=== PATIENT | male | born 1955 | race Caucasian/White ===

== ENCOUNTER 2016-08-23 06:23 | Day surgery (SDC) | payer OTHER ==
[~2016-08-23] VITALS: Ht 185.4 cm; Wt 132.0 kg
[~2016-08-23 06:23] MED LIST: ADVAI100I PO; ALBU8I INH; ASPI81 PO; CEPH500C3 PO; CLOP75 PO; LEVEMIR SQ; LISI2.5T3 PO; METO25 PO; NOVOLOGP2 SQ; OMEP20CA5 PO; PYRI200T4 PO; SPIRCAP INH; ZOCO40TA PO
[2016-08-23] MEDS ORDERED: SODIUM CHLOR 0.9% 1000 ML INJ 1,000 ML IV SCH (06:45)
[2016-08-23] MEDS ORDERED: NAPR220T95 PO (07:12)
[2016-08-23] MEDS ORDERED: LISI-515 PO (07:12)
[2016-08-23] MEDS ORDERED: NOVOINJ3 SQ (07:12)
[2016-08-23] MEDS ORDERED: PLAV75TA29 PO (07:12)
[2016-08-23] MEDS ORDERED: HYDR25TA5 PO (07:12)
[2016-08-23] MEDS ORDERED: ADVA250A INH (07:12)
[2016-08-23] MEDS ORDERED: ASPI1TAB69 PO (07:12)
[2016-08-23] MEDS ORDERED: CLOT1CRE8 TOPICAL (07:12)
[2016-08-23] MEDS ORDERED: METO25TA3 PO (07:12)
[2016-08-23] MEDS ORDERED: SIMV40TA PO (07:12)
[2016-08-23 07:13] VITALS: BP 176/85; PULSE 92; RESP 16; TEMP 97.9; O2SAT 100
[2016-08-23] MEDS ORDERED: VENTAER INH (07:13)
[2016-08-23] MEDS ORDERED: SPIRCAP INH (07:13)
[2016-08-23] MEDS ORDERED: INSU1INJ13 SQ (07:13)
[2016-08-23] MEDS ORDERED: ERGO1CAP10 PO (07:13)
[2016-08-23] MEDS ORDERED: MIDAZOLAM HCL 2 MG/2 ML VIAL ONE (08:35)
[2016-08-23] MEDS ORDERED: HEPARIN-NS/PF INJ 500 ML ONE (08:35)
[2016-08-23] MEDS ORDERED: IOHEXOL 350 MG/ML 100 ML BTL (for Cath Lab) OTHER ONE (09:30)
[2016-08-23] MEDS ORDERED: oxyCODONE/ACETAMINOPHEN 5 MG/325 MG TAB PO PRN ×2 (09:45)
[2016-08-23] MEDS ORDERED: ATROPINE SULFATE 1 MG/ML VIAL IV PRN (09:45)
[2016-08-23] MEDS ORDERED: METOCLOPRAMIDE HCL 10 MG/2 ML VIAL IV PRN (09:45)
[2016-08-23] MEDS ORDERED: MISC INFORMATION XX ONE (09:45)
[2016-08-23] MEDS ORDERED: BACITRACIN OINT 0.9 GM PKT TOP ONE (09:45)
[2016-08-23] MEDS ORDERED: LORazepam 2 MG/ML VIAL IV PRN (09:45)
[2016-08-23] MEDS ORDERED: SODIUM CHLOR 0.9% 250 ML INJ 250 ML IV PRN (09:45)
[2016-08-23] MEDS ORDERED: LIDOCAINE HCL 1% 50 ML VIAL INFIL PRN (09:45)
[2016-08-23] MEDS ORDERED: ONDANSETRON HCL 4 MG/2 ML VIAL IV PRN (09:45)
[2016-08-23] MEDS ORDERED: LISINOPRIL 20 MG TAB PO SCH (12:00)
[2016-08-23] MEDS ORDERED: METOPROLOL TARTRATE 25 MG TAB PO SCH (12:00)
[2016-08-23] MEDS ORDERED: PLEASE DISCONTINUE PREVIOUS SUPPLEMENTAL SCALE INSULIN ORDERS XX ONE (15:00)
[2016-08-23] MEDS ORDERED: GLUCAGON 1 MG/ML VIAL OTHER PRN (15:00)
[2016-08-23] MEDS ORDERED: DEXTROSE 50% IN WATER 50 ML VIAL(D50) IV PUSH PRN (15:00)
--- NOTE | 2016-08-23 15:36 | EKG ---
Date Performed: 08/23/2016 Time Performed: 07:10:16 PTAGE: 61 years EKG: Sinus rhythm with 1st degree A-V block LVH with secondary repolarization abnormality Lateral ST-T changes may be due to hypertrophy and/or ischemia When compared to prior tracing patient is back in sinus rhythm. Ab normal ECG PREVIOUS TRACING : 11/20/2015 08.20 DOCTOR: Angela Brown Interpretating Date/Time 08/23/2016 15:36:20
[2016-08-23] MEDS ORDERED: MEDIUM DOSE INSULIN NOVOLIN REGULAR SUPPLEMENTAL SCALE SQ SCH (16:00)
[2016-08-24] MEDS ORDERED: ISOSORBIDE MONONITRATE 30 MG TAB PO SCH (07:00)
--- NOTE | 2016-08-28 17:43 | MA ---
cc: MONROE MCCLENDON DATE: 08/28/2016 PROCEDURE PERFORMED 1. Fluoroscopy with interpretation. 2. Coronary angiography. 3. Coronary bypass graft angiography. METHOD The risks, benefits and alternatives were discussed with the patient. The patient understood and consented to the procedure. The patient was brought to the Cardiac Catheterization Laboratory, placed on the catheterization table. The right groin was prepped and draped in a sterile fashion. The right groin was anesthetized with 2% lidocaine. The right common femoral artery was cannulated. A 5-Cuban, 11-cm sheath was placed without difficulty. CORONARY ANGIOGRAPHY 1. The left main has minor luminal irregularities. 2. The left anterior descending coronary is heavily calcified and occluded in the proximal segment. 3. The left circumflex is occluded in the proximal segment. 4. The right coronary is subtotally occluded in the mid segment. The saphenous vein graft to the diagonal branch appears to be occluded. The saphenous vein graft to the right coronary is patent and has some minor luminal irregularities. The distal posterior descending branch is a smaller caliber size. The saphenous vein graft to the obtuse marginal branch is patent. The obtuse marginal branch is a smaller caliber size. 5. The left internal mammary to the left anterior descending coronary is patent. The distal left anterior descending coronary has moderate to severe small vessel distal disease not amenable to percutaneous intervention given small size. CONCLUSION 1. Severe [place] three-vessel coronary disease. 2. Three of four coronary bypass grafts are patent. PLAN Given the small caliber size vessels and the patency of the grafts, I do not think that there is anything that we can do percutaneously. We will add a long-acting nitrate, this may be an origin to some of his shortness of breath as an anginal equivalent, although non-cardiac causes should be investigated. MD ABNER Ham/CANDIE /2:36 PM /5:22 PM
== END 2016-08-23 16:41 | disposition home or self-care (01) ==
LOC: HDOC 06:23 → HDIC 06:23 → HDOC 14:00 → HDIC 14:44 → HDOC 16:41
PROVIDERS: ATTEND Internal Medicine
DX: I25.10 Atherosclerotic heart disease of native coronary artery without angina pectoris (principal); I10 Essential (primary) hypertension; I73.9 Peripheral vascular disease, unspecified; J44.9 Chronic obstructive pulmonary disease, unspecified; E11.9 Type 2 diabetes mellitus without complications; Z95.1 Presence of aortocoronary bypass graft; Z87.891 Personal history of nicotine dependence
CPT/HCPCS: 82948; 86850; 86900; 86901; 93005; 93454; C1769; C1893; J1644; J2250; J3010; Q9967

== ENCOUNTER 2016-10-25 17:24 | Inpatient (IN) | payer OTHER ==
[~2016-10-25] VITALS: Ht 188 cm; Wt 135.9 kg
[~2016-10-25 17:24] MED LIST changes: +ADVA250A INH; -ADVAI100I PO; -ALBU8I INH; +ASPI1TAB69 PO; -ASPI81 PO; -CEPH500C3 PO; -CLOP75 PO; +CLOT1CRE8 TOPICAL; +ERGO1CAP10 PO; +INSU1INJ13 SQ; -LEVEMIR SQ; +LISI-515 PO; -LISI2.5T3 PO; -METO25 PO; +METO25TA3 PO; +NAPR220T95 PO; +NOVOINJ3 SQ; -NOVOLOGP2 SQ; -OMEP20CA5 PO; +PLAV75TA29 PO; -PYRI200T4 PO; +SIMV40TA PO; +VENTAER INH; -ZOCO40TA PO
[2016-10-25 17:26] VITALS: BP 157/89; PULSE 108; RESP 26; TEMP 97.9; O2SAT 94
[2016-10-25 18:05] VITALS: BP 182/112; O2SAT 94
--- NOTE | 2016-10-25 18:05 | PD ---
HPI Chief Complaint: Chest Pain Time Seen by Provider: 18:05 Travel History International Travel<30 days: No Contact w/Intl Traveler<30days: No Traveled to known affect area: No History of Present Illness HPI 61-year-old male with severe CAD, previous CABG 4, hypertension, diabetes, COPD , followed by Dr. Barton and Dr. Pittman cardiology. Patient states approximately 4 weeks ago he was taken off his hydrochlorothiazide. He has since then he noticed swelling in his lower extremities. Over the last week he has noticed an increase in shortness of breath with activity. Over the last 3 days he has developed this chest pressure. He doesn't call it a pain specifically but a pressure, mostly with activity. Patient states his last stress test was in August. At that time something wasn't right" and was followed by cardiac catheterization which showed 3 out of 4 bypass vessels were patent. There was severe arterial disease identified. Patient denies any recent illnesses, fever, chills. Denies abdominal pain, nausea, vomiting. No other symptoms reported this time. PFSH Past Medical History Hx Anticoagulant Therapy: Yes Arthritis: No Asthma: No Autoimmune Disease: No Blood Disorders: No Anxiety: No Depression: No Heart Rhythm Problems: Yes Cancer: No Cardiovascular Problems: Yes High Cholesterol: Yes Chemotherapy: No Chest Pain: No Congestive Heart Failure: No COPD: Yes Cerebrovascular Accident: No Diabetes: Yes (TYPE II) Patient Takes Glucophage: No Diminished Hearing: No Endocrine: Yes Gastrointestinal Disorders: Yes ("fatty liver") GERD: Yes Glaucoma: No Genitourinary: Yes Headaches: No Hepatitis: No Hiatal Hernia: No Heparin Induced Thrombocytopen: No Hypertension: Yes Immune Disorder: No Implanted Vascular Access Dvce: No Kidney Stones: No Musculoskeletal: Yes Neurologic: No Psychiatric: No Reproductive: No Respiratory: Yes Integumentary: Yes (GENERALIZED SORES FROM SCRATCHING) Migraines: No Myocardial Infarction: No Radiation Therapy: No Renal Failure: No Seizures: No Sickle Cell Disease: No Sleep Apnea: No Thyroid Disease: No Ulcer: No Influenza Vaccination: No PNEUMOCCOCAL Vaccine (Year): 2 Past Surgical History Abdominal Surgery: Yes (CHOLECYSTECTOMY) AICD: No Appendectomy: No Arteriovenous Shunt: No Cardiac Surgery: Yes (QUAD BYPASS 05/2011) Cholecystectomy: Yes Coronary Artery Bypass Graft: Yes (4 YEARS AGO) Ear Surgery: No Endocrine Surgery: No Eye Surgery: No Genitourinary Surgery: No Gynecologic Surgery: No Insulin Pump: No Joint Replacement: No Neurologic Surgery: No Oral Surgery: No Pacemaker: No Thoracic Surgery: Yes (CABG) Other Surgery: Yes Social History Alcohol Use: No Tobacco Use: No Substance Use: No Allergies-Medications (Allergen,Severity, Reaction): Coded Allergies: Penicillin (Verified Allergy, Unknown, pt unknown, 10/25/16) Reported Meds & Prescriptions Reported Meds & Active Scripts Active Reported Ventolin Hfa 18 GM Inh (Albuterol Sulfate) 90 Mcg/Act Aer 2 Puff INH Q4-6H PRN Tresiba Flextouch Pen Inj (Insulin Degludec Inj) 600 unit/3 ML Pen 120 Units SQ Spiriva Handihaler (Tiotropium Inh) 18 Mcg Cap 18 Mcg INH DAILY 1 capsule = 18 mcg Simvastatin 40 Mg Tab 40 Mg PO HS Novolog Flexpen Inj (Insulin Aspart) 300 Unit/3 Ml Pen 30 Units SQ Metoprolol Tartrate 25 Mg Tab 25 Mg PO BID Lisinopril 20 Mg Tab 40 Mg PO DAILY Plavix (Clopidogrel Bisulfate) 75 Mg Tab 75 Mg PO DAILY Aspirin 81 Mg Tabdr 81 Mg PO DAILY Aleve (Naproxen Sodium) 220 Mg Tab 220 Mg PO BID PRN Advair Diskus Inh (Fluticasone-Salmeterol Inh) 250-50 Mcg/Blist Aer 1 Puff INH BID Rinse mouth after use. Review of Systems Except as stated in HPI: all other systems reviewed are Neg Physical Exam Narrative GENERAL: BCL patient, lying in bed in no acute distress SKIN: Warm and dry. Multiple scabbed scalp lesions on the bilateral lower extremities. HEAD: Atraumatic. Normocephalic. EYES: Pupils equal and round. No scleral icterus. No injection or drainage. ENT: No nasal bleeding or discharge. Mucous membranes pink and moist. NECK: Trachea midline. No JVD. CARDIOVASCULAR: Tachycardic rate and rhythm. No murmur appreciated. RESPIRATORY: No accessory muscle use. Diminished due to poor inspiratory effort to auscultation. Breath sounds equal bilaterally. GASTROINTESTINAL: Abdomen soft, non-tender, nondistended. Hepatic and splenic margins not palpable. MUSCULOSKELETAL: No obvious deformities. No clubbing. No cyanosis. 1+ bilateral lower extremity edema NEUROLOGICAL: Awake and alert. No obvious cranial nerve deficits. Motor grossly within normal limits. Normal speech. PSYCHIATRIC: Appropriate mood and affect; insight and judgment normal. Data Data Last Documented VS Vital Signs Date Time Temp Pulse Resp B/P Pulse Ox O2 Delivery O2 Flow Rate FiO2 10/25/16 18:05 182/112 10/25/16 18:05 94 Nasal Cannula 2 10/25/16 17:26 97.9 108 26 Orders Electrocardiogram (10/25/16 ) B-Type Natriuretic Peptide (10/25/16 18:04) Ckmb (Isoenzyme) Profile (10/25/16 18:) Complete Blood Count With Diff (10/25/16 18:) Comprehensive Metabolic Panel (10/25/16 18:04) Magnesium (Mg) (10/25/16 18:) Prothrombin Time / Inr (Pt) (10/25/16 18:) Act Partial Throm Time (Ptt) (10/25/16 18:04) Troponin I (10/25/16 18:04) Chest, Single Ap (10/25/16 18:04) Ecg Monitoring (10/25/16 18:04) Bilateral Bp Monitoring (10/25/16 18:04) Iv Access Insert/Monitor (10/25/16 18:04) Oximetry (10/25/16 18:04) Oxygen Administration (10/25/16 18:04) Sodium Chloride 0.9% Flush (Ns Flush) (10/25/16 18:15) Aspirin Chew (Aspirin Chew) (10/25/16 18:15) CKMB (10/25/16 18:15) CKMB% (10/25/16 18:15) Heparin Infusion GABRIELA.Q1H (10/25/16 19:08) Heparin Inj (Heparin Inj) (10/25/16 19:15) Heparin Inj (Heparin Inj) (10/26/16 01:15) Heparin Inj (Heparin Inj) (10/26/16 01:15) Heparin-D5w Inj (Heparin-D5w Inj) (10/25/16 19:15) Cbc No Diff, Includes Plts (10/28/16 06:00) Act Partial Throm Time (Ptt) (10/26/16 02:08) Occult Blood (Hemoccult) Stool (10/25/16 19:08) Consult Cardiology (10/25/16 ) Nitroglycerin-Dextrose Inj (Nitroglyceri (10/25/16 19:30) Admit Order (Ed Use Only) (10/25/16 19:40) Labs Laboratory Tests Test 10/25/16 18:15 White Blood Count 8.6 TH/MM3 Red Blood Count 5.05 MIL/MM3 Hemoglobin 13.4 GM/DL Hematocrit 41.0 % Mean Corpuscular Volume 81.2 FL Mean Corpuscular Hemoglobin 26.6 PG Mean Corpuscular Hemoglobin 32.8 % Concent Red Cell Distribution Width 16.6 % Platelet Count 170 TH/MM3 Mean Platelet Volume 10.5 FL Neutrophils (%) (Auto) 66.7 % Lymphocytes (%) (Auto) 22.9 % Monocytes (%) (Auto) 7.5 % Eosinophils (%) (Auto) 2.0 % Basophils (%) (Auto) 0.9 % Neutrophils # (Auto) 5.7 TH/MM3 Lymphocytes # (Auto) 2.0 TH/MM3 Monocytes # (Auto) 0.6 TH/MM3 Eosinophils # (Auto) 0.2 TH/MM3 Basophils # (Auto) 0.1 TH/MM3 CBC Comment DIFF FINAL Differential Comment Prothrombin Time 10.7 SEC Prothromb Time International 1.0 RATIO Ratio Activated Partial 28.1 SEC Thromboplast Time Sodium Level 136 MEQ/L Potassium Level 4.4 MEQ/L Chloride Level 100 MEQ/L Carbon Dioxide Level 25.4 MEQ/L Anion Gap 11 MEQ/L Blood Urea Nitrogen 31 MG/DL Creatinine 2.34 MG/DL Estimat Glomerular Filtration 29 ML/MIN Rate Random Glucose 200 MG/DL Calcium Level 8.5 MG/DL Magnesium Level 1.8 MG/DL Total Bilirubin 0.5 MG/DL Aspartate Amino Transf 49 U/L (AST/SGOT) Alanine Aminotransferase 25 U/L (ALT/SGPT) Alkaline Phosphatase 54 U/L Total Creatine Kinase 930 U/L Creatine Kinase MB 13.1 NG/ML Creatine Kinase MB % 1.4 % Troponin I 6.44 NG/ML B-Type Natriuretic Peptide 552 PG/ML Total Protein 6.9 GM/DL Albumin 3.3 GM/DL MDM Medical Decision Making Medical Screen Exam Complete: Yes Emergency Medical Condition: Yes Medical Record Reviewed: Yes Differential Diagnosis ACS versus BNP versus chest wall pain versus pleuritic pain versus pneumonia Narrative Course 61-year-old male presents to emergency department for evaluation of a chest pressure, exacerbated mostly with activity increased shortness of breath, lower extremity swelling. Patient appears overall well without distress. He is not currently having any chest pain. I contacted cardiology, Dr. Blake who is covering for Dr. Pittman, prior to workup being completed to inform him of EKG changes identified as well as the patient is here. At this time he has no further recommendation. CBC is without acute concern. CMP is with elevated creatinine 2.34 with a BUN of 31. GFR is 29. Troponin is 6.44. BNP is 552. My attending physician Dr. Leon has contacted Dr. Blake who is in the emergency department. Please refer to her documentation. [address] Willis. Patient being admitted to [facility]. Physician Communication Physician Communication [id number] 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 I inform him of the new ST depression and increase in elevation in anterior leads when compared to prior, as well as the pt's history and current symptoms. 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 Diagnosis Primary Impression: NSTEMI, initial episode of care Additional Impressions: Chest pressure Shortness of breath Admitting Information Admitting Physician Requests: Admit Condition: Stable CorwinAdrijesús MARSH Oct 25, 2016 18:05
[2016-10-25] MEDS ORDERED: SODIUM CHLORIDE 0.9% FLUSH 5 ML FLUSH IVF PRN (18:15)
[2016-10-25] MEDS ORDERED: ASPIRIN 81 MG CHEW TAB CHEW ONE (18:15)
[2016-10-25 18:23] LABS: AUTOMATED NEUTROPHIL # 5.7 TH/MM3 (1.8-7.7); BASOPHIL # 0.1 TH/MM3 (0-0.2); BASOPHIL % 0.9 % (0.0-2.0); EOSINOPHIL # 0.2 TH/MM3 (0-0.4); HEMO FLAGS DIFF FINAL; LYMPH % 22.9 % (9.0-44.0); MEAN CELL VOLUME 81.2 FL (80.0-100.0); MEAN CORPUSCULAR HEMOGLOBIN 26.6 PG (27.0-34.0); MEAN CORPUSCULAR HGB CONC 32.8 % (32.0-36.0); MONO % 7.5 % (0.0-8.0); NEUT % 66.7 % (16.0-70.0); PLATELET COUNT 170 TH/MM3 (150-450); RED BLOOD COUNT 5.05 MIL/MM3 (4.50-5.90); RED CELL DISTRIBUTION WIDTH 16.6 % (11.6-17.2); WHITE BLOOD COUNT 8.6 TH/MM3 (4.0-11.0)
--- NOTE | 2016-10-25 18:30 | RADRPT ---
EXAM DATE/TIME: 10/25/2016 18:10 [facility] COMPARISON: CHEST SINGLE AP, March 12, 2014, 17:56. INDICATIONS : Shortness of breath. MEDICAL HISTORY : Chronic obstructive pulmonary disease. Diabetes mellitus type II. Hypertension. SURGICAL HISTORY : CABG. ENCOUNTER: Initial ACUITY: 2 days PAIN SCORE: 0/10 LOCATION: chest FINDINGS: A single view of the chest demonstrates the lungs to be symmetrically aerated without evidence of mas s, infiltrate or effusion. The cardiomediastinal contours are unremarkable. Osseous structures are intact. Patient has had previous median sternotomy. CONCLUSION: No acute cardiopulmonary disease demonstrated. Ruben Rivas MD on October 25, 2016 at 18:28 Board Certified Radiologist. This report was verified electronically.
[2016-10-25 18:43] LABS: APTT (PATIENT) 28.1 SEC (24.3-30.1); PROTHROMBIN TIME - PATIENT 10.7 SEC (9.8-11.6)
[2016-10-25 18:56] LABS: ALKALINE PHOSPHATASE 54 U/L (45-117); ALT (GPT) 25 U/L (12-78); ANION GAP 11 MEQ/L (5-15); AST (GOT) 49 U/L (15-37); BICARBONATE 25.4 MEQ/L (21.0-32.0); BLOOD UREA NITROGEN 31 MG/DL (7-18); CHLORIDE 100 MEQ/L (98-107); CREATINE KINASE 930 U/L (39-308); GLOMERULAR FILTRATION RATE 29 ML/MIN (>89); MAGNESIUM 1.8 MG/DL (1.5-2.5); POTASSIUM 4.4 MEQ/L (3.5-5.1); SODIUM (NA) 136 MEQ/L (136-145); TOTAL BILIRUBIN ADULT 0.5 MG/DL (0.2-1.0)
[2016-10-25] MEDS ORDERED: HEPARIN SODIUM - IV 10,000 UNITS/10 ML VIAL IV ONE (19:15)
[2016-10-25 19:16] LABS: CKMB 13.1 NG/ML (0.5-3.6)
[2016-10-25] MEDS: HEPARIN-D5W INJ 250 ML IV SCH (19:22)
--- NOTE | 2016-10-25 19:25 | PD ---
Physical Exam Narrative GENERAL: Well-nourished, well-developed patient. SKIN: Warm and dry. HEAD: Normocephalic and atraumatic. EYES: No injection or drainage. ENT: No nasal drainage noted. NECK: Supple, trachea midline. CARDIOVASCULAR: Regular rate and rhythm RESPIRATORY: Breath sounds equal bilaterally. No accessory muscle use. GASTROINTESTINAL: Abdomen soft, non-tender, nondistended. EXTREMITIES: No edema. BACK: Nontender without obvious deformity. NEUROLOGICAL: Awake and alert. Motor and sensory grossly within normal limits. Normal speech. Data Data Last Documented VS Orders Electrocardiogram (10/25/16 ) B-Type Natriuretic Peptide (10/25/16 18:04) Ckmb (Isoenzyme) Profile (10/25/16 18:) Complete Blood Count With Diff (10/25/16 18:) Comprehensive Metabolic Panel (10/25/16 18:) Magnesium (Mg) (10/25/16 18:04) Prothrombin Time / Inr (Pt) (10/25/16 18:) Act Partial Throm Time (Ptt) (10/25/16 18:) Troponin I (10/25/16 18:) Chest, Single Ap (10/25/16 18:04) Ecg Monitoring (10/25/16 18:) Bilateral Bp Monitoring (10/25/16 18:) Iv Access Insert/Monitor (10/25/16 18:) Oximetry (10/25/16 18:) Oxygen Administration (10/25/16 18:04) Sodium Chloride 0.9% Flush (Ns Flush) (10/25/16 18:15) Aspirin Chew (Aspirin Chew) (10/25/16 18:15) CKMB (10/25/16 18:15) CKMB% (10/25/16 18:15) Heparin Infusion GABRIELA.Q1H (10/25/16 19:08) Heparin Inj (Heparin Inj) (10/25/16 19:15) Heparin Inj (Heparin Inj) (10/26/16 01:15) Heparin Inj (Heparin Inj) (10/26/16 01:15) Heparin-D5w Inj (Heparin-D5w Inj) (10/25/16 19:15) Cbc No Diff, Includes Plts (10/28/16 06:00) Act Partial Throm Time (Ptt) (10/26/16 02:08) Occult Blood (Hemoccult) Stool (10/25/16 19:08) Consult Cardiology (10/25/16 ) Nitroglycerin-Dextrose Inj (Nitroglyceri (10/25/16 19:30) Admit Order (Ed Use Only) (10/25/16 19:40) Labs MDM Supervised Visit with SILVIA: Yes Interpretation(s) CBC & BMP Diagram 10/25/16 18:15 Last 24 hours Impressions Chest X-Ray 10/25/16 1804 Signed Impressions: Service Date/Time: Tuesday, October 25, 2016 18:10 - CONCLUSION: No acute cardiopulmonary disease demonstrated. Ruben Rivas MD EKG is sinus tachycardia at [address] depression V5, 2 and increase in elevation anteriorly when compared to prior Narrative Course I, Dr. leon, have reviewed the advance practice practitioner's documentation and am in agreement, met with the patient face to face, made the diagnosis, and the medical decision making was done by me. *My assessment and Findings: 61-year-old male presents with chest pain. Given EKG I had PA discuss with screen making technician on-call given new ST depression and increase in elevation in anterior leads. When I received critical troponin I discuss this with screen making technician. Patient was updated and he will be started on nitroglycerin and heparin drip and admitted to [facility] for further care. Critical Care Narrative Aggregate critical care time was 35 minutes. Time to perform other separately billable procedures was not included in the critical care time. My time did not include minutes spent treating any other patients simultaneously or on activities that did not directly contribute to the patient's treatment. The services I provided to this patient were to treat and/or prevent clinically significant deterioration that could result in: Cardiogenic shock, hypertensive emergency I provided critical care services requiring my management, as noted below: Chart data review, documentation time, medication orders and management, vital sign assessments/reviewing monitor data, ordering and reviewing lab tests, ordering and interpreting/reviewing x-rays and diagnostic studies, care of the patient and discussion of the patient with the admitting physicians. Physician Communication Physician Communication dr ro was in department as I got called about patient's critical troponin, he reviewed ekg and prior cath report and states medical management but didn't talk with patient Diagnosis Primary Impression: NSTEMI, initial episode of care Additional Impressions: Chest pressure Shortness of breath Admitting Information Admitting Physician Requests: Admit Scripts Cyclobenzaprine (Flexeril)10 Mg Tab10 Mg PO Q8H PRN (spasm pain) #20 TAB Ref 1 Prov:ArletteJorge Alberto Chetan DO 10/31/16 Insulin Aspart Inj (Novolog Inj)1,000 Unit/10 Ml Vial SQ DIRECTED #10 ML Ref 0 Sliding Scale as directed. Prov:Dian Louie 10/31/16 Insulin Detemir Inj (Levemir Inj)1,000 unit/ 10 ML Vial20 Units SQ BID 30 Days Prov:Dian Louie 10/31/16 Guaifenesin ER 12 HR (Mucinex ER 12 HR)600 Mg [id number] Mg PO BID #62 TAB Prov:Dian Louie 10/31/16 Loratadine (Claritin)10 Mg Tab10 Mg PO DAILY #31 TAB Prov:Dian Louie 10/31/16 Carvedilol (Coreg)12.5 Mg Tab12.5 Mg PO Q12HR #62 TAB Prov:Dian Louie 10/31/16 Furosemide 20 Mg Tab20 Mg PO DAILY #31 TAB Prov:Dian Louie 10/31/16 Condition: Stable Paola Leon MD Oct 25, 2016 19:25 Creatinine 2.34 MG/DL Estimat Glomerular Filtration 29 ML/MIN Rate Random Glucose 200 MG/DL Calcium Level 8.5 MG/DL Magnesium Level 1.8 MG/DL Total Bilirubin 0.5 MG/DL Aspartate Amino Transf 49 U/L (AST/SGOT) Alanine Aminotransferase 25 U/L (ALT/SGPT) Alkaline Phosphatase 54 U/L Total Creatine Kinase 930 U/L Creatine Kinase MB 13.1 NG/ML Creatine Kinase MB % 1.4 % Troponin I 6.44 NG/ML B-Type Natriuretic Peptide 552 PG/ML Total Protein 6.9 GM/DL Albumin 3.3 GM/DL MDM Supervised Visit with SILVIA: Yes Interpretation(s) CBC & BMP Diagram 10/25/16 18:15 Last 24 hours Impressions Chest X-Ray 10/25/16 1804 Signed Impressions: Service Date/Time: Tuesday, October 25, 2016 18:10 - CONCLUSION: No acute cardiopulmonary disease demonstrated. Ruben Rivas MD EKG is sinus tachycardia at [address] depression V5, 2 and increase in elevation anteriorly when compared to prior Narrative Course I, Dr. leon, have reviewed the advance practice practitioner's documentation and am in agreement, met with the patient face to face, made the diagnosis, and the medical decision making was done by me. *My assessment and Findings: 61-year-old male presents with chest pain. Given EKG I had PA discuss with screen making technician on-call given new ST depression and increase in elevation in anterior leads. When I received critical troponin I discuss this with screen making technician. Patient was updated and he will be started on nitroglycerin and heparin drip and admitted to [facility] for further care. Critical Care Narrative Aggregate critical care time was 35 minutes. Time to perform other separately billable procedures was not included in the critical care time. My time did not include minutes spent treating any other patients simultaneously or on activities that did not directly contribute to the patient's treatment. The services I provided to this patient were to treat and/or prevent clinically significant deterioration that could result in: Cardiogenic shock, hypertensive emergency I provided critical care services requiring my management, as noted below: Chart data review, documentation time, medication orders and management, vital sign assessments/reviewing monitor data, ordering and reviewing lab tests, ordering and interpreting/reviewing x-rays and diagnostic studies, care of the patient and discussion of the patient with the admitting physicians. Physician Communication Physician Communication dr ro was in department as I got called about patient's critical troponin, he reviewed ekg and prior cath report and states medical management but didn't talk with patient Diagnosis Primary Impression: NSTEMI, initial episode of care Additional Impressions: Chest pressure Shortness of breath Admitting Information Admitting Physician Requests: Admit Condition: Stable Paola Leon MD Oct 25, 2016 19:25
[2016-10-25] MEDS ORDERED: NITROGLYCERIN-DEXTROSE INJ 250 ML IV ONE (19:30)
[2016-10-25 20:00] VITALS: BP 130/69; PULSE 100; RESP 18; O2SAT 94
[2016-10-25] MEDS ORDERED: SODIUM CHLORIDE 0.9% FLUSH 5 ML FLUSH IV PRN (21:30)
[2016-10-25] MEDS ORDERED: ALBUTEROL SULFATE 90 MCG/ACT HFA 8 GM INHALER INH PRN (21:45)
[2016-10-25] MEDS ORDERED: cloNIDine HCL 0.1 MG TAB PO PRN (21:45)
[2016-10-25 22:00] VITALS: BP 150/84; PULSE 100; RESP 20; O2SAT 95
[2016-10-25] MEDS ORDERED: DEXTROSE 50% IN WATER 50 ML VIAL(D50) IV PUSH PRN (22:00)
[2016-10-25] MEDS ORDERED: GLUCAGON 1 MG/ML VIAL OTHER PRN (22:00)
[2016-10-25] MEDS: NITROGLYCERIN 2% OINT 1 GM PACKET TOPICAL SCH (22:04)
[2016-10-26] VITALS (9 sets, daily range): BP systolic 138–164; BP diastolic 78–89; PULSE 92–110; RESP 18–20; TEMP 97–98; O2SAT 94–98
[2016-10-26] MEDS ORDERED: HEPARIN SODIUM - IV 10,000 UNITS/10 ML VIAL IV PRN (01:15)
[2016-10-26 01:20] LABS: CKMB 8.9 NG/ML (0.5-3.6)
[2016-10-26 02:33] LABS: APTT (PATIENT) 29.5 SEC (24.3-30.1)
[2016-10-26] MEDS: NITROGLYCERIN 2% OINT 1 GM PACKET TOPICAL SCH ×3 (03:52→16:56)
[2016-10-26] MEDS: HEPARIN SODIUM - IV 10,000 UNITS/10 ML VIAL IV PRN (03:55)
[2016-10-26 06:39] LABS: BICARBONATE 25.3 MEQ/L (21.0-32.0); POTASSIUM 4.1 MEQ/L (3.5-5.1)
[2016-10-26] MEDS: INSULIN ASPART SUPPLEMENTAL SCALE SQ SCH ×4 (06:45→20:47)
[2016-10-26 07:10] LABS: CKMB 10.8 NG/ML (0.5-3.6)
[2016-10-26 08:07] LABS: APTT (PATIENT) 36.5 SEC (24.3-30.1)
--- NOTE | 2016-10-26 08:52 | HHI.HP ---
HPI Service CP Hospitalists Primary Care Physician Lyndsey Barton MD Admission Diagnosis sob. elevated troponin Chief Complaint: sob Travel History International Travel<30 Days: No Contact w/Intl Traveler <30 Da: No Traveled to Known Affected Are: No History of Present Illness Pt is 61 yo with cad, cabg x 4 2009, [facility] 09/03 with 3/4 patent grafts. Has been complaining of postnasal gtt and chest congestion, sob with exertion. Came to ED and found to have elevated troponin and concern for new st depression laterally. admitted to medicine with heparin gtt and cardiology notified from the ED. pt denies cp at the moment. says he feels both legs are more swollen since his hctz stopped 6 weeks ago. Review of Systems Other sob postnasal gtt Past Family Social History Past Medical History cad. 4v cabg 2009 [facility] 09/03. 3/4 graft open diabetes ckd 3 hx [place] with bridging fibrosis PAD. rle revascularization. copd Reported Medications Ventolin Hfa 18 GM Inh (Albuterol Sulfate) 90 Mcg/Act Aer 2 Puff INH Q4-6H PRN Tresiba Flextouch Pen Inj (Insulin Degludec Inj) 600 unit/3 ML Pen 120 Units SQ Spiriva Handihaler (Tiotropium Inh) 18 Mcg Cap 18 Mcg INH DAILY 1 capsule = 18 mcg Simvastatin 40 Mg Tab 40 Mg PO HS Novolog Flexpen Inj (Insulin Aspart) 300 Unit/3 Ml Pen 30 Units SQ Metoprolol Tartrate 25 Mg Tab 25 Mg PO BID Lisinopril 20 Mg Tab 40 Mg PO DAILY Plavix (Clopidogrel Bisulfate) 75 Mg Tab 75 Mg PO DAILY Aspirin 81 Mg Tabdr 81 Mg PO DAILY Aleve (Naproxen Sodium) 220 Mg Tab 220 Mg PO BID PRN Advair Diskus Inh (Fluticasone-Salmeterol Inh) 250-50 Mcg/Blist Aer 1 Puff INH BID Rinse mouth after use. Allergies: Coded Allergies: Penicillin (Verified Allergy, Unknown, pt unknown, 10/25/16) Family History NC Social History no etoh/tob quit smoking 2009 Physical Exam Vital Signs heart reg lung cta abd s/nt ext mild lower ext edema diffuse skin sores Vital Signs Date Time Temp Pulse Resp B/P Pulse Ox O2 Delivery O2 Flow Rate FiO2 10/26/16 08:15 99 10/26/16 06:00 110 10/26/16 05:00 105 3/11/17 04:00 98.0 99 20 148/88 98 10/26/16 04:00 99 10/26/16 00:28 92 18 138/78 96 Room Air 10/25/16 22:00 100 20 150/84 95 Room Air 10/25/16 20:00 100 18 130/69 94 Room Air 10/25/16 18:05 182/112 10/25/16 18:05 94 Nasal Cannula 2 10/25/16 18:05 94 Nasal Cannula 2 10/25/16 17:26 97.9 108 26 157/89 94 Room Air Laboratory Laboratory Tests Test 10/25/16 10/26/16 10/26/16 10/26/16 18:15 00:09 02:05 05:52 White Blood Count 8.6 Red Blood Count 5.05 Hemoglobin 13.4 Hematocrit 41.0 Mean Corpuscular Volume 81.2 Mean Corpuscular Hemoglobin 26.6 Mean Corpuscular Hemoglobin 32.8 Concent Red Cell Distribution Width 16.6 Platelet Count 170 Mean Platelet Volume 10.5 Neutrophils (%) (Auto) 66.7 Lymphocytes (%) (Auto) 22.9 Monocytes (%) (Auto) 7.5 Eosinophils (%) (Auto) 2.0 Basophils (%) (Auto) 0.9 Neutrophils # (Auto) 5.7 Lymphocytes # (Auto) 2.0 Monocytes # (Auto) 0.6 Eosinophils # (Auto) 0.2 Basophils # (Auto) 0.1 CBC Comment DIFF FINAL Differential Comment Prothrombin Time 10.7 Prothromb Time International 1.0 Ratio Activated Partial 28.1 29.5 Thromboplast Time Sodium Level 136 138 Potassium Level 4.4 4.1 Chloride Level 100 103 Carbon Dioxide Level 25.4 25.3 Anion Gap 11 10 Blood Urea Nitrogen 31 27 Creatinine 2.34 1.94 Estimat Glomerular Filtration 29 36 Rate Random Glucose 200 191 Calcium Level 8.5 8.7 Magnesium Level 1.8 Total Bilirubin 0.5 Aspartate Amino Transf 49 (AST/SGOT) Alanine Aminotransferase 25 (ALT/SGPT) Alkaline Phosphatase 54 Total Creatine Kinase 930 680 805 Creatine Kinase MB 13.1 8.9 10.8 Creatine Kinase MB % 1.4 1.3 1.3 Troponin I 6.44 5.89 6.24 B-Type Natriuretic Peptide 552 Total Protein 6.9 Albumin 3.3 Test 10/26/16 07:44 Activated Partial 36.5 Thromboplast Time Result Diagram: 10/25/16 1815 10/26/16 0552 Assessment and Plan Problem List: (1) Shortness of breath Status: Acute Plan: Pt present with sob. worse with exertion complains of alot of sinus and postnasal gtt "into chest" for at least "4-6months" Pt had [facility] 09/03 and / grafts patent admitted last night for c/o sob and elevated troponin and concern for lateral st depression. heparin initiated in ED pt already on asa/plavix/statin/bb cardiology had been consulted in ED. he is concerned about leg swelling since hctz was stopped. cardiology initiating diuretics. monitor bmp. echo will initiate medical therapy for sinus drainage. pt says his pcp already gave him "2 courses of abx" (2) Diabetes mellitus Status: Chronic Plan: will provide ssi for now hold home meds. (3) CKD (chronic kidney disease) stage 3, GFR 30-59 ml/min Status: Chronic Plan: stable. (4) PVD (peripheral vascular disease) Status: Chronic (5) CAD (coronary artery disease) Status: Chronic Plan: hx cabg x 4 2009 [facility] 09/03 as above. cont home meds (6) VT (ventricular tachycardia) Status: Resolved (7) GERD (gastroesophageal reflux disease) Status: Chronic Plan: ppi Physician Certification 2 Midnight Certification Type: Admission for Inpatient Services Order for Inpatient Services 3The services are ordered in accordance with Medicare regulations or non- Medicare payer requirements, as applicable. In the case of services not specified as inpatient-only, they are appropriately provided as inpatient services in accordance with the 2-midnight benchmark. Estimated LOS (days): 3 3 days is the estimated time the patient will need to remain in the hospital, assuming treatment plan goals are met and no additional complications. Post-Hospital Plan: Home John Fuentes MD Oct 26, 2016 08:52
[2016-10-26] MEDS: TIOTROPIUM BROMIDE 18 MCG INH INH SCH (09:00)
[2016-10-26] MEDS: BUDESONIDE-FORMOTEROL 160/4.5 MCG INHALER INH SCH ×2 (09:00→20:47)
[2016-10-26] MEDS ORDERED: LISINOPRIL 20 MG TAB PO SCH (09:00)
[2016-10-26] MEDS: CLOPIDOGREL 75 MG TAB PO SCH (09:35)
[2016-10-26] MEDS: ASPIRIN EC 81 MG TABEC PO SCH (09:36)
[2016-10-26] MEDS: SODIUM CHLORIDE 0.9% FLUSH 5 ML FLUSH IV SCH ×2 (09:36→20:47)
[2016-10-26] MEDS: METOPROLOL TARTRATE 25 MG TAB PO SCH ×2 (09:36→20:47)
[2016-10-26] MEDS: FLUTICASONE PROPIONATE 50 MCG/ACT 16 GM NASAL SPRAY EACH NARE SCH (09:36)
[2016-10-26] MEDS: FUROSEMIDE 40 MG/4 ML VIAL IV PUSH SCH ×2 (09:47→16:55)
[2016-10-26] MEDS: guaiFENesin E.R. 600 MG TAB PO SCH ×2 (09:47→20:47)
[2016-10-26] MEDS: LORATADINE 10 MG TAB PO SCH (09:47)
--- NOTE | 2016-10-26 10:52 | MB ---
cc: LILLIAN MANJARREZ MD DATE OF CONSULTATION: 10/26/2016 REASON FOR CONSULTATION Shortness of breath, non-STEMI. HISTORY OF PRESENT ILLNESS The patient is a very pleasant 61-year-old gentleman who sees my colleague Dr. Ramos for a history of coronary artery disease and who had a recent cardiac catheterization this past August which showed severe [place] three-vessel disease and three out of four patent bypass grafts, and these findings were elected to be treated medically. The patient presents with about a week of shortness breath on exertion as well as lower extremity edema. The patient after work yesterday was very short of breath and he asked his brother to bring him to the hospital where he was found to be in clinical congestive heart failure and he also had elevated cardiac enzymes. He was admitted on a heparin drip and apparently got some diuresis. This morning the patient says he feels much better after significant diuresis without any residual shortness of breath or edema, he has no chest pain, lightheadedness or dizziness. PAST MEDICAL HISTORY 1. Hypertension. 2. Coronary artery disease as above. 3. Diabetes. 4. Obesity. 5. PAD. CURRENT MEDICATIONS 1. Pravachol 80 mg q.h.s. 2. Aspirin 81 mg daily. 3. Plavix 75 mg daily. 4. Lisinopril 40 mg daily. 5. Lopressor 25 mg b.i.d. ALLERGIES PENICILLIN. PHYSICAL EXAMINATION VITAL SIGNS: Afebrile, pulse 99, respiratory rate 20, BP 144/88, satting 98% on room air. GENERAL: A very pleasant, well-appearing gentleman in no distress. NECK: Decreased breath sounds with scattered wheezes. CARDIOVASCULAR: Regular rate and rhythm. No murmurs appreciated. ABDOMEN: Abdomen is benign. EXTREMITIES: No edema. LABORATORY DATA Sodium 138, potassium 4.1, chloride 103, bicarb 25.1, BUN 27, creatinine 1.94 down from 2.34. Troponins are 6.44, 5.89, 6.24 with elevated CK and CK-MBs. INR is 1.0. White count 8.6, hematocrit 41.0, platelets 170. BNP was 552. EKG showed sinus tachycardia with anterolateral ST depressions consistent with ischemia. IMPRESSION 1. CHF. The patient presents with clinical congestive heart failure and elevated cardiac enzymes without any chest pain. I will continue diuresis a little longer though he does seem like he has compensated fairly quickly. We will have to watch his kidney function though he has improved significantly with the diuresis he got yesterday. 2. Elevated cardiac enzymes. The patient had stable coronary disease by his last heart cath though these are significantly elevated enzymes more so than we would typically expect to see with CHF alone even in the setting of renal insufficiency. He is on a heparin drip and I will leave the decision about further revascularization options to his primary employment specialist Dr. Ramos. Further recommendations will be based on the clinical course. Thank you again for opportunity to participate this patient's care. MD DIANNA Poole/CANDIE /8:57 AM /10:28 AM
[2016-10-26] MEDS: HEPARIN-D5W INJ 250 ML IV SCH (12:16)
[2016-10-26 14:15] LABS: APTT (PATIENT) 33.2 SEC (24.3-30.1)
--- NOTE | 2016-10-26 17:39 | EC ---
Study Study Date:10/26/2016 STUDY CONCLUSIONS SUMMARY - Left ventricle: The cavity size was mildly dilated. Wall thickness was normal. Systolic function was severely reduced. The estimated ejection fraction was in the range of 15% to 20%. Akinesis of the apical myocardium. - Mitral valve: Mild regurgitation. - Pulmonary arteries: PA peak pressure: 43mm Hg (S). If LV function is below 40, please consider prescribing an ACEI or ARB or document rationale for non-use. PROCEDURE DATA STUDY STATUS: Elective. Procedure: Transthoracic echocardiography. Image quality was good. Scanning was performed from the parasternal, apical, and subcostal acoustic windows. Study completion: The patient tolerated the procedure well. Transthoracic echocardiography. M-mode, complete 2D, complete spectral Doppler, and color Doppler. Patient status: Inpatient. CARDIAC ANATOMY LEFT VENTRICLE: The cavity size was mildly dilated. Wall thickness was normal. Systolic function was severely reduced. The estimated ejection fraction was in the range of 15% to 20%. Regional wall motion abnormalities: Akinesis of the apical myocardium. AORTIC VALVE: Trileaflet; normal thickness leaflets. Doppler: Transvalvular velocity was within the normal range. There was no stenosis. No regurgitation. AORTA: Aortic root: The aortic root was normal in size. MITRAL VALVE: Structurally normal valve. Doppler: Transvalvular velocity was within the normal range. There was no evidence for stenosis. Mild regurgitation. Peak gradient: 7mm Hg (D). LEFT ATRIUM: The atrium was normal in size. RIGHT VENTRICLE: The cavity size was normal. Wall thickness was normal. PULMONIC VALVE: Doppler: Transvalvular velocity was within the normal range. There was no evidence for stenosis. No regurgitation. TRICUSPID VALVE: Structurally normal valve. Doppler: Transvalvular velocity was within the normal range. Trace regurgitation. PULMONARY ARTERY: The main pulmonary artery was normal-sized. Systolic pressure was within the normal range. RIGHT ATRIUM: The atrium was normal in size. PERICARDIUM: There was no pericardial effusion. SYSTEMIC VEINS: Inferior vena cava: The vessel was normal in size. BASIC MEASUREMENTS ADULT Normal Left ventricle LV internal dimension, ED, chordal level, *54.7 mm 43-52 PLAX LV internal dimension, ES, chordal level, *49.6 mm 23-38 PLAX Fractional shortening, chordal level, PLAX *9 % >29 LV posterior wall thickness, ED 9.13 mm IVS/LVPW ratio, ED 1.09 <1.3 Volume, ED, MOD, 1-plane 179 ml Volume, ES, MOD, 1-plane 140 ml Ejection fraction, MOD, 1-plane 22 % Stroke volume, MOD, 1-plane 39 ml Ventricular septum Septal thickness, ED 9.92 mm Aortic valve Leaflet separation 26 mm 15-26 Left atrium Anterior-posterior dimension 38 mm Right ventricle RV internal dimension, ED, PLAX 29.3 mm 19-38 BASIC MEASUREMENTS ADULT Normal Aortic valve Leaflet separation 26 mm 15-26 Aorta Root diameter, ED *38 mm 20-37 DOPPLER MEASUREMENTS ADULT Normal Main pulmonary artery Pressure, S *43 mm Hg =30 Mitral valve Peak E-wave velocity 128 cm/s Peak A-wave velocity 37.3 cm/s Peak gradient, D 7 mm Hg Peak E/A ratio 3.4 Tricuspid valve Regurgitant peak velocity 263 cm/s Peak RV-RA gradient, S 28 mm Hg Maximal regurgitant velocity 263 cm/s Systemic veins Estimated CVP 15 mm Hg Right ventricle RV pressure, S *43 mm Hg <30 LEGEND: Mean values are shown as u=mean value. Asterisk (*) brito values outside specified normal range. Prepared and signed by Awais Cheng [id number]
[2016-10-26] MEDS: CYCLOBENZAPRINE HCL 10 MG TAB PO PRN (18:18)
--- NOTE | 2016-10-26 18:23 | EKG ---
Date Performed: 10/25/2016 Time Performed: 17:51:38 PTAGE: 61 years EKG: SINUS TACHYCARDIA SEPTAL MYOCARDIAL INFARCTION ST DEVIATION AND MODERATE T-WAVE ABNORMALITY , CONSIDER LATERAL ISCHEMIA SINCE PREVIOUS TRACING 08/23/2016, THE ST DEPRESSION ANTEROLATERALLY IN V5/ V6 IS MORE PROMINANT. THIS COULD BE RELATED TO THE HEART RATE HOWEVER. THERE APPEARS TO BE A 1st DEGR EE AV BLOCK WITH THE P-WAVE IN THE DOWN MASHPEE OF THE T-WAVE. THIS WAS SEEN ON PREVIOUS TRACING. ABN ORMAL ECG PREVIOUS TRACING : 08/23/2016 07.10 DOCTOR: John Bahena Interpretating Date/Time 10/26/2016 18:22:24
--- NOTE | 2016-10-26 18:25 | EKG ---
Date Performed: 10/26/2016 Time Performed: 00:12:32 PTAGE: 61 years EKG: SINUS TACHYCARDIA WITH FIRST DEGREE AV BLOCK POSSIBLE LEFT ATRIAL ENLARGEMENT SEPTAL MYOCAR DIAL INFARCTION ST DEVIATION AND MODERATE T-WAVE ABNORMALITY, CONSIDER LATERAL ISCHEMIA SINCE PREVIOU S TRACING 10/25/2016, PATIENT CONTINUES TO HAVE SIGNIFICANT ST DEPRESSION ANTEROLATERALLY. Clinical co rrelation is recommended ABNORMAL ECG PREVIOUS TRACING : 10/25/2016 17.51 DOCTOR: John Bahena Interpretating Date/Time 10/26/2016 18:24:05
--- NOTE | 2016-10-26 18:29 | EKG ---
Date Performed: 10/26/2016 Time Performed: 08:31:10 PTAGE: 61 years EKG: Sinus rhythm WITH FIRST DEGREE AV BLOCK. ANTERIOR WALL MYOCARDIAL INFARCTION OF UNDETERMINED-AGE. DIFFUSED NONSPE CIFIC ST- T CHANGES SINCE PREVIOUS TRACING 10/25/2016,HEART RATE IS SLIGHTLY SLOWER, ST T CHANGES CONT INUES TO BE PRESENT. Clinical correlation is recommended Abnormal ECG PREVIOUS TRACING : 10/26/2016 00.12 DOCTOR: John Bahena Interpretating Date/Time 10/26/2016 18:28:32
[2016-10-26] MEDS: PRAVASTATIN SOD 80 MG TAB PO SCH (20:47)
[2016-10-26 21:54] LABS: APTT (PATIENT) 34.9 SEC (24.3-30.1)
[2016-10-27] VITALS (19 sets, daily range): BP systolic 141–155; BP diastolic 81–93; PULSE 90–110; RESP 18–20; TEMP 97.5–97.9; O2SAT 94–96
[2016-10-27] MEDS: NITROGLYCERIN 2% OINT 1 GM PACKET TOPICAL SCH ×4 (00:07→18:32)
[2016-10-27 05:13] LABS: APTT (PATIENT) 38.7 SEC (24.3-30.1)
[2016-10-27] MEDS: INSULIN ASPART SUPPLEMENTAL SCALE SQ SCH ×3 (06:38→21:00)
--- NOTE | 2016-10-27 09:27 | PD.CARD.PN ---
Subjective Subjective Remarks Resting dyspnea resolved, but still STANLEY, no cp Objective Medications Administered Medications Medications (Trade) Dose Ordered Sig/Angel Route PRN Reason Start Time Stop Time Status Last Admin Dose Admin Heparin Sodium (Porcine) 2500 units 2,500 units UNSCH PRN IV APTT 25 TO 39 10/26/16 01:15 10/26/16 03:55 Heparin Sodium/ Dextrose (Heparin-D5W Inj) 250 ml @ 0 mls/hr TITRATE IV 10/25/16 19:15 10/26/16 12:16 IV Flush (NS Flush) 2 ml BID IV 10/26/16 09:00 10/26/16 20:47 Aspirin (Ecotrin Ec) 81 mg DAILY PO 10/26/16 09:00 10/26/16 09:36 Clopidogrel Bisulfate (Plavix) 75 mg DAILY PO 10/26/16 09:00 10/26/16 09:35 Tiotropium [place] (Spiriva Inh) 18 mcg DAILY INH 10/26/16 09:00 10/26/16 09:00 Budesonide/ Formoterol Fumarate (Symbicort 160-4.5 Inh) 2 puff BID INH 10/26/16 09:00 10/26/16 20:47 Pravastatin Sodium (Pravachol) 80 mg HS PO 10/26/16 21:00 10/26/16 20:47 Nitroglycerin (Nitroglycerin 2% Oint) 0.5 inch Q6HR TOPICAL 10/25/16 22:00 10/27/16 05:22 Loratadine (Claritin) 10 mg DAILY PO 10/26/16 10:00 10/26/16 09:47 Fluticasone Propionate (Flonase Buck Spr) 2 spray DAILY EACH NARE 10/26/16 09:00 10/26/16 09:36 Guaifenesin (Mucinex Er) 600 mg BID PO 10/26/16 10:00 10/26/16 20:47 Furosemide (Lasix Inj) 40 mg BID@,18 IV PUSH 10/26/16 10:00 10/26/16 16:55 Cyclobenzaprine HCl (Flexeril) 10 mg Q8H PRN PO spasm pain 10/26/16 17:00 10/26/16 18:18 Vital Signs / I&O Vital Signs Date Time Temp Pulse Resp B/P Pulse Ox O2 Delivery O2 Flow Rate FiO2 10/27/16 07:00 94 10/27/16 06:00 93 10/27/16 04:00 94 10/27/16 04:00 97.9 95 20 143/81 96 10/27/16 02:00 92 10/27/16 00:00 90 10/27/16 00:00 97.5 90 20 155/93 95 10/26/16 22:00 100 10/26/16 20:00 105 10/26/16 20:00 97.3 105 20 164/89 95 10/26/16 18:20 10/26/16 15:39 99 10/26/16 13:35 10/26/16 12:50 97.0 95 20 152/84 94 I/O 10/26/16 10/26/16 10/26/16 10/27/16 10/27/16 10/27/16 07:00 15:00 23:00 07:00 15:00 23:00 Intake Total 340 ml 1320 ml 610 ml Output Total 300 ml 2100 ml 1700 ml Balance 40 ml -780 ml -1090 ml Intake Oral 240 ml 1200 ml 240 ml IV Total 100 ml 120 ml 370 ml Output Urine Total 300 ml 2100 ml 1700 ml # Bowel Movements 0 0 Physical Exam GENERAL: This is a well-nourished, well-developed patient, in no apparent distress. CARDIOVASCULAR: Regular rate and rhythm without murmurs, gallops, or rubs. RESPIRATORY: Clear to auscultation. Breath sounds equal bilaterally. No wheezes , rales, or rhonchi. GASTROINTESTINAL: Abdomen soft, non-tender, nondistended. Normal active bowel sounds MUSCULOSKELETAL: trace edema NEURO: Alert & Oriented x4 to person, place, time, situation. Moves all ext x4 Laboratory Laboratory Tests Test 10/26/16 10/26/16 10/27/16 13:55 21:30 04:00 Activated Partial 33.2 SEC 34.9 SEC 38.7 SEC Thromboplast Time Imaging Last Impressions Chest X-Ray 10/25/16 180 Signed Impressions: Service Date/Time: Tuesday, October 25, 2016 18:10 - CONCLUSION: No acute cardiopulmonary disease demonstrated. Ruben Rivas MD Assessment and Plan Problem List: (1) Ischemic cardiomyopathy Assessment and Plan: EF 15-20%; changed aisha to entresto medium dose, can be uptriated quickly likely; and metoprolol to coreg; ordered life vest. (2) NSTEMI, initial episode of care Assessment and Plan: on heparin ggt, npo past midnight. (3) Acute systolic CHF (congestive heart failure) Assessment and Plan: Doing better, continue IV lasix (4) CAD (coronary artery disease) Assessment and Plan Dr contreras will return tomorrow to resume care. Awais Cheng MD Oct 27, 2016 09:27
--- NOTE | 2016-10-27 10:14 | HHI.PR ---
Subjective Remarks still parsons but post nasal gtt better. swelling improved Objective Vitals heart reg lung improved air entry abd s/nt ext improved edema Vital Signs Date Time Temp Pulse Resp B/P Pulse Ox O2 Delivery O2 Flow Rate FiO2 10/27/16 07:00 94 10/27/16 06:00 93 10/27/16 04:00 94 10/27/16 04:00 97.9 95 20 143/81 96 10/27/16 02:00 92 10/27/16 00:00 90 10/27/16 00:00 97.5 90 20 155/93 95 10/26/16 22:00 100 10/26/16 20:00 105 10/26/16 20:00 97.3 105 20 164/89 95 10/26/16 18:20 10/26/16 15:39 99 10/26/16 13:35 10/26/16 12:50 97.0 95 20 152/84 94 10/26/16 10/26/16 10/27/16 15:00 23:00 07:00 Intake Total 1320 ml 610 ml Output Total 2100 ml 1700 ml Balance -780 ml -1090 ml Intake Oral 1200 ml 240 ml IV Total 120 ml 370 ml Output Urine Total 2100 ml 1700 ml # Bowel Movements 0 Result Diagram: 10/25/16 1815 10/26/16 0552 A/P Problem List: (1) Acute systolic CHF (congestive heart failure) Status: Acute Plan: Pt present with sob. worse with exertion complains of alot of sinus and postnasal gtt "into chest" for at least "4-6months" Pt had [facility] 09/03 and 10/19 grafts patent admitted for c/o sob and elevated troponin and concern for lateral st depression. echo shows severe systolic chf ef 15-20% and exam consistent with decompensation cardiology following medication adjustments per cardiology on heparin for now. pt already on asa/plavix/statin/bb cardiology changing his aisha for entresto today check bmp while on iv lasix. initiated medical therapy for sinus drainage. pt says his pcp already gave him "2 courses of abx"...that is improving (2) Shortness of breath Status: Acute (3) Diabetes mellitus Status: Chronic Plan: will provide ssi for now hold home meds. (4) CKD (chronic kidney disease) stage 3, GFR 30-59 ml/min Status: Chronic Plan: stable. (5) PVD (peripheral vascular disease) Status: Chronic (6) CAD (coronary artery disease) Status: Chronic Plan: hx cabg x 4 2009 [facility] 09/03 as above. cont home meds (7) VT (ventricular tachycardia) Status: Resolved (8) GERD (gastroesophageal reflux disease) Status: Chronic Plan: ppi John Fuentes MD Oct 27, 2016 10:14
[2016-10-27] MEDS: guaiFENesin E.R. 600 MG TAB PO SCH ×2 (10:30→22:00)
[2016-10-27] MEDS: SODIUM CHLORIDE 0.9% FLUSH 5 ML FLUSH IV SCH ×2 (10:30→21:58)
[2016-10-27] MEDS: CARVEDILOL 12.5 MG TAB PO SCH ×2 (10:31→21:59)
[2016-10-27] MEDS: FUROSEMIDE 40 MG/4 ML VIAL IV PUSH SCH ×2 (10:31→18:32)
[2016-10-27] MEDS: LORATADINE 10 MG TAB PO SCH (10:31)
[2016-10-27] MEDS: ASPIRIN EC 81 MG TABEC PO SCH (10:31)
[2016-10-27] MEDS: CLOPIDOGREL 75 MG TAB PO SCH (10:31)
[2016-10-27] MEDS: TIOTROPIUM BROMIDE 18 MCG INH INH SCH (10:32)
[2016-10-27] MEDS: BUDESONIDE-FORMOTEROL 160/4.5 MCG INHALER INH SCH ×2 (10:32→21:57)
[2016-10-27] MEDS: FLUTICASONE PROPIONATE 50 MCG/ACT 16 GM NASAL SPRAY EACH NARE SCH (10:32)
[2016-10-27] MEDS: HEPARIN-D5W INJ 250 ML IV SCH (10:39)
[2016-10-27 11:03] LABS: BICARBONATE 29.4 MEQ/L (21.0-32.0); POTASSIUM 4.2 MEQ/L (3.5-5.1)
[2016-10-27 20:27] LABS: APTT (PATIENT) 33.6 SEC (24.3-30.1)
[2016-10-27] MEDS: HEPARIN SODIUM - IV 10,000 UNITS/10 ML VIAL IV PRN (21:58)
[2016-10-27] MEDS: CYCLOBENZAPRINE HCL 10 MG TAB PO PRN (21:59)
[2016-10-27] MEDS: PRAVASTATIN SOD 80 MG TAB PO SCH (22:00)
[2016-10-28] VITALS (18 sets, daily range): BP systolic 120–155; BP diastolic 79–88; PULSE 91–104; RESP 18; TEMP 97.7–98.3; O2SAT 93–96
[2016-10-28 04:15] LABS: HEMATOCRIT 41.4 % (39.0-51.0); MEAN CELL VOLUME 81.3 FL (80.0-100.0); MEAN CORPUSCULAR HEMOGLOBIN 26.5 PG (27.0-34.0); MEAN CORPUSCULAR HGB CONC 32.6 % (32.0-36.0); PLATELET COUNT 168 TH/MM3 (150-450); RED BLOOD COUNT 5.09 MIL/MM3 (4.50-5.90); RED CELL DISTRIBUTION WIDTH 16.4 % (11.6-17.2); REVIEW FLAG FINAL; WHITE BLOOD COUNT 7.2 TH/MM3 (4.0-11.0)
[2016-10-28 04:25] LABS: APTT (PATIENT) 44.4 SEC (24.3-30.1)
[2016-10-28 04:30] LABS: BICARBONATE 27.5 MEQ/L (21.0-32.0); POTASSIUM 4.2 MEQ/L (3.5-5.1)
[2016-10-28] MEDS: SACUBITRIL/VALSARTAN 49 MG-51 MG TAB PO SCH ×2 (05:49→08:20)
[2016-10-28] MEDS: NITROGLYCERIN 2% OINT 1 GM PACKET TOPICAL SCH ×4 (05:49→17:41)
[2016-10-28] MEDS: HEPARIN-D5W INJ 250 ML IV SCH (06:00)
[2016-10-28] MEDS: INSULIN ASPART SUPPLEMENTAL SCALE SQ SCH ×4 (07:00→21:02)
[2016-10-28] MEDS: TIOTROPIUM BROMIDE 18 MCG INH INH SCH (08:18)
[2016-10-28] MEDS: BUDESONIDE-FORMOTEROL 160/4.5 MCG INHALER INH SCH ×2 (08:18→21:01)
[2016-10-28] MEDS: FUROSEMIDE 40 MG/4 ML VIAL IV PUSH SCH (08:18)
[2016-10-28] MEDS: FLUTICASONE PROPIONATE 50 MCG/ACT 16 GM NASAL SPRAY EACH NARE SCH (08:18)
[2016-10-28] MEDS: LORATADINE 10 MG TAB PO SCH (08:19)
[2016-10-28] MEDS: CLOPIDOGREL 75 MG TAB PO SCH (08:19)
[2016-10-28] MEDS: guaiFENesin E.R. 600 MG TAB PO SCH ×2 (08:19→21:02)
[2016-10-28] MEDS: CARVEDILOL 12.5 MG TAB PO SCH ×2 (08:19→21:02)
[2016-10-28] MEDS: SODIUM CHLORIDE 0.9% FLUSH 5 ML FLUSH IV SCH ×2 (08:20→21:02)
[2016-10-28] MEDS: ASPIRIN EC 81 MG TABEC PO SCH (08:20)
[2016-10-28 08:22] LABS: APTT (PATIENT) 45.8 SEC (24.3-30.1)
--- NOTE | 2016-10-28 08:42 | HHI.PR ---
Subjective Remarks Pt reports that he is still having SOB with exertion and with sitting up in the chair Less SOB when lying down Denies any chest pain. Objective Vitals Vital Signs Date Time Temp Pulse Resp B/P Pulse Ox O2 Delivery O2 Flow Rate FiO2 10/28/16 08:00 97.7 91 18 120/84 93 10/28/16 05:43 98.1 104 18 155/88 95 10/27/16 23:00 97.9 103 18 154/83 94 10/27/16 21:24 97.9 102 18 148/86 94 10/27/16 19:00 110 10/27/16 18:00 100 10/27/16 17:00 98 10/27/16 16:00 94 10/27/16 15:00 101 10/27/16 15:00 97.7 96 20 142/90 94 10/27/16 14:00 94 10/27/16 13:00 94 10/27/16 12:00 98 10/27/16 11:00 99 10/27/16 11:00 97.9 99 20 141/89 94 10/27/16 10:00 96 10/27/16 09:00 98 10/27/16 10/27/16 10/28/16 15:00 23:00 07:00 Intake Total 874 ml 564 ml Output Total 3000 ml 925 ml Balance -2126 ml -361 ml Intake Oral 720 ml 360 ml IV Total 154 ml 204 ml Output Urine Total 3000 ml 925 ml # Bowel Movements 0 0 Result Diagram: 10/28/16 0355 10/28/16 0355 Other Results Laboratory Tests Test 10/26/16 10/26/16 10/27/16 10/27/16 13:55 21:30 04:00 10:22 Activated Partial 33.2 SEC 34.9 SEC 38.7 SEC Thromboplast Time Sodium Level 137 MEQ/L Potassium Level 4.2 MEQ/L Chloride Level 99 MEQ/L Carbon Dioxide Level 29.4 MEQ/L Anion Gap 9 MEQ/L Blood Urea Nitrogen 27 MG/DL Creatinine 2.06 MG/DL Estimat Glomerular Filtration 33 ML/MIN Rate Random Glucose 244 MG/DL Calcium Level 8.9 MG/DL Test 10/27/16 10/27/16 10/28/16 10/28/16 11:59 20:06 03:55 07:00 Activated Partial 31.0 SEC 33.6 SEC 44.4 SEC 45.8 SEC Thromboplast Time White Blood Count 7.2 TH/MM3 Red Blood Count 5.09 MIL/MM3 Hemoglobin 13.5 GM/DL Hematocrit 41.4 % Mean Corpuscular Volume 81.3 FL Mean Corpuscular Hemoglobin 26.5 PG Mean Corpuscular Hemoglobin 32.6 % Concent Red Cell Distribution Width 16.4 % Platelet Count 168 TH/MM3 Mean Platelet Volume 9.8 FL Sodium Level 136 MEQ/L Potassium Level 4.2 MEQ/L Chloride Level 98 MEQ/L Carbon Dioxide Level 27.5 MEQ/L Anion Gap 11 MEQ/L Blood Urea Nitrogen 32 MG/DL Creatinine 2.10 MG/DL Estimat Glomerular Filtration 32 ML/MIN Rate Random Glucose 230 MG/DL Calcium Level 9.0 MG/DL Imaging Last Impressions Chest X-Ray 10/25/16 1804 Signed Impressions: Service Date/Time: Tuesday, October 25, 2016 18:10 - CONCLUSION: No acute cardiopulmonary disease demonstrated. Ruben Rivas MD Objective Remarks General: NAD, AAOx3 Chest: CTA bilaterally Cardiac: Regular Abd: +BS, soft ND/NT Ext: Mild bilateral edema Procedures 2D echo (10/26/16) - LV mildly dilated - Systolic function severely reduced with EF 15-20% - Akinesis of the apical myocardium - Mild mitral regurgitation - PA peak pressure 43mmHg A/P Problem List: (1) Acute systolic CHF (congestive heart failure) Status: Acute Plan: - Pt presented with SOB, worse with exertion and a lot of sinus and postnasal drip "into chest" for at least "4-6months" - Pt had LHC 09/03 and 10/19 grafts patent - Pt was admitted for c/o SOB and elevated troponin with concern for lateral ST depression. - 2D echo shows severe systolic CHF with EF 15-20% and exam consistent with decompensation - Review of outpt records noted that 2D echo in 08/2016 noted an EF of 40-45% - Cardiology following, Dr. Ramos to evaluate today - Pt is on heparin - He has been changed to Entresto on 10/28 - Pt already on ASA/Plavix/Statin/BB - Pt is on Lasix 40mg IV BID, renal function slightly increased today. - Decreased Lasix to 20mg IV BID. - Further medication adjustments per Cardiology - Cont. Claritin and Mucinex for PND - Monitor labs (2) Shortness of breath Status: Acute (3) Diabetes mellitus Status: Chronic Plan: - NovoLog SSI - Hold home meds. (4) CKD (chronic kidney disease) stage 3, GFR 30-59 ml/min Status: Chronic Plan: - Renal function slightly increased today. - Baseline creatinine has been between 1.6-1.8 since 2014 - Medication to be adjusted as above. - Monitor (5) PVD (peripheral vascular disease) Status: Chronic (6) CAD (coronary artery disease) Status: Chronic Plan: - Hx cabg x 4 2009 - [facility] 09/03 as above. - Cont home meds (7) VT (ventricular tachycardia) Status: Resolved (8) GERD (gastroesophageal reflux disease) Status: Chronic Plan: ppi Assessment and Plan - Pt's creatinine is rising. - will stop Entresto - repeat BMP in AM and observe clinically - Cardiology does NOT feel that pt would benefit from [facility] at this time as might l/t ARF and pt recently had C Aug 2016 - stop heparin drip - Pt will discharge with Life Vest - Pt will have repeat Echocardiogram with Dr. Ramos in 2 months to determine if recovery of pt's EF, if NOT will require AICD - Case d/w Cardiology, Dr. Ramos (10/28/16) - anticipate d/c to home in 1-2 days Dian Louie Oct 28, 2016 08:42 Jorge Alberto Chong DO Oct 28, 2016 10:59
--- NOTE | 2016-10-28 08:42 | PD.CARD.PN ---
Subjective Subjective Remarks short of breath (Amauri Lopez) Objective Vital Signs / I&O Vital Signs Date Time Temp Pulse Resp B/P Pulse Ox O2 Delivery O2 Flow Rate FiO2 10/28/16 08:00 97.7 91 18 120/84 93 10/28/16 05:43 98.1 104 18 155/88 95 10/27/16 23:00 97.9 103 18 154/83 94 10/27/16 21:24 97.9 102 18 148/86 94 10/27/16 19:00 110 10/27/16 18:00 100 10/27/16 17:00 98 10/27/16 16:00 94 10/27/16 15:00 101 10/27/16 15:00 97.7 96 20 142/90 94 10/27/16 14:00 94 10/27/16 13:00 94 10/27/16 12:00 98 10/27/16 11:00 99 10/27/16 11:00 97.9 99 20 141/89 94 10/27/16 10:00 96 10/27/16 09:00 98 I/O 10/27/16 10/27/16 10/27/16 10/28/16 10/28/16 10/28/16 07:00 15:00 23:00 07:00 15:00 23:00 Intake Total 610 ml 874 ml 564 ml Output Total 1700 ml 3000 ml 925 ml Balance -1090 ml -2126 ml -361 ml Intake Oral 240 ml 720 ml 360 ml IV Total 370 ml 154 ml 204 ml Output Urine Total 1700 ml 3000 ml 925 ml # Bowel Movements 0 0 0 Physical Exam GENERAL: Well-nourished, well-developed patient in no apparent distress. NECK: No JVD. No carotid bruit. CARDIOVASCULAR: Regular rate and rhythm. S1/S2 no murmur, rub, or gallop. RESPIRATORY: No accessory muscle use. rales bilateral bases to auscultation. Breath sounds equal bilaterally. GASTROINTESTINAL: Abdomen soft, non-tender, nondistended. MUSCULOSKELETAL: Extremities without clubbing, cyanosis, or edema. Laboratory Laboratory Tests Test 10/27/16 10/27/16 10/27/16 10/28/16 10:22 11:59 20:06 03:55 Sodium Level 137 MEQ/L 136 MEQ/L Potassium Level 4.2 MEQ/L 4.2 MEQ/L Chloride Level 99 MEQ/L 98 MEQ/L Carbon Dioxide Level 29.4 MEQ/L 27.5 MEQ/L Anion Gap 9 MEQ/L 11 MEQ/L Blood Urea Nitrogen 27 MG/DL 32 MG/DL Creatinine 2.06 MG/DL 2.10 MG/DL Estimat Glomerular Filtration 33 ML/MIN 32 ML/MIN Rate Random Glucose 244 MG/DL 230 MG/DL Calcium Level 8.9 MG/DL 9.0 MG/DL Activated Partial 31.0 SEC 33.6 SEC 44.4 SEC Thromboplast Time White Blood Count 7.2 TH/MM3 Red Blood Count 5.09 MIL/MM3 Hemoglobin 13.5 GM/DL Hematocrit 41.4 % Mean Corpuscular Volume 81.3 FL Mean Corpuscular Hemoglobin 26.5 PG Mean Corpuscular Hemoglobin 32.6 % Concent Red Cell Distribution Width 16.4 % Platelet Count 168 TH/MM3 Mean Platelet Volume 9.8 FL Test 10/28/16 07:00 Activated Partial 45.8 SEC Thromboplast Time (Amauri Lopez) Assessment and Plan Problem List: (1) Ischemic cardiomyopathy (2) NSTEMI, initial episode of care (3) Acute systolic CHF (congestive heart failure) (4) CAD (coronary artery disease) Assessment and Plan ischemic cardiomyopathy - on Entresto and carvedilol. Will likely need Life Vest Dr. Ramos will review previous angiogram Worsening renal function may have to decrease dose of Entresto (Amauri Lopez) Assessment and Plan DC ARB due to Cr cardiomyopathy, ischemic - EF previously 40% in Jul 2016, now 20%. optimize medical regimen troponin elevation - known small vessel dz. LHC showed 3/4 grafts patent. No plans for repeat LHC given Cr. gentle diuresis. CHF likely due to volume overload in setting of renal failure with fluid retention. (Chandan Ramos MD) Amauri Lopez Oct 28, 2016 08:42 Chandan Ramos MD Oct 28, 2016 14:05
[2016-10-28] MEDS ORDERED: FUROSEMIDE 40 MG/4 ML VIAL IV PUSH SCH (18:00)
[2016-10-28] MEDS: PRAVASTATIN SOD 80 MG TAB PO SCH (21:02)
[2016-10-29] VITALS (24 sets, daily range): BP systolic 109–145; BP diastolic 70–83; PULSE 89–102; RESP 18–22; TEMP 97.6–98.3; O2SAT 94–96
[2016-10-29] MEDS: NITROGLYCERIN 2% OINT 1 GM PACKET TOPICAL SCH ×2 (05:05)
[2016-10-29] MEDS: INSULIN ASPART SUPPLEMENTAL SCALE SQ SCH ×4 (05:39→20:56)
[2016-10-29 05:56] LABS: AUTOMATED NEUTROPHIL # 4.6 TH/MM3 (1.8-7.7); BASOPHIL % 0.4 % (0.0-2.0); EOSINOPHIL # 0.2 TH/MM3 (0-0.4); HEMATOCRIT 42.9 % (39.0-51.0); HEMO FLAGS DIFF FINAL; LYMPH % 25.8 % (9.0-44.0); LYMPHOCYTE # 1.9 TH/MM3 (1.0-4.8); MEAN CORPUSCULAR HEMOGLOBIN 26.1 PG (27.0-34.0); MEAN CORPUSCULAR HGB CONC 32.7 % (32.0-36.0); MONO % 8.9 % (0.0-8.0); NEUT % 61.9 % (16.0-70.0); PLATELET COUNT 200 TH/MM3 (150-450); RED BLOOD COUNT 5.36 MIL/MM3 (4.50-5.90); RED CELL DISTRIBUTION WIDTH 16.3 % (11.6-17.2); WHITE BLOOD COUNT 7.4 TH/MM3 (4.0-11.0)
[2016-10-29 06:19] LABS: BICARBONATE 26.7 MEQ/L (21.0-32.0); MAGNESIUM 1.9 MG/DL (1.5-2.5); POTASSIUM 4.1 MEQ/L (3.5-5.1)
--- NOTE | 2016-10-29 07:46 | PD.CARD.PN ---
Subjective Subjective Remarks breathing improved (Amauri Lopez) Objective Vital Signs / I&O Vital Signs Date Time Temp Pulse Resp B/P Pulse Ox O2 Delivery O2 Flow Rate FiO2 10/29/16 06:00 100 10/29/16 05:00 102 10/29/16 04:00 98.3 90 18 109/70 96 10/29/16 04:00 91 10/29/16 03:00 102 10/29/16 02:00 102 10/29/16 01:00 101 10/29/16 00:00 98.0 97 18 126/74 94 10/29/16 00:00 98 10/28/16 23:00 102 10/28/16 22:00 104 10/28/16 21:00 102 10/28/16 20:00 102 10/28/16 20:00 98.3 104 18 130/82 93 10/28/16 19:00 102 10/28/16 18:00 100 10/28/16 17:00 96 10/28/16 16:00 96 10/28/16 15:00 96 10/28/16 15:00 98.0 97 18 146/86 96 10/28/16 14:00 94 10/28/16 13:00 92 10/28/16 12:00 96 10/28/16 11:00 96 10/28/16 11:00 98.3 92 18 129/79 96 10/28/16 10:00 96 10/28/16 09:00 96 10/28/16 08:00 97.7 91 18 120/84 93 10/28/16 08:00 96 I/O 10/28/16 10/28/16 10/28/16 10/29/16 10/29/16 10/29/16 07:00 15:00 23:00 07:00 15:00 23:00 Intake Total 564 ml 360 ml 478 ml 360 ml Output Total 925 ml 650 ml 1150 ml 700 ml Balance -361 ml -290 ml -672 ml -340 ml Intake Oral 360 ml 360 ml 240 ml 360 ml IV Total 204 ml 238 ml Output Urine Total 925 ml 650 ml 1150 ml 700 ml # Bowel Movements 0 1 0 Physical Exam GENERAL: Well-nourished, well-developed patient in no apparent distress. NECK: No JVD. No carotid bruit. CARDIOVASCULAR: Regular rate and rhythm. S1/S2 no murmur, rub, or gallop. RESPIRATORY: No accessory muscle use. rales bilateral bases to auscultation. Breath sounds equal bilaterally. GASTROINTESTINAL: Abdomen soft, non-tender, nondistended. MUSCULOSKELETAL: Extremities without clubbing, cyanosis, or edema. Laboratory Laboratory Tests Test 10/29/16 05:10 White Blood Count 7.4 TH/MM3 Red Blood Count 5.36 MIL/MM3 Hemoglobin 14.0 GM/DL Hematocrit 42.9 % Mean Corpuscular Volume 80.0 FL Mean Corpuscular Hemoglobin 26.1 PG Mean Corpuscular Hemoglobin 32.7 % Concent Red Cell Distribution Width 16.3 % Platelet Count 200 TH/MM3 Mean Platelet Volume 10.4 FL Neutrophils (%) (Auto) 61.9 % Lymphocytes (%) (Auto) 25.8 % Monocytes (%) (Auto) 8.9 % Eosinophils (%) (Auto) 3.0 % Basophils (%) (Auto) 0.4 % Neutrophils # (Auto) 4.6 TH/MM3 Lymphocytes # (Auto) 1.9 TH/MM3 Monocytes # (Auto) 0.7 TH/MM3 Eosinophils # (Auto) 0.2 TH/MM3 Basophils # (Auto) 0.0 TH/MM3 CBC Comment DIFF FINAL Differential Comment Sodium Level 135 MEQ/L Potassium Level 4.1 MEQ/L Chloride Level 97 MEQ/L Carbon Dioxide Level 26.7 MEQ/L Anion Gap 11 MEQ/L Blood Urea Nitrogen 42 MG/DL Creatinine 2.28 MG/DL Estimat Glomerular Filtration 30 ML/MIN Rate Random Glucose 265 MG/DL Calcium Level 9.2 MG/DL Magnesium Level 1.9 MG/DL (Amauri Lopez) Assessment and Plan Problem List: (1) Ischemic cardiomyopathy (2) NSTEMI, initial episode of care (3) Acute systolic CHF (congestive heart failure) (4) CAD (coronary artery disease) Assessment and Plan ischemic cardiomyopathy - on Entresto stopped secondary to renal dysfunction. Will likely need Life Vest Now renal function is worse. Recommend nephrology referral (Amauri Lopez) Assessment and Plan negative I/O several days now. Cr worse hold diuretic gentle hydration. symptoms improved. POT/OT ambulation continue to hold ARB due to Cr. DC Planning follow Cr closely (Chandan Ramos MD) Amauri Lopez Oct 29, 2016 07:46 Chandan Ramos MD Oct 29, 2016 11:36
[2016-10-29] MEDS: LORATADINE 10 MG TAB PO SCH (09:28)
[2016-10-29] MEDS: guaiFENesin E.R. 600 MG TAB PO SCH ×2 (09:28→20:56)
[2016-10-29] MEDS: CARVEDILOL 12.5 MG TAB PO SCH ×2 (09:28→20:56)
[2016-10-29] MEDS: CLOPIDOGREL 75 MG TAB PO SCH (09:28)
[2016-10-29] MEDS: ASPIRIN EC 81 MG TABEC PO SCH (09:28)
[2016-10-29] MEDS: BUDESONIDE-FORMOTEROL 160/4.5 MCG INHALER INH SCH ×2 (09:29→20:57)
[2016-10-29] MEDS: SODIUM CHLORIDE 0.9% FLUSH 5 ML FLUSH IV SCH ×2 (09:29→20:57)
[2016-10-29] MEDS: TIOTROPIUM BROMIDE 18 MCG INH INH SCH (09:30)
[2016-10-29] MEDS: FLUTICASONE PROPIONATE 50 MCG/ACT 16 GM NASAL SPRAY EACH NARE SCH (09:30)
[2016-10-29] MEDS: ATROVENT 0.06% NASAL SCH ×3 (10:38→17:39)
--- NOTE | 2016-10-29 11:11 | HHI.PR ---
Subjective Remarks SOB and LE edema improved from admission. Objective Vitals Vital Signs Date Time Temp Pulse Resp B/P Pulse Ox O2 Delivery O2 Flow Rate FiO2 10/29/16 08:00 97.6 100 22 145/77 96 10/29/16 07:00 91 10/29/16 06:00 100 10/29/16 05:00 102 10/29/16 04:00 98.3 90 18 109/70 96 10/29/16 04:00 91 10/29/16 03:00 102 10/29/16 02:00 102 10/29/16 01:00 101 10/29/16 00:00 98.0 97 18 126/74 94 10/29/16 00:00 98 10/28/16 23:00 102 10/28/16 22:00 104 10/28/16 21:00 102 10/28/16 20:00 102 10/28/16 20:00 98.3 104 18 130/82 93 10/28/16 19:00 102 10/28/16 18:00 100 10/28/16 17:00 96 10/28/16 16:00 96 10/28/16 15:00 96 10/28/16 15:00 98.0 97 18 146/86 96 10/28/16 14:00 94 10/28/16 13:00 92 10/28/16 12:00 96 10/28/16 10/28/16 10/29/16 15:00 23:00 07:00 Intake Total 360 ml 478 ml 360 ml Output Total 650 ml 1150 ml 700 ml Balance -290 ml -672 ml -340 ml Intake Oral 360 ml 240 ml 360 ml IV Total 238 ml Output Urine Total 650 ml 1150 ml 700 ml # Bowel Movements 1 0 Result Diagram: 10/29/16 0510 10/29/16 0510 Imaging Last Impressions Chest X-Ray 10/25/16 1804 Signed Impressions: Service Date/Time: Tuesday, October 25, 2016 18:10 - CONCLUSION: No acute cardiopulmonary disease demonstrated. Ruben Rivas MD Objective Remarks General: NAD, AAOx3 Chest: CTA bilaterally Cardiac: Regular Abd: +BS, soft ND/NT Ext: Mild bilateral edema Procedures 2D echo (10/26/16) - LV mildly dilated - Systolic function severely reduced with EF 15-20% - Akinesis of the apical myocardium - Mild mitral regurgitation - PA peak pressure 43mmHg A/P Problem List: (1) Acute systolic CHF (congestive heart failure) Status: Acute Plan: - comgmt with Cardiology, Dr. Ramos - Pt presented with SOB, worse with exertion and a lot of sinus and postnasal drip "into chest" for at least "4-6months" - Pt had C 09/03 and 10/19 grafts patent - Pt was admitted for c/o SOB and elevated troponin with concern for lateral ST depression. - 2D echo shows severe systolic CHF with EF 15-20% and exam consistent with decompensation - Review of outpt records noted that 2D echo in 08/2016 noted an EF of 40-45% - Entresto stopped d/t rising creatinine - Pt already on ASA/Plavix/Statin/BB - Decreased Lasix to 20mg IV BID, HELD 10/29/16 d/t rising creatinine - Cont. Claritin and Mucinex for PND - Monitor labs (2) Diabetes mellitus Status: Chronic Plan: - start levemir 10 units BID - NovoLog SSI - Hold home meds. (3) CKD (chronic kidney disease) stage 3, GFR 30-59 ml/min Status: Chronic Plan: - creatinine continues to gradually rise - Baseline creatinine has been between 1.6-1.8 since 2014 - creatinine 2.28 (10/29/16) - lasix stopped - likely some over diuresis - will give 500ml NS, slowly - repeat BMP in AM - Monitor (4) PVD (peripheral vascular disease) Status: Chronic (5) CAD (coronary artery disease) Status: Chronic Plan: - Hx cabg x 4 2009 - [facility] 09/03 as above. - Cont home meds (6) VT (ventricular tachycardia) Status: Resolved (7) GERD (gastroesophageal reflux disease) Status: Chronic Plan: ppi Problem Qualifiers (1) Diabetes mellitus: Qualified Code: E11.8 - Type 2 diabetes mellitus with complication, with long- term current use of insulin Jorge Alberto Chong DO Oct 29, 2016 11:11
[2016-10-29] MEDS: INSULIN DETEMIR 100 UNITS/ML VIAL SQ SCH ×2 (12:07→20:56)
[2016-10-29] MEDS: NS + KCL 20 MEQ INJ 1,000 ML IV SCH ×2 (12:08→23:10)
[2016-10-29] MEDS: PRAVASTATIN SOD 80 MG TAB PO SCH (20:56)
[2016-10-30] VITALS (24 sets, daily range): BP systolic 134–157; BP diastolic 81–89; PULSE 82–102; RESP 18–20; TEMP 97.6–98; O2SAT 94–99
[2016-10-30] MEDS: INSULIN ASPART SUPPLEMENTAL SCALE SQ SCH ×4 (05:39→20:54)
[2016-10-30 06:49] LABS: MAGNESIUM 1.9 MG/DL (1.5-2.5); POTASSIUM 4.2 MEQ/L (3.5-5.1)
--- NOTE | 2016-10-30 07:56 | PD.CARD.PN ---
Subjective Subjective Remarks breathing is about the same comfortable Objective Medications Active Medications Insulin Detemir 10 units 10 units BID SQ Last administered on 10/29/16 20:56; Admin Dose 10 UNITS; Start 10/29/16 at 11:15 Non-Formulary Medication NON-FORMULARY: ATROVENT 0.06% NA... TID NASAL Last administered on 10/29/16 17:39; Admin Dose 1 EA; Start 10/29/16 at 09:00 Potassium Chloride/Sodium Chloride (NS + KCl 20 Meq Inj) 1,000 ml @ 84 mls/hr [id number] IV Last administered on 10/29/16 12:08; Admin Dose 84 MLS/HR; Start at 11:15 Vital Signs / I&O Vital Signs Date Time Temp Pulse Resp B/P Pulse Ox O2 Delivery O2 Flow Rate FiO2 10/30/16 07:00 97.6 91 20 146/86 97 10/30/16 07:00 92 10/30/16 05:00 91 10/30/16 04:00 97.9 91 18 157/86 95 10/30/16 04:00 90 10/30/16 03:00 82 10/30/16 02:00 88 10/30/16 01:00 88 10/30/16 00:00 97.6 95 18 146/83 96 10/30/16 00:00 92 10/29/16 23:00 94 10/29/16 22:00 94 10/29/16 21:00 98 10/29/16 20:00 101 10/29/16 20:00 98.2 101 20 137/83 96 10/29/16 19:00 98 10/29/16 18:00 97 10/29/16 17:00 96 10/29/16 16:00 93 10/29/16 15:00 98.2 94 20 134/76 96 10/29/16 15:00 96 10/29/16 14:00 90 10/29/16 13:00 90 10/29/16 12:00 90 10/29/16 11:00 93 10/29/16 11:00 98.2 89 20 136/80 95 10/29/16 10:00 98 10/29/16 09:00 96 10/29/16 08:00 92 10/29/16 08:00 97.6 100 22 145/77 96 I/O 10/29/16 10/29/16 10/29/16 10/30/16 10/30/16 10/30/16 07:00 15:00 23:00 07:00 15:00 23:00 Intake Total 360 ml 848 ml 720 ml Output Total 700 ml 450 ml 1000 ml Balance -340 ml 398 ml -280 ml Intake Oral 360 ml 570 ml 720 ml IV Total 278 ml Output Urine Total 700 ml 450 ml 1000 ml # Voids 1 # Bowel Movements 0 1 0 Physical Exam GENERAL: SKIN: Warm and dry. HEAD: Normocephalic. EYES: No scleral icterus. No injection or drainage. NECK: Supple, trachea midline. No JVD or lymphadenopathy. CARDIOVASCULAR: Regular rate and rhythm without murmurs, gallops, or rubs. RESPIRATORY: Breath sounds equal bilaterally. No accessory muscle use. GASTROINTESTINAL: Abdomen soft, non-tender, nondistended. MUSCULOSKELETAL: No cyanosis, or edema. BACK: Nontender without obvious deformity. No CVA tenderness. Laboratory Laboratory Tests Test 10/30/16 05:03 Sodium Level 134 MEQ/L Potassium Level 4.2 MEQ/L Chloride Level 97 MEQ/L Carbon Dioxide Level 27.0 MEQ/L Anion Gap 10 MEQ/L Blood Urea Nitrogen 37 MG/DL Creatinine 2.00 MG/DL Estimat Glomerular Filtration 34 ML/MIN Rate Random Glucose 221 MG/DL Calcium Level 9.2 MG/DL Magnesium Level 1.9 MG/DL Imaging Last Impressions Chest X-Ray 10/25/16 1804 Signed Impressions: Service Date/Time: Tuesday, October 25, 2016 18:10 - CONCLUSION: No acute cardiopulmonary disease demonstrated. Ruben Rivas MD Assessment and Plan Problem List: (1) Ischemic cardiomyopathy (2) NSTEMI, initial episode of care (3) Acute systolic CHF (congestive heart failure) (4) CAD (coronary artery disease) Assessment and Plan I?O even yest Cr improved but still elevated. symptoms are about the same resume low dose oral diuretic cont to hold ARB ambulate with PT lifevest on DC continue current management anticipate probable transfer to SNF in next few days? will sign off for now call with further questions Chandan Ramos MD Oct 30, 2016 07:55
[2016-10-30] MEDS: ATROVENT 0.06% NASAL SCH ×3 (08:44→18:00)
[2016-10-30] MEDS: INSULIN DETEMIR 100 UNITS/ML VIAL SQ SCH (08:45)
[2016-10-30] MEDS: FLUTICASONE PROPIONATE 50 MCG/ACT 16 GM NASAL SPRAY EACH NARE SCH (08:45)
[2016-10-30] MEDS: TIOTROPIUM BROMIDE 18 MCG INH INH SCH (08:45)
[2016-10-30] MEDS: BUDESONIDE-FORMOTEROL 160/4.5 MCG INHALER INH SCH ×2 (08:45→20:55)
[2016-10-30] MEDS: LORATADINE 10 MG TAB PO SCH (08:45)
[2016-10-30] MEDS: guaiFENesin E.R. 600 MG TAB PO SCH ×2 (08:46→20:54)
[2016-10-30] MEDS: CARVEDILOL 12.5 MG TAB PO SCH ×2 (08:46→20:54)
[2016-10-30] MEDS: ASPIRIN EC 81 MG TABEC PO SCH (08:46)
[2016-10-30] MEDS: CLOPIDOGREL 75 MG TAB PO SCH (08:46)
[2016-10-30] MEDS: SODIUM CHLORIDE 0.9% FLUSH 5 ML FLUSH IV SCH ×2 (08:47→20:55)
[2016-10-30] MEDS: FUROSEMIDE 20 MG TAB PO SCH (09:25)
--- NOTE | 2016-10-30 09:36 | HHI.PR ---
Subjective Remarks Pt still feeling SOB He had Life vest placed on him last night. Objective Vitals Vital Signs Date Time Temp Pulse Resp B/P Pulse Ox O2 Delivery O2 Flow Rate FiO2 10/30/16 09:00 93 10/30/16 08:00 91 10/30/16 07:00 97.6 91 20 146/86 97 10/30/16 07:00 92 10/30/16 05:00 91 10/30/16 04:00 97.9 91 18 157/86 95 10/30/16 04:00 90 10/30/16 03:00 82 10/30/16 02:00 88 10/30/16 01:00 88 10/30/16 00:00 97.6 95 18 146/83 96 10/30/16 00:00 92 10/29/16 23:00 94 10/29/16 22:00 94 10/29/16 21:00 98 10/29/16 20:00 101 10/29/16 20:00 98.2 101 20 137/83 96 10/29/16 19:00 98 10/29/16 18:00 97 10/29/16 17:00 96 10/29/16 16:00 93 10/29/16 15:00 98.2 94 20 134/76 96 10/29/16 15:00 96 10/29/16 14:00 90 10/29/16 13:00 90 10/29/16 12:00 90 10/29/16 11:00 93 10/29/16 11:00 98.2 89 20 136/80 95 10/29/16 10:00 98 10/29/16 10/29/16 10/30/16 15:00 23:00 07:00 Intake Total 848 ml 720 ml Output Total 450 ml 1000 ml Balance 398 ml -280 ml Intake Oral 570 ml 720 ml IV Total 278 ml Output Urine Total 450 ml 1000 ml # Voids 1 # Bowel Movements 1 0 Result Diagram: 10/29/16 0510 10/30/16 0504 Other Results Laboratory Tests Test 10/29/16 10/30/16 05:10 05:03 White Blood Count 7.4 TH/MM3 Red Blood Count 5.36 MIL/MM3 Hemoglobin 14.0 GM/DL Hematocrit 42.9 % Mean Corpuscular Volume 80.0 FL Mean Corpuscular Hemoglobin 26.1 PG Mean Corpuscular Hemoglobin 32.7 % Concent Red Cell Distribution Width 16.3 % Platelet Count 200 TH/MM3 Mean Platelet Volume 10.4 FL Neutrophils (%) (Auto) 61.9 % Lymphocytes (%) (Auto) 25.8 % Monocytes (%) (Auto) 8.9 % Eosinophils (%) (Auto) 3.0 % Basophils (%) (Auto) 0.4 % Neutrophils # (Auto) 4.6 TH/MM3 Lymphocytes # (Auto) 1.9 TH/MM3 Monocytes # (Auto) 0.7 TH/MM3 Eosinophils # (Auto) 0.2 TH/MM3 Basophils # (Auto) 0.0 TH/MM3 CBC Comment DIFF FINAL Differential Comment Sodium Level 135 MEQ/L 134 MEQ/L Potassium Level 4.1 MEQ/L 4.2 MEQ/L Chloride Level 97 MEQ/L 97 MEQ/L Carbon Dioxide Level 26.7 MEQ/L 27.0 MEQ/L Anion Gap 11 MEQ/L 10 MEQ/L Blood Urea Nitrogen 42 MG/DL 37 MG/DL Creatinine 2.28 MG/DL 2.00 MG/DL Estimat Glomerular Filtration 30 ML/MIN 34 ML/MIN Rate Random Glucose 265 MG/DL 221 MG/DL Calcium Level 9.2 MG/DL 9.2 MG/DL Magnesium Level 1.9 MG/DL 1.9 MG/DL Imaging Last Impressions Chest X-Ray 10/25/16 1804 Signed Impressions: Service Date/Time: Tuesday, October 25, 2016 18:10 - CONCLUSION: No acute cardiopulmonary disease demonstrated. Ruben Rivas MD Objective Remarks General: NAD, AAOx3 Chest: CTA bilaterally Cardiac: Regular Abd: +BS, soft ND/NT Ext: Mild bilateral edema Procedures 2D echo (10/26/16) - LV mildly dilated - Systolic function severely reduced with EF 15-20% - Akinesis of the apical myocardium - Mild mitral regurgitation - PA peak pressure 43mmHg A/P Problem List: (1) Acute systolic CHF (congestive heart failure) Status: Acute Plan: - comgmt with Cardiology, Dr. Ramos - Pt presented with SOB, worse with exertion and a lot of sinus and postnasal drip "into chest" for at least "4-6months" - Pt had LHC 09/03 and 10/19 grafts patent - Pt was admitted for c/o SOB and elevated troponin with concern for lateral ST depression. - 2D echo shows severe systolic CHF with EF 15-20% and exam consistent with decompensation - Review of outpt records noted that 2D echo in 08/2016 noted an EF of 40-45% - Entresto stopped d/t rising creatinine - Pt already on ASA/Plavix/Statin/BB - Decreased Lasix to 20mg IV BID, HELD 10/29/16 d/t rising creatinine. - Cardiology recommends resuming low dose oral Lasix on 10/30, and Lasix 20mg po daily was resumed - Pt had Life vest placed on him last night. - Cont. Claritin and Mucinex for PND - Monitor labs - Pt is agreeable to SNf placement at discharge - Anticipate d/c tomorrow (2) Diabetes mellitus Status: Chronic Plan: - Levemir 10 units BID was started on 10/29, titrate up to 15 units BID on 10/30 - NovoLog SSI - Hold home meds. (3) CKD (chronic kidney disease) stage 3, GFR 30-59 ml/min Status: Chronic Plan: - creatinine continues to gradually rise - Baseline creatinine has been between 1.6-1.8 since 2014 - creatinine 2.28 (10/29/16) - Lasix stopped - likely some over diuresis - will give 500ml NS, slowly - repeat BMP on 10/30 with improvement in Cr to 2.00. - Resume oral Lasix 20mg po daily - Monitor (4) PVD (peripheral vascular disease) Status: Chronic (5) CAD (coronary artery disease) Status: Chronic Plan: - Hx cabg x 4 2009 - [facility] 09/03 as above. - Cont home meds (6) VT (ventricular tachycardia) Status: Resolved (7) GERD (gastroesophageal reflux disease) Status: Chronic Plan: ppi Assessment and Plan Patient examined. Assessment and plan formulated with Dian Louie PA-C. I agree with the above. Problem Qualifiers (1) Diabetes mellitus: Qualified Code: E11.8 - Type 2 diabetes mellitus with complication, with long- term current use of insulin Dian Louie Oct 30, 2016 09:36 Jorge Alberto Chong DO Oct 31, 2016 15:50
[2016-10-30] MEDS: NS + KCL 20 MEQ INJ 1,000 ML IV SCH ×2 (11:05→23:00)
[2016-10-30] MEDS ORDERED: INSULIN DETEMIR 100 UNITS/ML VIAL SQ ONE (11:30)
[2016-10-30] MEDS: PRAVASTATIN SOD 80 MG TAB PO SCH (20:54)
[2016-10-30] MEDS: CYCLOBENZAPRINE HCL 10 MG TAB PO PRN (20:54)
[2016-10-30] MEDS ORDERED: INSULIN DETEMIR 100 UNITS/ML VIAL SQ SCH (21:00)
[2016-10-31] VITALS (14 sets, daily range): BP systolic 133–150; BP diastolic 84–93; PULSE 87–99; RESP 18–20; TEMP 97.5–98.2; O2SAT 96–99
[2016-10-31] MEDS: INSULIN ASPART SUPPLEMENTAL SCALE SQ SCH ×2 (05:20→11:14)
[2016-10-31 06:50] LABS: HEMATOCRIT 44.7 % (39.0-51.0); MEAN CORPUSCULAR HEMOGLOBIN 26.5 PG (27.0-34.0); MEAN CORPUSCULAR HGB CONC 32.7 % (32.0-36.0); PLATELET COUNT 190 TH/MM3 (150-450); RED BLOOD COUNT 5.52 MIL/MM3 (4.50-5.90); RED CELL DISTRIBUTION WIDTH 16.2 % (11.6-17.2); REVIEW FLAG FINAL; WHITE BLOOD COUNT 7.7 TH/MM3 (4.0-11.0)
[2016-10-31 07:16] LABS: BICARBONATE 23.9 MEQ/L (21.0-32.0); POTASSIUM 4.3 MEQ/L (3.5-5.1)
[2016-10-31] MEDS: ATROVENT 0.06% NASAL SCH ×2 (08:59→13:00)
[2016-10-31] MEDS: TIOTROPIUM BROMIDE 18 MCG INH INH SCH (08:59)
[2016-10-31] MEDS: FLUTICASONE PROPIONATE 50 MCG/ACT 16 GM NASAL SPRAY EACH NARE SCH ×2 (08:59→13:29)
[2016-10-31] MEDS: FUROSEMIDE 20 MG TAB PO SCH (09:00)
[2016-10-31] MEDS: CARVEDILOL 12.5 MG TAB PO SCH (09:00)
[2016-10-31] MEDS ORDERED: INSULIN DETEMIR 100 UNITS/ML VIAL SQ SCH (09:00)
[2016-10-31] MEDS: ASPIRIN EC 81 MG TABEC PO SCH (09:00)
[2016-10-31] MEDS: LORATADINE 10 MG TAB PO SCH (09:00)
[2016-10-31] MEDS: guaiFENesin E.R. 600 MG TAB PO SCH (09:00)
[2016-10-31] MEDS: CLOPIDOGREL 75 MG TAB PO SCH (09:00)
[2016-10-31] MEDS: BUDESONIDE-FORMOTEROL 160/4.5 MCG INHALER INH SCH (09:01)
[2016-10-31] MEDS: SODIUM CHLORIDE 0.9% FLUSH 5 ML FLUSH IV SCH (09:01)
[2016-10-31] MEDS ORDERED: MUCI600T PO (09:07)
[2016-10-31] MEDS ORDERED: CARV12.5 PO (09:07)
[2016-10-31] MEDS ORDERED: LORA-361 PO (09:07)
[2016-10-31] MEDS ORDERED: FURO20TA PO (09:07)
--- NOTE | 2016-10-31 09:13 | HHI.DCPOC ---
Discharge Care Plan Diagnosis: (1) Acute systolic CHF (congestive heart failure) (2) Ischemic cardiomyopathy (3) Acute on chronic kidney disease, stage 3 (4) CAD (coronary artery disease) of artery bypass graft (5) HTN (hypertension) (6) GERD (gastroesophageal reflux disease) (7) Hyperlipidemia Goals to Promote Your Health * To prevent worsening of your condition and complications * To maintain your health at the optimal level Directions to Meet Your Goals Take your medications as prescribed Follow your dietary instruction Follow activity as directed Keep your appointments as scheduled Take your immunizations and boosters as scheduled If your symptoms worsen call your PCP, if no PCP go to Urgent Care Center or Emergency Room Smoking is Dangerous to Your Health. Avoid second hand smoke Call the 24-hour hour crisis hotline for domestic abuse at Dian Louie Oct 31, 2016 09:13 Jorge Alberto Chong DO Oct 31, 2016 15:51
[2016-10-31] MEDS ORDERED: NOVOLOGP2 SQ (10:31)
[2016-10-31] MEDS ORDERED: LEVEMIR SQ (10:31)
--- NOTE | 2016-10-31 10:34 | HHI.DS ---
Discharge Summary Admission Date Oct 25, 2016 at 19:43 Discharge Date: Oct 31, 2016 Admitting Diagnosis sob. elevated troponin (1) Acute systolic CHF (congestive heart failure) Diagnosis: Principal (2) Diabetes mellitus Diagnosis: Secondary (3) CKD (chronic kidney disease) stage 3, GFR 30-59 ml/min Diagnosis: Secondary (4) PVD (peripheral vascular disease) Diagnosis: Secondary (5) CAD (coronary artery disease) Diagnosis: Secondary (6) VT (ventricular tachycardia) Diagnosis: Secondary (7) GERD (gastroesophageal reflux disease) Diagnosis: Secondary Consultants Dr. Awais Cheng/Dr. Hawley Minor - Cardiology Procedures 2D echo (10/26/16) - LV mildly dilated - Systolic function severely reduced with EF 15-20% - Akinesis of the apical myocardium - Mild mitral regurgitation - PA peak pressure 43mmHg Brief History Pt is 61 yo with cad, cabg x 4 2009, lhc 09/03 with 3/4 patent grafts. Has been complaining of postnasal gtt and chest congestion, sob with exertion. Came to ED and found to have elevated troponin and concern for new st depression laterally. admitted to medicine with heparin gtt and cardiology notified from the ED. pt denies cp at the moment. says he feels both legs are more swollen since his hctz stopped 6 weeks ago. CBC/BMP: 10/31/16 0620 10/31/16 0620 Significant Findings Laboratory Tests Test 10/29/16 10/30/16 10/31/16 05:10 05:03 06:20 Mean Corpuscular Hemoglobin 26.1 PG 26.5 PG (27.0-34.0) (27.0-34.0) Monocytes (%) (Auto) 8.9 % (0.0-8.0) Sodium Level 135 MEQ/L 134 MEQ/L 135 MEQ/L (136-145) (136-145) (136-145) Chloride Level 97 MEQ/L 97 MEQ/L (98-107) (98-107) Blood Urea Nitrogen 42 MG/DL (7-18) 37 MG/DL (7-18) 34 MG/DL (7-18) Creatinine 2.28 MG/DL 2.00 MG/DL 1.84 MG/DL (0.60-1.30) (0.60-1.30) (0.60-1.30) Estimat Glomerular Filtration 30 ML/MIN (>89) 34 ML/MIN (>89) 38 ML/MIN (>89) Rate Random Glucose 265 MG/DL 221 MG/DL 218 MG/DL (74-106) (74-106) (74-106) Imaging Last Impressions Chest X-Ray 10/25/16 180 Signed Impressions: Service Date/Time: Tuesday, October 25, 2016 18:10 - CONCLUSION: No acute cardiopulmonary disease demonstrated. Ruben Rivas MD PE at Discharge General: NAD, AAOx3 Chest: CTA bilaterally Cardiac: Regular Abd: +BS, soft ND/NT Ext: Mild bilateral edema Hospital Course Pt presented with SOB, worse with exertion and a lot of sinus and postnasal drip "into chest" for at least "4-6months." Pt had a previous LHC 08/2016 and 3/ grafts patent. Pt was admitted for c/o SOB and elevated troponin with concern for lateral ST depression. Cardiology was consulted and pt was started on Entresto and IV Lasix for decompensated CHF. 2D echo shows severe systolic CHF with EF 15-20% and exam consistent with decompensation. Review of outpt records noted that 2D echo in 08/2016 noted an EF of 40-45%. The cause for this new decreased in his EF is unclear. During admission pts renal function worsening. Baseline creatinine has been between 1.6-1.8 since 2014. Creatinine jeanna to 2.28 (10/29/16). Entresto stopped d/t rising creatinine. Pt already on ASA/Plavix /Statin/BB. Pts IV Lasix was decreased to 20mg IV BID and then HELD 10/29/16 d/t rising creatinine. Repeat BMP on 10/30/16 with improvement in Cr to 2.00. Cardiology recommends resuming low dose oral Lasix on 10/30, and Lasix 20mg po daily was resumed with continued improvement in his renal function. Due to his worsening cardiomyopathy and risk for sudden cardiac pt had Life vest placed on him prior to discharge. Pt also with diabetes mellitus and was on Tresiba and NovoLog Flexpen as an outpt. Pt was started on NovoLog SSI and Levemir during this hospitalization. The Levemir was titrated up to 20 units BID on the day of discharge. He will continue on the Levemir and NovoLog SSI while at rehab. Pt will need to followup with Dr. Ramos in 7-10 days Pt will need to followup with his PCP, Dr. Williamson, 1 week after discharge from SNF. Pt Condition on Discharge: Stable Discharge Disposition: Discharge to SNF Discharge Instructions DIET: Follow Instructions for: Heart Healthy Diet Activities you can perform: Regular-No Restrictions Follow up Referrals: Cardiology - [address] Chandan Ramos PCP Follow-up - [address] Lyndsey Reyes New Medications: Carvedilol (Coreg) 12.5 Mg Tab 12.5 MG PO Q12HR chf #62 TAB Furosemide (Furosemide) 20 Mg Tab 20 MG PO DAILY chf #31 TAB Guaifenesin ER 12 HR (Mucinex ER 12 HR) 600 Mg Mia 600 MG PO BID congestion #62 TAB Loratadine (Claritin) 10 Mg Tab 10 MG PO DAILY post nasal drip #31 TAB Continued Medications: Albuterol 18 GM Inh (Ventolin Hfa 18 GM Inh) 90 Mcg/Act Aer 2 PUFF INH Q4-6H PRN SHORTNESS OF BREATH #1 Ref 0 INHALER Aspirin (Aspirin) 81 Mg Tabdr 81 MG PO DAILY TAB Clopidogrel (Plavix) 75 Mg Tab 75 MG PO DAILY Blood Clot Prevention #30 Ref 0 TAB Fluticasone-Salmeterol Inh (Advair Diskus Inh) 250-50 Mcg/Blist Aer 1 PUFF INH BID Rinse mouth after use. #1 Ref 0 INHALER Insulin Aspart Inj (Novolog Flexpen Inj) 300 Unit/3 Ml Pen 30 UNITS SQ Blood Sugar Management #1 Ref 0 PEN Naproxen Sodium (Aleve) 220 Mg Tab 220 MG PO BID PRN Pain Management Ref 0 TAB Simvastatin (Simvastatin) 40 Mg Tab 40 MG PO HS Cholesterol Management #30 Ref 0 TAB Tiotropium Inh (Spiriva Handihaler) 18 Mcg Cap 18 MCG INH DAILY 1 capsule = 18 mcg COPD #30 Ref 0 CAP Discontinued Medications: Lisinopril (Lisinopril) 20 Mg Tab 40 MG PO DAILY #30 Ref 0 TAB Metoprolol Tartrate (Metoprolol Tartrate) 25 Mg Tab 25 MG PO BID #60 Ref 0 TAB Additional Information Patient examined. Assessment and plan formulated with Dian Louie PA-C. I agree with the above. Dian Louie Oct 31, 2016 10:34 Jorge Alberto Chong DO Oct 31, 2016 15:50 Tiotropium Inh (Spiriva Handihaler) 18 Mcg Cap 18 MCG INH DAILY 1 capsule = 18 mcg COPD #30 Ref 0 CAP Discontinued Medications: Lisinopril (Lisinopril) 20 Mg Tab 40 MG PO DAILY #30 Ref 0 TAB Metoprolol Tartrate (Metoprolol Tartrate) 25 Mg Tab 25 MG PO BID #60 Ref 0 TAB Dian Louie Oct 31, 2016 10:34 Simvastatin (Simvastatin) 40 Mg Tab 40 MG PO HS Cholesterol Management #30 Ref 0 TAB Tiotropium Inh (Spiriva Handihaler) 18 Mcg Cap 18 MCG INH DAILY 1 capsule = 18 mcg COPD #30 Ref 0 CAP Discontinued Medications: Lisinopril (Lisinopril) 20 Mg Tab 40 MG PO DAILY #30 Ref 0 TAB Metoprolol Tartrate (Metoprolol Tartrate) 25 Mg Tab 25 MG PO BID #60 Ref 0 TAB Dian Louie Oct 31, 2016 10:34
[2016-10-31] MEDS ORDERED: CYCL1TAB29 PO (10:47)
[2016-10-31] MEDS: NS + KCL 20 MEQ INJ 1,000 ML IV SCH (10:55)
--- NOTE | 2016-11-25 09:31 | PQ ---
Physician Query Response Document PATIENT: ISRAEL POTTS : 1955 ADMIT DATE: 10/25/2016 7:43 PM DISCH DATE: 10/31/2016 4:14 PM RESPONDING PROVIDER #: Eschwart QUERY TEXT: Clarification of Clinical Diagnostic Findings Please clarify documentation or clinical relevance for the clinical / diagnostic findings or whether those are insignificant or unable to be further specified. 1) NON-STEMI PRESENT 2) NON-STEMI RULED OUT 3) ELEVATED TROPONIN 4) OTHER , PLEASE EXPLAIN PLEASE CONTACT [place] @ [place] [id number] FOR ASSISTANCE The patient's Clinical Indicators include: NO MENTION OF NON-STEMI IN ATTENDING NOTES PER H Came to ED and found to have elevated troponin and concern for new st depression laterally. admitted to medicine with heparin gtt and cardiology not ifie PER CARDIOLOGY PROGRESS NOTES: Assessment and Plan (1) Ischemic cardiomyopathy (2) NSTEMI, initial episode of care (3) Acute systolic CHF (congestive heart failure) TROPONIN 10/25/16=6.44 10/26/16=5.89 10/26/16=6.24 Query created by: Celine Morelos on 10/31/2016 3:57 PM RESPONSE TEXT: Pt admitted with acute systolic CHF and elevated troponins. Pt's Laboratory Chemical Assistant felt that his elevated troponins did constitute a diagnosis of NSTEMI. Electronically signed by: Jorge Alberto Chong DO 11/25/2016 9:27 AM
== END 2016-10-31 16:14 | DRG 280 ==
LOC: NEPC 17:24 → NEDA 19:43 → NEDH 23:54 → HCIS 10-26 03:00
PROVIDERS: ADMIT Hospitalist; ATTEND Hospitalist
DX: I13.0 Hypertensive heart and chronic kidney disease with heart failure and stage 1 through stage 4 chronic kidney disease, or unspecified chronic kidney disease (principal); I50.23 Acute on chronic systolic (congestive) heart failure; I21.4 Non-ST elevation (NSTEMI) myocardial infarction; E11.22 Type 2 diabetes mellitus with diabetic chronic kidney disease; I25.810 Atherosclerosis of coronary artery bypass graft(s) without angina pectoris; N17.9 Acute kidney failure, unspecified; N18.3 Chronic kidney disease, stage 3 (moderate); J44.9 Chronic obstructive pulmonary disease, unspecified; I34.0 Nonrheumatic mitral (valve) insufficiency; I25.5 Ischemic cardiomyopathy; E66.8 Other obesity; I73.9 Peripheral vascular disease, unspecified; K21.9 Gastro-esophageal reflux disease without esophagitis; Z87.891 Personal history of nicotine dependence; Z79.4 Long term (current) use of insulin; Z68.38 Body mass index [BMI] 38.0-38.9, adult
CPT/HCPCS: 71010; 80048; 80053; 82550; 82552; 82948; 83735; 83880; 84484; 85025; 85027; 85610; 85730; 93005; 93306; 96365; 96375; J1644; J1815; J1940; J3480

== ENCOUNTER 2016-12-19 10:56 | Day surgery (SDC) | payer OTHER ==
[2016-12-19] VITALS (10 sets, daily range): BP systolic 120–151; BP diastolic 67–80; PULSE 91–101; RESP 16–18; TEMP 97.9–98.4; O2SAT 94–98
[~2016-12-19] VITALS: Ht 188 cm; Wt 126.7 kg
[~2016-12-19 10:56] MED LIST changes: +CARV12.5 PO; -CLOT1CRE8 TOPICAL; +CYCL1TAB29 PO; -ERGO1CAP10 PO; +FURO20TA PO; -INSU1INJ13 SQ; +LEVEMIR SQ; -LISI-515 PO; +LORA-361 PO; -METO25TA3 PO; +MUCI600T PO; -NOVOINJ3 SQ; +NOVOLOGP2 SQ
[2016-12-19] MEDS ORDERED: LACTATED RINGER'S 1000 ML IV PRN (11:30)
[2016-12-19] MEDS ORDERED: SODIUM CHLORID 0.9% 500 ML IV PRN (11:30)
[2016-12-19] MEDS ORDERED: MUPIROCIN 2% OINT 1 APPLIC/GM SYR NASAL SCH (11:30)
[2016-12-19] MEDS ORDERED: CHLORHEXIDINE GLUCONATE 2 % 1 PACK (2 CLOTHS) TOPICAL SCH (11:30)
[2016-12-19] MEDS ORDERED: POVIDONE IODINE 5% (ANTISEPSIS KIT) 4 APPLICATIONS EACH NARE SCH (11:30)
[2016-12-19] MEDS ORDERED: METOPROLOL TARTRATE 25 MG TAB PO PRN (11:30)
[2016-12-19] MEDS ORDERED: VANCOMYCIN 1000 MG/NS 250 ML IV SCH ×2 (11:30)
[2016-12-19] MEDS ORDERED: CHLORHEXIDINE GLUCONATE 2 % 1 PACK (2 CLOTHS) TOPICAL PRN (11:30)
[2016-12-19] MEDS ORDERED: PRIL20CA9 PO (11:30)
[2016-12-19] MEDS ORDERED: INSULIN HUMAN REGULAR 1,000 UNITS/10 ML VIAL SQ PRN (11:30)
[2016-12-19] MEDS ORDERED: LORazepam 1 MG TAB SL SCH (11:30)
[2016-12-19] MEDS ORDERED: POVIDONE IODINE 5% (ANTISEPSIS KIT) 4 APPLICATIONS EACH NARE PRN (11:30)
[2016-12-19] MEDS ORDERED: LISI-519 PO (11:30)
[2016-12-19] MEDS ORDERED: ceFAZolin 2 GM PREMIX 50 ML IV SCH (11:30)
[2016-12-19] MEDS ORDERED: NS 1000 ML IV SCH (11:30)
[2016-12-19] MEDS ORDERED: INSU1INJ14 SQ (11:30)
[2016-12-19 11:54] LABS: AUTOMATED NEUTROPHIL # 4.4 TH/MM3 (1.8-7.7); BASOPHIL # 0.1 TH/MM3 (0-0.2); BASOPHIL % 0.8 % (0.0-2.0); EOSINOPHIL # 0.3 TH/MM3 (0-0.4); EOSINOPHIL % 3.7 % (0.0-4.0); HEMATOCRIT 41.1 % (39.0-51.0); HEMO FLAGS DIFF FINAL; LYMPH % 28.5 % (9.0-44.0); LYMPHOCYTE # 2.1 TH/MM3 (1.0-4.8); MEAN CELL VOLUME 78.7 FL (80.0-100.0); MEAN CORPUSCULAR HEMOGLOBIN 26.2 PG (27.0-34.0); MEAN CORPUSCULAR HGB CONC 33.3 % (32.0-36.0); MONO % 8.1 % (0.0-8.0); NEUT % 58.9 % (16.0-70.0); PLATELET COUNT 155 TH/MM3 (150-450); RED BLOOD COUNT 5.22 MIL/MM3 (4.50-5.90); RED CELL DISTRIBUTION WIDTH 16.3 % (11.6-17.2); WHITE BLOOD COUNT 7.4 TH/MM3 (4.0-11.0)
[2016-12-19 12:10] LABS: BICARBONATE 26.8 MEQ/L (21.0-32.0); POTASSIUM 4.3 MEQ/L (3.5-5.1)
[2016-12-19] MEDS ORDERED: PROPOFOL 200 MG/20 ML AMP IV ONE (14:19)
[2016-12-19] MEDS ORDERED: MIDAZOLAM HCL 2 MG/2 ML VIAL ONE (14:30)
[2016-12-19] MEDS ORDERED: VANCOMYCIN 500 MG VIAL ONE ×2 (14:40→14:42)
[2016-12-19] MEDS ORDERED: LIDOCAINE HCL 2% 50 ML VIAL ONE (14:40)
--- NOTE | 2016-12-19 15:28 | PD.CARD ---
SINGLE CHAMBER DEFIB IMPLANT PROCEDURE DATE: December 19, 2016 NYHA Classification: Class II (Mild) Prevention: Primary Single Chamber Defib Implant PROCEDURE: Single chamber defibrillator implantation and device testing. INDICATIONS: Mr. Gil is a 61 -year-old male with hx of previous MT, CAD , CABG , congestive heart failure, ejection fraction 25% (November 2016) who undergo defibrillator implantation for sudden primary prevention. He is omn optimal medical management per guideline. The risks, the nature and the benefit of the procedure are clearly stated to him . Risks include pneumothorax , cardiac perforation, stroke and even . He understood and agreed to proceed. PROCEDURE: After written, informed consent was obtained, the patient was brought to the EP Lab where he was prepped and draped in the sterile fashion. Conscious sedation was initiated and maintained throughout the procedure by anesthesiologist. Once sedation was verified, the left infraclavicular area was anesthetized with 2% Xylocaine. Using modified Seldinger technique, the left subclavian vein was cannulated on one occasion and one guide wire was advanced. Then, using #11 blade scalpel, a 3-cm incision was made two fingerbreadths below left clavicle. This incision was then taken down to the deep fascial layer using Bovie cautery and blunt dissection. Into the inferomedial direction, a device pocket was dissected, then the wire was dissected into the pocket. A 2-0 Vicryl suture was placed around the wires to prevent bleeding. At this point, over the wire, the 7- Grenadian dilator and introducer was advanced. As dilator and wire were removed, an active fixation right ventricular pacing, sensing and defibrillatory lead was advanced. After adequate pacing and sensing thresholds were obtained, the lead was secured in the pocket with #2 Ethibond suture. At that point, the pocket was copiously irrigated with antibiotic solution. The leads were connected to the generator and placed into the pocket. I did proceed with NIPS. Initial induction consisted of T-wave shock which induced ventricular fibrillation which was adequately detected and treated by the ICD generator, delivering a 20-joule defibrillatory shock converting the patient back into sinus rhythm. Shocking impedance was 48 ohms, charge time 3.5 seconds. At that point NIPS was complete. I did proceed with wound closure. The deep fascial layer was approximated with 2-0 Vicryl suture in a continuous fashion. The subcutaneous layer was approximated with 2-0 Vicryl suture in a continuous fashion. The subcuticular layer was approximated with 2-0 Vicryl suture in a continuous fashion. Dermabond adhesive was applied to the wound, followed by a sterile pressure dressing. There was no complication. The patient tolerated procedure. Blood loss minimal. 1. Implanted Hardware: The implanted defibrillator generator is a [employer], model number [id number], serial number [id number]. The right ventricular pacing, sensing and defibrillatory lead is a [employer] model number 7121Q-65, serial number [id number]. 2. Thresholds: The right ventricular pacing threshold in the bipolar mode was 0.7 volts at 0.5 milliseconds, lead impedance 1050 ohms and R-wave at 20.0 mV. The right ventricular defibrillatory threshold less than 20 joules shocking, impedance 48 ohms, charge time 3.5 seconds. 3. Settings: The device set in VVI 40 defibrillatory portion for two zones, one zone for ventricular tachycardia between 170 and 250 beats per minute. Initial therapy consists of one burst of ATP, one ramp, 81%, 10 pulse, 10 millisecond decremental, followed by 20, then 30 and all subsequent shocks at 40 joules defibrillatory shock, the second zone for ventricular fibrillation above 250 beats per minute, first therapy at 30 and all subsequent shocks at 40 joules defibrillatory shock. CONCLUSIONS: Successful defibrillator implantation and device testing. COMMENT AND RECOMMENDATIONS: The patient will be transferred to the telemetry unit, will be observed and when stable can be discharged home. Iveth Razo MD December 19, 2016 15:28
[2016-12-19] MEDS ORDERED: ACETAMINOPHEN/CODEINE 300 MG/30 MG TAB PO PRN (15:30)
[2016-12-19] MEDS ORDERED: NON-FORMULARY DRUG (Naproxen Sodium (Aleve) 220 MG) PO PRN (15:45)
[2016-12-19] MEDS ORDERED: CYCLOBENZAPRINE HCL 10 MG TAB PO PRN (16:00)
[2016-12-19] MEDS ORDERED: PANTOPRAZOLE SOD 20 MG DELAYED RELEASE TAB PO SCH (16:00)
--- NOTE | 2016-12-19 16:09 | CATHPROC ---
[employer] HIS Report Study Information Study Number Admission Scheduled Start Study Start [id number] 12/19/2016 12/19/2016 12/19/2016 Referring Institution Admit Source Facility Department 1 Other [facility] - Development Consultant Physician and Clinical Staff Initial Iveth Ruggiero Cement Fittings Maker Alejandra Mendes,BLUEPRINT PROCESSOR TECH2 Other Anesthesia, CENTRAL SUPPLY NURSE Recorder Nunu Hogue,RN Scrub Nick Kennedy,RT(R) Procedures Performed Procedure Lead Insertion Equipment Time Extrusion Press Operator Description Size Mfg Part Number Used/Scraped DERMABOND, ADHESIVE SKIN 14:51 CORDIS/PACER * [id number] Used GLUE MINI 14:51 [employer] INDUSTRIES SUTURE, STRIP PLUS 1/2" * [id number] Used 14:51 [employer] PACER DONALDSON, LIMB * [id number] Used 14:51 [employer] PACER PACK, PACER CUSTOM * [id number] Used 15:07 [employer] Is Good PACER SAFE SHEATH, FR7, 13CM FR 7 [id number] Used 15:17 Needle Sponge Count 2 22 Used 15:16 Needle Sponge Count 20 200 Used 15:16 Needle Sponge Count 3 3 Used SUTURE, 0 ETHIBOND [CT1] (CX21D), 8pk SUTURE, 2-0 VICRYL [CT1] (CSG057G) SUTURE, 2-0 VICRYL [CT1] (HFQ055T) 14:51 [employer],WARM AIR CCL * [id number] Used DEFIBRILLATOR, FORTIFY 15:12 [employer] VVEVVVIRV [id number] Used ASSURA VR LEAD, DURATA ACTIVE FIXATION 15:11 [employer] 65CM 7121Q-65 Used 7121/65 [facility] PAD, ELECTROSURGICAL 14:51 * [id number] Used SURGICAL GROUNDING ORANGE 14:51 [employer] RONIT. ELECTRODE, PRO-PADZ BIPHASIC * [id number] Used Equipment Model, Serial, Lot Number and Expiration Data Description Model Number Serial Number Lot Number Expiration Jaswinder e DEFIBRILLATOR, FORTIFY ASSURA [id number] 08-17-2018 VR LEAD, DURATA ACTIVE FIXATION 7121q-65 [id number] 10-15-2017 7121/65 History: Allergies Allergy Reaction Penicillin pt unknown History: Risk Factors Family History of Hypertension Dyslipidemia Previous ND Previous Heart Failure Premature CAD Yes Yes No Yes Yes Prior Valve Prior PCI Prior CABG Prior CABGDate Surgery No No Yes 05/18/2010 Cerebrovascular Peripheral Artery Chronic Lung On Dialysis Diabetes Diabetes Therapy Disease Disease Disease No No No Yes Yes Insulin Labs Hgb (g/dl) Hct (%) 12.00-18.00 37.00-55.00 13.0 41 Medication Medication Total Dose (Bolus/Oral) Medication Total Dosage/Unit 2% XYLOCAINE 50 mL Medications (Bolus/Oral) Medication Time Given Dosage/Unit Administered By Reason 2% XYLOCAINE 12/19/2016 3:02:29 PM 50 mL Iveth Razo 50 mL 2% XYLOCAINE given in lab by Iveth Razo in Left upper chest via Subcutaneous. Ordered by Iveth Fong. Medication (Drip) Medication Time Given Dosage/Unit Concentration/Unit Diluent (ml) Solution VANCOMYCIN DRIP 12/19/2016 4:08:08 PM 1 g 1 g VANCOMYCIN DRIP given in lab by Anesthesia, CENTRAL SUPPLY NURSE via Peripheral IV. Ordered by Iveth Razo. Yoselin son: As per physicians verbal order. Initial Case Assessment Cardiovascular HR Rhythm NIBP Chest Pain 90 sr 145/80 0 Edema Present Skin color Skin None Normal Warm Dry Circulatory - Right Pulses Radial 1 Scale (0,1,2,3,4,d) Circulatory - Left Pulses Radial 1 Scale (0,1,2,3,4,d) Circulatory - Lower Extremities Color Lower Right Color Lower Left Normal Normal Neurological State Oriented to time-place- Alert Moves all extremities person Respiration - General Respiration Rate SpO2 (%) O2 (lpm) (B/min) 20 100 4 Final Case Assessment Cardiovascular HR NIBP Chest Pain 93 150/70 0 Edema Present Skin color Skin None Normal Warm Dry Circulatory - Right Pulses Radial 1 Scale (0,1,2,3,4,d) Circulatory - Left Pulses Radial 1 Scale (0,1,2,3,4,d) Circulatory - Lower Extremities Color Lower Right Color Lower Left Normal Normal Neurological State Oriented to time-place- Alert Moves all extremities person Respiration - General Respiration Rate SpO2 (%) O2 (lpm) (B/min) 16 100 4 Chronological Log Time Study Chronological Log 14:19:55 Patient arrived via Bed. 14:19:56 Patient Name, D.O.B, / Armband Verified By R.N. 14:19:57 Consent signed by the physician and the patient and verified by the Development Consultant staff. 14:19:58 Pre-op and post- op instructions given; patient acknowledges understanding of instructions. 14:19:59 Verbal Stimulation=2 Physical Stimulation=2 Airway=2 Respiration=2 TOTAL=8. (0=absent, 1=li mited, 2=present) 14:20:00 Patient has been NPO for More than 6Hrs. 14:20:01 Skin Breakdown- multitude of generalized scabs 14:20:02 Patient Warmer Placed on the Table. 14:20:07 A # 20 IV was noted in the Hand (right). Grade = 0 0.9ns kvo 14:20:08 A # 20 IV was noted in the Forearm (right). Grade = 0 0.9ns kvo 14:20:15 Disposable Defibrillator Pads Placed On Patient. 14:20:16 Moriah Prominences Protected 14:20:17 History and physical on the chart or being dictated. 14:20:22 2% CHLORHEXIDINE GLUCONATE WASH AND NASAL SWIPE DONE PRIOR TO PROCEDURE. 14:25:29 Bovie ground pad applied to: right hip First Sponge And Instrument Count Done by Nick Kennedy, RT(R). 14:45:54 Hypo's: 3, Sponges: 20, Bovie/scratch: 2 Sutures: 10, Blades: 1, Instruments: 26, Syveck Patches: 0 verified w MM Assessment: Initial Case, HR=90 BPM, Rhythm=sr, ZNRP=581/80 mmhg, Chest Pain=0, Edema=None, Col or=Normal, Skin = Warm, Dry Right Pulses: Radial=1 Left Pulses: Radial=1 14:48:11 Lower Right Extremities: Color=Normal Lower Left Extremities: Color=Normal Neurological: State=Alert, Ox3, RETANA Respiration: Resp=20 B/min, PyF8=344 %, O2=4 lpm 14:50:10 Table restraints applied according to hospital policy 14:50:17 Upper Chest Prepped Times Two. 14:50:23 MD paged 14:54:05 MD responded 14:57:52 MD arrived. Time Out. Correct patient, procedure, procedure equipment, site and side verified with physicia n present. Time 15:02:00 concurred by MD, individual staff and CENTRAL SUPPLY NURSE. Time Out #2 - Consents verified, patient in correct position, all results are labled and displa yed, safety precautions 15:02:18 taken, antibiotics administered. Time out concurred by MD, individual staff and CENTRAL SUPPLY NURSE in procedu re 15:02:28 Case Start 15:02:29 50 mL 2% XYLOCAINE given in lab by Iveth Razo in Left upper chest via Subcutaneous. Orde red by Iveth Razo. 15:03:40 Vascular access was obtained in the Subclav. Vein (Lft. 15:03:45 Wire inserted 15:03:51 Surgical Incision Made. 15:03:58 A pocket was created at the L Upper Chest. 15:06:34 A SAFE SHEATH, FR7, 13CM FR 7 was advanced into the Subclav. Vein (Lft using the Modified S eldinger technique. 15:07:42 A LEAD, DURATA ACTIVE FIXATION 7121/65 65CM was inserted and positioned in the RV. 15:08:40 Lead placement verified under fluoroscopy 15:08:41 The RV lead impedance and threshold being tested. 15:10:07 The RV lead was sutured to the fascia. 15:11:40 A DEFIBRILLATOR, FORTIFY ASSURA VR VVEVVVIRV was connected and placed in the pocket. Second Sponge And Instrument Count Done by Nick Kennedy RT(R). 15:17:04 Hypo's: 3, Sponges: 20, Bovie/scratch: 2 Sutures: 10, Blades: 1, Instruments: 26, Syveck Patches: 0 15:17:12 A two Joul DFT was performed. 15:17:46 The DFT was Success at 20 Joules, 48 Ohms lead impedance and 3.5 ms charge time. 15:17:55 Pocket flushed with antibiotic solution 15:18:00 The pocket was closed. 15:18:17 PACU called. Spoke to Pauline 15:18:27 Bedside Report will be given. Final Sponge And Instrument Count Done by Nick Kennedy RT(R). 15:20:05 Hypo's: 3, Sponges: 20, Bovie/scratch: 2 Sutures: 10, Blades: 1, Instruments: 26, Syveck Patches: 0 15:23:20 Implant Procedure was performed. 15:23:27 A ICD Implant . (Single) 15:24:08 Steri-strips and a sterile dressing applied to site. 15:24:42 Case End Assessment: Final Case, HR=93 BPM, UTJV=165/70 mmhg, Chest Pain=0, Edema=None, Color=Normal, S kin = Warm, Dry Right Pulses: Radial=1 Left Pulses: Radial=1 15:25:30 Lower Right Extremities: Color=Normal Lower Left Extremities: Color=Normal Neurological: State=Alert, Ox3, RETANA Respiration: Resp=16 B/min, FuF2=567 %, O2=4 lpm 15:27:39 No case complications noted. 15:34:21 A sling was placed on the affected arm. 15:37:48 Patient moved to stretcher 1 g VANCOMYCIN DRIP given in lab by Anesthesia, CENTRAL SUPPLY NURSE via Peripheral IV. Ordered by Paul Razo. Reason: As per 16:08:08 physicians verbal order. End Study - Contrast Media Used In Study Contrast Total Opened (mL) Total Used (mL) Total Wasted (mL) Unspecified 0 0 0 End Study - Radiation Exposure Fluoro Time (minutes) 1.0 End Study - Patient Disposition Complications Transferred To Interventional Outcome No Telemetry Bed successful
--- NOTE | 2016-12-19 16:11 | RADRPT ---
EXAM DATE/TIME: 12/19/2016 15:47 [facility] COMPARISON: CHEST SINGLE AP, October 25, 2016, 18:10. INDICATIONS : Post ICD placement. MEDICAL HISTORY : Chronic obstructive pulmonary disease. Diabetes mellitus type II. Hypertension. SURGICAL HISTORY : CABG. ENCOUNTER: Initial ACUITY: 1 day PAIN SCORE: 6/10 LOCATION: Bilateral upper chest FINDINGS: A single portable frontal view of the chest shows interval placement of a single lead pacing device o n the left. The lead terminates in the region of the right ventricle. No pneumothorax. Heart enlarged . Pulmonary vascular engorgement. No effusions. Median sternotomy wires. CONCLUSION: 1. Left-sided pacer placement without pneumothorax. 2. Cardiomegaly with pulmonary vascular engorgement. Tadeo Teixeira Jr., MD on December 19, 2016 at 16:08 Board Certified Radiologist. This report was verified electronically.
[2016-12-19] MEDS: ACETAMINOPHEN/CODEINE 300 MG/30 MG TAB PO PRN ×2 (16:33→20:35)
[2016-12-19] MEDS: ceFAZolin 2 GM PREMIX 50 ML IV SCH (16:33)
[2016-12-19] MEDS ORDERED: GLUCAGON 1 MG/ML VIAL OTHER PRN (17:30)
[2016-12-19] MEDS ORDERED: DEXTROSE 50% IN WATER 50 ML VIAL(D50) IV PUSH PRN (17:30)
[2016-12-19] MEDS ORDERED: NON-FORMULARY DRUG (Insulin Degludec Inj (Tresiba Flextouch Pen Inj) 1 UNITS) SQ SCH (18:00)
[2016-12-19] MEDS: CARVEDILOL 12.5 MG TAB PO SCH (20:34)
[2016-12-19] MEDS ORDERED: TEMAZEPAM 15 MG CAP PO PRN (21:00)
[2016-12-19] MEDS: MEDIUM DOSE INSULIN NOVOLOG SUPPLEMENTAL SCALE SQ SCH (21:00)
[2016-12-19] MEDS ORDERED: BUDESONIDE-FORMOTEROL 160/4.5 MCG INHALER INH SCH (21:00)
[2016-12-19] MEDS ORDERED: PRAVASTATIN SOD 80 MG TAB PO SCH (21:00)
[2016-12-20] VITALS (10 sets, daily range): BP systolic 125–141; BP diastolic 68–78; PULSE 70–89; RESP 18; TEMP 97.6–98; O2SAT 96–97
[2016-12-20] MEDS: ceFAZolin 2 GM PREMIX 50 ML IV SCH ×2 (02:09→08:35)
[2016-12-20] MEDS: ACETAMINOPHEN/CODEINE 300 MG/30 MG TAB PO PRN (05:20)
[2016-12-20] MEDS: MEDIUM DOSE INSULIN NOVOLOG SUPPLEMENTAL SCALE SQ SCH (05:24)
[2016-12-20] MEDS ORDERED: LEVA500T PO (08:05)
--- NOTE | 2016-12-20 08:08 | PD.CARD.PN ---
Subjective Subjective Remarks Feels ok. Objective Medications Current Medications Medications (Trade) Dose Ordered Sig/Angel Route Start Time Stop Time Status Last Admin Lactated Ringer's 1,000 ml @ 30 mls/hr Q24H PRN IV 12/19/16 11:30 12/22/16 11:29 Sodium Chloride 500 ml @ 30 mls/hr [id number] PRN IV 12/19/16 11:30 12/22/16 11:29 Sodium Chloride 1,000 ml @ 30 mls/hr Q24H IV 12/19/16 11:30 (Ancef 2 Gm Premix) 50 ml @ 100 mls/hr Q8H IV 12/19/16 18:00 12/20/16 10:29 12/20/16 02:09 (Restoril) 15 mg HS PRN PO 12/19/16 21:00 (Tylenol-Codeine #3) 1 tab Q4H PRN PO 12/19/16 15:30 (Tylenol-Codeine #3) 2 tab Q4H PRN PO 12/19/16 15:30 12/20/16 05:20 (Ecotrin Ec) 81 mg DAILY PO 12/20/16 09:00 (Coreg) 12.5 mg Q12HR PO 12/19/16 21:00 12/19/16 20:34 (Plavix) 75 mg DAILY PO 12/20/16 09:00 (Flexeril) 10 mg Q8HR PRN PO 12/19/16 16:00 (Lasix) 20 mg DAILY PO 12/20/16 09:00 (Claritin) 10 mg DAILY PO 12/20/16 09:00 (Spiriva Inh) 18 mcg DAILY INH 12/20/16 09:00 Non-Formulary Medication 1 units TID SQ 12/19/16 18:00 Hold (Protonix) 20 mg DAILY PO 12/19/16 16:00 12/19/16 16:33 (Pravachol) 80 mg HS PO 12/19/16 21:00 12/19/16 20:34 (Prinivil) 10 mg DAILY PO 12/20/16 09:00 (D50w (Vial) Inj) 25 ml UNSCH PRN IV PUSH 12/19/16 17:30 (Glucagon Inj) 1 mg UNSCH PRN OTHER 12/19/16 17:30 (Symbicort 160-4.5 Inh) 1 puff BID INH 12/20/16 09:00 Vital Signs / I&O Vital Signs Date Time Temp Pulse Resp B/P Pulse Ox O2 Delivery O2 Flow Rate FiO2 12/20/16 06:23 82 12/20/16 05:00 82 12/20/16 04:00 98.0 87 18 141/78 96 12/20/16 04:00 77 12/20/16 03:07 87 12/20/16 02:00 89 12/20/16 00:01 70 12/19/16 23:51 98.4 97 18 128/70 96 12/19/16 23:00 91 12/19/16 22:00 97 12/19/16 21:00 97 12/19/16 20:00 98.4 96 18 151/77 94 12/19/16 20:00 96 12/19/16 19:00 96 12/19/16 18:00 95 12/19/16 17:00 101 12/19/16 16:45 97.9 94 18 148/80 98 12/19/16 11:55 92 16 120/67 98 I/O 12/19/16 12/19/16 12/19/16 12/20/16 12/20/16 12/20/16 07:00 15:00 23:00 07:00 15:00 23:00 Intake Total 530 ml Output Total 500 ml Balance 30 ml Intake Oral 480 ml IV Total 50 ml Output Urine Total 500 ml Physical Exam GENERAL: Well-nourished, well-developed patient. SKIN: Warm and dry. LCW incision well approximated without erythema or drainage. HEAD: Normocephalic. EYES: No scleral icterus. No injection or drainage. NECK: Supple, trachea midline. No JVD or lymphadenopathy. CARDIOVASCULAR: Regular rate and rhythm without murmurs, gallops, or rubs. RESPIRATORY: Breath sounds equal bilaterally. No accessory muscle use. GASTROINTESTINAL: Abdomen soft, non-tender, nondistended. EXTREMITIES: No cyanosis, or edema. NEUROLOGICAL: Awake, alert, and oriented x 3. Non-focal. Laboratory Laboratory Tests Test 12/19/16 11:20 White Blood Count 7.4 TH/MM3 Red Blood Count 5.22 MIL/MM3 Hemoglobin 13.7 GM/DL Hematocrit 41.1 % Mean Corpuscular Volume 78.7 FL Mean Corpuscular Hemoglobin 26.2 PG Mean Corpuscular Hemoglobin 33.3 % Concent Red Cell Distribution Width 16.3 % Platelet Count 155 TH/MM3 Mean Platelet Volume 10.3 FL Neutrophils (%) (Auto) 58.9 % Lymphocytes (%) (Auto) 28.5 % Monocytes (%) (Auto) 8.1 % Eosinophils (%) (Auto) 3.7 % Basophils (%) (Auto) 0.8 % Neutrophils # (Auto) 4.4 TH/MM3 Lymphocytes # (Auto) 2.1 TH/MM3 Monocytes # (Auto) 0.6 TH/MM3 Eosinophils # (Auto) 0.3 TH/MM3 Basophils # (Auto) 0.1 TH/MM3 CBC Comment DIFF FINAL Differential Comment Prothrombin Time 11.0 SEC Prothromb Time International 1.0 RATIO Ratio Activated Partial 28.0 SEC Thromboplast Time Sodium Level 138 MEQ/L Potassium Level 4.3 MEQ/L Chloride Level 102 MEQ/L Carbon Dioxide Level 26.8 MEQ/L Anion Gap 9 MEQ/L Blood Urea Nitrogen 39 MG/DL Creatinine 1.94 MG/DL Estimat Glomerular Filtration 36 ML/MIN Rate Random Glucose 120 MG/DL Calcium Level 9.2 MG/DL Blood Type O POSITIVE Antibody Screen NEGATIVE Imaging Last Impressions Chest X-Ray 12/19/16 0000 Signed Impressions: Service Date/Time: December 15:47 - CONCLUSION: 1. Left-sided pacer placement without pneumothorax. 2. Cardiomegaly with pulmonary vascular engorgement. Tadeo Teixeira Jr., MD Assessment and Plan Problem List: (1) Ischemic cardiomyopathy Assessment and Plan: EF 25%, on optimal medications. (2) S/P ICD (internal cardiac defibrillator) procedure Assessment and Plan: Implanted for SCD prophylaxis. Device function appropriate, CXR shows no PTX. DC home, f/u with Dr. Razo in 2 weeks per my d/ w levar. Maribel Sifuentes December 20, 2016 08:08
[2016-12-20] MEDS: CARVEDILOL 12.5 MG TAB PO SCH (08:38)
[2016-12-20] MEDS ORDERED: TIOTROPIUM BROMIDE 18 MCG INH INH SCH (09:00)
[2016-12-20] MEDS ORDERED: BUDESONIDE-FORMOTEROL 160/4.5 MCG INHALER INH SCH (09:00)
[2016-12-20] MEDS ORDERED: CLOPIDOGREL 75 MG TAB PO SCH (09:00)
[2016-12-20] MEDS ORDERED: LISINOPRIL 10 MG TAB PO SCH (09:00)
[2016-12-20] MEDS ORDERED: FUROSEMIDE 20 MG TAB PO SCH (09:00)
[2016-12-20] MEDS ORDERED: LORATADINE 10 MG TAB PO SCH (09:00)
[2016-12-20] MEDS ORDERED: LISINOPRIL 5 MG TAB PO SCH (09:00)
[2016-12-20] MEDS ORDERED: ASPIRIN EC 81 MG TABEC PO SCH (09:00)
--- NOTE | 2016-12-20 15:25 | EKG ---
Date Performed: 12/20/2016 Time Performed: 04:27:28 PTAGE: 61 years EKG: Sinus rhythm with PVC(s) with 1st degree A-V block Cannot rule out septal infarct - age undetermined Left ventric ular hypertrophy Inferior/lateral ST-T changes may be due to ischemia Abnormal ECG PREVIOUS TRACING : 12/19/2016 11.53 DOCTOR: Chau Barahona Interpretating Date/Time 12/20/2016 15:23:38
--- NOTE | 2016-12-20 15:48 | EKG ---
Date Performed: 12/19/2016 Time Performed: 11:53:04 PTAGE: 61 years EKG: Sinus rhythm with 1st degree A-V block Possible septal infarct - age undetermined Left ventricular hypertrophy In ferior/lateral ST-T changes may be due to hypertrophy and/or ischemia Abnormal ECG PREVIOUS TRACING : 10/26/2016 08.31 DOCTOR: Chau Barahona Interpretating Date/Time 12/20/2016 15:40:22
== END 2016-12-20 11:24 | disposition home health service (06) ==
LOC: HCAT 10:56 → HDIC 11:00 → HCAT 16:27 → HDIC 16:27 → UNDOADMIN 16:31 → HCIN 16:31 → UNDODISIN 12-20 11:24 → HCAT 12-20 11:24
PROVIDERS: ATTEND Internal Medicine Interventional Cardiology
DX: I11.0 Hypertensive heart disease with heart failure (principal); I50.9 Heart failure, unspecified; I47.2 Ventricular tachycardia; I25.10 Atherosclerotic heart disease of native coronary artery without angina pectoris; I25.5 Ischemic cardiomyopathy; E11.9 Type 2 diabetes mellitus without complications; J44.9 Chronic obstructive pulmonary disease, unspecified; E78.5 Hyperlipidemia, unspecified; E66.9 Obesity, unspecified; Z68.35 Body mass index [BMI] 35.0-35.9, adult; I73.9 Peripheral vascular disease, unspecified; I25.2 Old myocardial infarction; Z79.82 Long term (current) use of aspirin; Z87.891 Personal history of nicotine dependence; Z79.02 Long term (current) use of antithrombotics/antiplatelets
CPT/HCPCS: 00530; 33249; 71010; 80048; 82948; 85025; 85610; 85730; 86850; 86900; 86901; 93005; 97161; 97530; C1722; C1895; J0690; J1815; J2250; J3010; J3370; J7050; 93642

== ENCOUNTER 2017-02-05 23:01 | Inpatient (IN) | payer OTHER ==
[~2017-02-05] VITALS: Ht 185.4 cm; Wt 129.8 kg
[~2017-02-05 23:01] MED LIST changes: +INSU1INJ14 SQ; +LEVA500T PO; -LEVEMIR SQ; +LISI-519 PO; -MUCI600T PO; +PRIL20CA9 PO
[2017-02-05 23:03] VITALS: BP 157/81; PULSE 100; RESP 18; TEMP 98.9; O2SAT 96
--- NOTE | 2017-02-05 23:34 | PD ---
HPI Chief Complaint: Chest Pain Time Seen by Provider: 23:32 Travel History International Travel<30 days: No Contact w/Intl Traveler<30days: No Traveled to known affect area: No History of Present Illness HPI 62-year-old male with history of previous [place], CHF, hypertension, diabetes, defibrillator placed last month, follows up with Dr. contreras, presents to the ER today because of several days history of bilateral leg swelling, dyspnea on exertion, shortness of breath, orthopnea, and intermittent chest discomfort which she states is midsternal and radiates from the back. He states it hurts sometimes with movement, sometimes it just comes and goes on its own. he has no current chest pains but is still complaining of shortness of breath. He has not been coughing, having any fevers or any other symptoms. Modifying Factors: None Associated Signs & Symptoms: Intermittent chest pains, shortness of breath, dyspnea on exertion Risk Factors: [place], history of CHF PFSH Past Medical History Hx Anticoagulant Therapy: Yes Arthritis: No Asthma: No Autoimmune Disease: No Blood Disorders: No Anxiety: No Depression: No Heart Rhythm Problems: Yes Cancer: No Cardiovascular Problems: Yes (CAD, CHF) High Cholesterol: Yes Chemotherapy: No Chest Pain: No Congestive Heart Failure: No COPD: Yes Cerebrovascular Accident: No Diabetes: Yes Diminished Hearing: No Endocrine: Yes Gastrointestinal Disorders: No GERD: Yes Glaucoma: No Genitourinary: Yes Headaches: No Hepatitis: No Hiatal Hernia: No Heparin Induced Thrombocytopen: No Hypertension: Yes Immune Disorder: No Implanted Vascular Access Dvce: No Kidney Stones: No Musculoskeletal: Yes Neurologic: No Psychiatric: No Reproductive: No Respiratory: Yes (COPD) Integumentary: Yes (scabs on all extremities) Migraines: No Myocardial Infarction: No Radiation Therapy: No Renal Failure: No Seizures: No Sickle Cell Disease: No Sleep Apnea: No Thyroid Disease: No Ulcer: No PNEUMOCCOCAL Vaccine (Year): 2 Past Surgical History Abdominal Surgery: Yes (CHOLECYSTECTOMY) AICD: No Appendectomy: No Arteriovenous Shunt: No Cardiac Surgery: Yes (QUAD BYPASS 05/2011) Cholecystectomy: Yes Coronary Artery Bypass Graft: Yes (4 YEARS AGO) Ear Surgery: No Endocrine Surgery: No Eye Surgery: No Genitourinary Surgery: No Gynecologic Surgery: No Insulin Pump: No Joint Replacement: No Neurologic Surgery: No Oral Surgery: No Pacemaker: No Thoracic Surgery: Yes (CABG) Other Surgery: Yes Social History Alcohol Use: No Tobacco Use: No Substance Use: No Allergies-Medications (Allergen,Severity, Reaction): Coded Allergies: Penicillin (Verified Allergy, Unknown, pt unknown, 02/05/17) Reported Meds & Prescriptions Reported Meds & Active Scripts Active Flexeril (Cyclobenzaprine HCl) 10 Mg Tab 10 Mg PO Q8H PRN Novolog Inj (Insulin Aspart) 1,000 Unit/10 Ml Vial 0 SQ DIRECTED Sliding Scale as directed. Coreg (Carvedilol) 12.5 Mg Tab 12.5 Mg PO Q12HR Furosemide 20 Mg Tab 20 Mg PO DAILY Reported Doxycycline (Doxycycline (Monohydrate)) 100 Mg Cap PO BID Lisinopril 5 Mg Tab 5 Mg PO DAILY Prilosec (Omeprazole) 20 Mg Cap 20 Mg PO DAILY Tresiba Flextouch Pen Inj (Insulin Degludec Inj) 300 unit/3 ML Pen 1 Units SQ TID Ventolin Hfa 18 GM Inh (Albuterol Sulfate) 90 Mcg/Act Aer 2 Puff INH Q4-6H PRN Spiriva Handihaler (Tiotropium Inh) 18 Mcg Cap 18 Mcg INH DAILY 1 capsule = 18 mcg Simvastatin 40 Mg Tab 40 Mg PO HS Plavix (Clopidogrel Bisulfate) 75 Mg Tab 75 Mg PO DAILY Aspirin 81 Mg Tabdr 81 Mg PO DAILY Aleve (Naproxen Sodium) 220 Mg Tab 220 Mg PO BID PRN Advair Diskus Inh (Fluticasone-Salmeterol Inh) 250-50 Mcg/Blist Aer 1 Puff INH BID Rinse mouth after use. Review of Systems Except as stated in HPI: all other systems reviewed are Neg Physical Exam Narrative GENERAL: Well-developed elderly white male patient currently in moderate respiratory distress. Awake and oriented 3. SKIN: Focused skin assessment warm/dry. HEAD: Atraumatic. Normocephalic. EYES: Pupils equal and round. No scleral icterus. No injection or drainage. ENT: No nasal bleeding or discharge. Mucous membranes pink and moist. NECK: Trachea midline. Supple. CARDIOVASCULAR: Regular rate and rhythm. No murmur appreciated. RESPIRATORY: No accessory muscle use. Decreased at the bases bilaterally. Breath sounds equal bilaterally. GASTROINTESTINAL: Abdomen soft, non-tender, nondistended. Hepatic and splenic margins not palpable. MUSCULOSKELETAL: No obvious deformities. No clubbing. No cyanosis. No edema. NEUROLOGICAL: Awake and alert. No obvious cranial nerve deficits. Motor grossly within normal limits. Normal speech. PSYCHIATRIC: Appropriate mood and affect; insight and judgment normal. Data Data Last Documented VS Vital Signs Date Time Temp Pulse Resp B/P Pulse Ox O2 Delivery O2 Flow Rate FiO2 02/06/17 00:39 88 24 140/70 95 Nasal Cannula 2 02/05/17 23:03 98.9 Orders Complete Blood Count With Diff (02/05/17 23:25) Comprehensive Metabolic Panel (02/05/17 23:25) B-Type Natriuretic Peptide (02/05/17:25) Act Partial Throm Time (Ptt) (02/05/17:25) Prothrombin Time / Inr (Pt) (02/05/17:25) Iv Access Insert/Monitor (02/05/17:25) Ecg Monitoring (02/05/17:25) Oximetry (02/05/17:25) Oxygen Administration (02/05/17:25) Chest, Single Ap (02/05/17:25) Sodium Chloride 0.9% Flush (Ns Flush) (02/05/17 23:30) Furosemide Inj (Lasix Inj) (02/06/17 00:15) Methylprednisolone So Succ Inj (Solumedr (02/06/17 00:15) Albuterol-Ipratropium Neb (Duoneb Neb) (02/06/17 00:15) Admit Order (Ed Use Only) (02/06/17 01:53) Activity Bed Rest With Brp (02/06/17 01:53) Vital Signs (Adult) Q4H (02/06/17 01:53) Cardiac Rhythm .As Directed (02/06/17 01:53) Notify Dr: Other .PRN (02/06/17 01:53) Notify Parameters (02/06/17 01:53) Resp Oxygen Nasal Cannula (02/06/17 ) Diet Heart Healthy (02/06/17 Breakfast) Ckmb (Isoenzyme) Profile (02/06/17 01:53) Ckmb (Isoenzyme) Profile (02/06/17 04:53) Troponin I (02/06/17 01:53) Troponin I (02/06/17 04:53) Electrocardiogram (02/06/17 01:53) Electrocardiogram (02/06/17 04:53) ^ Obtain (02/06/17 01:53) [employer]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4 TH/MM3 Eosinophils # (Auto) 0.3 TH/MM3 Basophils # (Auto) 0.1 TH/MM3 CBC Comment DIFF FINAL Differential Comment Sodium Level 139 MEQ/L Potassium Level 4.2 MEQ/L Chloride Level 102 MEQ/L Carbon Dioxide Level 28.7 MEQ/L Anion Gap 8 MEQ/L Blood Urea Nitrogen 39 MG/DL Creatinine 2.53 MG/DL Estimat Glomerular Filtration 26 ML/MIN Rate Random Glucose 213 MG/DL Calcium Level 9.0 MG/DL Total Bilirubin 0.6 MG/DL Aspartate Amino Transf 21 U/L (AST/SGOT) Alanine Aminotransferase 24 U/L (ALT/SGPT) Alkaline Phosphatase 59 U/L Total Protein 7.1 GM/DL Albumin 3.6 GM/DL Prothrombin Time 11.3 SEC Prothromb Time International 1.0 RATIO Ratio Activated Partial 27.3 SEC Thromboplast Time B-Type Natriuretic Peptide 438 PG/ML MDM Medical Decision Making Medical Screen Exam Complete: Yes Emergency Medical Condition: Yes Medical Record Reviewed: Yes Interpretation(s) EKG shows sinus rhythm at a right bundle branch block pattern at a rate of 97. There are notable lateral ST depressions. No signs of acute ST-T elevations. Laboratory Tests Test 02/05/17 23:20 Hemoglobin 11.6 GM/DL (13.0-17.0) Hematocrit 36.0 % (39.0-51.0) Mean Corpuscular Volume 79.3 FL (80.0-100.0) Mean Corpuscular Hemoglobin 25.6 PG (27.0-34.0) Eosinophils (%) (Auto) 4.1 % (0.0-4.0) Blood Urea Nitrogen 39 MG/DL (7-18) Creatinine 2.53 MG/DL (0.60-1.30) Estimat Glomerular Filtration 26 ML/MIN (>89) Rate Random Glucose 213 MG/DL (74-106) B-Type Natriuretic Peptide 438 PG/ML (0-100) Last 24 hours Impressions Chest X-Ray 02/05/17 [id number] Signed Impressions: Service Date/Time: January 00:03 - CONCLUSION: No evidence of acute cardiopulmonary disease. Ruben Rivas MD Differential Diagnosis Shortness of breath, intermittent chest painsACS versus unstable angina versus dysrhythmias versus pneumonia versus CHF versus COPD exacerbation Narrative Course Patient was given Lasix in the ER. Chest x-ray did not show any signs of acute pulmonary processes. He was also given some Solu-Medrol and nebulizers. On reevaluation at 1:50 AM, he is feeling improved and breathing has improved. However, considering this intermittent chest pain, and with patient's cardiac history, I am concerned about underlying intermittent angina and my plan would be to admit him for further evaluation a chest pain center. Diagnosis Primary Impression: Chest pressure Additional Impression: Acute systolic CHF (congestive heart failure) Admitting Information Admitting Physician Requests: Admit Solitario Kilpatrick MD Feb 05, 2017 23:34
[2017-02-05 23:39] LABS: AUTOMATED NEUTROPHIL # 4.6 TH/MM3 (1.8-7.7); BASOPHIL # 0.1 TH/MM3 (0-0.2); BASOPHIL % 1.1 % (0.0-2.0); EOSINOPHIL # 0.3 TH/MM3 (0-0.4); EOSINOPHIL % 4.1 % (0.0-4.0); HEMO FLAGS DIFF FINAL; LYMPH % 25.3 % (9.0-44.0); LYMPHOCYTE # 1.8 TH/MM3 (1.0-4.8); MEAN CELL VOLUME 79.3 FL (80.0-100.0); MEAN CORPUSCULAR HEMOGLOBIN 25.6 PG (27.0-34.0); MEAN CORPUSCULAR HGB CONC 32.3 % (32.0-36.0); MONO % 5.6 % (0.0-8.0); NEUT % 63.9 % (16.0-70.0); PLATELET COUNT 156 TH/MM3 (150-450); RED BLOOD COUNT 4.54 MIL/MM3 (4.50-5.90); RED CELL DISTRIBUTION WIDTH 16.5 % (11.6-17.2); WHITE BLOOD COUNT 7.2 TH/MM3 (4.0-11.0)
[2017-02-05 23:52] VITALS: RESP 24; O2SAT 100
[2017-02-05 23:54] LABS: ALT (GPT) 24 U/L (12-78); ANION GAP 8 MEQ/L (5-15); AST (GOT) 21 U/L (15-37); BICARBONATE 28.7 MEQ/L (21.0-32.0); BLOOD UREA NITROGEN 39 MG/DL (7-18); CHLORIDE 102 MEQ/L (98-107); GLOMERULAR FILTRATION RATE 26 ML/MIN (>89); POTASSIUM 4.2 MEQ/L (3.5-5.1); SODIUM (NA) 139 MEQ/L (136-145)
[2017-02-05 23:56] LABS: ALKALINE PHOSPHATASE 59 U/L (45-117); TOTAL BILIRUBIN ADULT 0.6 MG/DL (0.2-1.0)
[2017-02-06] VITALS (12 sets, daily range): BP systolic 113–140; BP diastolic 59–87; PULSE 83–93; RESP 18–24; TEMP 96.1–97.7; O2SAT 94–99
[2017-02-06 00:01] LABS: APTT (PATIENT) 27.3 SEC (24.3-30.1); PROTHROMBIN TIME - PATIENT 11.3 SEC (9.8-11.6)
[2017-02-06] MEDS ORDERED: methylPREDNISolone SOD SUCC 125 MG/2 ML VIAL IV PUSH ONE (00:15)
[2017-02-06] MEDS ORDERED: FUROSEMIDE 40 MG/4 ML VIAL IV PUSH ONE (00:15)
--- NOTE | 2017-02-06 00:23 | RADRPT ---
EXAM DATE/TIME: 02/06/2017 00:03 [facility] COMPARISON: CHEST SINGLE AP, December 19, 2016, 15:47. INDICATIONS : Chest pain. MEDICAL HISTORY : Chronic obstructive pulmonary disease. Diabetes mellitus type II. Hypertension. Cardiovascular di sease. SURGICAL HISTORY : CABG. Coronary artery stent. ICD Iliac stent ENCOUNTER: Initial ACUITY: 1 day PAIN SCORE: 6/10 LOCATION: Bilateral chest FINDINGS: A single view of the chest demonstrates the lungs to be symmetrically aerated without evidence of mas s, infiltrate or effusion. The cardiomediastinal contours are unremarkable. Osseous structures are intact. Previous median sternotomy. Cardiac pacer/defibrillator again noted. CONCLUSION: No evidence of acute cardiopulmonary disease. Ruben Rivas MD on February 06, 2017 at 0:21 Board Certified Radiologist. This report was verified electronically.
[2017-02-06] MEDS: RESP: ALBUTEROL 2.5 MG/IPRATROPIUM 0.5 MG NEB (SCH) INH ×2 (00:41→00:42)
[2017-02-06] MEDS: SODIUM CHLORIDE 0.9% FLUSH 10 ML FLUSH IVF PRN ×2 (00:46→10:27)
[2017-02-06] MEDS ORDERED: DOXY1CAP91 PO (01:40)
[2017-02-06 02:52] LABS: CKMB 5.4 NG/ML (0.5-3.6)
[2017-02-06] MEDS: LOW DOSE INSULIN NOVOLOG SUPPLEMENTAL SCALE SQ SCH ×4 (06:21→21:28)
[2017-02-06 06:23] LABS: CKMB 5.1 NG/ML (0.5-3.6)
[2017-02-06] MEDS ORDERED: GLUCAGON 1 MG/ML VIAL OTHER PRN (06:30)
[2017-02-06] MEDS ORDERED: DEXTROSE 50% IN WATER 50 ML VIAL(D50) IV PUSH PRN (06:30)
--- NOTE | 2017-02-06 08:10 | PD.CONS ---
HPI Service CV Consult Requested By Reason for Consult chest pain Primary Care Physician Lyndsey Barton MD History of Present Illness Here with CAD s/p 4 vessel CABG 2009 s/p [facility] 09/03 showing 3/4 grafts patent, ischemic cardiomyopathy EF 30% s/p ICD, PAD s/p angioplasty right iliac artery, hyperlipidemia, hyperlipidemia and paroxysmal VT admitted for CP and shortness of breath. He states yesterday he was sitting in a chair when he began having sharp back pain that radiated to his chest. It lasted 3 to 4 minutes. It was associated with shortness of breath. He took extra Lasix "to get water off". He has had no recurrence of his pain here. He denies any palpitations Review of Systems Consitutional: DENIES: Fatigue, Fever, Chills, Weight gain, Weight loss Eyes: DENIES: Amaurosis Fugax, Change in vision HEENT: DENIES: Lightheadedness, Change in hearing Respiratory: DENIES: See HPI, Cough, Snoring, Shortness of breath, Wheezing, Sputum production Cardiovascular: COMPLAINS OF: See HPI Gastrointestinal: DENIES: Nausea, Vomiting, Change in bowel habits, Reflux, Bloody stools, Melena Genitourinary: DENIES: Urinary incontinence, Difficulty voiding Integumentary: DENIES: Rash Neurologic: DENIES: Tingling or numbness, Memory problems, Poor Balance, Stroke symptoms Musculoskeletal: DENIES: Joint pain, Muscle pain, Limited range of motion, Back pain Psychiatric: DENIES: Anxiety, Depression, Sleep disturbances Hematologic: DENIES: Bruising tendencies, Bleeding tendencies Endocrine: DENIES: Weight gain, Weight loss, Thyroid disease Past Family Social History Allergies: Coded Allergies: Penicillin (Verified Allergy, Unknown, pt unknown, 02/05/17) Past Medical History see HPI diabetes seizure DO CKD stage 3 COPD GERD Past Surgical History see HPI back surgery cholecystectomy colonoscopy EGD Achilles tendon repair Reported Medications Reported Meds & Active Scripts Active Flexeril (Cyclobenzaprine HCl) 10 Mg Tab 10 Mg PO Q8H PRN Novolog Inj (Insulin Aspart) 1,000 Unit/10 Ml Vial 0 SQ DIRECTED Sliding Scale as directed. Coreg (Carvedilol) 12.5 Mg Tab 12.5 Mg PO Q12HR Furosemide 20 Mg Tab 20 Mg PO DAILY Reported Doxycycline (Doxycycline (Monohydrate)) 100 Mg Cap PO BID Lisinopril 5 Mg Tab 5 Mg PO DAILY Prilosec (Omeprazole) 20 Mg Cap 20 Mg PO DAILY Tresiba Flextouch Pen Inj (Insulin Degludec Inj) 300 unit/3 ML Pen 40 Units SQ TID Ventolin Hfa 18 GM Inh (Albuterol Sulfate) 90 Mcg/Act Aer 2 Puff INH Q4-6H PRN Spiriva Handihaler (Tiotropium Inh) 18 Mcg Cap 18 Mcg INH DAILY 1 capsule = 18 mcg Simvastatin 40 Mg Tab 40 Mg PO HS Plavix (Clopidogrel Bisulfate) 75 Mg Tab 75 Mg PO DAILY Aspirin 81 Mg Tabdr 81 Mg PO DAILY Aleve (Naproxen Sodium) 220 Mg Tab 220 Mg PO BID PRN Advair Diskus Inh (Fluticasone-Salmeterol Inh) 250-50 Mcg/Blist Aer 1 Puff INH BID Rinse mouth after use. Active Ordered Medications Current Medications Medications (Trade) Dose Ordered Sig/Angel Route Start Time Stop Time Status Last Admin (NS Flush) 2 ml UNSCH PRN IVF 02/05/17 23:30 02/06/17 00:46 (D50w (Vial) Inj) 25 ml UNSCH PRN IV PUSH 02/06/17 06:30 (Glucagon Inj) 1 mg UNSCH PRN OTHER 02/06/17 06:30 Physical Exam Vital Signs Vital Signs Date Time Temp Pulse Resp B/P Pulse Ox O2 Delivery O2 Flow Rate FiO2 02/06/17 06:00 88 02/06/17 05:10 96.7 91 18 133/75 94 02/06/17 03:01 93 24 128/71 97 Nasal Cannula 2 02/06/17 00:39 88 24 140/70 95 Nasal Cannula 2 02/05/17 23:52 24 100 2 02/05/17 23:42 97 24 100 Nasal Cannula 2 02/05/17 23:41 100 Nasal Cannula 2 02/05/17 23:03 98.9 100 18 157/81 96 Room Air Physical Exam GENERAL: Well-nourished, well-developed patient in no apparent distress. NECK: No JVD. No carotid bruit. CARDIOVASCULAR: Regular rate and rhythm. S1/S2 no murmur, rub, or gallop. RESPIRATORY: No accessory muscle use. Clear to auscultation. Breath sounds equal bilaterally. GASTROINTESTINAL: Abdomen soft, non-tender, nondistended. MUSCULOSKELETAL: Extremities without clubbing, cyanosis, or edema. Laboratory Laboratory Tests Test 02/05/17 02/06/17 02/06/17 23:20 02:03 05:05 White Blood Count 7.2 Red Blood Count 4.54 Hemoglobin 11.6 Hematocrit 36.0 Mean Corpuscular Volume 79.3 Mean Corpuscular Hemoglobin 25.6 Mean Corpuscular Hemoglobin 32.3 Concent Red Cell Distribution Width 16.5 Platelet Count 156 Mean Platelet Volume 10.6 Neutrophils (%) (Auto) 63.9 Lymphocytes (%) (Auto) 25.3 Monocytes (%) (Auto) 5.6 Eosinophils (%) (Auto) 4.1 Basophils (%) (Auto) 1.1 Neutrophils # (Auto) 4.6 Lymphocytes # (Auto) 1.8 Monocytes # (Auto) 0.4 Eosinophils # (Auto) 0.3 Basophils # (Auto) 0.1 CBC Comment DIFF FINAL Differential Comment Sodium Level 139 Potassium Level 4.2 Chloride Level 102 Carbon Dioxide Level 28.7 Anion Gap 8 Blood Urea Nitrogen 39 Creatinine 2.53 Estimat Glomerular Filtration 26 Rate Random Glucose 213 Calcium Level 9.0 Total Bilirubin 0.6 Aspartate Amino Transf 21 (AST/SGOT) Alanine Aminotransferase 24 (ALT/SGPT) Alkaline Phosphatase 59 Total Protein 7.1 Albumin 3.6 Prothrombin Time 11.3 Prothromb Time International 1.0 Ratio Activated Partial 27.3 Thromboplast Time B-Type Natriuretic Peptide 438 Total Creatine Kinase 421 406 Creatine Kinase MB 5.4 5.1 Creatine Kinase MB % 1.3 1.3 Troponin I 0.08 0.13 Result Diagram: 02/05/17231902/05/172319 Assessment and Plan Problem List: (1) NSTEMI, initial episode of care (2) Ischemic cardiomyopathy (3) Hyperlipidemia (4) HTN (hypertension) Assessment and Plan We will review coronary angiogram from this past August and go from there. We will restart his home medications. ICMP/CHF - There is no clinical evidence for CHF at this time HTN - well controlled Hyperlipidemia - restart statin Amauri Lopez Feb 06, 2017 08:09
[2017-02-06] MEDS ORDERED: CLOPIDOGREL 75 MG TAB PO ONE (08:15)
[2017-02-06] MEDS ORDERED: FUROSEMIDE 20 MG TAB PO SCH (09:00)
[2017-02-06] MEDS: TIOTROPIUM BROMIDE 18 MCG INH INH SCH ×2 (09:00→12:26)
[2017-02-06] MEDS ORDERED: ALBUTEROL SULFATE 90 MCG/ACT HFA 18 GM INHALER INH PRN (09:00)
--- NOTE | 2017-02-06 09:01 | HHI.HP ---
HPI Service [facility] Hospitalists Primary Care Physician Lyndsey Barton MD Admission Diagnosis chest pain/mild CHF Chief Complaint: Chest pain Travel History International Travel<30 Days: No Contact w/Intl Traveler <30 Da: No Traveled to Known Affected Are: No History of Present Illness Mr. Gil is a pleasant 62 y/o WM with CAD/hx of [place], CHF/Cardiomyopathy with EF 15-20% s/p AICD placement on 12/19/16, hypertension, and Diabetes. Pt presented to the ED on 02/05/17 with complaints of chest tightness. He states that he has had issues with LE swelling and SOB with exertion for the last several weeks. He normally takes Lasix 20mg daily but has intermittently had to take a few days in a row of 40mg daily when these symptoms seem to worsen. Over the last several days he has felt that his legs have been more swollen, had dyspnea on exertion, orthopnea, and intermittent chest tightness which he states is midsternal and radiates around from the back. He states it hurts sometimes with movement, sometimes it just comes and goes on its own. In the ED he was given Solumedrol and Duonebs as well as Lasix 40mg IV x 1 dose and today he has no chest pains or shortness of breath but he has not been ambulating much yet. He has not been coughing, having any fevers or congestion. Review of Systems Constitutional: DENIES: Fever, Chills Ears, nose, mouth, throat: COMPLAINS OF: Hoarseness, DENIES: Nasal discharge, Throat pain Respiratory: COMPLAINS OF: Shortness of breath, DENIES: Sputum production Cardiovascular: COMPLAINS OF: Chest pain, Dyspnea on Exertion, Lower Extremity Edema, Orthopnea Gastrointestinal: DENIES: Abdominal pain, Black stools, Bloody stools, Diarrhea , Nausea, Vomiting Genitourinary: DENIES: Dysuria Musculoskeletal: DENIES: Back pain, Neck pain Integumentary: DENIES: Rash Neurologic: DENIES: Headache Psychiatric: DENIES: Confusion Past Family Social History Past Medical History Diabetes CAD Systolic CHF Cardiomyopathy with EF 15-20% in 10/2016 PAD HTN Hyperlipidemia GERD CKD, stage 3 Hx paroxysmal VT BENITES with bridging fibrosis COPD Past Surgical History Single chamber defibrillator implantation on 12/19/[address] Razo [facility] (08/28/16) --> severe [place] three-vessel coronary disease, 3 of 4 coronary bypass grafts are patent CABG x 4 in 2010 Angioplasty right iliac artery Cholecystectomy Repair of ruptured Achilles tendon Back surgery Reported Medications -Flexeril 10 Mg PO Q8H PRN -Novolog Inj (Insulin Aspart) 40 units TID with meals -Coreg 12.5 Mg PO Q12HR -Furosemide 20 Mg PO DAILY -Doxycycline 100 Mg Cap PO BID (started on 02/03 for cellulitis around AICD incision) -Prilosec 20 Mg PO DAILY -Ventolin Hfa 18 GM Inh 90 Mcg/Act Aer 2 Puff INH Q4-6H PRN -Spiriva Handihaler 18 Mcg Cap 18 Mcg INH DAILY -Simvastatin 40 Mg PO HS -Plavix 75 Mg PO DAILY -Aspirin 81 Mg PO DAILY -Aleve 220 Mg PO BID PRN -Advair Diskus Inh 250-50 Mcg/Blist Aer 1 Puff INH BID --Tresiba Flextouch Pen Inj 40 Units SQ TID (?120 units daily) --Lisinopril 10 Mg PO DAILY Allergies: Coded Allergies: Penicillin (Verified Allergy, Unknown, pt unknown, 02/05/17) Family History Father with CAD, diabetes, lung cancer Mother with MS Social History (+)Hx of tobacco use, smoked 1.5ppd from age 24 to 55, quit in 2009 Denies any alcohol or illicit drug use Physical Exam Vital Signs Vital Signs Date Time Temp Pulse Resp B/P Pulse Ox O2 Delivery O2 Flow Rate FiO2 02/06/17 08:09 97 Nasal Cannula 2.00 02/06/17 06:00 88 02/06/17 05:10 96.7 91 18 133/75 94 02/06/17 03:01 93 24 128/71 97 Nasal Cannula 2 02/06/17 00:39 88 24 140/70 95 Nasal Cannula 2 02/05/17 23:52 24 100 2 02/05/17 23:42 97 24 100 Nasal Cannula 2 02/05/17 23:41 100 Nasal Cannula 2 02/05/17 23:03 98.9 100 18 157/81 96 Room Air Physical Exam GENERAL: This is a well-nourished, well-developed patient, in no apparent distress. SKIN: Multiple scabbed over areas on the chest and UE and LE, sparing the back HEENT: Atraumatic. Normocephalic. No temporal or scalp tenderness. No scleral icterus.Airway patent. NECK: Trachea midline, supple, nontender. CARDIO: Regular. RESP: Decreased air movement throughout, no wheezing or crackles noted. ABD: +BS, soft, non-tender, nondistended. EXT: Bilateral LE pitting edema, venous stasis skin changes to bilateral feet NEURO: Awake and alert. Motor and sensory grossly within normal limits. Normal speech. Laboratory Laboratory Tests Test 02/05/17 02/06/17 02/06/17 23:20 02:03 05:05 White Blood Count 7.2 Red Blood Count 4.54 Hemoglobin 11.6 Hematocrit 36.0 Mean Corpuscular Volume 79.3 Mean Corpuscular Hemoglobin 25.6 Mean Corpuscular Hemoglobin 32.3 Concent Red Cell Distribution Width 16.5 Platelet Count 156 Mean Platelet Volume 10.6 Neutrophils (%) (Auto) 63.9 Lymphocytes (%) (Auto) 25.3 Monocytes (%) (Auto) 5.6 Eosinophils (%) (Auto) 4.1 Basophils (%) (Auto) 1.1 Neutrophils # (Auto) 4.6 Lymphocytes # (Auto) 1.8 Monocytes # (Auto) 0.4 Eosinophils # (Auto) 0.3 Basophils # (Auto) 0.1 CBC Comment DIFF FINAL Differential Comment Sodium Level 139 Potassium Level 4.2 Chloride Level 102 Carbon Dioxide Level 28.7 Anion Gap 8 Blood Urea Nitrogen 39 Creatinine 2.53 Estimat Glomerular Filtration 26 Rate Random Glucose 213 Calcium Level 9.0 Total Bilirubin 0.6 Aspartate Amino Transf 21 (AST/SGOT) Alanine Aminotransferase 24 (ALT/SGPT) Alkaline Phosphatase 59 Total Protein 7.1 Albumin 3.6 Prothrombin Time 11.3 Prothromb Time International 1.0 Ratio Activated Partial 27.3 Thromboplast Time B-Type Natriuretic Peptide 438 Total Creatine Kinase 421 406 Creatine Kinase MB 5.4 5.1 Creatine Kinase MB % 1.3 1.3 Troponin I 0.08 0.13 Result Diagram: 02/05/17231902/05/172319 Imaging Last Impressions Chest X-Ray 02/05/172324 Signed Impressions: Service Date/Time: January 00:03 - CONCLUSION: No evidence of acute cardiopulmonary disease. Ruben Rivas MD Septic Shock Reassessment Heart: Regular rate and rhythm Lungs: Clear Skin: Warm Assessment and Plan Problem List: (1) Acute systolic CHF (congestive heart failure) Status: Acute Plan: - Pt is a 62 y/o WM with CAD/hx of [place], Systolic CHF/Cardiomyopathy with EF 15-20 % s/p AICD placement on 12/19/16, hypertension, and diabetes. - Pt presented with increased SOB, LE edema, orthopnea, and chest tightness which has been going on intermittently for several weeks. - Pt periodically increases his Lasix to 40mg daily for several days and did so recently but was not getting much relief. - In the ED Chest x-ray did not show any signs of acute pulmonary processes. - Pt was given IV Lasix, Solu-Medrol and Duonebs with clinical improvement. - Cardiology was consulted last night and pt was continued on his home dose of Lasix 20mg po daily - Resumed on BB/MIO/Statin/ASA/Plavix - Pts creatinine was above his baseline Cr at 2.53, previous labs in October 2016 he was less than 2 - Repeat BMP today to see what status of renal function is after receiving IV Lasix last night. - Wean off supplemental O2 - Resumed on his home COPD meds as well. - Duonebs PRN - CE at admission slightly elevated with Troponin 0.08 --> 0.13 --> repeat is pending. - Supportive care - PT evaluation - Anticipate discharge to home in next day or so. (2) COPD (chronic obstructive pulmonary disease) Status: Chronic Plan: - Resume home meds - Duonebs PRN - Pt is not having any wheezing on examination (3) Elevated troponin Status: Acute Plan: - See above. (4) Acute on chronic kidney disease, stage 3 Status: Chronic Plan: - See above. (5) Ischemic cardiomyopathy Status: Chronic Plan: - Pt with Systolic CHF/Cardiomyopathy with EF 15-20% s/p AICD placement on - Resume home meds (6) S/P ICD (internal cardiac defibrillator) procedure Status: Acute Plan: - Pt had AICD placed on 12/19/16. - He had recently been started as an outpt on Doxycycline for a suspected cellulitis around his AICD insertion site. He feels that this is better. - Apply topical Bactroban Q12H (7) CAD (coronary artery disease) of artery bypass graft Status: Chronic (8) PAD (peripheral artery disease) Status: Chronic (9) GERD (gastroesophageal reflux disease) Status: Chronic (10) Hyperlipidemia Status: Acute Assessment and Plan Patient examined. Assessment and plan formulated with Dian Louie PA-C. I agree with the above. Physician Certification 2 Midnight Certification Type: Admission for Inpatient Services Order for Inpatient Services The services are ordered in accordance with Medicare regulations or non- Medicare payer requirements, as applicable. In the case of services not specified as inpatient-only, they are appropriately provided as inpatient services in accordance with the 2-midnight benchmark. Estimated LOS (days): 2 2 days is the estimated time the patient will need to remain in the hospital, assuming treatment plan goals are met and no additional complications. Post-Hospital Plan: Not yet determined Dian Louie Feb 06, 2017 09:01 Jorge Alberto Chong DO Feb 08, 2017 00:05
[2017-02-06] MEDS ORDERED: RESP: ALBUTEROL 2.5 MG/IPRATROPIUM 0.5 MG NEB (PRN) NEB (10:15)
[2017-02-06] MEDS: LISINOPRIL 5 MG TAB PO SCH (10:26)
[2017-02-06] MEDS: ASPIRIN 81 MG CHEW TAB CHEW SCH (10:26)
[2017-02-06] MEDS: ATORVASTATIN 40 MG TAB PO SCH (10:26)
[2017-02-06] MEDS: CARVEDILOL 12.5 MG TAB PO SCH ×2 (10:27→21:16)
[2017-02-06] MEDS: INSULIN DETEMIR 100 UNITS/ML VIAL SQ SCH ×2 (10:34→21:29)
[2017-02-06 10:48] LABS: BICARBONATE 24.7 MEQ/L (21.0-32.0); POTASSIUM 4.6 MEQ/L (3.5-5.1)
[2017-02-06] MEDS: MUPIROCIN 2% OINT 22 GM TUBE TOPICAL SCH ×2 (12:21→21:32)
[2017-02-06] MEDS: BUDESONIDE-FORMOTEROL 160/4.5 MCG INHALER INH SCH ×2 (12:26→21:24)
--- NOTE | 2017-02-06 13:51 | EKG ---
Date Performed: 02/05/2017 Time Performed: 23:16:53 PTAGE: 62 years EKG: Sinus rhythm WITH FIRST DEGREE AV BLOCK POSSIBLE LEFT ATRIAL ENLARGEMENT SEPTAL MYOCARDIAL INFARCTION ST DEVIATIO N AND MODERATE T-WAVE ABNORMALITY, CONSIDER LATERAL ISCHEMIA ABNORMAL ECG NO PREVIOUS TRACING DOCTOR: Jacquelin Sanders Interpretating Date/Time 02/06/2017 13:45:25
--- NOTE | 2017-02-06 15:32 | EKG ---
Date Performed: 02/06/2017 Time Performed: 05:33:04 PTAGE: 62 years EKG: --- Warning: Data quality may affect interpretation --- Sinus rhythm with 1st degree A-V block. Cannot rule out anteroseptal infarct - age undetermined Left ventricular hypertrophy Inferior/lateral ST-T changes are probably due to ventricular hypertrophy Persistent michelle ed lateral ST segment changes and myocardial ischemia is also suspected. There has been no overt seri al change, but clinical correlation remains important Abnormal ECG PREVIOUS TRACING : 12/20/2016 04.27 DOCTOR: Jacquelin Sanders Interpretating Date/Time 02/06/2017 15:31:47
[2017-02-07 00:05] VITALS: BP 120/64; PULSE 84; RESP 20; TEMP 96.2; O2SAT 93
[2017-02-07] MEDS ORDERED: INSULIN ASPART 1,000 UNITS/10 ML VIAL SQ SCH (00:15)
[2017-02-07] MEDS: MEDIUM DOSE INSULIN NOVOLOG SUPPLEMENTAL SCALE SQ SCH ×3 (00:42→12:25)
[2017-02-07 04:04] VITALS: BP 116/63; PULSE 76; RESP 16; TEMP 96.3; O2SAT 97
[2017-02-07 06:56] LABS: AUTOMATED NEUTROPHIL # 8.4 TH/MM3 (1.8-7.7); BASOPHIL % 0.3 % (0.0-2.0); EOSINOPHIL % 0.4 % (0.0-4.0); HEMATOCRIT 36.3 % (39.0-51.0); HEMO FLAGS DIFF FINAL; LYMPH % 14.4 % (9.0-44.0); LYMPHOCYTE # 1.6 TH/MM3 (1.0-4.8); MEAN CELL VOLUME 79.8 FL (80.0-100.0); MEAN CORPUSCULAR HEMOGLOBIN 25.8 PG (27.0-34.0); MEAN CORPUSCULAR HGB CONC 32.3 % (32.0-36.0); NEUT % 77.9 % (16.0-70.0); PLATELET COUNT 157 TH/MM3 (150-450); RED BLOOD COUNT 4.54 MIL/MM3 (4.50-5.90); WHITE BLOOD COUNT 10.8 TH/MM3 (4.0-11.0)
[2017-02-07 07:42] LABS: BICARBONATE 29.7 MEQ/L (21.0-32.0); MAGNESIUM 2.1 MG/DL (1.5-2.5); POTASSIUM 4.4 MEQ/L (3.5-5.1)
[2017-02-07 08:00] VITALS: BP 126/71; PULSE 76; RESP 16; TEMP 97.4; O2SAT 98
--- NOTE | 2017-02-07 08:02 | PD.CARD.PN ---
Subjective Subjective Remarks denies chest pain Objective Vital Signs / I&O Vital Signs Date Time Temp Pulse Resp B/P Pulse Ox O2 Delivery O2 Flow Rate FiO2 02/07/17 04:04 96.3 76 16 116/63 97 02/07/17 00:05 96.2 84 20 120/64 93 02/06/17 22:31 99 21 02/06/17 22:20 86 02/06/17 20:04 97.0 91 20 113/59 94 02/06/17 16:00 97.7 91 18 119/63 95 02/06/17 12:17 96.1 87 22 133/87 96 02/06/17 12:00 91 02/06/17 08:50 96.4 83 22 130/78 96 02/06/17 08:09 97 Nasal Cannula 2.00 I/O 02/06/17 02/06/17 02/06/17 02/07/17 02/07/17 02/07/17 07:00 15:00 23:00 07:00 15:00 23:00 Intake Total 240 ml 720 ml 120 ml Output Total 1700 ml 2200 ml Balance -1460 ml -1480 ml 120 ml Intake Oral 240 ml 720 ml 120 ml Output Urine Total 1700 ml 2200 ml # Voids 3 2 Physical Exam GENERAL: Well-nourished, well-developed patient in no apparent distress. NECK: No JVD. No carotid bruit. CARDIOVASCULAR: Regular rate and rhythm. S1/S2 no murmur, rub, or gallop. RESPIRATORY: No accessory muscle use. Clear to auscultation. Breath sounds equal bilaterally. GASTROINTESTINAL: Abdomen soft, non-tender, nondistended. MUSCULOSKELETAL: Extremities without clubbing, cyanosis, or edema. Laboratory Laboratory Tests Test 02/06/17 02/07/17 02/07/17 09:03 06:24 06:27 Sodium Level 136 MEQ/L 137 MEQ/L Potassium Level 4.6 MEQ/L 4.4 MEQ/L Chloride Level 99 MEQ/L 99 MEQ/L Carbon Dioxide Level 24.7 MEQ/L 29.7 MEQ/L Anion Gap 12 MEQ/L 8 MEQ/L Blood Urea Nitrogen 44 MG/DL 61 MG/DL Creatinine 2.48 MG/DL 2.36 MG/DL Estimat Glomerular Filtration 27 ML/MIN 28 ML/MIN Rate Random Glucose 265 MG/DL 258 MG/DL Calcium Level 9.3 MG/DL 9.1 MG/DL Troponin I 0.15 NG/ML Magnesium Level 2.1 MG/DL White Blood Count 10.8 TH/MM3 Red Blood Count 4.54 MIL/MM3 Hemoglobin 11.7 GM/DL Hematocrit 36.3 % Mean Corpuscular Volume 79.8 FL Mean Corpuscular Hemoglobin 25.8 PG Mean Corpuscular Hemoglobin 32.3 % Concent Red Cell Distribution Width 17.0 % Platelet Count 157 TH/MM3 Mean Platelet Volume 10.8 FL Neutrophils (%) (Auto) 77.9 % Lymphocytes (%) (Auto) 14.4 % Monocytes (%) (Auto) 7.0 % Eosinophils (%) (Auto) 0.4 % Basophils (%) (Auto) 0.3 % Neutrophils # (Auto) 8.4 TH/MM3 Lymphocytes # (Auto) 1.6 TH/MM3 Monocytes # (Auto) 0.8 TH/MM3 Eosinophils # (Auto) 0.0 TH/MM3 Basophils # (Auto) 0.0 TH/MM3 CBC Comment DIFF FINAL Differential Comment Assessment and Plan Problem List: (1) NSTEMI, initial episode of care (2) Ischemic cardiomyopathy (3) Hyperlipidemia (4) HTN (hypertension) Assessment and Plan Unable to locate films and we feel medical management would be the best course, he declines long acting nitrates, we will send a rx for SL NTG PRN ICMP/CHF - There is no clinical evidence for CHF at this time HTN - well controlled Hyperlipidemia - on statin sign off, call with questions Amauri Lopez Feb 07, 2017 08:02
[2017-02-07] MEDS: LISINOPRIL 5 MG TAB PO SCH (08:52)
[2017-02-07] MEDS: TIOTROPIUM BROMIDE 18 MCG INH INH SCH (08:53)
[2017-02-07] MEDS: CARVEDILOL 12.5 MG TAB PO SCH (08:53)
[2017-02-07] MEDS: ASPIRIN 81 MG CHEW TAB CHEW SCH (08:53)
[2017-02-07] MEDS: ATORVASTATIN 40 MG TAB PO SCH (08:53)
[2017-02-07] MEDS: BUDESONIDE-FORMOTEROL 160/4.5 MCG INHALER INH SCH (08:54)
[2017-02-07] MEDS: SODIUM CHLORIDE 0.9% FLUSH 10 ML FLUSH IVF PRN (08:56)
[2017-02-07] MEDS ORDERED: FUROSEMIDE 40 MG TAB PO SCH (09:00)
[2017-02-07] MEDS: MUPIROCIN 2% OINT 22 GM TUBE TOPICAL SCH (09:00)
[2017-02-07] MEDS: INSULIN DETEMIR 100 UNITS/ML VIAL SQ SCH (09:06)
[2017-02-07] MEDS ORDERED: POTA10CA PO (10:25)
[2017-02-07] MEDS ORDERED: MUPI2OIN TOPICAL ×2 (10:25→10:43)
[2017-02-07] MEDS ORDERED: NITR1SUB3 SL (10:25)
[2017-02-07] MEDS ORDERED: FURO1TAB60 PO (10:25)
[2017-02-07] MEDS ORDERED: WALKER WHEELS/F1 MIS (10:26)
--- NOTE | 2017-02-07 10:31 | HHI.FF ---
Face to Face Verification Diagnosis: (1) Shortness of breath (2) Acute systolic CHF (congestive heart failure) (3) Ischemic cardiomyopathy (4) CAD (coronary artery disease) of artery bypass graft (5) Chronic kidney disease (CKD) stage G3b/A2, moderately decreased glomerular filtration rate (GFR) between 30-44 mL/min/1.73 square meter and albuminuria creatinine ratio between 30-299 mg/g (6) HTN (hypertension) (7) CAD (coronary artery disease) Physical Therapy Order: Evaluate and Treat, Improve ambulation, Strength and gait training Home Health Nursing Order: Medical education Signs/symptoms of disease process CHF education Medication education-adverse effect Nursing assessment with vital signs Instructions: obtain BMP & Mag on 02/12/17 I have seen patient Nithin Gil on 02/07/17. My clinical findings support the need for the requested home health care services because: Ltd mobility - disease progression Deconditioned w/ increased weakness Med compliance is questionable Limited ability to care for self Need for psychosocial assistance I certify that my clinical findings support that this patient is homebound because: Unsafe to leave home unassisted Need for psychosocial assistance Unable to use public transportation Jorge Alberto Chong DO Feb 07, 2017 10:31
--- NOTE | 2017-02-07 10:41 | HHI.PR ---
Subjective Remarks Pt overall feeling better today and anxious to go home. Pts LE edema is improving Denies any chest pain. Able to ambulate further without feeling SOB Objective Vitals Vital Signs Date Time Temp Pulse Resp B/P Pulse Ox O2 Delivery O2 Flow Rate FiO2 02/07/17 08:00 97.4 76 16 126/71 98 02/07/17 04:04 96.3 76 16 116/63 97 02/07/17 00:05 96.2 84 20 120/64 93 02/06/17 22:31 99 21 02/06/17 22:20 86 02/06/17 20:04 97.0 91 20 113/59 94 02/06/17 16:00 97.7 91 18 119/63 95 02/06/17 12:17 96.1 87 22 133/87 96 02/06/17 12:00 91 02/06/17 02/06/17 02/07/17 15:00 23:00 07:00 Intake Total 720 ml 120 ml Output Total 2200 ml Balance -1480 ml 120 ml Intake Oral 720 ml 120 ml Output Urine Total 2200 ml # Voids 2 Result Diagram: 02/07/17 0627 02/07/17 0624 Other Results Laboratory Tests Test 02/05/17 02/06/17 02/06/17 02/06/17 23:20 02:03 05:05 09:03 White Blood Count 7.2 TH/MM3 Red Blood Count 4.54 MIL/MM3 Hemoglobin 11.6 GM/DL Hematocrit 36.0 % Mean Corpuscular Volume 79.3 FL Mean Corpuscular Hemoglobin 25.6 PG Mean Corpuscular Hemoglobin 32.3 % Concent Red Cell Distribution Width 16.5 % Platelet Count 156 TH/MM3 Mean Platelet Volume 10.6 FL Neutrophils (%) (Auto) 63.9 % Lymphocytes (%) (Auto) 25.3 % Monocytes (%) (Auto) 5.6 % Eosinophils (%) (Auto) 4.1 % Basophils (%) (Auto) 1.1 % Neutrophils # (Auto) 4.6 TH/MM3 Lymphocytes # (Auto) 1.8 TH/MM3 Monocytes # (Auto) 0.4 TH/MM3 Eosinophils # (Auto) 0.3 TH/MM3 Basophils # (Auto) 0.1 TH/MM3 CBC Comment DIFF FINAL Differential Comment Sodium Level 139 MEQ/L 136 MEQ/L Potassium Level 4.2 MEQ/L 4.6 MEQ/L Chloride Level 102 MEQ/L 99 MEQ/L Carbon Dioxide Level 28.7 MEQ/L 24.7 MEQ/L Anion Gap 8 MEQ/L 12 MEQ/L Blood Urea Nitrogen 39 MG/DL 44 MG/DL Creatinine 2.53 MG/DL 2.48 MG/DL Estimat Glomerular Filtration 26 ML/MIN 27 ML/MIN Rate Random Glucose 213 MG/DL 265 MG/DL Calcium Level 9.0 MG/DL 9.3 MG/DL Total Bilirubin 0.6 MG/DL Aspartate Amino Transf 21 U/L (AST/SGOT) Alanine Aminotransferase 24 U/L (ALT/SGPT) Alkaline Phosphatase 59 U/L Total Protein 7.1 GM/DL Albumin 3.6 GM/DL Prothrombin Time 11.3 SEC Prothromb Time International 1.0 RATIO Ratio Activated Partial 27.3 SEC Thromboplast Time B-Type Natriuretic Peptide 438 PG/ML Total Creatine Kinase 421 U/L 406 U/L Creatine Kinase MB 5.4 NG/ML 5.1 NG/ML Creatine Kinase MB % 1.3 % 1.3 % Troponin I 0.08 NG/ML 0.13 NG/ML 0.15 NG/ML Test 02/07/17 02/07/17 06:24 06:27 Sodium Level 137 MEQ/L Potassium Level 4.4 MEQ/L Chloride Level 99 MEQ/L Carbon Dioxide Level 29.7 MEQ/L Anion Gap 8 MEQ/L Blood Urea Nitrogen 61 MG/DL Creatinine 2.36 MG/DL Estimat Glomerular Filtration 28 ML/MIN Rate Random Glucose 258 MG/DL Calcium Level 9.1 MG/DL Magnesium Level 2.1 MG/DL White Blood Count 10.8 TH/MM3 Red Blood Count 4.54 MIL/MM3 Hemoglobin 11.7 GM/DL Hematocrit 36.3 % Mean Corpuscular Volume 79.8 FL Mean Corpuscular Hemoglobin 25.8 PG Mean Corpuscular Hemoglobin 32.3 % Concent Red Cell Distribution Width 17.0 % Platelet Count 157 TH/MM3 Mean Platelet Volume 10.8 FL Neutrophils (%) (Auto) 77.9 % Lymphocytes (%) (Auto) 14.4 % Monocytes (%) (Auto) 7.0 % Eosinophils (%) (Auto) 0.4 % Basophils (%) (Auto) 0.3 % Neutrophils # (Auto) 8.4 TH/MM3 Lymphocytes # (Auto) 1.6 TH/MM3 Monocytes # (Auto) 0.8 TH/MM3 Eosinophils # (Auto) 0.0 TH/MM3 Basophils # (Auto) 0.0 TH/MM3 CBC Comment DIFF FINAL Differential Comment Imaging Last Impressions Chest X-Ray 02/05/172324 Signed Impressions: Service Date/Time: January 00:03 - CONCLUSION: No evidence of acute cardiopulmonary disease. Ruben Rivas MD Last Impressions Chest X-Ray 02/05/172324 Signed Impressions: Service Date/Time: January 00:03 - CONCLUSION: No evidence of acute cardiopulmonary disease. Ruben Rivas MD Objective Remarks General: NAD, AAOx3 Cardiac: Regular. Chest: Decreased air movement throughout, no wheezing or crackles noted. Abd: +BS, soft, non-tender, nondistended. Ext: Bilateral LE pitting edema improved, venous stasis skin changes to bilateral feet A/P Problem List: (1) Acute systolic CHF (congestive heart failure) Status: Acute Plan: - Pt is a 62 y/o WM with CAD/hx of [place], Systolic CHF/Cardiomyopathy with EF 15-20 % s/p AICD placement on 12/19/16, hypertension, and diabetes. - Pt presented with increased SOB, LE edema, orthopnea, and chest tightness which has been going on intermittently for several weeks. - Pt periodically increases his Lasix to 40mg daily for several days and did so recently but was not getting much relief. - In the ED Chest x-ray did not show any signs of acute pulmonary processes. - Pt was given IV Lasix, Solu-Medrol and Duonebs with clinical improvement. - Cardiology following. - Resumed on BB/MIO/Statin/ASA/Plavix - Pts creatinine was above his baseline Cr at 2.53, previous labs in October 2016 he was less than 2 - Repeat BMP on 02/06 with Cr 2.48 and on 02/07 further decreased to 2.38 - Pt was continued on oral Lasix 20mg daily on 02/06 and this was increased to 40mg daily on 02/07. He reports that he was taking alternating doses of 20mg and 40mg prior to admission. - Pt was weaned off supplemental O2 - He was resumed on his home COPD meds as well. - Duonebs PRN - CE at admission slightly elevated but in a flat pattern, Troponin 0.08 --> 0.13 --> 0.15. Pt refused to take any long acting nitrates and is being discharged on Nitro SL PRN. - Pts SOB and LE has improved. He will be discharged on Lasix 40mg po daily and KCL 10meq daily. - He has been getting labs drawn every week by [facility] to monitor his BMP and this will be continued. - Pt will need to followup with his PCP, Dr. Reyes in 1 week - He will need to followup with Dr. Ramos in 1-2 weeks. - Pt will continue some HHC/PT upon discharge and I have ordered a FWW for him upon discharge. (2) COPD (chronic obstructive pulmonary disease) Status: Chronic Plan: - Resume home meds - Duonebs PRN - Pt is not having any wheezing on examination (3) Elevated troponin Status: Acute Plan: - See above. (4) Acute on chronic kidney disease, stage 3 Status: Chronic Plan: - See above. (5) Ischemic cardiomyopathy Status: Chronic Plan: - Pt with Systolic CHF/Cardiomyopathy with EF 15-20% s/p AICD placement on - Resume home meds (6) S/P ICD (internal cardiac defibrillator) procedure Status: Acute Plan: - Pt had AICD placed on 12/19/16. - He had recently been started as an outpt on Doxycycline for a suspected cellulitis around his AICD insertion site. He feels that this is better. - Apply topical Bactroban Q12H and this can be continued as an outpt for the next 5 days (7) CAD (coronary artery disease) of artery bypass graft Status: Chronic (8) PAD (peripheral artery disease) Status: Chronic (9) GERD (gastroesophageal reflux disease) Status: Chronic (10) Hyperlipidemia Status: Acute Assessment and Plan Patient examined. Assessment and plan formulated with Dian Louie PA-C. I agree with the above. Dian Louie Feb 07, 2017 10:41 Jorge Alberto Chong DO Feb 08, 2017 00:04
[2017-02-07] MEDS ORDERED: MENTHOL LOZENGE BUCCAL PRN (11:15)
[2017-02-07] MEDS ORDERED: MENTHOL LOZENGE BUCCAL ONE (11:30)
[2017-02-07 12:00] VITALS: BP 122/66; PULSE 81; RESP 18; TEMP 97; O2SAT 99
[2017-02-07 13:30] VITALS: PULSE 77
== END 2017-02-07 14:23 | disposition home health service (06) | DRG 292 ==
LOC: NEPE 23:01 → OBSVTOIN 02-06 01:54 → NEDA 02-06 01:54 → HOCB 02-06 04:54
PROVIDERS: ADMIT Hospitalist; ATTEND Hospitalist
DX: I50.21 Acute systolic (congestive) heart failure (principal); I25.810 Atherosclerosis of coronary artery bypass graft(s) without angina pectoris; E11.22 Type 2 diabetes mellitus with diabetic chronic kidney disease; N18.3 Chronic kidney disease, stage 3 (moderate); I13.0 Hypertensive heart and chronic kidney disease with heart failure and stage 1 through stage 4 chronic kidney disease, or unspecified chronic kidney disease; I25.2 Old myocardial infarction; Z95.810 Presence of automatic (implantable) cardiac defibrillator; E78.00 Pure hypercholesterolemia, unspecified; J44.9 Chronic obstructive pulmonary disease, unspecified; K21.9 Gastro-esophageal reflux disease without esophagitis; Z79.02 Long term (current) use of antithrombotics/antiplatelets; Z79.4 Long term (current) use of insulin; I45.10 Unspecified right bundle-branch block; I25.5 Ischemic cardiomyopathy; I73.9 Peripheral vascular disease, unspecified; E78.5 Hyperlipidemia, unspecified; Z88.0 Allergy status to penicillin; Z82.49 Family history of ischemic heart disease and other diseases of the circulatory system; Z83.3 Family history of diabetes mellitus; Z80.1 Family history of malignant neoplasm of trachea, bronchus and lung; Z87.891 Personal history of nicotine dependence; I87.8 Other specified disorders of veins
CPT/HCPCS: 71010; 80048; 80053; 82550; 82552; 82948; 83735; 83880; 84484; 85025; 85610; 85730; 93005; 94640; 94664; 96374; 96375; J1815; J1940; J2930

== ENCOUNTER 2017-03-09 16:46 | Inpatient (IN) | payer OTHER ==
[~2017-03-09] VITALS: Ht 188 cm; Wt 128.6 kg
[~2017-03-09 16:46] MED LIST changes: +FURO1TAB60 PO; -FURO20TA PO; -LEVA500T PO; -LORA-361 PO; +MUPI2OIN TOPICAL; -NAPR220T95 PO; +NITR1SUB3 SL; +POTA10CA PO; +WALKER WHEELS/F1 MIS
[2017-03-09 16:48] VITALS: BP 151/72; PULSE 106; RESP 22; TEMP 97.8; O2SAT 93
[2017-03-09] MEDS ORDERED: SODIUM CHLORIDE 0.9% FLUSH 10 ML FLUSH IVF PRN (17:15)
[2017-03-09] MEDS ORDERED: FUROSEMIDE 40 MG/4 ML VIAL IV PUSH ONE (17:15)
--- NOTE | 2017-03-09 17:21 | RADRPT ---
EXAM DATE/TIME: 03/09/2017 17:00 [facility] COMPARISON: CHEST SINGLE AP, February 06, 2017, 0:03. INDICATIONS : Chest pain, Cough. MEDICAL HISTORY : Chronic obstructive pulmonary disease. Diabetes mellitus type II. SURGICAL HISTORY : CABG. Coronary artery stent. ICD Iliac stent ENCOUNTER: Initial ACUITY: 1 day PAIN SCORE: 0/10 LOCATION: Bilateral chest FINDINGS: A single view of the chest demonstrates cardiomegaly with bibasilar airspace disease. Previous CABG. Left-sided defibrillator unchanged. Increase in pulmonary vascularity. Osseous structures are intact . CONCLUSION: 1. Cardiomegaly with increase in pulmonary vascularity and bibasilar airspace disease. 2. Status post CABG. 3. Left-sided defibrillator. Ernie Arndt MD on March 09, 2017 at 17:19 Board Certified Radiologist. This report was verified electronically.
--- NOTE | 2017-03-09 17:28 | PD ---
HPI Chief Complaint: Respiratory Symptoms Time Seen by Provider: 17:24 Travel History International Travel<30 days: No Contact w/Intl Traveler<30days: No Traveled to known affect area: No History of Present Illness HPI 62-year-old male that presents to the ED for defibrillation shortness of breath and increased weight. Per patient has a history of CHF with a defibrillator as well as a history of multiple heart disease in the past. Per patient she's had multiple CABGs. He did have a heart attack around October this year. He states that he follows with Dr. contreras for cardiology. Per patient his ejection fraction is 20%. Per patient since Friday he developed shortness of breath and increased in weight of almost 6-10 pounds. He states that he's been continued to his Lasix. He does have a stage III kidney disease per patient. He states that he is compliant with his medications. Per patient he gets orthopnea with laying down. He states that he's had some chest pains for the past 3 days as well. Per patient she's had about episodes of coughing secondary to the shortness of breath. He states that he takes blood thinners. Other medical issues. Bowel movement or urinary symptoms reported. PFSH Past Medical History Hx Anticoagulant Therapy: Yes Arthritis: Yes (left finger ) Asthma: No Atrial Fibrillation: Yes Autoimmune Disease: No Blood Disorders: No Anxiety: No Depression: No Heart Rhythm Problems: Yes Cancer: No Cardiac Catheterization: Yes Cardiovascular Problems: Yes (CHF, [place] OCTOBER 2016) High Cholesterol: Yes Chemotherapy: No Chest Pain: No Congestive Heart Failure: Yes COPD: Yes Cerebrovascular Accident: No Diabetes: Yes Patient Takes Glucophage: No Diminished Hearing: No Endocrine: Yes Gastrointestinal Disorders: No GERD: Yes Glaucoma: No Genitourinary: Yes Headaches: No Hepatitis: No Hiatal Hernia: No Heparin Induced Thrombocytopen: No Hypertension: Yes Immune Disorder: No Implanted Vascular Access Dvce: No Kidney Stones: No Musculoskeletal: Yes Neurologic: No Psychiatric: No Reproductive: No Respiratory: Yes (COPD) Integumentary: Yes (SMALL ULCER/WOUNDS COVERING WHOLE BODY "ITCHING FROM MY DIABETES" PER PT) Migraines: No Myocardial Infarction: Yes Radiation Therapy: No Renal Failure: Yes (Stage 3 kidney disease) Seizures: No Sickle Cell Disease: No Sleep Apnea: No Thyroid Disease: No Ulcer: No Tetanus Vaccination: Unknown Influenza Vaccination: No (UNKNOWN LAST VACCINE) PNEUMOCCOCAL Vaccine (Year): 2 Past Surgical History Abdominal Surgery: Yes (CHOLECYSTECTOMY) AICD: No (12/19/2016) Appendectomy: No Arteriovenous Shunt: No Cardiac Surgery: Yes (DEFIBRILLATOR PLACED ) Cholecystectomy: Yes Coronary Artery Bypass Graft: Yes Coronary Stent: Yes Ear Surgery: No Endocrine Surgery: No Eye Surgery: No Genitourinary Surgery: No Gynecologic Surgery: No Insulin Pump: No Joint Replacement: No Neurologic Surgery: No Oral Surgery: No Pacemaker: Yes (DEFIB [employer]) Thoracic Surgery: Yes (CABG) Other Surgery: Yes Social History Alcohol Use: No Tobacco Use: No Substance Use: No Allergies-Medications (Allergen,Severity, Reaction): Coded Allergies: Penicillin (Verified Allergy, Unknown, pt unknown, 03/09/17) Reported Meds & Prescriptions Reported Meds & Active Scripts Active Nitroglycerin SL (Nitroglycerin) 0.4 Mg Subl 0.4 Mg SL DIRECTED PRN ONE TABLET UNDER THE TONGUE NEEDED FOR CHEST PAIN, MAY REPEAT EVERY FIVE MINUTES FOR A TOTAL OF 3 DOSES OR CALL 911 IF NO RELIEF Lasix (Furosemide) 40 Mg Tab 40 Mg PO DAILY Flexeril (Cyclobenzaprine HCl) 10 Mg Tab 10 Mg PO Q8H PRN Novolog Inj (Insulin Aspart) 1,000 Unit/10 Ml Vial 0 SQ DIRECTED Sliding Scale as directed. Coreg (Carvedilol) 12.5 Mg Tab 12.5 Mg PO Q12HR Reported Omeprazole 20 Mg Tab 20 Mg PO DAILY Aspirin Adult Low Strength (Aspirin) 81 Mg Tabdr 81 Mg PO DAILY Lisinopril 5 Mg Tab 5 Mg PO DAILY Tresiba Flextouch Pen Inj (Insulin Degludec Inj) 300 unit/3 ML Pen 120 Units SQ HS Ventolin Hfa 18 GM Inh (Albuterol Sulfate) 90 Mcg/Act Aer 2 Puff INH Q4-6H PRN Spiriva Handihaler (Tiotropium Inh) 18 Mcg Cap 18 Mcg INH DAILY 1 capsule = 18 mcg Simvastatin 40 Mg Tab 40 Mg PO HS Plavix (Clopidogrel Bisulfate) 75 Mg Tab 75 Mg PO DAILY Advair Diskus Inh (Fluticasone-Salmeterol Inh) 250-50 Mcg/Blist Aer 1 Puff INH BID Rinse mouth after use. Review of Systems Except as stated in HPI: all other systems reviewed are Neg Physical Exam Narrative GENERAL: SKIN: Warm and dry. HEAD: Atraumatic. Normocephalic. EYES: Pupils equal and round 4 mm reactive to light and accommodation. No scleral icterus. No injection or drainage. ENT: No nasal bleeding or discharge. Mucous membranes pink and moist. Tongue is midline. No uvula deviation. NECK: Trachea midline. No JVD. CARDIOVASCULAR: Regular rate and rhythm. No murmurs, S3, S4. RESPIRATORY: No accessory muscle use. Rales her in the lower lung brown. Breath sounds equal bilaterally. GASTROINTESTINAL: Abdomen soft, non-tender, nondistended. Hepatic and splenic margins not palpable. MUSCULOSKELETAL: Extremities without clubbing, cyanosis, or edema. No obvious deformities. Full range of motion of the upper and lower extremities bilaterally. 2+ pulses bilaterally. Patient does have what appears to be 1+ pitting edema in the lower extremities. NEUROLOGICAL: Awake and alert. No obvious cranial nerve deficits. Motor grossly within normal limits. Five out of 5 muscle strength in the arms and legs. Normal speech. PSYCHIATRIC: Appropriate mood and affect; insight and judgment normal. Data Data Last Documented VS Vital Signs Date Time Temp Pulse Resp B/P Pulse Ox O2 Delivery O2 Flow Rate FiO2 03/09/17 18:41 86 16 130/74 95 Room Air 03/09/17 16:48 97.8 Orders Electrocardiogram (03/09/17 17:03) B-Type Natriuretic Peptide (03/09/17 17:03) Ckmb (Isoenzyme) Profile (03/09/17 17:03) Complete Blood Count With Diff (03/09/17 17:03) Comprehensive Metabolic Panel (03/09/17 17:03) Magnesium (Mg) (03/09/17 17:03) Prothrombin Time / Inr (Pt) (03/09/17 17:03) Act Partial Throm Time (Ptt) (03/09/17 17:03) Troponin I (03/09/17 17:03) Lipase (03/09/17 17:03) Chest, Single Ap (03/09/17 17:03) Ecg Monitoring (03/09/17 17:03) Bilateral Bp Monitoring (03/09/17 17:03) Iv Access Insert/Monitor (03/09/17 17:03) Oximetry (03/09/17 17:03) Oxygen Administration (03/09/17 17:03) Sodium Chloride 0.9% Flush (Ns Flush) (03/09/17 17:15) Furosemide Inj (Lasix Inj) (03/09/17 17:15) CKMB (03/09/17 17:20) CKMB% (03/09/17 17:20) Electrocardiogram (03/09/17 ) Aspirin (Aspirin) (03/09/17 19:00) Nitroglycerin 2% Oint (Nitroglycerin 2% (03/09/17 19:15) Heparin Infusion GABRIELA.Q1H (03/09/17 19:02) Heparin Inj (Heparin Inj) (03/10/17 01:15) Heparin Inj (Heparin Inj) (03/10/17 01:15) Heparin-D5w Inj (Heparin-D5w Inj) (03/09/17 19:15) Act Partial Throm Time (Ptt) (03/09/17 19:02) Prothrombin Time / Inr (Pt) (03/09/17 19:02) Cbc No Diff, Includes Plts (03/09/17 19:02) Cbc No Diff, Includes Plts (03/12/17 06:00) Act Partial Throm Time (Ptt) (03/10/17 02:02) Occult Blood (Hemoccult) Stool (03/09/17 19:02) Admit To Inpatient (03/09/17 ) Code Status (03/09/17:17) Vital Signs (Adult) Q4H (03/09/17:17) Activity Oob With Assistance (03/09/17:17) Tilting Head Band Sawyer / Telemetry .CONTINUOUS (03/09/17:17) Diet Heart Healthy (03/10/17 Breakfast) Sodium Chloride 0.9% Flush (Ns Flush) (03/09/17 19:30) Sodium Chloride 0.9% Flush (Ns Flush) (03/09/17 21:00) Acetaminophen (Tylenol) (03/09/17 19:30) Ondansetron Inj (Zofran Inj) (03/09/17 19:30) Temazepam (Restoril) (03/09/17 19:30) Basic Metabolic Panel (Bmp) (03/10/17 06:00) Complete Blood Count With Diff (03/10/17 06:00) Chest, Pa & Lat (03/10/17 08:00) Resp Oxygen Buck C Titrat 1-4 L (03/09/17 ) Pt Request For Service (03/09/17 19:) Scd Bilateral/Knee High GABRIELA.BID (03/09/17 19:17) Naloxone Inj (Narcan Inj) (03/09/17 19:30) Magnesium Hydroxide Liq (Milk Of Magnesi (03/09/17 19:30) Inpatient Certification (03/09/17 ) Consult Cardiology (03/09/17 ) Furosemide Inj (Lasix Inj) (03/10/17 09:00) Potassium Chloride (Kcl) (03/09/17 21:00) B-Type Natriuretic Peptide (03/10/17 06:00) Nitroglycerin Sl (Nitrostat Sl) (03/09/17 19:30) Creatine Kinase (Cpk) (03/09/17 19:21) Creatine Kinase (Cpk) (03/10/17 01:21) Troponin I (03/09/17 19:21) Troponin I (03/10/17 01:21) Magnesium (Mg) (03/09/17 19:21) Lipid Profile (03/10/17 06:00) Electrocardiogram (03/09/17 19:21) Electrocardiogram (03/10/17 01:21) Insulin Aspart Supplemtl Scale (Novolog (03/09/17 21:00) Albuterol-Ipratropium Neb (Duoneb Neb) (03/09/17 19:30) Albuterol Hfa Inh (Proair Hfa Inh) (03/09/17 19:30) Aspirin Ec (Ecotrin Ec) (03/10/17 09:00) Carvedilol (Coreg) (03/09/17 21:00) Clopidogrel (Plavix) (03/10/17 09:00) Cyclobenzaprine (Flexeril) (03/09/17 19:30) Lisinopril (Prinivil) (03/10/17 09:00) Tiotropium Inh (Spiriva Inh) (03/10/17 09:00) (Nf) Fluticasone-Salmeterol Inh (Advair (03/09/17 21:00) Pantoprazole (Protonix) (03/10/17 09:00) (Nf) Simvastatin (03/09/17 21:00) (Hub Use Only)Inp Phy Cons/Ref (03/09/17 ) Admit Order (Ed Use Only) (03/09/17 19:42) Labs Laboratory Tests Test 03/09/17 17:20 White Blood Count 7.0 TH/MM3 Red Blood Count 4.78 MIL/MM3 Hemoglobin 12.3 GM/DL Hematocrit 38.6 % Mean Corpuscular Volume 80.7 FL Mean Corpuscular Hemoglobin 25.8 PG Mean Corpuscular Hemoglobin 31.9 % Concent Red Cell Distribution Width 17.2 % Platelet Count 154 TH/MM3 Mean Platelet Volume 9.9 FL Neutrophils (%) (Auto) 62.1 % Lymphocytes (%) (Auto) 26.1 % Monocytes (%) (Auto) 7.0 % Eosinophils (%) (Auto) 3.8 % Basophils (%) (Auto) 1.0 % Neutrophils # (Auto) 4.3 TH/MM3 Lymphocytes # (Auto) 1.8 TH/MM3 Monocytes # (Auto) 0.5 TH/MM3 Eosinophils # (Auto) 0.3 TH/MM3 Basophils # (Auto) 0.1 TH/MM3 CBC Comment DIFF FINAL Differential Comment Prothrombin Time 11.4 SEC Prothromb Time International 1.0 RATIO Ratio Activated Partial 27.2 SEC Thromboplast Time Sodium Level 134 MEQ/L Potassium Level 4.0 MEQ/L Chloride Level 99 MEQ/L Carbon Dioxide Level 26.9 MEQ/L Anion Gap 8 MEQ/L Blood Urea Nitrogen 45 MG/DL Creatinine 2.33 MG/DL Estimat Glomerular Filtration 29 ML/MIN Rate Random Glucose 198 MG/DL Calcium Level 9.0 MG/DL Magnesium Level 1.9 MG/DL Total Bilirubin 0.7 MG/DL Aspartate Amino Transf 31 U/L (AST/SGOT) Alanine Aminotransferase 24 U/L (ALT/SGPT) Alkaline Phosphatase 68 U/L Total Creatine Kinase 484 U/L Creatine Kinase MB 7.8 NG/ML Creatine Kinase MB % 1.6 % Troponin I 2.01 NG/ML B-Type Natriuretic Peptide 741 PG/ML Total Protein 7.4 GM/DL Albumin 3.9 GM/DL Lipase 314 U/L MDM Medical Decision Making Medical Screen Exam Complete: Yes Emergency Medical Condition: Yes Medical Record Reviewed: Yes Interpretation(s) CBC & BMP Diagram 03/09/17 17:20 Troponin of 2 EKG shows no changes from January read by me and attending. BNP elevated Last Impressions Chest X-Ray 03/09/17 1703 Signed Impressions: Service Date/Time: Thursday, March 09, 2017 17:00 - CONCLUSION: 1. Cardiomegaly with increase in pulmonary vascularity and bibasilar airspace disease. 2. Status post CABG. 3. Left-sided defibrillator. Ernie Arndt MD coags WNL Differential Diagnosis Chest pain versus a typical chest pain versus CHF versus CHF exacerbation versus CAD versus kidney disease Narrative Course 62-year-old male that presents to the ED for evaluation of chest pain and shortness of breath. Patient was properly examined and was found to have signs and symptoms consistent with appears to be CHF exacerbation. Labs and imaging ordered. Patient was given IV Lasix. Labs and imaging chem back with positive troponin of 2. Patient has never had level this high before malaise since January. Case was discussed with my attending Dr. Asher who spoke with Dr. Brown who recommends as patient is chest pain-free since been here to be admitted for further evaluation. Consult to Dr Contreras. She does want us to start the patient on nitro paste as well as heparin drip. My attending agrees with this plan and he recommends admission. This was told to the patient by my attending who agreed to the plan. Patient was admitted to Dr. Chong for [facility]. Diagnosis Primary Impression: NSTEMI, initial episode of care Additional Impressions: Acute systolic CHF (congestive heart failure) CKD (chronic kidney disease) stage 3, GFR 30-59 ml/min Admitting Information Admitting Physician Requests: Admit Segundo Mcgrath Mar 09, 2017 17:28
[2017-03-09 17:34] LABS: AUTOMATED NEUTROPHIL # 4.3 TH/MM3 (1.8-7.7); BASOPHIL # 0.1 TH/MM3 (0-0.2); EOSINOPHIL # 0.3 TH/MM3 (0-0.4); EOSINOPHIL % 3.8 % (0.0-4.0); HEMATOCRIT 38.6 % (39.0-51.0); HEMO FLAGS DIFF FINAL; LYMPH % 26.1 % (9.0-44.0); LYMPHOCYTE # 1.8 TH/MM3 (1.0-4.8); MEAN CELL VOLUME 80.7 FL (80.0-100.0); MEAN CORPUSCULAR HEMOGLOBIN 25.8 PG (27.0-34.0); MEAN CORPUSCULAR HGB CONC 31.9 % (32.0-36.0); NEUT % 62.1 % (16.0-70.0); PLATELET COUNT 154 TH/MM3 (150-450); RED BLOOD COUNT 4.78 MIL/MM3 (4.50-5.90); RED CELL DISTRIBUTION WIDTH 17.2 % (11.6-17.2)
[2017-03-09] MEDS ORDERED: ASPI1TAB91 PO (17:39)
[2017-03-09] MEDS ORDERED: OMEP20TA PO (17:39)
[2017-03-09 17:48] LABS: APTT (PATIENT) 27.2 SEC (24.3-30.1); PROTHROMBIN TIME - PATIENT 11.4 SEC (9.8-11.6)
[2017-03-09 18:02] LABS: ANION GAP 8 MEQ/L (5-15); AST (GOT) 31 U/L (15-37); BICARBONATE 26.9 MEQ/L (21.0-32.0); BLOOD UREA NITROGEN 45 MG/DL (7-18); CHLORIDE 99 MEQ/L (98-107); GLOMERULAR FILTRATION RATE 29 ML/MIN (>89); MAGNESIUM 1.9 MG/DL (1.5-2.5); SODIUM (NA) 134 MEQ/L (136-145)
[2017-03-09 18:03] LABS: ALT (GPT) 24 U/L (12-78)
[2017-03-09 18:06] LABS: ALKALINE PHOSPHATASE 68 U/L (45-117); CREATINE KINASE 484 U/L (39-308); TOTAL BILIRUBIN ADULT 0.7 MG/DL (0.2-1.0)
[2017-03-09 18:41] VITALS: BP 130/74; PULSE 86; RESP 16; O2SAT 95
[2017-03-09 18:59] LABS: CKMB 7.8 NG/ML (0.5-3.6)
[2017-03-09] MEDS ORDERED: ASPIRIN 325 MG TAB PO ONE (19:00)
[2017-03-09] MEDS ORDERED: NITROGLYCERIN 2% OINT 1 GM PACKET TOPICAL ONE (19:15)
[2017-03-09] MEDS ORDERED: HEPARIN-D5W INJ 250 ML IV SCH (19:15)
[2017-03-09 19:20] VITALS: BP 132/78; PULSE 83; RESP 18; O2SAT 95
[2017-03-09] MEDS ORDERED: NALOXONE HCL 0.4 MG/ML AMP IV PRN (19:30)
[2017-03-09] MEDS ORDERED: SODIUM CHLORIDE 0.9% FLUSH 10 ML FLUSH IV FLUSH PRN (19:30)
[2017-03-09] MEDS ORDERED: MAGNESIUM HYDROXIDE SUSP 30 ML CUP PO PRN (19:30)
[2017-03-09] MEDS ORDERED: ACETAMINOPHEN 325 MG TAB PO PRN (19:30)
[2017-03-09] MEDS ORDERED: RESP: ALBUTEROL 2.5 MG/IPRATROPIUM 0.5 MG NEB (PRN) NEB (19:30)
[2017-03-09] MEDS ORDERED: TEMAZEPAM 15 MG CAP PO PRN (19:30)
[2017-03-09] MEDS ORDERED: CYCLOBENZAPRINE HCL 10 MG TAB PO PRN (19:30)
[2017-03-09] MEDS ORDERED: ALBUTEROL SULFATE 90 MCG/ACT HFA 8 GM INHALER INH PRN (19:30)
[2017-03-09] MEDS ORDERED: ONDANSETRON HCL 4 MG/2 ML VIAL IVP PRN (19:30)
[2017-03-09] MEDS ORDERED: NITROGLYCERIN 0.4 MG SL 25 TABS/BTL SL PRN (19:30)
[2017-03-09] MEDS: SODIUM CHLORIDE 0.9% FLUSH 10 ML FLUSH IV FLUSH SCH (21:00)
--- NOTE | 2017-03-09 21:29 | EKG ---
Date Performed: 03/09/2017 Time Performed: 18:56:52 PTAGE: 62 years EKG: Sinus rhythm WITH MARKED FIRST DEGREE AV BLOCK LEFT ATRIAL ABNORMALITY SEPTAL MYOCARDIAL INFARCTION ST/T-WAVE ABN ORMALITY, CONSIDER LATERAL ISCHEMIA ABNORMAL ECG PREVIOUS TRACING : 03/09/2017 17.29 No significant change from previous tracing noted. DOCTOR: Baljinder Storey Interpretating Date/Time 03/09/2017 21:28:13
--- NOTE | 2017-03-09 21:32 | EKG ---
Date Performed: 03/09/2017 Time Performed: 17:29:43 PTAGE: 62 years EKG: Sinus rhythm WITH MARKED FIRST DEGREE AV BLOCK SEPTAL MYOCARDIAL INFARCTION ST/T-WAVE ABNORMALITY, CONSIDER LATER AL ISCHEMIA ABNORMAL ECG PREVIOUS TRACING : 02/06/2017 05.33 No significant change from previous tracing noted. DOCTOR: Baljinder Storey Interpretating Date/Time 03/09/2017 21:30:59
[2017-03-09] MEDS: BUDESONIDE-FORMOTEROL 160/4.5 MCG INHALER INH SCH (21:41)
[2017-03-09] MEDS: PRAVASTATIN SOD 80 MG TAB PO SCH (21:42)
[2017-03-09] MEDS: POTASSIUM CHLORIDE 20 MEQ CONTROLLED RELEASE TAB PO SCH (21:42)
[2017-03-09] MEDS: CARVEDILOL 12.5 MG TAB PO SCH (21:42)
[2017-03-09] MEDS: INSULIN ASPART SUPPLEMENTAL SCALE SQ SCH (21:43)
[2017-03-09 21:44] VITALS: BP 128/72; PULSE 90; RESP 18
--- NOTE | 2017-03-09 22:18 | HHI.HP ---
HPI Service [facility] Hospitalists Primary Care Physician Lyndsey Barton MD Admission Diagnosis NSTEMI, CHF Chief Complaint: chest pain Travel History International Travel<30 Days: No Contact w/Intl Traveler <30 Da: No Traveled to Known Affected Are: No History of Present Illness Mr. Gil is a pleasant 62 y/o WM with CAD/hx of DC, CHF/Cardiomyopathy with EF 15-20% s/p AICD placement on 12/19/16, hypertension, and Diabetes. Pt was admitted a month ago with c/o chest pain, SOB, and LE edema. At that time, pt's troponins were only minimally elevated pt was diuresed with clinical improvement and discharge to home. Pt presented to the [facility] today with c/o AICD defibrillation, SOB, and weight gain of 6 to 10 pounds. Pt reports that he has been having chest pain for the last 3 days. Pt troponin was elevated at 2.01. Pt BNP was elevated at 741. Case was discussed between the ER attending and Cardiology fire protection designer. Pt was admitted to the Medical Service. Pt was started on Heparin gtt. A consult was placed for [facility] Cardiology. Review of Systems Constitutional: DENIES: Diaphoretic episodes, Fatigue, Fever, Weight gain, Weight loss, Chills, Dizziness, Change in appetite, Night Sweats Endocrine: DENIES: Heat/cold intolerance, Polydipsia, Polyuria, Polyphagia Eyes: DENIES: Blurred vision, Diplopia, Eye inflammation, Eye pain, Vision loss , Photosensitivity, Double Vision Ears, nose, mouth, throat: DENIES: Tinnitus, Hearing loss, Vertigo, Nasal discharge, Oral lesions, Throat pain, Hoarseness, Ear Pain, Running Nose, Epistaxis, Sinus Pain, Toothache, Odynophagia Respiratory: DENIES: Apneas, Cough, Snoring, Wheezing, Hemoptysis, Sputum production, Shortness of breath Cardiovascular: COMPLAINS OF: Chest pain, Dyspnea on Exertion, Orthopnea, DENIES: Palpitations, Syncope, PND, Lower Extremity Edema, Claudication Gastrointestinal: DENIES: Abdominal pain, Black stools, Bloody stools, BRB per rectum, Constipation, Diarrhea, GERD, Nausea, Reflux, Vomiting, Difficulty Swallowing, Anorexia Genitourinary: DENIES: Urinary frequency, Urinary incontinence, Urgency, Hematuria, Dysuria, Nocturia Musculoskeletal: DENIES: Joint pain, Muscle aches, Stiffness, Joint Swelling, Back pain, Neck pain Integumentary: DENIES: Abnormal pigmentation, Nail changes, Pruritus, Rash Hematologic/lymphatic: DENIES: Bruising, Lymphadenopathy Immunologic/allergic: DENIES: Eczema, Urticaria Neurologic: DENIES: Abnormal gait, Headache, Localized weakness, Paresthesias, Seizures, Speech Problems, Tremor, Poor Balance Psychiatric: DENIES: Anxiety, Confusion, Mood changes, Depression, Hallucinations, Agitation, Suicidal Ideation, Homicidal Ideation, Delusions, History of Bipolar, History of Schizophrenia Past Family Social History Past Medical History Diabetes CAD Systolic CHF Cardiomyopathy with EF 15-20% in 10/2016 PAD HTN Hyperlipidemia GERD CKD, stage 3 Hx paroxysmal VT BENITES with bridging fibrosis COPD Past Surgical History Single chamber defibrillator implantation on 12/19/[address] Razo [facility] (08/28/16) --> severe [place] three-vessel coronary disease, 3 of 4 coronary bypass grafts are patent CABG x 4 in 2009 Angioplasty right iliac artery Cholecystectomy Repair of ruptured Achilles tendon Reported Medications Reported Meds & Active Scripts Active Nitroglycerin SL (Nitroglycerin) 0.4 Mg Subl 0.4 Mg SL DIRECTED PRN ONE TABLET UNDER THE TONGUE NEEDED FOR CHEST PAIN, MAY REPEAT EVERY FIVE MINUTES FOR A TOTAL OF 3 DOSES OR CALL 911 IF NO RELIEF Lasix (Furosemide) 40 Mg Tab 40 Mg PO DAILY Flexeril (Cyclobenzaprine HCl) 10 Mg Tab 10 Mg PO Q8H PRN Novolog Inj (Insulin Aspart) 1,000 Unit/10 Ml Vial 0 SQ DIRECTED Sliding Scale as directed. Coreg (Carvedilol) 12.5 Mg Tab 12.5 Mg PO Q12HR Reported Omeprazole 20 Mg Tab 20 Mg PO DAILY Aspirin Adult Low Strength (Aspirin) 81 Mg Tabdr 81 Mg PO DAILY Lisinopril 5 Mg Tab 5 Mg PO DAILY Tresiba Flextouch Pen Inj (Insulin Degludec Inj) 300 unit/3 ML Pen 120 Units SQ HS Ventolin Hfa 18 GM Inh (Albuterol Sulfate) 90 Mcg/Act Aer 2 Puff INH Q4-6H PRN Spiriva Handihaler (Tiotropium Inh) 18 Mcg Cap 18 Mcg INH DAILY 1 capsule = 18 mcg Simvastatin 40 Mg Tab 40 Mg PO HS Plavix (Clopidogrel Bisulfate) 75 Mg Tab 75 Mg PO DAILY Advair Diskus Inh (Fluticasone-Salmeterol Inh) 250-50 Mcg/Blist Aer 1 Puff INH BID Rinse mouth after use. Allergies: Coded Allergies: Penicillin (Verified Allergy, Unknown, pt unknown, 03/09/17) Family History Father with CAD, diabetes, lung cancer Mother with MS Social History (+)Hx of tobacco use, smoked 1.5ppd from age 24 to 55, quit in 2009 Denies any alcohol or illicit drug use Physical Exam Vital Signs Vital Signs Date Time Temp Pulse Resp B/P Pulse Ox O2 Delivery O2 Flow Rate FiO2 03/09/17 21:44 90 18 128/72 Room Air 03/09/17 19:20 83 18 132/78 95 Room Air 03/09/17 19:20 Room Air 03/09/17 18:41 86 16 130/74 95 Room Air 03/09/17 16:48 97.8 106 22 151/72 93 Physical Exam GENERAL: This is a well-nourished, well-developed patient, in no apparent distress. SKIN: No rashes, ecchymoses or lesions. Cool and dry. HEAD: Atraumatic. Normocephalic. No temporal or scalp tenderness. EYES: Pupils equal round and reactive. Extraocular motions intact. No scleral icterus. No injection or drainage. ENT: Nose without bleeding, purulent drainage or septal hematoma. Throat without erythema, tonsillar hypertrophy or exudate. Uvula midline. Airway patent. NECK: Trachea midline. No JVD or lymphadenopathy. Supple, nontender, no meningeal signs. CARDIOVASCULAR: Regular rate and rhythm without murmurs, gallops, or rubs. RESPIRATORY: Clear to auscultation. Breath sounds equal bilaterally. No wheezes , rales, or rhonchi. GASTROINTESTINAL: Abdomen soft, non-tender, nondistended. No hepato-splenomegaly , or palpable masses. No guarding. MUSCULOSKELETAL: Extremities without clubbing, cyanosis, or edema. No joint tenderness, effusion, or edema noted. No calf tenderness. Negative Homans sign bilaterally. NEUROLOGICAL: Awake and alert. Cranial nerves II through XII intact. Motor and sensory grossly within normal limits. Five out of 5 muscle strength in all muscle groups. Normal speech. Laboratory Laboratory Tests Test 03/09/17 17:20 White Blood Count 7.0 Red Blood Count 4.78 Hemoglobin 12.3 Hematocrit 38.6 Mean Corpuscular Volume 80.7 Mean Corpuscular Hemoglobin 25.8 Mean Corpuscular Hemoglobin 31.9 Concent Red Cell Distribution Width 17.2 Platelet Count 154 Mean Platelet Volume 9.9 Neutrophils (%) (Auto) 62.1 Lymphocytes (%) (Auto) 26.1 Monocytes (%) (Auto) 7.0 Eosinophils (%) (Auto) 3.8 Basophils (%) (Auto) 1.0 Neutrophils # (Auto) 4.3 Lymphocytes # (Auto) 1.8 Monocytes # (Auto) 0.5 Eosinophils # (Auto) 0.3 Basophils # (Auto) 0.1 CBC Comment DIFF FINAL Differential Comment Prothrombin Time 11.4 Prothromb Time International 1.0 Ratio Activated Partial 27.2 Thromboplast Time Sodium Level 134 Potassium Level 4.0 Chloride Level 99 Carbon Dioxide Level 26.9 Anion Gap 8 Blood Urea Nitrogen 45 Creatinine 2.33 Estimat Glomerular Filtration 29 Rate Random Glucose 198 Calcium Level 9.0 Magnesium Level 1.9 Total Bilirubin 0.7 Aspartate Amino Transf 31 (AST/SGOT) Alanine Aminotransferase 24 (ALT/SGPT) Alkaline Phosphatase 68 Total Creatine Kinase 484 Creatine Kinase MB 7.8 Creatine Kinase MB % 1.6 Troponin I 2.01 B-Type Natriuretic Peptide 741 Total Protein 7.4 Albumin 3.9 Lipase 314 Result Diagram: 03/09/17 1720 03/09/17 1720 Imaging GENERAL: This is a well-nourished, well-developed patient, in no apparent distress. CARDIOVASCULAR: Regular rate and rhythm without murmurs, gallops, or rubs. RESPIRATORY: Clear to auscultation. Breath sounds equal bilaterally. No wheezes , rales, or rhonchi. GASTROINTESTINAL: Abdomen soft, non-tender, nondistended. Normal active bowel sounds MUSCULOSKELETAL: Extremities without clubbing, cyanosis, or edema. NEURO: Alert & Oriented x4 to person, place, time, situation. Moves all ext x4 Septic Shock Reassessment Heart: Regular rate and rhythm Peripheral Pulses: Bounding Right Radial Bounding Left Radial Bounding Right Popliteal Bounding Left Popliteal Bounding Right Dorsalis Pedis Bounding Left Dorsalis Pedis Bounding Right Posterior Tibial Bounding Left Posterior Tibial Assessment and Plan Problem List: (1) NSTEMI (non-ST elevated myocardial infarction) Status: Acute Plan: - CABG, 4V in 2010 - [facility] (08/28/16) --> severe [place] three-vessel coronary disease, 3 of 4 coronary bypass grafts are patent - Pt has ischemic cardiomyopathy - Pt has an EF of 15-20% - Pt has an AICD and reports discharge - initial troponin elevated at 2.01. Cardiology aware. - Cardiology consult placed - IV heparin - continue ASA, plavix, lisinopril, coreg, prn NTG - obtain serial cardiac enzymes - obtain serial EKGs - obtain fasting lipids - request Palliative Consult (2) CAD (coronary artery disease) of artery bypass graft Status: Chronic Plan: - see above (3) Ischemic cardiomyopathy Status: Chronic Plan: - CHF exacerbation - Pt received IV lasix 40mg in the ER - continue IV lasix at 40mg bid - obtain repeat BNP and CXR in AM (4) COPD (chronic obstructive pulmonary disease) Status: Chronic Plan: - symbicort, spiriva - prn duonebs (5) GERD (gastroesophageal reflux disease) Status: Chronic Plan: - PPI (6) CKD (chronic kidney disease) stage 3, GFR 30-59 ml/min Status: Chronic Plan: - observe (7) PAD (peripheral artery disease) Status: Chronic (8) Diabetes mellitus Status: Chronic Plan: - SSI Physician Certification 2 Midnight Certification Type: Admission for Inpatient Services Order for Inpatient Services The services are ordered in accordance with Medicare regulations or non- Medicare payer requirements, as applicable. In the case of services not specified as inpatient-only, they are appropriately provided as inpatient services in accordance with the 2-midnight benchmark. Estimated LOS (days): 3 3 days is the estimated time the patient will need to remain in the hospital, assuming treatment plan goals are met and no additional complications. Post-Hospital Plan: Not yet determined Problem Qualifiers (1) CAD (coronary artery disease) of artery bypass graft: Qualified Code: I25.709 - Coronary artery disease involving coronary bypass graft of [place] heart with angina pectoris (2) COPD (chronic obstructive pulmonary disease): (3) GERD (gastroesophageal reflux disease): Qualified Code: K21.9 - Gastroesophageal reflux disease, esophagitis presence not specified (4) Diabetes mellitus: Qualified Code: E11.8 - Type 2 diabetes mellitus with complication, with long- term current use of insulin Jorge Alberto Chong DO Mar 09, 2017 22:18
[2017-03-09 23:52] LABS: MAGNESIUM 1.9 MG/DL (1.5-2.5)
[2017-03-10] VITALS (17 sets, daily range): BP systolic 109–135; BP diastolic 64–78; PULSE 78–93; RESP 18–20; TEMP 97.7–98.2; O2SAT 94–100
[2017-03-10 00:11] LABS: CKMB 6.3 NG/ML (0.5-3.6)
[2017-03-10] MEDS ORDERED: ACETAMINOPHEN/HYDROcodone 325 MG/5 MG TAB PO PRN (00:30)
[2017-03-10] MEDS ORDERED: HEPARIN SODIUM - IV 10,000 UNITS/10 ML VIAL IV PRN (01:15)
[2017-03-10 02:01] LABS: APTT (PATIENT) 32.7 SEC (24.3-30.1)
[2017-03-10] MEDS: HEPARIN SODIUM - IV 10,000 UNITS/10 ML VIAL IV PRN ×2 (02:29→10:08)
[2017-03-10 05:08] LABS: CKMB 5.8 NG/ML (0.5-3.6)
[2017-03-10] MEDS: INSULIN ASPART SUPPLEMENTAL SCALE SQ SCH ×4 (07:00→21:17)
[2017-03-10 07:18] LABS: AUTOMATED NEUTROPHIL # 4.3 TH/MM3 (1.8-7.7); BASOPHIL # 0.2 TH/MM3 (0-0.2); EOSINOPHIL # 0.4 TH/MM3 (0-0.4); EOSINOPHIL % 4.8 % (0.0-4.0); HEMATOCRIT 34.4 % (39.0-51.0); HEMO FLAGS DIFF FINAL; LYMPH % 30.3 % (9.0-44.0); LYMPHOCYTE # 2.3 TH/MM3 (1.0-4.8); MEAN CELL VOLUME 79.8 FL (80.0-100.0); MEAN CORPUSCULAR HEMOGLOBIN 26.2 PG (27.0-34.0); MEAN CORPUSCULAR HGB CONC 32.8 % (32.0-36.0); MONO % 7.2 % (0.0-8.0); NEUT % 55.7 % (16.0-70.0); PLATELET COUNT 141 TH/MM3 (150-450); RED CELL DISTRIBUTION WIDTH 17.1 % (11.6-17.2); WHITE BLOOD COUNT 7.7 TH/MM3 (4.0-11.0)
[2017-03-10 07:46] LABS: BICARBONATE 25.4 MEQ/L (21.0-32.0)
[2017-03-10 07:49] LABS: HDL CHOLESTEROL 22.9 MG/DL (40.0-60.0)
--- NOTE | 2017-03-10 08:17 | PD.CONS ---
HPI Service CV Consult Requested By Reason for Consult NSTEMI Primary Care Physician Lyndsey Barton MD History of Present Illness Here with CAD s/p CABG s/p coronary angiogram August 2016 showing three of four grafts patent and no stenosis that was amendable to intervention, HTN, Hyperlipidemia, ischemic cardiomyopathy (15% to 20%) s/p AICD admitted for shortness of breath. He states that two night ago he could not sleep and was short of breath. He was unable to take all of his medications because he was severely short of breath. He was also having back pain. He was able to calm down and breath easier the next morning. He was able to take his medications. Then later that day he began having worsening shortness of breath and decided to come to the hospital. He states sitting forward helped his breathing. He denies any chest pain or palpitations (Amauri Lopez) Review of Systems Consitutional: DENIES: Fatigue, Fever, Chills, Weight gain, Weight loss Eyes: DENIES: Amaurosis Fugax, Change in vision HEENT: DENIES: Lightheadedness, Change in hearing Respiratory: COMPLAINS OF: Shortness of breath, DENIES: See HPI, Cough, Snoring, Wheezing, Sputum production Cardiovascular: COMPLAINS OF: See HPI Gastrointestinal: DENIES: Nausea, Vomiting, Change in bowel habits, Reflux, Bloody stools, Melena Genitourinary: DENIES: Urinary incontinence, Difficulty voiding Integumentary: DENIES: Rash Neurologic: DENIES: Tingling or numbness, Memory problems, Poor Balance, Stroke symptoms Musculoskeletal: DENIES: Joint pain, Muscle pain, Limited range of motion, Back pain Psychiatric: DENIES: Anxiety, Depression, Sleep disturbances Hematologic: DENIES: Bruising tendencies, Bleeding tendencies Endocrine: DENIES: Weight gain, Weight loss, Thyroid disease (Amauri Lopez ) Past Family Social History Allergies: Coded Allergies: Penicillin (Verified Allergy, Unknown, pt unknown, 03/09/17) Past Medical History see HPI Diabetes PAD HTN Hyperlipidemia GERD CKD, stage 3 Hx paroxysmal VT BENITES with bridging fibrosis COPD Past Surgical History see HPI Angioplasty right iliac artery Cholecystectomy Repair of ruptured Achilles tendon Reported Medications Reported Meds & Active Scripts Active Nitroglycerin SL (Nitroglycerin) 0.4 Mg Subl 0.4 Mg SL DIRECTED PRN ONE TABLET UNDER THE TONGUE NEEDED FOR CHEST PAIN, MAY REPEAT EVERY FIVE MINUTES FOR A TOTAL OF 3 DOSES OR CALL 911 IF NO RELIEF Lasix (Furosemide) 40 Mg Tab 40 Mg PO DAILY Flexeril (Cyclobenzaprine HCl) 10 Mg Tab 10 Mg PO Q8H PRN Novolog Inj (Insulin Aspart) 1,000 Unit/10 Ml Vial 0 SQ DIRECTED Sliding Scale as directed. Coreg (Carvedilol) 12.5 Mg Tab 12.5 Mg PO Q12HR Reported Omeprazole 20 Mg Tab 20 Mg PO DAILY Aspirin Adult Low Strength (Aspirin) 81 Mg Tabdr 81 Mg PO DAILY Lisinopril 5 Mg Tab 5 Mg PO DAILY Tresiba Flextouch Pen Inj (Insulin Degludec Inj) 300 unit/3 ML Pen 120 Units SQ HS Ventolin Hfa 18 GM Inh (Albuterol Sulfate) 90 Mcg/Act Aer 2 Puff INH Q4-6H PRN Spiriva Handihaler (Tiotropium Inh) 18 Mcg Cap 18 Mcg INH DAILY 1 capsule = 18 mcg Simvastatin 40 Mg Tab 40 Mg PO HS Plavix (Clopidogrel Bisulfate) 75 Mg Tab 75 Mg PO DAILY Advair Diskus Inh (Fluticasone-Salmeterol Inh) 250-50 Mcg/Blist Aer 1 Puff INH BID Rinse mouth after use. Active Ordered Medications Current Medications Medications (Trade) Dose Ordered Sig/Angel Route Start Time Stop Time Status Last Admin (NS Flush) 2 ml UNSCH PRN IVF 03/09/17 17:15 (Heparin Inj) 5,000 units UNSCH PRN IV 03/10/17 01:15 Heparin Sodium (Porcine) 2500 units 2,500 units UNSCH PRN IV 03/10/17 01:15 03/10/17 02:29 (Heparin-D5W Inj) 250 ml @ 0 mls/hr TITRATE IV 03/09/17 19:15 03/09/17 20:07 (NS Flush) 2 ml UNSCH PRN IV FLUSH 03/09/17 19:30 (NS Flush) 2 ml BID IV FLUSH 03/09/17 21:00 (Tylenol) 650 mg Q4H PRN PO 03/09/17 19:30 (Zofran Inj) 4 mg Q6H PRN IVP 03/09/17 19:30 (Restoril) 15 mg HS PRN PO 03/09/17 19:30 (Narcan Inj) 0.4 mg UNSCH PRN IV 03/09/17 19:30 (Milk Of Magnesia Liq) 30 ml Q12H PRN PO 03/09/17 19:30 (Lasix Inj) 40 mg BID@09,18 IV PUSH 03/10/17 09:00 (KCl) 20 meq BID PO 03/09/17 21:00 03/09/17 21:42 (Nitrostat Sl) 0.4 mg Q5M PRN SL 03/09/17 19:30 (Proair Hfa Inh) 2 puff Q6HR PRN INH 03/09/17 19:30 (Ecotrin Ec) 81 mg DAILY PO 03/10/17 09:00 (Coreg) 12.5 mg Q12HR PO 03/09/17 21:00 03/09/17 21:42 (Plavix) 75 mg DAILY PO 03/10/17 09:00 (Flexeril) 10 mg Q8H PRN PO 03/09/17 19:30 (Prinivil) 5 mg DAILY PO 03/10/17 09:00 (Spiriva Inh) 18 mcg DAILY INH 03/10/17 09:00 (Symbicort 160-4.5 Inh) 2 puff BID INH 03/09/17 21:00 03/09/17 21:41 (Protonix) 20 mg DAILY PO 03/10/17 09:00 (Pravachol) 80 mg HS PO 03/09/17 21:00 03/09/17 21:42 (Sunset 5-325 Mg) 1 tab Q6H PRN PO 03/10/17 00:30 03/10/17 00:38 Family History noncontributory Social History denies smoking, alcohol or substance abuse (Amauri Lopez) Physical Exam Vital Signs Vital Signs Date Time Temp Pulse Resp B/P Pulse Ox O2 Delivery O2 Flow Rate FiO2 03/10/17 05:47 82 18 109/66 100 Room Air 03/10/17 02:32 93 18 135/78 100 Room Air 03/10/17 01:05 95 03/09/17 21:44 90 18 128/72 Room Air 03/09/17 19:20 83 18 132/78 95 Room Air 03/09/17 19:20 Room Air 03/09/17 18:41 86 16 130/74 95 Room Air 03/09/17 16:48 97.8 106 22 151/72 93 Physical Exam GENERAL: Well-nourished, well-developed patient in no apparent distress. NECK: No JVD. No carotid bruit. CARDIOVASCULAR: Regular rate and rhythm. S1/S2 no murmur, rub, or gallop. RESPIRATORY: No accessory muscle use. rales bilateral bases to auscultation. Breath sounds equal bilaterally. GASTROINTESTINAL: Abdomen soft, non-tender, nondistended. MUSCULOSKELETAL: Extremities without clubbing, cyanosis, or edema. Laboratory Laboratory Tests Test 03/09/17 03/09/17 03/10/17 03/10/17 17:20 23:15 01:45 03:09 White Blood Count 7.0 Red Blood Count 4.78 Hemoglobin 12.3 Hematocrit 38.6 Mean Corpuscular Volume 80.7 Mean Corpuscular Hemoglobin 25.8 Mean Corpuscular Hemoglobin 31.9 Concent Red Cell Distribution Width 17.2 Platelet Count 154 Mean Platelet Volume 9.9 Neutrophils (%) (Auto) 62.1 Lymphocytes (%) (Auto) 26.1 Monocytes (%) (Auto) 7.0 Eosinophils (%) (Auto) 3.8 Basophils (%) (Auto) 1.0 Neutrophils # (Auto) 4.3 Lymphocytes # (Auto) 1.8 Monocytes # (Auto) 0.5 Eosinophils # (Auto) 0.3 Basophils # (Auto) 0.1 CBC Comment DIFF FINAL Differential Comment Prothrombin Time 11.4 Prothromb Time International 1.0 Ratio Activated Partial 27.2 32.7 Thromboplast Time Sodium Level 134 Potassium Level 4.0 Chloride Level 99 Carbon Dioxide Level 26.9 Anion Gap 8 Blood Urea Nitrogen 45 Creatinine 2.33 Estimat Glomerular Filtration 29 Rate Random Glucose 198 Calcium Level 9.0 Magnesium Level 1.9 1.9 Total Bilirubin 0.7 Aspartate Amino Transf 31 (AST/SGOT) Alanine Aminotransferase 24 (ALT/SGPT) Alkaline Phosphatase 68 Total Creatine Kinase 484 416 386 Creatine Kinase MB 7.8 6.3 5.8 Creatine Kinase MB % 1.6 1.5 1.5 Troponin I 2.01 2.48 2.41 B-Type Natriuretic Peptide 741 Total Protein 7.4 Albumin 3.9 Lipase 314 Test 03/10/17 05:32 White Blood Count 7.7 Red Blood Count 4.30 Hemoglobin 11.3 Hematocrit 34.4 Mean Corpuscular Volume 79.8 Mean Corpuscular Hemoglobin 26.2 Mean Corpuscular Hemoglobin 32.8 Concent Red Cell Distribution Width 17.1 Platelet Count 141 Mean Platelet Volume 10.9 Neutrophils (%) (Auto) 55.7 Lymphocytes (%) (Auto) 30.3 Monocytes (%) (Auto) 7.2 Eosinophils (%) (Auto) 4.8 Basophils (%) (Auto) 2.0 Neutrophils # (Auto) 4.3 Lymphocytes # (Auto) 2.3 Monocytes # (Auto) 0.6 Eosinophils # (Auto) 0.4 Basophils # (Auto) 0.2 CBC Comment DIFF FINAL Differential Comment (Amauri Lopez) Result Diagram: 03/10/17 0532 03/09/17 1720 Assessment and Plan Problem List: (1) NSTEMI, initial episode of care (2) HTN (hypertension) (3) Acute on chronic clinical systolic heart failure Assessment and Plan Troponin is elevates and there are no acute ECG changes. Will review films from last heart cath. For his heart failure we will continue diuresis. His blood pressure is well controlled (Amauri Lopez) Assessment and Plan reviewed [facility]. severe diffuse disease. anatomy not favorable for intervention. cont med therapy did not tolerate isosorbide try ranexa 500 mg po bid copd and resp distress may have also triggered a demand mediated event (Chandan Ramos MD) Amauri Lopez Mar 10, 2017 08:17 Chandan Ramos MD Mar 10, 2017 12:38
--- NOTE | 2017-03-10 08:39 | EKG ---
Date Performed: 03/10/2017 Time Performed: 05:05:02 PTAGE: 62 years EKG: Sinus rhythm WITH FIRST DEGREE AV BLOCK LEFT ATRIAL ENLARGEMENT SEPTAL MYOCARDIAL INFARCTION, AGE UNDETERMINED ST /T-WAVE ABNORMALITY, CONSIDER LATERAL ISCHEMIA ABNORMAL ECG PREVIOUS TRACING : 03/09/2017 23.32 No significant change from previous tracing noted. DOCTOR: Baljinder Storey Interpretating Date/Time 03/10/2017 08:38:26
--- NOTE | 2017-03-10 08:44 | EKG ---
Date Performed: 03/09/2017 Time Performed: 23:32:42 PTAGE: 62 years EKG: Sinus rhythm WITH FIRST DEGREE AV BLOCK LEFT ATRIAL ENLARGEMENT SEPTAL MYOCARDIAL INFARCTION ST/T-WAVE ABNORMALIT Y, CONSIDER LATERAL ISCHEMIA ST/T-WAVE ABNORMALITY, CONSIDER INFERIOR ISCHEMIA ABNORMAL ECG PREVIOUS TRACING : 03/09/2017 18.56 No significant change from previous tracing noted. DOCTOR: Baljinder Storey Interpretating Date/Time 03/10/2017 08:42:51
--- NOTE | 2017-03-10 09:17 | RADRPT ---
EXAM DATE/TIME: 03/10/2017 08:37 [place] COMPARISON: No previous studies available for comparison. INDICATIONS : Short of breath. MEDICAL HISTORY : Chronic obstructive pulmonary disease. Diabetes mellitus type II. SURGICAL HISTORY : CABG. Coronary artery stent. Pacemaker. ICD Iliac stent ENCOUNTER: Subsequent ACUITY: 2 days PAIN SCORE: 0/10 LOCATION: Bilateral chest FINDINGS: The lungs remain mildly hyperinflated with minimal interstitial edema. The heart remains minimally e nlarged. Pacer is in good position. CONCLUSION: Minimal mild interstitial edema and hyperinflation. Johan Dubois MD FACR on March 10, 2017 at 9:15 Board Certified Radiologist. This report was verified electronically.
[2017-03-10] MEDS: TIOTROPIUM BROMIDE 18 MCG INH INH SCH (09:45)
[2017-03-10] MEDS: FUROSEMIDE 40 MG/4 ML VIAL IV PUSH SCH ×2 (09:46→17:40)
[2017-03-10] MEDS: SODIUM CHLORIDE 0.9% FLUSH 10 ML FLUSH IV FLUSH SCH ×2 (09:46→21:11)
[2017-03-10] MEDS: BUDESONIDE-FORMOTEROL 160/4.5 MCG INHALER INH SCH ×2 (09:46→21:05)
[2017-03-10] MEDS: ASPIRIN EC 81 MG TABEC PO SCH (09:48)
[2017-03-10] MEDS: CARVEDILOL 12.5 MG TAB PO SCH ×2 (09:48→21:06)
[2017-03-10] MEDS: CLOPIDOGREL 75 MG TAB PO SCH (09:49)
[2017-03-10] MEDS: POTASSIUM CHLORIDE 20 MEQ CONTROLLED RELEASE TAB PO SCH ×2 (09:49→21:06)
[2017-03-10] MEDS: LISINOPRIL 5 MG TAB PO SCH (09:50)
[2017-03-10] MEDS: PANTOPRAZOLE SOD 20 MG DELAYED RELEASE TAB PO SCH (09:50)
--- NOTE | 2017-03-10 10:04 | PD.CONS ---
Consult Service Palliative Care . Consult Requested By Dr. Chong . Primary Care Physician Lyndsey Barton MD . Reason for Consultation a. To assist with evaluation and management of symptoms including: Pain, shortness of breath, anxiety b. To assist medical decision maker(s) with: better understanding of current medical conditions; weighing benefits/burdens of medical treatment options; making medical treatment decisions. . HPI History of Present Illness Mr. Gil is a 62 year old male with an extensive cardiac history who presented to [facility] ED on 03/09/2017 for evaluation of chest pain and shortness of breath. He follows qa reviewer, Dr Ramos. He has a past medical history that includes, diabetes, CAD, CHF, cardiomyopathy with EF 15-20% s/p AICD placement on 12/19/16, PAD, HTN, hyperlipidemia, GERD, CKD, stage 3, h/o paroxysmal VT, BENITES, and COPD. Patient reported having multiple CABGs and an RI in October,. He stated he developed shortness of breath with a 6 to 10 pound weight gain in the past several days. Patient reported orthopnea when lying down and some chest pains x 3 days. On Lasix and blood thinners, reporting compliance with medical regime. Of note, the patient has been hospitalized 3 times this year. Most recently the patient was admitted last moth (01/2017) with c/o chest pain Additional diagnostic findings while in the ED: * WBC: 7.0, Hgb 12.3, Hct 38.6, Plt 154, Neutrophils 62.1% * Sodium: 134, potassium 4.0, chloride 99, carbon dioxide 26.9, glucose 198, calcium 9.0, magnesium 1.9 * BUN: 45, creatinine 2.33, GFR 29 * Total bilirubin: 0.7, AST 31, ALT 24, alkaline phosphatase 68 * Total creatine kinase: 484 CK-MB: 7.8 * Troponin: 2.01 * Total protein: 7.4, albumin 3.9 * Lipase: 314 * BNP: 741 * PT: 11.4, INR 1.0, APTT: 27.2 * Chest x-ray revealed cardiomegaly with increase in pulmonary vascularity and bibasilar airspace disease status post CABG and left-sided defibrillator. Patient having signs and symptoms consistent with what appears to be a CHF exacerbation. His Troponin level is elevated at 2.01. Patient was discussed with Dr. Brown as well as the patient qa reviewer, Dr. Ramos. Patient was started on nitro-paste as well as a heparin drip. Patient was admitted to Dr. Chong for further evaluation and medical management. Cardiology was consulted and will follow this patient throughout his hospitalization. Palliative Care was consulted to assist with symptom management and to discuss with the patient/family the benefits and burdens of his current illnesses and the options regarding future care. . Function/Cognitive Trajectory Mr. Gil has been hospitalized 4 times this year. He states he lives independently and is able to go to the store by himself to get his groceries using the scooter to get around the store. He ambulates with a cane. He does not use oxygen in the home, but admitted to shortness of breath with minimal exertion. . Review of Systems Constitutional: COMPLAINS OF: Fatigue, Weight gain (6-10 pound weight gain several days prior to admission), Pain (Chronic back and joint pain) Ears, nose, mouth, throat: DENIES: Hearing loss Respiratory: COMPLAINS OF: Cough, Shortness of breath Cardiovascular: COMPLAINS OF: Chest pain, Dyspnea on Exertion, Lower Extremity Edema, Orthopnea Gastrointestinal: DENIES: Abdominal pain, Black stools, Bloody stools, Nausea, Vomiting, Difficulty Swallowing Musculoskeletal: COMPLAINS OF: Joint pain, Back pain, Neck pain Integumentary: COMPLAINS OF: Non-healing sores Hematologic/Lymphatics: COMPLAINS OF: Bruising Neurologic: COMPLAINS OF: Poor Balance (uses a cane to ambulate) Psychiatric: COMPLAINS OF: Anxiety Past Family Social History Coded Allergies: Penicillin (Verified Allergy, Unknown, pt unknown, 03/09/17) Past Medical History Diabetes CAD Systolic CHF Cardiomyopathy with EF 15-20% in 10/2016 PAD HTN Hyperlipidemia GERD CKD, stage 3 Hx paroxysmal VT BENITES with bridging fibrosis COPD RI (10/2016) . Past Surgical History Single chamber defibrillator implantation on 12/19/[address] Razo [facility] (08/28/16) --> severe [place] three-vessel coronary disease, 3 of 4 coronary bypass grafts are patent CABG x 4 in 2009 Angioplasty right iliac artery Cholecystectomy Repair of ruptured Achilles tendon Back surgery . Reported Medications Omeprazole 20 Mg Tab 20 Mg PO DAILY Aspirin Adult Low Strength (Aspirin) 81 Mg Tabdr 81 Mg PO DAILY Lisinopril 5 Mg Tab 5 Mg PO DAILY Tresiba Flextouch Pen Inj (Insulin Degludec Inj) 300 unit/3 ML Pen 120 Units SQ HS Ventolin Hfa 18 GM Inh (Albuterol Sulfate) 90 Mcg/Act Aer 2 Puff INH Q4-6H PRN Spiriva Handihaler (Tiotropium Inh) 18 Mcg Cap 18 Mcg INH DAILY 1 capsule = 18 mcg Simvastatin 40 Mg Tab 40 Mg PO HS Plavix (Clopidogrel Bisulfate) 75 Mg Tab 75 Mg PO DAILY Advair Diskus Inh (Fluticasone-Salmeterol Inh) 250-50 Mcg/Blist Aer 1 Puff INH BID Rinse mouth after use. . Current Medications Medications (Trade) Dose Ordered Sig/Angel Route Start Time Stop Time Status Last Admin (NS Flush) 2 ml UNSCH PRN IVF 03/09/17 17:15 (Heparin Inj) 5,000 units UNSCH PRN IV 03/10/17 01:15 Heparin Sodium (Porcine) 2500 units 2,500 units UNSCH PRN IV 03/10/17 01:15 03/10/17 02:29 (Heparin-D5W Inj) 250 ml @ 0 mls/hr TITRATE IV 03/09/17 19:15 03/09/17 20:07 (NS Flush) 2 ml UNSCH PRN IV FLUSH 03/09/17 19:30 (NS Flush) 2 ml BID IV FLUSH 03/09/17 21:00 (Tylenol) 650 mg Q4H PRN PO 03/09/17 19:30 (Zofran Inj) 4 mg Q6H PRN IVP 03/09/17 19:30 (Restoril) 15 mg HS PRN PO 03/09/17 19:30 (Narcan Inj) 0.4 mg UNSCH PRN IV 03/09/17 19:30 (Milk Of Magnesia Liq) 30 ml Q12H PRN PO 03/09/17 19:30 (Lasix Inj) 40 mg BID@09,18 IV PUSH 03/10/17 09:00 (KCl) 20 meq BID PO 03/09/17 21:00 03/09/17 21:42 (Nitrostat Sl) 0.4 mg Q5M PRN SL 03/09/17 19:30 (Proair Hfa Inh) 2 puff Q6HR PRN INH 03/09/17 19:30 (Ecotrin Ec) 81 mg DAILY PO 03/10/17 09:00 (Coreg) 12.5 mg Q12HR PO 03/09/17 21:00 03/09/17 21:42 (Plavix) 75 mg DAILY PO 03/10/17 09:00 (Flexeril) 10 mg Q8H PRN PO 03/09/17 19:30 (Prinivil) 5 mg DAILY PO 03/10/17 09:00 (Spiriva Inh) 18 mcg DAILY INH 03/10/17 09:00 (Symbicort 160-4.5 Inh) 2 puff BID INH 03/09/17 21:00 03/09/17 21:41 (Protonix) 20 mg DAILY PO 03/10/17 09:00 (Pravachol) 80 mg HS PO 03/09/17 21:00 03/09/17 21:42 (Blo[place] 5-325 Mg) 1 tab Q6H PRN PO 03/10/17 00:30 03/10/17 00:38 Family History Patient's father with CAD, diabetes, lung cancer Patient's mother with MS . Substance Use Tobacco: Previous smoker quit in 2009; smoked 1.5 PPD from age 24 to 55 Alcohol: None known Prescription med abuse: None known Illicits: None known . Psychosocial History Patient was born and raised in [facility]. He moved to [place] approximately 38 years ago with his father who was a membership manager. 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 He had 3 brothers, one is from leukemia. His brother, Chandan, lives in [place], [place]. Patient's other brother, Won, lives locally and is the designated health care surrogate. The patient never and has no children. . Spiritual/Cultural Factors [facility] . Health Care Surrogate: Copy in medical record Date completed: 03/10/2017 . Health Care Surrogate(s): Health care surrogate form completed 12/09/2016; patient's brother (Won Gil ) is designated as the health care surrogate decision maker. . Documented care wishes: Living will information was left with the patient at his bedside to review. . Today's verbally stated goals: Patient's goals are aggressive. The patient is asking what he can do to get stronger stating that he is still relatively young a wants to "live" and enjoy life. Patient is he should be going to the gym; he asked if he is a candidate for heart transplant. Questions defer to the patient's qa reviewer. . Family/friends goals: No family/friends are present. . Ethical and Legal Issues No known ethical or legal issues impacting care. . Physical Exam Vital Signs Date Time Temp Pulse Resp B/P Pulse Ox O2 Delivery O2 Flow Rate FiO2 03/10/17 07:53 85 20 120/72 96 Room Air 03/10/17 05:47 82 18 109/66 100 Room Air 03/10/17 02:32 93 18 135/78 100 Room Air 03/10/17 01:05 95 03/09/17 21:44 90 18 128/72 Room Air 03/09/17 19:20 83 18 132/78 95 Room Air 03/09/17 19:20 Room Air 03/09/17 18:41 86 16 130/74 95 Room Air 03/09/17 16:48 97.8 106 22 151/72 93 03/09/17 03/10/17 19:00 07:00 Output Total 1100 ml Balance -1100 ml Output Urine Total 1100 ml # Voids 5 , Exam CONSTITUTIONAL/GENERAL: This is an adequately nourished patient, in no apparent distress. TUBES/LINES/DRAINS: PIVx 2 SKIN: Scattered small bruises and small scabbed areas on upper and lower extremities. Skin temperature appropriate. Not diaphoretic. HEAD: Atraumatic. Normocephalic. EYES: Pupils equal and round and reactive. Extraocular motions intact. No scleral icterus. No injection or drainage. Fundi not examined. ENT: Hearing grossly normal. Nose without bleeding or purulent drainage. NECK: Trachea midline. No JVD CARDIOVASCULAR: Regular rate and rhythm without murmurs, gallops, or rubs. Peripheral pulses symmetric. RESPIRATORY/CHEST: Symmetric, unlabored respirations. Breath sounds equal bilaterally. No wheezes, rales, or rhonchi. GASTROINTESTINAL: Abdomen soft, non-tender, nondistended. No hepato-splenomegaly , or palpable masses. No guarding. Bowel sounds present. GENITOURINARY: Without palpable bladder distension. MUSCULOSKELETAL: Extremities without clubbing or cyanosis. Trace edema in BLE. edema. No mottling or clubbing. LYMPHATICS: No palpable cervical or supraclavicular adenopathy. NEUROLOGICAL: Awake and alert. Motor and sensory grossly within normal limits. Follows commands. Cognitively sharp. Moves all extremities. PSYCHIATRIC: No obvious anxiety/depression. No apparent hallucinations or other psychotic thought process. . Diagnostic Tests Laboratory Laboratory Tests Test 03/09/17 03/09/17 03/10/17 03/10/17 17:20 23:15 01:45 03:09 White Blood Count 7.0 TH/MM3 (4.0-11.0) Red Blood Count 4.78 MIL/MM3 (4.50-5.90) Hemoglobin 12.3 GM/DL (13.0-17.0) Hematocrit 38.6 % (39.0-51.0) Mean Corpuscular Volume 80.7 FL (80.0-100.0) Mean Corpuscular Hemoglobin 25.8 PG (27.0-34.0) Mean Corpuscular Hemoglobin 31.9 % Concent (32.0-36.0) Red Cell Distribution Width 17.2 % (11.6-17.2) Platelet Count 154 TH/MM3 (150-450) Mean Platelet Volume 9.9 FL (7.0-11.0) Neutrophils (%) (Auto) 62.1 % (16.0-70.0) Lymphocytes (%) (Auto) 26.1 % (9.0-44.0) Monocytes (%) (Auto) 7.0 % (0.0-8.0) Eosinophils (%) (Auto) 3.8 % (0.0-4.0) Basophils (%) (Auto) 1.0 % (0.0-2.0) Neutrophils # (Auto) 4.3 TH/MM3 (1.8-7.7) Lymphocytes # (Auto) 1.8 TH/MM3 (1.0-4.8) Monocytes # (Auto) 0.5 TH/MM3 (0-0.9) Eosinophils # (Auto) 0.3 TH/MM3 (0-0.4) Basophils # (Auto) 0.1 TH/MM3 (0-0.2) CBC Comment DIFF FINAL Differential Comment Prothrombin Time 11.4 SEC (9.8-11.6) Prothromb Time International 1.0 RATIO Ratio Activated Partial 27.2 SEC 32.7 SEC Thromboplast Time (24.3-30.1) (24.3-30.1) Sodium Level 134 MEQ/L (136-145) Potassium Level 4.0 MEQ/L (3.5-5.1) Chloride Level 99 MEQ/L (98-107) Carbon Dioxide Level 26.9 MEQ/L (21.0-32.0) Anion Gap 8 MEQ/L (5-15) Blood Urea Nitrogen 45 MG/DL (7-18) Creatinine 2.33 MG/DL (0.60-1.30) Estimat Glomerular Filtration 29 ML/MIN (>89) Rate Random Glucose 198 MG/DL (74-106) Calcium Level 9.0 MG/DL (8.5-10.1) Magnesium Level 1.9 MG/DL 1.9 MG/DL (1.5-2.5) (1.5-2.5) Total Bilirubin 0.7 MG/DL (0.2-1.0) Aspartate Amino Transf 31 U/L (15-37) (AST/SGOT) Alanine Aminotransferase 24 U/L (12-78) (ALT/SGPT) Alkaline Phosphatase 68 U/L (45-117) Total Creatine Kinase 484 U/L 416 U/L 386 U/L (39-308) (39-308) (39-308) Creatine Kinase MB 7.8 NG/ML 6.3 NG/ML 5.8 NG/ML (0.5-3.6) (0.5-3.6) (0.5-3.6) Creatine Kinase MB % 1.6 % (0.0-4.0) 1.5 % (0.0-4.0) 1.5 % (0.0-4.0) Troponin I 2.01 NG/ML 2.48 NG/ML 2.41 NG/ML (0.02-0.05) (0.02-0.05) (0.02-0.05) B-Type Natriuretic Peptide 741 PG/ML (0-100) Total Protein 7.4 GM/DL (6.4-8.2) Albumin 3.9 GM/DL (3.4-5.0) Lipase 314 U/L (73-393) Test 03/10/17 03/10/17 05:32 06:32 White Blood Count 7.7 TH/MM3 (4.0-11.0) Red Blood Count 4.30 MIL/MM3 (4.50-5.90) Hemoglobin 11.3 GM/DL (13.0-17.0) Hematocrit 34.4 % (39.0-51.0) Mean Corpuscular Volume 79.8 FL (80.0-100.0) Mean Corpuscular Hemoglobin 26.2 PG (27.0-34.0) Mean Corpuscular Hemoglobin 32.8 % Concent (32.0-36.0) Red Cell Distribution Width 17.1 % (11.6-17.2) Platelet Count 141 TH/MM3 (150-450) Mean Platelet Volume 10.9 FL (7.0-11.0) Neutrophils (%) (Auto) 55.7 % (16.0-70.0) Lymphocytes (%) (Auto) 30.3 % (9.0-44.0) Monocytes (%) (Auto) 7.2 % (0.0-8.0) Eosinophils (%) (Auto) 4.8 % (0.0-4.0) Basophils (%) (Auto) 2.0 % (0.0-2.0) Neutrophils # (Auto) 4.3 TH/MM3 (1.8-7.7) Lymphocytes # (Auto) 2.3 TH/MM3 (1.0-4.8) Monocytes # (Auto) 0.6 TH/MM3 (0-0.9) Eosinophils # (Auto) 0.4 TH/MM3 (0-0.4) Basophils # (Auto) 0.2 TH/MM3 (0-0.2) CBC Comment DIFF FINAL Differential Comment B-Type Natriuretic Peptide 442 PG/ML (0-100) Sodium Level 136 MEQ/L (136-145) Potassium Level 4.0 MEQ/L (3.5-5.1) Chloride Level 99 MEQ/L (98-107) Carbon Dioxide Level 25.4 MEQ/L (21.0-32.0) Anion Gap 12 MEQ/L (5-15) Blood Urea Nitrogen 42 MG/DL (7-18) Creatinine 2.17 MG/DL (0.60-1.30) Estimat Glomerular Filtration 31 ML/MIN (>89) Rate Random Glucose 218 MG/DL (74-106) Calcium Level 8.8 MG/DL (8.5-10.1) Triglycerides Level 240 MG/DL (42-150) Cholesterol Level 102 MG/DL (120-200) LDL Cholesterol 31 MG/DL (0-99) HDL Cholesterol 22.9 MG/DL (40.0-60.0) Cholesterol/HDL Ratio 4.45 RATIO Result Diagram: 03/10/17 0532 03/10/17 0632 Imaging Last 72 hours Impressions Chest X-Ray 03/10/17 0800 Signed Impressions: Service Date/Time: Friday, March 10, 2017 08:37 - CONCLUSION: Minimal mild interstitial edema and hyperinflation. Johan Dubois MD FACR Chest X-Ray 03/09/17 1703 Signed Impressions: Service Date/Time: Thursday, March 09, 2017 17:00 - CONCLUSION: 1. Cardiomegaly with increase in pulmonary vascularity and bibasilar airspace disease. 2. Status post CABG. 3. Left-sided defibrillator. Ernie Arndt MD . Patient/Family Conference Present at Family Conference: Met with patient at bedside, also present Marilee MARSH. . Family Conference Location: Bedside Issues Discussed: * Palliative care role, purpose, approach * Additional medical, psychosocial, and spiritual history * Patients general health, functional status, and cognitive changes in the months leading up to the current hospitalization * Patient/family understanding of the current medical problems * Patient/family understanding of prognosis * Patients goals of care as best understood from advance directives and/or conversations and/or values * Current medical treatment options and benefits/burdens of those options * Likely scenarios comparing ongoing aggressive care with a transition to comfort measures only * Questions answered to the best of my ability * Palliative care contact information provided . Assessment and Plan Disease Oriented Problem List: (1) Elevated troponin (2) Acute on chronic kidney disease, stage 3 (3) Acute systolic CHF (congestive heart failure) (4) COPD (chronic obstructive pulmonary disease) (5) Ischemic cardiomyopathy (6) NSTEMI (non-ST elevated myocardial infarction) (7) CAD (coronary artery disease) of artery bypass graft (8) PAD (peripheral artery disease) (9) HTN (hypertension) (10) GERD (gastroesophageal reflux disease) (11) Hyperlipidemia (12) Diabetes mellitus Symptom Scale: (1) Shortness of breath (2) Anxiety (3) Pain Pertinent Non-Medical Issues Psychosocial: Patient was born and raised in [facility]. He moved to [place] approximately 38 years ago with his father who was a membership manager. 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 He had 3 brothers, one is from leukemia. His brother, Chandan, lives in [place], [place]. Patient's other brother, Won, lives locally and is the designated health care surrogate. The patient never and has no children. Spiritual: [facility] Legal: Health care surrogate form completed 12/09/2016; patient's brother (Won Gil) is designated as the health care surrogate decision maker. Ethical issues impacting care: No known ethical issues impacting care at this time. . Important Contacts Won Gil, brother: [phone] . Prognosis Mr. Gil is a 62 year old man with an extensive cardiac history s/p CABGs and AICD placement; currently admitted for management CHF exacerbation and Nstemi. EF 15%-20%. He has been hospitalized 4 times this year with cardiac complaints with progressively worsening symptoms. Patient's goals remain aggressive at this time; he will likely continue to decline with ongoing complications and rehospitalizations. The patient is hospice appropriate when/ if the patient wants to transition to comfort focus care. . Code Status: Full Code Plan * FULL CODE * Decision-making: Health Care Surrogate form completed 03/10/2017 designating the patient's brother (Won Gil) as the health care surrogate decision maker. Copy of the completed document left with the patient paperwork in the ED. Copy faxed to HIM to be scanned into the patient's EMR. * Goals remain aggressive at this time. * Mr. Gil is a 62 year old man with an extensive cardiac history s/p CABGs and AICD placement; currently admitted for management CHF exacerbation and Nstemi. EF 15%-20%. He has been hospitalized 4 times this year with cardiac complaints with progressively worsening symptoms. Patient's goals remain aggressive at this time; he will likely continue to decline with ongoing complications and rehospitalizations. The patient is hospice appropriate when/ if the patient wants to transition to comfort focus care. * Symptom managementpain: Patient reporting intermittent chest pain, now resolved. Patient also complains of chronic neck, back and joint pain. He states he sleeps in his recliner because of his vascular skeletal pain. Vision is currently on Flexeril 10 mg PO q8 hours for spasm pain and [place] 5-325mg PO q6 hours PRN pain 1-10. Patient did utilize [place] x 1 overnight which effectively relieved the patient's pain. Will continue to monitor PRN requirements and make recommendations as indicated. * Palliative care contact information provided to the patient. * Discussed patient with Dr. Chong. * Palliative care will continue to follow this patient throughout his hospitalization to establish trust, assist with symptom management and clarification of medical treatment goals. . Thank you for the opportunity to participate in the care of Mr. Gil. Laura Castillo Mar 10, 2017 10:04
[2017-03-10 13:04] LABS: APTT (PATIENT) 43.8 SEC (24.3-30.1)
--- NOTE | 2017-03-10 13:11 | HHI.PR ---
Subjective Remarks Pt feels less SOB Denies any chest pain or palpitations Less LE edema per the pt Objective Vitals Vital Signs Date Time Temp Pulse Resp B/P Pulse Ox O2 Delivery O2 Flow Rate FiO2 03/10/17 12:00 86 20 124/69 99 Room Air 03/10/17 07:53 85 20 120/72 96 Room Air 03/10/17 07:37 98 21 03/10/17 05:47 82 18 109/66 100 Room Air 03/10/17 02:32 93 18 135/78 100 Room Air 03/10/17 01:05 95 03/09/17 21:44 90 18 128/72 Room Air 03/09/17 19:20 83 18 132/78 95 Room Air 03/09/17 19:20 Room Air 03/09/17 18:41 86 16 130/74 95 Room Air 03/09/17 16:48 97.8 106 22 151/72 93 03/09/17 03/09/17 03/10/17 14:59 22:59 06:59 Output Total 500 ml 600 ml Balance -500 ml -600 ml Output Urine Total 500 ml 600 ml # Voids 2 3 Result Diagram: 03/10/17 0532 03/10/17 0632 Other Results Laboratory Tests Test 03/09/17 03/09/17 03/10/17 03/10/17 17:20 23:15 01:45 03:09 White Blood Count 7.0 TH/MM3 Red Blood Count 4.78 MIL/MM3 Hemoglobin 12.3 GM/DL Hematocrit 38.6 % Mean Corpuscular Volume 80.7 FL Mean Corpuscular Hemoglobin 25.8 PG Mean Corpuscular Hemoglobin 31.9 % Concent Red Cell Distribution Width 17.2 % Platelet Count 154 TH/MM3 Mean Platelet Volume 9.9 FL Neutrophils (%) (Auto) 62.1 % Lymphocytes (%) (Auto) 26.1 % Monocytes (%) (Auto) 7.0 % Eosinophils (%) (Auto) 3.8 % Basophils (%) (Auto) 1.0 % Neutrophils # (Auto) 4.3 TH/MM3 Lymphocytes # (Auto) 1.8 TH/MM3 Monocytes # (Auto) 0.5 TH/MM3 Eosinophils # (Auto) 0.3 TH/MM3 Basophils # (Auto) 0.1 TH/MM3 CBC Comment DIFF FINAL Differential Comment Prothrombin Time 11.4 SEC Prothromb Time International 1.0 RATIO Ratio Activated Partial 27.2 SEC 32.7 SEC Thromboplast Time Sodium Level 134 MEQ/L Potassium Level 4.0 MEQ/L Chloride Level 99 MEQ/L Carbon Dioxide Level 26.9 MEQ/L Anion Gap 8 MEQ/L Blood Urea Nitrogen 45 MG/DL Creatinine 2.33 MG/DL Estimat Glomerular Filtration 29 ML/MIN Rate Random Glucose 198 MG/DL Calcium Level 9.0 MG/DL Magnesium Level 1.9 MG/DL 1.9 MG/DL Total Bilirubin 0.7 MG/DL Aspartate Amino Transf 31 U/L (AST/SGOT) Alanine Aminotransferase 24 U/L (ALT/SGPT) Alkaline Phosphatase 68 U/L Total Creatine Kinase 484 U/L 416 U/L 386 U/L Creatine Kinase MB 7.8 NG/ML 6.3 NG/ML 5.8 NG/ML Creatine Kinase MB % 1.6 % 1.5 % 1.5 % Troponin I 2.01 NG/ML 2.48 NG/ML 2.41 NG/ML B-Type Natriuretic Peptide 741 PG/ML Total Protein 7.4 GM/DL Albumin 3.9 GM/DL Lipase 314 U/L Test 03/10/17 03/10/17 03/10/17 05:32 06:32 12:45 White Blood Count 7.7 TH/MM3 Red Blood Count 4.30 MIL/MM3 Hemoglobin 11.3 GM/DL Hematocrit 34.4 % Mean Corpuscular Volume 79.8 FL Mean Corpuscular Hemoglobin 26.2 PG Mean Corpuscular Hemoglobin 32.8 % Concent Red Cell Distribution Width 17.1 % Platelet Count 141 TH/MM3 Mean Platelet Volume 10.9 FL Neutrophils (%) (Auto) 55.7 % Lymphocytes (%) (Auto) 30.3 % Monocytes (%) (Auto) 7.2 % Eosinophils (%) (Auto) 4.8 % Basophils (%) (Auto) 2.0 % Neutrophils # (Auto) 4.3 TH/MM3 Lymphocytes # (Auto) 2.3 TH/MM3 Monocytes # (Auto) 0.6 TH/MM3 Eosinophils # (Auto) 0.4 TH/MM3 Basophils # (Auto) 0.2 TH/MM3 CBC Comment DIFF FINAL Differential Comment B-Type Natriuretic Peptide 442 PG/ML Sodium Level 136 MEQ/L Potassium Level 4.0 MEQ/L Chloride Level 99 MEQ/L Carbon Dioxide Level 25.4 MEQ/L Anion Gap 12 MEQ/L Blood Urea Nitrogen 42 MG/DL Creatinine 2.17 MG/DL Estimat Glomerular Filtration 31 ML/MIN Rate Random Glucose 218 MG/DL Calcium Level 8.8 MG/DL Triglycerides Level 240 MG/DL Cholesterol Level 102 MG/DL LDL Cholesterol 31 MG/DL HDL Cholesterol 22.9 MG/DL Cholesterol/HDL Ratio 4.45 RATIO Activated Partial 43.8 SEC Thromboplast Time Imaging Last Impressions Chest X-Ray 03/10/17 0800 Signed Impressions: Service Date/Time: Friday, March 10, 2017 08:37 - CONCLUSION: Minimal mild interstitial edema and hyperinflation. Johan Dubois MD FACR Objective Remarks General: NAD, AAOx3 Chest: CTA Cardiac: Regular Abd: +BS, soft ND/NT Ext: Bilateral LE edema A/P Problem List: (1) NSTEMI (non-ST elevated myocardial infarction) Status: Acute Plan: - Pt is a 62 y/o male with hx of CHF/ischemic cardiomyopathy with EF 15-20% and CAD s/p CABG x 4V in 2009 - [facility] (08/28/16) --> severe [place] three-vessel coronary disease, 3 of 4 coronary bypass grafts are patent - Pt has an AICD - Pt was admitted with SOB and chest pain. - Initial troponin elevated at 2.01 -->2.48 --> 2.41. - Cardiology following. - Pt was started on IV heparin at admission - continue ASA, Plavix, lisinopril, Coreg, prn NTG - request Palliative Consult - Pt started on Ranexa 500mg Q12H by Cardiology - Monitor clinical status (2) CAD (coronary artery disease) of artery bypass graft Status: Chronic Plan: - see above (3) Ischemic cardiomyopathy Status: Chronic Plan: - CHF exacerbation - Pt received IV lasix 40mg in the ER - continue IV lasix at 40mg bid - Repeat BNP 442 - CXR (03/10) --> Minimal mild interstitial edema and hyperinflation (4) COPD (chronic obstructive pulmonary disease) Status: Chronic Plan: - symbicort, spiriva - prn duonebs (5) GERD (gastroesophageal reflux disease) Status: Chronic Plan: - PPI (6) CKD (chronic kidney disease) stage 3, GFR 30-59 ml/min Status: Chronic Plan: - observe (7) PAD (peripheral artery disease) Status: Chronic (8) Diabetes mellitus Status: Chronic Plan: - SSI Assessment and Plan Patient examined. Assessment and plan formulated with Dian Louie PA-C. I agree with the above. systolic chf exacerbation. elevated troponin. cad. cont medical management and ranexa. unable to tolerate isosorbide. cardiology following dc heparin. cont lasix iv and monitor weight, bun/cr his basal insulin not on formulary. will start low dose levemir and ssi and titrate as needed. nebs prn. Problem Qualifiers (1) CAD (coronary artery disease) of artery bypass graft: Qualified Code: I25.709 - Coronary artery disease involving coronary bypass graft of [place] heart with angina pectoris (2) COPD (chronic obstructive pulmonary disease): (3) GERD (gastroesophageal reflux disease): Qualified Code: K21.9 - Gastroesophageal reflux disease, esophagitis presence not specified (4) Diabetes mellitus: Qualified Code: E11.8 - Type 2 diabetes mellitus with complication, with long- term current use of insulin Dian Louie Mar 10, 2017 13:11 John Fuentes MD Mar 10, 2017 21:55
[2017-03-10] MEDS ORDERED: ALBUTEROL SULFATE 90 MCG/ACT HFA 18 GM INHALER INH PRN (14:07)
[2017-03-10] MEDS: RANOLAZINE 500 MG EXTENDED RELEASE TAB PO SCH ×2 (14:22→21:06)
[2017-03-10 20:18] LABS: APTT (PATIENT) 32.3 SEC (24.3-30.1)
[2017-03-10] MEDS ORDERED: INSULIN DETEMIR 100 UNITS/ML VIAL SQ SCH (21:00)
[2017-03-10] MEDS: PRAVASTATIN SOD 80 MG TAB PO SCH (21:06)
[2017-03-11] VITALS (11 sets, daily range): BP systolic 120–123; BP diastolic 75–78; PULSE 70–80; RESP 14–20; TEMP 97.5–98.4; O2SAT 95–98
[2017-03-11] MEDS: INSULIN ASPART SUPPLEMENTAL SCALE SQ SCH (06:10)
[2017-03-11 07:01] LABS: AUTOMATED NEUTROPHIL # 4.2 TH/MM3 (1.8-7.7); BASOPHIL % 0.6 % (0.0-2.0); EOSINOPHIL # 0.2 TH/MM3 (0-0.4); EOSINOPHIL % 3.2 % (0.0-4.0); HEMO FLAGS DIFF FINAL; LYMPH % 25.6 % (9.0-44.0); LYMPHOCYTE # 1.7 TH/MM3 (1.0-4.8); MEAN CORPUSCULAR HEMOGLOBIN 26.1 PG (27.0-34.0); MEAN CORPUSCULAR HGB CONC 32.7 % (32.0-36.0); MONO % 8.4 % (0.0-8.0); NEUT % 62.2 % (16.0-70.0); PLATELET COUNT 134 TH/MM3 (150-450); RED BLOOD COUNT 4.62 MIL/MM3 (4.50-5.90); RED CELL DISTRIBUTION WIDTH 17.1 % (11.6-17.2); WHITE BLOOD COUNT 6.7 TH/MM3 (4.0-11.0)
[2017-03-11 07:26] LABS: BICARBONATE 25.7 MEQ/L (21.0-32.0); POTASSIUM 4.4 MEQ/L (3.5-5.1)
[2017-03-11] MEDS ORDERED: INSULIN DETEMIR 100 UNITS/ML VIAL SQ SCH (09:00)
--- NOTE | 2017-03-11 09:09 | HHI.PR ---
Subjective Remarks chronic back pain flared up. sob better but still not back to baseline weight is 282 pounds this morning. Objective Vitals heart reg lung improving air entry abd s/nt ext no edema Vital Signs Date Time Temp Pulse Resp B/P Pulse Ox O2 Delivery O2 Flow Rate FiO2 03/11/17 08:23 98.4 78 14 123/77 97 03/11/17 07:54 98 21 03/11/17 06:11 18 03/11/17 06:00 74 03/11/17 05:00 76 03/11/17 04:00 78 03/11/17 03:00 97.5 76 20 120/75 95 03/11/17 03:00 78 03/11/17 02:00 78 03/11/17 01:00 80 03/11/17 00:00 80 03/10/17 23:00 97.7 84 18 124/71 96 03/10/17 23:00 82 03/10/17 22:00 84 03/10/17 21:00 84 03/10/17 20:00 84 03/10/17 19:00 84 03/10/17 19:00 98.2 84 18 115/71 94 03/10/17 18:19 84 03/10/17 17:15 80 03/10/17 16:46 81 03/10/17 15:00 81 03/10/17 15:00 97.7 78 20 120/64 94 03/10/17 14:06 80 03/10/17 13:47 80 03/10/17 12:00 86 20 124/69 99 Room Air 03/10/17 03/10/17 03/11/17 14:59 22:59 06:59 Intake Total 240 ml 720 ml Output Total 2170 ml 1600 ml Balance -2170 ml 240 ml -880 ml Intake Oral 240 ml 720 ml Output Urine Total 2170 ml 1600 ml # Voids 3 # Bowel Movements 0 1 Result Diagram: 03/11/17 0535 03/11/17 0555 Imaging Last Impressions Chest X-Ray 03/10/17 0800 Signed Impressions: Service Date/Time: Friday, March 10, 2017 08:37 - CONCLUSION: Minimal mild interstitial edema and hyperinflation. Johan Dubois MD FACR A/P Problem List: (1) Ischemic cardiomyopathy Status: Acute Plan: Pt is a 62 y/o male with hx of CHF/ischemic cardiomyopathy with EF 15-20 % and CAD s/p CABG x 4V in 2009 - [facility] (08/28/16) --> severe [place] three-vessel coronary disease, 3 of 4 coronary bypass grafts are patent - Pt has an AICD - Pt was admitted with SOB and chest pain. - Initial troponin elevated at 2.01 -->2.48 --> 2.41. - Cardiology following. - Pt was started on IV heparin at admission - continue ASA, Plavix, lisinopril, Coreg, prn NTG - Pt started on Ranexa 500mg Q12H by Cardiology - stop heparin - cont iv lasix and monitor output and weight. his baseline is around 279 and today he is 282 pounds recheck later today dc home if better or ok with cardiology. (2) CAD (coronary artery disease) of artery bypass graft Status: Chronic Plan: - see above (3) COPD (chronic obstructive pulmonary disease) Status: Chronic Plan: - symbicort, spiriva - prn duonebs (4) GERD (gastroesophageal reflux disease) Status: Chronic Plan: - PPI (5) CKD (chronic kidney disease) stage 3, GFR 30-59 ml/min Status: Chronic Plan: - observe (6) PAD (peripheral artery disease) Status: Chronic (7) Diabetes mellitus Status: Chronic Plan: - SSI -his insulin not on forumulary use levemir while here. Problem Qualifiers (1) CAD (coronary artery disease) of artery bypass graft: Qualified Code: I25.709 - Coronary artery disease involving coronary bypass graft of [place] heart with angina pectoris (2) COPD (chronic obstructive pulmonary disease): (3) GERD (gastroesophageal reflux disease): Qualified Code: K21.9 - Gastroesophageal reflux disease, esophagitis presence not specified (4) Diabetes mellitus: Qualified Code: E11.8 - Type 2 diabetes mellitus with complication, with long- term current use of insulin John Fuentes MD Mar 11, 2017 09:09
--- NOTE | 2017-03-11 09:54 | PD.CARD.PN ---
Subjective Subjective Remarks denies any CV complaints (Amauri Lopez) Objective Vital Signs / I&O Vital Signs Date Time Temp Pulse Resp B/P Pulse Ox O2 Delivery O2 Flow Rate FiO2 03/11/17 08:23 98.4 78 14 123/77 97 03/11/17 07:54 98 21 03/11/17 06:11 18 03/11/17 06:00 74 03/11/17 05:00 76 03/11/17 04:00 78 03/11/17 03:00 97.5 76 20 120/75 95 03/11/17 03:00 78 03/11/17 02:00 78 03/11/17 01:00 80 03/11/17 00:00 80 03/10/17 23:00 97.7 84 18 124/71 96 03/10/17 23:00 82 03/10/17 22:00 84 03/10/17 21:00 84 03/10/17 20:00 84 03/10/17 19:00 84 03/10/17 19:00 98.2 84 18 115/71 94 03/10/17 18:19 84 03/10/17 17:15 80 03/10/17 16:46 81 03/10/17 15:00 81 03/10/17 15:00 97.7 78 20 120/64 94 03/10/17 14:06 80 03/10/17 13:47 80 03/10/17 12:00 86 20 124/69 99 Room Air I/O 03/10/17 03/10/17 03/10/17 03/11/17 03/11/17 03/11/17 07:00 15:00 23:00 07:00 15:00 23:00 Intake Total 240 ml 720 ml Output Total 600 ml 2170 ml 1600 ml Balance -600 ml -2170 ml 240 ml -880 ml Intake Oral 240 ml 720 ml Output Urine Total 600 ml 2170 ml 1600 ml # Voids 3 3 # Bowel Movements 0 1 Physical Exam GENERAL: Well-nourished, well-developed patient in no apparent distress. NECK: No JVD. No carotid bruit. CARDIOVASCULAR: Regular rate and rhythm. S1/S2 no murmur, rub, or gallop. RESPIRATORY: No accessory muscle use. Clear to auscultation. Breath sounds equal bilaterally. GASTROINTESTINAL: Abdomen soft, non-tender, nondistended. MUSCULOSKELETAL: Extremities without clubbing, cyanosis, or edema. Laboratory Laboratory Tests Test 03/10/17 03/10/17 03/11/17 03/11/17 12:45 18:50 05:35 05:55 Activated Partial 43.8 SEC 32.3 SEC Thromboplast Time White Blood Count 6.7 TH/MM3 Red Blood Count 4.62 MIL/MM3 Hemoglobin 12.1 GM/DL Hematocrit 37.0 % Mean Corpuscular Volume 80.0 FL Mean Corpuscular Hemoglobin 26.1 PG Mean Corpuscular Hemoglobin 32.7 % Concent Red Cell Distribution Width 17.1 % Platelet Count 134 TH/MM3 Mean Platelet Volume 11.3 FL Neutrophils (%) (Auto) 62.2 % Lymphocytes (%) (Auto) 25.6 % Monocytes (%) (Auto) 8.4 % Eosinophils (%) (Auto) 3.2 % Basophils (%) (Auto) 0.6 % Neutrophils # (Auto) 4.2 TH/MM3 Lymphocytes # (Auto) 1.7 TH/MM3 Monocytes # (Auto) 0.6 TH/MM3 Eosinophils # (Auto) 0.2 TH/MM3 Basophils # (Auto) 0.0 TH/MM3 CBC Comment DIFF FINAL Differential Comment Sodium Level 134 MEQ/L Potassium Level 4.4 MEQ/L Chloride Level 98 MEQ/L Carbon Dioxide Level 25.7 MEQ/L Anion Gap 10 MEQ/L Blood Urea Nitrogen 43 MG/DL Creatinine 2.24 MG/DL Estimat Glomerular Filtration 30 ML/MIN Rate Random Glucose 253 MG/DL Calcium Level 8.9 MG/DL Magnesium Level 2.0 MG/DL (Amauri Lopez) Assessment and Plan Problem List: (1) NSTEMI, initial episode of care (2) HTN (hypertension) (3) Acute on chronic clinical systolic heart failure Assessment and Plan Feeling better on Ranexa, he can be discharged home and f/u with us in two weeks His blood pressure is well controlled sign off (Amauri Lopez) Assessment and Plan feeling better breathing better -3 L yest DC planning back on diuretic PO cont ranexa may even consider periodic IV lasix at [facility] infusion clinic (Chandan Ramos MD ) Amauri Lopez 25, 2017 09:54 Chandan Ramos MD Mar 11, 2017 14:22
[2017-03-11] MEDS: FUROSEMIDE 40 MG/4 ML VIAL IV PUSH SCH (10:12)
[2017-03-11] MEDS: LISINOPRIL 5 MG TAB PO SCH (10:12)
[2017-03-11] MEDS: CARVEDILOL 12.5 MG TAB PO SCH (10:12)
[2017-03-11] MEDS: PANTOPRAZOLE SOD 20 MG DELAYED RELEASE TAB PO SCH (10:12)
[2017-03-11] MEDS: ASPIRIN EC 81 MG TABEC PO SCH (10:12)
[2017-03-11] MEDS: POTASSIUM CHLORIDE 20 MEQ CONTROLLED RELEASE TAB PO SCH (10:12)
[2017-03-11] MEDS: RANOLAZINE 500 MG EXTENDED RELEASE TAB PO SCH (10:13)
[2017-03-11] MEDS: SODIUM CHLORIDE 0.9% FLUSH 10 ML FLUSH IV FLUSH SCH (10:13)
[2017-03-11] MEDS: CLOPIDOGREL 75 MG TAB PO SCH (10:13)
[2017-03-11] MEDS: BUDESONIDE-FORMOTEROL 160/4.5 MCG INHALER INH SCH (10:14)
[2017-03-11] MEDS: TIOTROPIUM BROMIDE 18 MCG INH INH SCH (10:14)
[2017-03-11] MEDS ORDERED: RANO500 PO (12:52)
--- NOTE | 2017-03-11 12:52 | HHI.DCPOC ---
Discharge Care Plan Diagnosis: (1) Acute systolic CHF (congestive heart failure) (2) Ischemic cardiomyopathy Goals to Promote Your Health * To prevent worsening of your condition and complications * To maintain your health at the optimal level Directions to Meet Your Goals Take your medications as prescribed Follow your dietary instruction Follow activity as directed Keep your appointments as scheduled Take your immunizations and boosters as scheduled If your symptoms worsen call your PCP, if no PCP go to Urgent Care Center or Emergency Room Smoking is Dangerous to Your Health. Avoid second hand smoke Call the 24-hour hour crisis hotline for domestic abuse at John Fuentes MD Mar 11, 2017 12:52
== END 2017-03-11 15:15 | disposition home or self-care (01) | DRG 280 ==
LOC: NEPC 16:46 → NEDA 19:44 → NEDH 23:24 → HCIN 03-10 13:49 → HCIS 03-11 08:16
PROVIDERS: ADMIT Hospitalist; ATTEND Hospitalist
DX: I21.4 Non-ST elevation (NSTEMI) myocardial infarction (principal); I50.23 Acute on chronic systolic (congestive) heart failure; N18.3 Chronic kidney disease, stage 3 (moderate); E11.22 Type 2 diabetes mellitus with diabetic chronic kidney disease; I13.0 Hypertensive heart and chronic kidney disease with heart failure and stage 1 through stage 4 chronic kidney disease, or unspecified chronic kidney disease; I73.9 Peripheral vascular disease, unspecified; I25.5 Ischemic cardiomyopathy; J44.9 Chronic obstructive pulmonary disease, unspecified; I25.10 Atherosclerotic heart disease of native coronary artery without angina pectoris; K21.0 Gastro-esophageal reflux disease with esophagitis; E78.5 Hyperlipidemia, unspecified; G89.29 Other chronic pain; M54.9 Dorsalgia, unspecified; I25.2 Old myocardial infarction; Z87.891 Personal history of nicotine dependence; Z95.810 Presence of automatic (implantable) cardiac defibrillator; Z95.1 Presence of aortocoronary bypass graft; Z79.4 Long term (current) use of insulin; Z88.0 Allergy status to penicillin
CPT/HCPCS: 71010; 71020; 80048; 80053; 80061; 82550; 82552; 82948; 83690; 83735; 83880; 84484; 85025; 85610; 85730; 93005; 96374; J1644; J1815; J1940

== ENCOUNTER 2017-05-10 23:15 | Emergency (ER) | payer OTHER ==
[~2017-05-10 23:15] MED LIST changes: -ASPI1TAB69 PO; +ASPI1TAB91 PO; -MUPI2OIN TOPICAL; +OMEP20TA PO; -POTA10CA PO; -PRIL20CA9 PO; +RANO500 PO; -WALKER WHEELS/F1 MIS
[2017-05-10 23:17] VITALS: BP 141/78; PULSE 114; RESP 20; TEMP 98; O2SAT 96
== END 2017-05-10 23:42 | disposition left against medical advice (07) ==
LOC: NED 23:15
DX: R06.00 Dyspnea, unspecified (principal); Z53.21 Procedure and treatment not carried out due to patient leaving prior to being seen by health care provider
CPT/HCPCS: 99281

== ENCOUNTER 2017-05-13 18:30 | Inpatient (IN) | payer OTHER ==
[~2017-05-13] VITALS: Ht 188 cm; Wt 126.3 kg
[2017-05-13] VITALS (7 sets, daily range): BP systolic 139–161; BP diastolic 77–98; PULSE 98–118; RESP 20–22; TEMP 97.5–98; O2SAT 94–97
[2017-05-13] MEDS ORDERED: FURO1TAB60 PO (18:57)
[2017-05-13] MEDS ORDERED: CARV6.25 PO (18:57)
[2017-05-13] MEDS ORDERED: FURO1TAB62 PO (18:57)
[2017-05-13] MEDS ORDERED: DILTIAZEM HCL 25 MG/5 ML VIAL IV ONE (19:00)
[2017-05-13] MEDS ORDERED: SODIUM CHLORIDE 0.9% FLUSH 10 ML FLUSH IVF PRN (19:00)
--- NOTE | 2017-05-13 19:00 | PD ---
HPI Chief Complaint: Cardiac Complaint Time Seen by Provider: 18:45 Travel History International Travel<30 days: No Contact w/Intl Traveler<30days: No Traveled to known affect area: No History of Present Illness HPI Patient comes in complaining of shortness of breath over the past 2 days. Patient states he was here 2 days ago but left prior to being evaluated and followed up with his group work program aide today who told him this was not from his COPD and may be coming from his CHF. Patient was sent for a chest x-ray and was sent to the emergency department. Patient states he's been taking all of his medication as prescribed however continues to feel short of breath. Patient states he took his Lasix adjusted prior to coming to the emergency department. Patient reports increased swelling in his legs. Patient denies any chest pain with this. Dyspnea is worse with exertion. Patient is unable to lay flat states he has not been able to lay flat for 25 years. Denies any nausea, vomiting, bowel pain, come back pain, fevers, headache, numbness or tingling anywhere, or chest pain. Patient denies his defibrillator firing. PFSH Past Medical History Hx Anticoagulant Therapy: Yes Arthritis: Yes (left finger ) Asthma: No Atrial Fibrillation: Yes Autoimmune Disease: No Blood Disorders: No Anxiety: No Depression: No Heart Rhythm Problems: Yes Cancer: No Cardiac Catheterization: Yes Cardiovascular Problems: Yes High Cholesterol: Yes Chemotherapy: No Chest Pain: No Congestive Heart Failure: Yes COPD: Yes Cerebrovascular Accident: No Diabetes: Yes Patient Takes Glucophage: Yes Diminished Hearing: No Endocrine: Yes GERD: Yes Glaucoma: No Genitourinary: Yes Headaches: No Hepatitis: No Hiatal Hernia: No Heparin Induced Thrombocytopen: No Hypertension: Yes Immune Disorder: No Implanted Vascular Access Dvce: No Kidney Stones: No Musculoskeletal: Yes Neurologic: No Psychiatric: No Reproductive: No Respiratory: Yes Integumentary: Yes (SMALL ULCER/WOUNDS COVERING WHOLE BODY "ITCHING FROM MY DIABETES" PER PT) Migraines: No Myocardial Infarction: Yes Radiation Therapy: No Renal Failure: Yes (Stage 3 kidney disease) Seizures: No Sickle Cell Disease: No Sleep Apnea: No Thyroid Disease: No Ulcer: No PNEUMOCCOCAL Vaccine (Year): 2 Past Surgical History Abdominal Surgery: Yes (CHOLECYSTECTOMY) Appendectomy: No Arteriovenous Shunt: No Cardiac Surgery: Yes (DEFIBRILLATOR PLACED ) Cholecystectomy: Yes Coronary Artery Bypass Graft: Yes Coronary Stent: Yes Ear Surgery: No Endocrine Surgery: No Eye Surgery: No Genitourinary Surgery: No Gynecologic Surgery: No Insulin Pump: No Joint Replacement: No Neurologic Surgery: No Oral Surgery: No Pacemaker: Yes (DEFIB MEDTRONIC) Thoracic Surgery: Yes (CABG) Other Surgery: Yes Social History Alcohol Use: No Tobacco Use: No Substance Use: No Allergies-Medications (Allergen,Severity, Reaction): Coded Allergies: penicillin G (Unverified Allergy, Unknown, pt unknown, 05/13/17) Reported Meds & Prescriptions Reported Meds & Active Scripts Active Ranexa ER 12 HR (Ranolazine) 500 Mg Tab 500 Mg PO Q12HR Flexeril (Cyclobenzaprine HCl) 10 Mg Tab 10 Mg PO Q8H PRN Novolog Inj (Insulin Aspart) 1,000 Unit/10 Ml Vial 0 SQ DIRECTED Sliding Scale as directed. Reported Lasix (Furosemide) 20 Mg Tab 20 Mg PO EVERY OTHER DAY Alternate with 40mg every other day Lasix (Furosemide) 40 Mg Tab 40 Mg PO EVERY OTHER DAY Alternate with 20mg every other day Coreg (Carvedilol) 6.25 Mg Tab 6.25 Mg PO BID Omeprazole 20 Mg Tab 20 Mg PO DAILY Aspirin Adult Low Strength (Aspirin) 81 Mg Tabdr 81 Mg PO HS Tresiba Flextouch Pen Inj (Insulin Degludec Inj) 300 unit/3 ML Pen 120 Units SQ HS Ventolin Hfa 18 GM Inh (Albuterol Sulfate) 90 Mcg/Act Aer 2 Puff INH Q4-6H PRN Spiriva Handihaler (Tiotropium Inh) 18 Mcg Cap 18 Mcg INH DAILY 1 capsule = 18 mcg Simvastatin 40 Mg Tab 40 Mg PO HS Plavix (Clopidogrel Bisulfate) 75 Mg Tab 75 Mg PO HS Advair Diskus Inh (Fluticasone-Salmeterol Inh) 250-50 Mcg/Blist Aer 1 Puff INH BID Rinse mouth after use. Review of Systems Except as stated in HPI: all other systems reviewed are Neg Physical Exam Narrative GENERAL: Well-developed, overly nourished, in no acute distress, and non-ill appearing. SKIN: Focused skin assessment warm and dry. HEAD: Atraumatic. Normocephalic. EYES: Pupils equal and round. EOMI. No scleral icterus. No injection or drainage. ENT: No nasal bleeding or discharge. Mucous membranes pink and moist. NECK: Trachea midline. Supple. No nuclear rigidity. CARDIOVASCULAR: Tachycardia rate and regular rhythm. No murmur appreciated. RESPIRATORY: No accessory muscle use. No respiratory distress. Decreased breath sounds throughout. MUSCULOSKELETAL: No obvious deformities. No clubbing. No cyanosis. Trace edema bilateral lower extremities. Full range of motion. NEUROLOGICAL: Awake and alert. No obvious cranial nerve deficits. Motor grossly within normal limits. Normal speech. PSYCHIATRIC: Appropriate mood and affect; insight and judgment normal. Data Data Last Documented VS Vital Signs Date Time Temp Pulse Resp B/P (MAP) Pulse Ox O2 Delivery O2 Flow Rate FiO2 05/13/17 21:17 106 145/89 05/13/17 20:41 98.0 20 94 Room Air Orders Orders Complete Blood Count With Diff (05/13/17 18:46) Basic Metabolic Panel (Bmp) (05/13/17 18:46) B-Type Natriuretic Peptide (05/13/17 18:46) Act Partial Throm Time (Ptt) (05/13/17 18:46) Prothrombin Time / Inr (Pt) (05/13/17 18:46) Magnesium (Mg) (05/13/17 18:46) Ckmb (Isoenzyme) Profile (05/13/17 18:46) Troponin I (05/13/17 18:46) Iv Access Insert/Monitor (05/13/17 18:46) Electrocardiogram (05/13/17 18:46) Ecg Monitoring (05/13/17 18:46) Oximetry (05/13/17 18:46) Oxygen Administration (05/13/17 18:46) Chest, Single Ap (05/13/17 18:46) Sodium Chloride 0.9% Flush (Ns Flush) (05/13/17 19:00) Diltiazem Inj (Cardizem Inj) (05/13/17 19:00) CKMB (05/13/17 18:50) CKMB% (05/13/17 18:50) Sodium Polysty Sulfate Liq (Kayexalate L (05/13/17 20:00) Diltiazem Inj (Cardizem Inj) (05/13/17 20:45) Admit Order (Ed Use Only) (05/13/17 21:30) Labs Laboratory Tests Test 05/13/17 18:50 05/13/17 20:10 White Blood Count 9.6 TH/MM3 Red Blood Count 4.99 MIL/MM3 Hemoglobin 13.1 GM/DL Hematocrit 39.6 % Mean Corpuscular Volume 79.3 FL Mean Corpuscular Hemoglobin 26.3 PG Mean Corpuscular Hemoglobin Concent 33.2 % Red Cell Distribution Width 17.9 % Platelet Count 217 TH/MM3 Mean Platelet Volume 10.8 FL Neutrophils (%) (Auto) 67.5 % Lymphocytes (%) (Auto) 22.9 % Monocytes (%) (Auto) 6.5 % Eosinophils (%) (Auto) 2.0 % Basophils (%) (Auto) 1.1 % Neutrophils # (Auto) 6.5 TH/MM3 Lymphocytes # (Auto) 2.2 TH/MM3 Monocytes # (Auto) 0.6 TH/MM3 Eosinophils # (Auto) 0.2 TH/MM3 Basophils # (Auto) 0.1 TH/MM3 CBC Comment DIFF FINAL Differential Comment Blood Urea Nitrogen 31 MG/DL Creatinine 2.63 MG/DL Random Glucose 291 MG/DL Calcium Level 9.4 MG/DL Magnesium Level 1.8 MG/DL Sodium Level 128 MEQ/L Potassium Level 6.1 MEQ/L Chloride Level 95 MEQ/L Carbon Dioxide Level 25.1 MEQ/L Anion Gap 8 MEQ/L Estimat Glomerular Filtration Rate 25 ML/MIN Total Creatine Kinase 360 U/L Creatine Kinase MB 6.8 NG/ML Creatine Kinase MB % 1.9 % Troponin I 1.26 NG/ML B-Type Natriuretic Peptide 659 PG/ML Prothrombin Time 11.5 SEC Prothromb Time International Ratio 1.0 RATIO Activated Partial Thromboplast Time 28.7 SEC [facility] Medical Decision Making Medical Screen Exam Complete: Yes Emergency Medical Condition: Yes Interpretation(s) EKG reviewed by Dr. Roque shows atrial tachycardia with ventricular rate of 118. No STEMI. Chest x-ray read by the radiologist shows: No evidence of acute cardiopulmonary disease. Differential Diagnosis COPD exacerbation, CHF exacerbation, acute coronary syndrome, arrhythmia, electrolyte abnormality, other Narrative Course Patient was seen and examined. Initial laboratory left studies were ordered. IV was established patient was placed on monitoring manager. Dr. Roque recommended giving patient Cardizem after reviewing patient's EKG. 1939 patient reassessed reports symptoms improved some since receiving Cardizem. 2019 patient reassessed found to be slightly tachycardic. Discussed patient with Dr. Sebastian, recommends starting patient on a Cardizem drip. Patient was given a dose of Kayexalate secondary to the elevated potassium. Discussed all findings and plan care of patient, who is agreeable for admission. All questions were answered. 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 Discussed patient with hospitalist, who is agreeable to admit the patient. Physician Communication Physician Communication [address] Ramos, who doesn't feel anything additionally needs to be done for the patient's elevated troponin please this is likely secondary to the renal insufficiency, but will be happy to consult patient. [address] Elkins, who is agreeable to admit the patient for Dr. Chong. Diagnosis Primary Impression: Atrial tachycardia Additional Impressions: Elevated troponin Shortness of breath Admitting Information Admitting Physician Requests: Admit Condition: Stable Reinaldo Ochoa May 13, 2017 19:00
[2017-05-13 19:17] LABS: AUTOMATED NEUTROPHIL # 6.5 TH/MM3 (1.8-7.7); BASOPHIL # 0.1 TH/MM3 (0-0.2); BASOPHIL % 1.1 % (0.0-2.0); EOSINOPHIL # 0.2 TH/MM3 (0-0.4); HEMATOCRIT 39.6 % (39.0-51.0); HEMO FLAGS DIFF FINAL; LYMPH % 22.9 % (9.0-44.0); LYMPHOCYTE # 2.2 TH/MM3 (1.0-4.8); MEAN CELL VOLUME 79.3 FL (80.0-100.0); MEAN CORPUSCULAR HEMOGLOBIN 26.3 PG (27.0-34.0); MEAN CORPUSCULAR HGB CONC 33.2 % (32.0-36.0); MONO % 6.5 % (0.0-8.0); NEUT % 67.5 % (16.0-70.0); PLATELET COUNT 217 TH/MM3 (150-450); RED BLOOD COUNT 4.99 MIL/MM3 (4.50-5.90); RED CELL DISTRIBUTION WIDTH 17.9 % (11.6-17.2); WHITE BLOOD COUNT 9.6 TH/MM3 (4.0-11.0)
--- NOTE | 2017-05-13 19:18 | RADRPT ---
EXAM DATE/TIME: 05/13/2017 18:49 [place] COMPARISON: CHEST PA & LAT, March 10, 2017, 8:37. INDICATIONS : Shortness of breath. MEDICAL HISTORY : None. SURGICAL HISTORY : Pacemaker. CABG. ENCOUNTER: Initial ACUITY: 1 day PAIN SCORE: 0/10 LOCATION: Bilateral chest FINDINGS: No acute infiltrates seen. No perceptible pleural effusion or pneumothorax. Heart size stable, upper limits of normal. Patient has had previous median sternotomy. Cardiac pacer/ defibrillator is present. CONCLUSION: No evidence of acute cardiopulmonary disease. Ruben Rivas MD on May 13, 2017 at 19:16 Board Certified Radiologist. This report was verified electronically.
[2017-05-13 19:39] LABS: BICARBONATE 25.1 MEQ/L (21.0-32.0); MAGNESIUM 1.8 MG/DL (1.5-2.5)
[2017-05-13 19:40] LABS: POTASSIUM 6.1 MEQ/L (3.5-5.1)
[2017-05-13 19:59] LABS: CKMB 6.8 NG/ML (0.5-3.6)
[2017-05-13] MEDS ORDERED: SODIUM POLYSTYRENE SULFONATE SUSP 15 GM/60 ML CUP PO ONE (20:00)
[2017-05-13] MEDS ORDERED: DILTIAZEM INJ 125 MG in SODIUM CHLORIDE 0.9% INJ 100 ML IV PRN (20:45)
[2017-05-13 20:55] LABS: APTT (PATIENT) 28.7 SEC (24.3-30.1); PROTHROMBIN TIME - PATIENT 11.5 SEC (9.8-11.6)
--- NOTE | 2017-05-13 21:00 | HHI.HP ---
HPI Service [facility] Hospitalists Primary Care Physician Lyndsey Barton MD Admission Diagnosis Tachyarrhythmia, dyspnea, elevated troponin Chief Complaint: Shortness of breath Travel History International Travel<30 Days: No Contact w/Intl Traveler <30 Da: No Traveled to Known Affected Are: No History of Present Illness 62-year-old male with multiple medical problems including hypertension, severe cardiomyopathy, COPD and diabetes presents complaining of shortness of breath over the past 2-3 days. Patient states he was here 2 days ago but left prior to being evaluated and followed up with his pumper head, Dr. Acosta today who reportedly told him that his shortness of breath was not from his COPD and may be coming from his CHF. Patient was sent for a chest x-ray to the emergency department reportedly. Patient states he's been taking all of his medication as prescribed and always tries to limit any sodium intake;however he continues to feel short of breath. Patient reports increased swelling in his legs. Patient denies any chest pain presently but has had intermittent exertional chest pain chronically. Dyspnea is worse with exertion. Patient is unable to lay flat but states he has not been able to lay flat for approximately 20 years. Denies any nausea, vomiting, bowel pain, come back pain, fevers, headache, numbness or tingling anywhere, or chest pain. Patient denies any knowledge of his defibrillator firing. He notes that he's had a slight cough with scant phlegm the last 5 days and some occasional wheezing. Denies any hemoptysis or hematemesis. He has not been any more immobile than he generally is. No long trips. No recent surgeries. He reports that he gets labs regularly for his stretch box tender Dr. Ramos to monitor his potassium and kidney function closely. He was started on Ranexa within the last few months. It is noted that he's had multiple similar presentations this year for shortness of breath accompanied with elevated troponins. Cardiology has evaluated him several times and it appears that his coronary vasculature is not amenable to further catheter-based intervention. Review of Systems Constitutional: COMPLAINS OF: Fatigue, DENIES: Diaphoretic episodes, Fever, Weight gain, Weight loss, Chills, Dizziness, Change in appetite, Night Sweats Endocrine: DENIES: Heat/cold intolerance, Polydipsia, Polyuria, Polyphagia Eyes: DENIES: Blurred vision, Diplopia, Eye inflammation, Eye pain, Vision loss , Photosensitivity, Double Vision Ears, nose, mouth, throat: DENIES: Tinnitus, Hearing loss, Vertigo, Nasal discharge, Oral lesions, Throat pain, Hoarseness, Ear Pain, Running Nose, Epistaxis, Sinus Pain, Toothache, Odynophagia Respiratory: COMPLAINS OF: Cough, Wheezing, Sputum production, Shortness of breath, DENIES: Apneas, Snoring, Hemoptysis Cardiovascular: COMPLAINS OF: Chest pain, Dyspnea on Exertion, PND, Lower Extremity Edema, Orthopnea Gastrointestinal: DENIES: Abdominal pain, Black stools, Bloody stools, BRB per rectum, Constipation, Diarrhea, GERD, Nausea, Reflux, Vomiting, Difficulty Swallowing, Anorexia, See HPI Musculoskeletal: COMPLAINS OF: Joint pain Hematologic/lymphatic: COMPLAINS OF: Bruising Immunologic/allergic: DENIES: Eczema, Urticaria Neurologic: DENIES: Abnormal gait, Headache, Localized weakness, Paresthesias, Seizures, Speech Problems, Tremor, Poor Balance Psychiatric: COMPLAINS OF: Anxiety Past Family Social History Past Medical History Diabetes CAD Systolic CHF Cardiomyopathy with EF 15-20% in 10/2016 PAD HTN Hyperlipidemia GERD CKD, stage 3 Hx paroxysmal VT BENITES with bridging fibrosis COPD Past Surgical History Single chamber defibrillator implantation on 12/19/[address] Razo [facility] (08/28/16) --> severe [place] three-vessel coronary disease, 3 of 4 coronary bypass grafts are patent CABG x 4 in 2009 Angioplasty right iliac artery Cholecystectomy Repair of ruptured Achilles tendon Back surgery Cardiac catheter in August 2016 demonstrating 3 out of 4 grafts patent Reported Medications Ranexa ER 12 HR (Ranolazine) 500 Mg Tab 500 Mg PO Q12HR Flexeril (Cyclobenzaprine HCl) 10 Mg Tab 10 Mg PO Q8H PRN Novolog Inj (Insulin Aspart) 1,000 Unit/10 Ml Vial 0 SQ DIRECTED Sliding Scale as directed. Lasix (Furosemide) 20 Mg Tab 20 Mg PO EVERY OTHER DAY Alternate with 40mg every other day Lasix (Furosemide) 40 Mg Tab 40 Mg PO EVERY OTHER DAY Alternate with 20mg every other day Coreg (Carvedilol) 6.25 Mg Tab 6.25 Mg PO BID Omeprazole 20 Mg Tab 20 Mg PO DAILY Aspirin Adult Low Strength (Aspirin) 81 Mg Tabdr 81 Mg PO HS Tresiba Flextouch Pen Inj (Insulin Degludec Inj) 300 unit/3 ML Pen 120 Units SQ HS Ventolin Hfa 18 GM Inh (Albuterol Sulfate) 90 Mcg/Act Aer 2 Puff INH Q4-6H PRN Spiriva Handihaler (Tiotropium Inh) 18 Mcg Cap 18 Mcg INH DAILY 1 capsule = 18 mcg Simvastatin 40 Mg Tab 40 Mg PO HS Plavix (Clopidogrel Bisulfate) 75 Mg Tab 75 Mg PO HS Advair Diskus Inh (Fluticasone-Salmeterol Inh) 250-50 Mcg/Blist Aer 1 Puff INH BID Rinse mouth after use. Allergies: Coded Allergies: penicillin G (Unverified Allergy, Unknown, pt unknown, 05/13/17) Family History Essentially noncontributory given patient's own medical history; however his father not unsurprisingly had coronary artery disease as well. Social History (+)Hx of tobacco use, smoked 1.5 ppd for 30 years, quit in 2009 Denies any alcohol or illicit drug use Physical Exam Vital Signs Vital Signs Date Time Temp Pulse Resp B/P (MAP) Pulse Ox O2 Delivery O2 Flow Rate FiO2 05/13/17 20:41 98.0 106 20 139/77 (97) 94 Room Air 05/13/17 19:35 104 22 149/87 (107) 94 Room Air 05/13/17 18:49 20 95 Room Air 05/13/17 18:40 123 18 99 Room Air 05/13/17 18:33 97.5 118 22 161/93 (115) 96 Physical Exam GENERAL: This is a well-nourished, well-developed patient, in no apparent distress. Appears older than his stated age. Cooperative with exam. Alert and oriented. SKIN: Purpuric lesions on forearms. Cool and dry. HEAD: Atraumatic. Normocephalic. No temporal or scalp tenderness. EYES: Pupils equal round and reactive. Extraocular motions intact. No scleral icterus. No injection or drainage. ENT: Nose without bleeding, purulent drainage or septal hematoma. Airway patent. NECK: Trachea midline. No JVD or lymphadenopathy. Supple, nontender, no meningeal signs. CARDIOVASCULAR: Irregular somewhat tachycardic with rate around 100 2105 on my exam. Distant heart sounds without murmurs, gallops, or rubs. RESPIRATORY: Diminished breath sounds in the bases but no fine crackles appreciated. Slightly prolonged expiratory phase. Breath sounds equal bilaterally. No wheeze. GASTROINTESTINAL: Abdomen soft, non-tender, nondistended. No hepato-splenomegaly , or palpable masses. No guarding. MUSCULOSKELETAL: Extremities without clubbing, cyanosis. 1+ edema distal bilateral lower extremities. No joint tenderness, effusion, or edema noted. No calf tenderness. NEUROLOGICAL: Awake and alert. Cranial nerves II through XII intact. Motor and sensory grossly within normal limits. Five out of 5 muscle strength in all muscle groups. Normal speech. Laboratory Laboratory Tests Test 05/13/17 18:50 05/13/17 20:10 White Blood Count 9.6 Red Blood Count 4.99 Hemoglobin 13.1 Hematocrit 39.6 Mean Corpuscular Volume 79.3 Mean Corpuscular Hemoglobin 26.3 Mean Corpuscular Hemoglobin Concent 33.2 Red Cell Distribution Width 17.9 Platelet Count 217 Mean Platelet Volume 10.8 Neutrophils (%) (Auto) 67.5 Lymphocytes (%) (Auto) 22.9 Monocytes (%) (Auto) 6.5 Eosinophils (%) (Auto) 2.0 Basophils (%) (Auto) 1.1 Neutrophils # (Auto) 6.5 Lymphocytes # (Auto) 2.2 Monocytes # (Auto) 0.6 Eosinophils # (Auto) 0.2 Basophils # (Auto) 0.1 CBC Comment DIFF FINAL Differential Comment Blood Urea Nitrogen 31 Creatinine 2.63 Random Glucose 291 Calcium Level 9.4 Magnesium Level 1.8 Sodium Level 128 Potassium Level 6.1 Chloride Level 95 Carbon Dioxide Level 25.1 Anion Gap 8 Estimat Glomerular Filtration Rate 25 Total Creatine Kinase 360 Creatine Kinase MB 6.8 Creatine Kinase MB % 1.9 Troponin I 1.26 B-Type Natriuretic Peptide 659 Result Diagram: 05/13/17184905/13/17 185 Imaging Last 72 hours Impressions Chest X-Ray 05/13/17 1846 Signed Impressions: Service Date/Time: Saturday, May 13, 2017 18:49 - CONCLUSION: No evidence of acute cardiopulmonary disease. MD Rafia Milleri VTE Risk Assessment Capkemii VTE Risk Assessment: Mod/High Risk (score >= 2) Caprini Risk Assessment Model Point Value = 1 Point Value = 2 Point Value = 3 Point Value = 5 Age 41-60 Minor surgery BMI > 25 kg/m2 Swollen legs Varicose veins or History of unexplained or recurrent spontaneous Oral contraceptives or hormone replacement Sepsis (< 1 month) Serious lung disease, including pneumonia (< 1 month) Abnormal pulmonary function Acute myocardial infarction Congestive heart failure (< 1 month) History of inflammatory bowel disease Medical patient at bed rest Age 61-74 Arthroscopic surgery Major open surgery (> 45 min) Laparoscopic surgery (> 45 min) Malignancy Confined to bed (> 72 hours) Immobilizing plaster cast Central venous access Age >= 75 History of VTE Family history of VTE Factor V Leiden Prothrombin [id number] Lupus anticoagulant Anticardiolipin antibodies Elevated serum homocysteine Heparin-induced thrombocytopenia Other congenital or acquired thrombophilia Stroke (< 1 month) Elective arthroplasty Hip, pelvis, or leg fracture Acute spinal cord injury (< 1 month) Prophylaxis Regimen Total Risk Factor Score Risk Level Prophylaxis Regimen 0-1 Low Early ambulation 2 Moderate Order ONE of the following: *Sequential Compression Device (SCD) *Heparin 5000 units SQ BID 3-4 Higher Order ONE of the following medications: *Heparin 5000 units SQ TID *Enoxaparin/Lovenox 40 mg SQ daily (WT < 150 kg, CrCl > 30 mL/min) *Enoxaparin/Lovenox 30 mg SQ daily (WT < 150 kg, CrCl > 10-29 mL/min) *Enoxaparin/Lovenox 30 mg SQ BID (WT < 150 kg, CrCl > 30 mL/min) AND/OR *Sequential Compression Device (SCD) 5 or more Highest Order ONE of the following medications: *Heparin 5000 units SQ TID (Preferred with Epidurals) *Enoxaparin/Lovenox 40 mg SQ daily (WT < 150 kg, CrCl > 30 mL/min) *Enoxaparin/Lovenox 30 mg SQ daily (WT < 150 kg, CrCl > 10-29 mL/min) *Enoxaparin/Lovenox 30 mg SQ BID (WT < 150 kg, CrCl > 30 mL/min) AND *Sequential Compression Device (SCD) Assessment and Plan Problem List: (1) Shortness of breath ICD Codes: R06.02 - Shortness of breath Status: Chronic Plan: Somewhat chronic but worse of late. Likely multifactorial given his significant cardiomyopathy, COPD, deconditioning and tachyarrhythmia on arrival. Patient feels improved somewhat since her heart rate has improved with Cardizem. Drip has been initiated. We'll continue medications for COPD as well. Use supplemental oxygen as needed. (2) Elevated troponin ICD Codes: R74.8 - Abnormal levels of other serum enzymes Status: Acute Plan: Has had similar and even more extreme elevations of troponin on previous admissions this year. Current elevation is likely associated with underlying cardiomyopathy, renal insufficiency and demand mediation due to tachyarrhythmia. Cardiology has been consulted. I'm not sure they'll be able to add much given review of their previous notes. (3) CAD (coronary artery disease) ICD Codes: I25.10 - CAD (coronary artery disease) Status: Chronic Plan: As noted above. Prior heart catheterizations and cardiology notes have been reviewed. Prior echocardiogram reviewed. Cardiology consultation. Maximum medical management will be attempted. (4) Ischemic cardiomyopathy ICD Codes: I25.5 - Ischemic cardiomyopathy Status: Chronic Plan: As noted above. (5) HTN (hypertension) ICD Codes: I10 - HTN (hypertension) Status: Chronic Plan: Continue medication. (6) Hyperlipidemia ICD Codes: E78.5 - Hyperlipidemia Status: Chronic Plan: Continue medication and secondary prevention. (7) Diabetes mellitus ICD Codes: E11.9 - Diabetes mellitus Status: Chronic Plan: We'll use Accu-Chek and sliding scale insulin. (8) COPD (chronic obstructive pulmonary disease) ICD Codes: J44.9 - Chronic obstructive pulmonary disease, unspecified Status: Chronic Plan: Continue nebulizer. Use supple oxygen as needed. Solu-Medrol. May entertain antibiotics if cough is productive. (9) Hyperkalemia ICD Codes: E87.5 - Hyperkalemia Status: Acute Plan: Diuresis. Patient given Kayexalate. Follow-up potassium in the morning. (10) CKD (chronic kidney disease) stage 3, GFR 30-59 ml/min ICD Codes: N18.3 - CKD (chronic kidney disease) stage 3, GFR 30-59 ml/min Status: Chronic Plan: Will carefully diuresed. Code Status full Discussed Condition With Patient, ER provider, patient's nurse. Physician Certification 2 Midnight Certification Type: Admission for Inpatient Services Order for Inpatient Services The services are ordered in accordance with Medicare regulations or non- Medicare payer requirements, as applicable. In the case of services not specified as inpatient-only, they are appropriately provided as inpatient services in accordance with the 2-midnight benchmark. Estimated LOS (days): 2 days is the estimated time the patient will need to remain in the hospital, assuming treatment plan goals are met and no additional complications. Post-Hospital Plan: Home Problem Qualifiers (1) CAD (coronary artery disease): Qualified Codes: I25.810 - Atherosclerosis of coronary artery bypass graft(s) without angina pectoris (2) HTN (hypertension): Qualified Codes: I10 - Essential (primary) hypertension (3) Diabetes mellitus: Stephen Elkins MD PhD May 13, 2017 21:00
[2017-05-13] MEDS ORDERED: ALBUTEROL SULFATE 90 MCG/ACT HFA 8 GM INHALER INH PRN (21:45)
[2017-05-13] MEDS ORDERED: methylPREDNISolone SOD SUCC 40 MG/1 ML VIAL IV PUSH ONE (21:45)
[2017-05-13] MEDS ORDERED: ENOXAPARIN SODIUM 40 MG/0.4 ML SYRINGE SQ ONE (21:45)
[2017-05-13] MEDS ORDERED: CYCLOBENZAPRINE HCL 10 MG TAB PO PRN (21:45)
[2017-05-13] MEDS ORDERED: GLUCAGON 1 MG/ML VIAL OTHER PRN (22:00)
[2017-05-13] MEDS ORDERED: DEXTROSE 50% IN WATER 50 ML VIAL(D50) IV PUSH PRN (22:00)
[2017-05-13] MEDS: CARVEDILOL 12.5 MG TAB PO SCH (23:16)
[2017-05-14] VITALS (23 sets, daily range): BP systolic 117–151; BP diastolic 73–92; PULSE 84–102; RESP 16–24; TEMP 97.1–98.3; O2SAT 94–99
[2017-05-14 07:56] LABS: ALKALINE PHOSPHATASE 56 U/L (45-117); ALT (GPT) 17 U/L (12-78); ANION GAP 10 MEQ/L (5-15); AST (GOT) 19 U/L (15-37); BICARBONATE 23.6 MEQ/L (21.0-32.0); CHLORIDE 95 MEQ/L (98-107); GLOMERULAR FILTRATION RATE 28 ML/MIN (>89); POTASSIUM 4.6 MEQ/L (3.5-5.1); SODIUM (NA) 129 MEQ/L (136-145); TOTAL BILIRUBIN ADULT 0.9 MG/DL (0.2-1.0)
[2017-05-14] MEDS ORDERED: HEPARIN-NS/PF INJ 500 ML ONE (08:05)
[2017-05-14] MEDS ORDERED: BUPIVACAINE HCL PF 0.5% 30 ML VIAL ONE (08:05)
[2017-05-14] MEDS ORDERED: PROTAMINE SULFATE 50 MG/5 ML VIAL ONE (08:05)
[2017-05-14] MEDS ORDERED: HEPARIN SODIUM - IV 10,000 UNITS/10 ML VIAL ONE (08:05)
[2017-05-14] MEDS ORDERED: THROMBIN (TOPICAL) 20,000 UNIT SPRAY KIT ONE (08:06)
[2017-05-14 08:08] LABS: BLOOD UREA NITROGEN 34 MG/DL (7-18)
--- NOTE | 2017-05-14 08:11 | PD.CONS ---
HPI Service cardiology Consult Requested By Reason for Consult elevated troponin, cardiomyopathy Primary Care Physician Lyndsey Barton MD History of Present Illness This is a 62 yo WM with history of cardiomyopathy (EF 20% on October 2016 echo) s/ p AICD, CKD stage III, PVD, CABG x 4 (2009), CHF and COPD who presented to ED with progressive SOB and lower leg edema x 3 days. He was hospitalized earlier this year for heart failure and has been maintained on lasix 40mg daily alternating with 20mg. C in August 2016 showed 3/4 patent grafts not amenable to intervention. CXR shows no evidence of fluid overload. Potassium elevated (6.1), kayexelate given. ECG shows ST deviation and T wave changes. Patient states he is feeling better with improved SOB and reduction of pedal edema. No chest pain. (Agata Yao) Review of Systems Consitutional: COMPLAINS OF: Fatigue, Weight loss, DENIES: Fever, Chills, Weight gain Respiratory: COMPLAINS OF: See HPI, Snoring, Shortness of breath, Sputum production, DENIES: Cough, Wheezing Cardiovascular: COMPLAINS OF: See HPI, Tachycardia, DENIES: Chest pain, Palpitations, Syncope Gastrointestinal: COMPLAINS OF: Reflux, Bloody stools, DENIES: Nausea, Vomiting , Change in bowel habits, Melena (Agata Yao) Past Family Social History Allergies: Coded Allergies: penicillin G (Unverified Allergy, Unknown, pt unknown, 05/13/17) Past Medical History Diabetes CAD Systolic CHF Cardiomyopathy with EF 15-20% in 10/2016 PAD HTN Hyperlipidemia GERD CKD, stage 3 Hx paroxysmal [place] BENITES with bridging fibrosis COPD Past Surgical History Single chamber defibrillator implantation on 12/19/[address] Razo [facility] (08/28/16) --> severe [place] three-vessel coronary disease, 3 of 4 coronary bypass grafts are patent CABG x 4 in 2009 Angioplasty right iliac artery Cholecystectomy Repair of ruptured Achilles tendon Back surgery Cardiac catheter in August 2016 demonstrating 3 out of 4 grafts patent Reported Medications Reported Meds & Active Scripts Active Ranexa ER 12 HR (Ranolazine) 500 Mg Tab 500 Mg PO Q12HR Flexeril (Cyclobenzaprine HCl) 10 Mg Tab 10 Mg PO Q8H PRN Novolog Inj (Insulin Aspart) 1,000 Unit/10 Ml Vial 0 SQ DIRECTED Sliding Scale as directed. Reported Lasix (Furosemide) 20 Mg Tab 20 Mg PO EVERY OTHER DAY Alternate with 40mg every other day Lasix (Furosemide) 40 Mg Tab 40 Mg PO EVERY OTHER DAY Alternate with 20mg every other day Coreg (Carvedilol) 6.25 Mg Tab 6.25 Mg PO BID Omeprazole 20 Mg Tab 20 Mg PO DAILY Aspirin Adult Low Strength (Aspirin) 81 Mg Tabdr 81 Mg PO HS Tresiba Flextouch Pen Inj (Insulin Degludec Inj) 300 unit/3 ML Pen 120 Units SQ HS Ventolin Hfa 18 GM Inh (Albuterol Sulfate) 90 Mcg/Act Aer 2 Puff INH Q4-6H PRN Spiriva Handihaler (Tiotropium Inh) 18 Mcg Cap 18 Mcg INH DAILY 1 capsule = 18 mcg Simvastatin 40 Mg Tab 40 Mg PO HS Plavix (Clopidogrel Bisulfate) 75 Mg Tab 75 Mg PO HS Advair Diskus Inh (Fluticasone-Salmeterol Inh) 250-50 Mcg/Blist Aer 1 Puff INH BID Rinse mouth after use. Active Ordered Medications Current Medications Medications (Trade) Dose Ordered Sig/Angel Route Start Time Stop Time Status Last Admin (NS Flush) 2 ml UNSCH PRN IVF 05/13/17 19:00 Diltiazem HCl 125 mg/Sodium Chloride 125 ml @ 5 mls/hr TITRATE PRN IV 05/13/17 20:45 05/13/17 21:17 (NovoLOG SUPPLEMENTAL SCALE) 1 ACHS SLIDING SCALE SQ 05/14/17 08:00 (Duoneb Neb) 1 ampule Q6HR NEB PRN NEB 05/13/17 21:45 (Proair Hfa Inh) 2 puff Q4HR PRN INH 05/13/17 21:45 (Ecotrin Ec) 81 mg HS PO 05/14/17 21:00 (Plavix) 75 mg HS PO 05/14/17 21:00 (Flexeril) 10 mg Q8H PRN PO 05/13/17 21:45 (Ranexa) 500 mg Q12HR PO 05/14/17 09:00 (Lasix) 40 mg DAILY PO 05/14/17 09:00 (Coreg) 12.5 mg Q12HR PO 05/13/17 21:45 05/13/17 23:16 (D50w (Vial) Inj) 50 ml UNSCH PRN IV PUSH 05/13/17 22:00 (Glucagon Inj) 1 mg UNSCH PRN OTHER 05/13/17 22:00 (Protonix) 20 mg DAILY PO 05/14/17 09:00 (Pravachol) 80 mg HS PO 05/14/17 21:00 (Symbicort 160-4.5 Inh) 2 puff BID INH 05/14/17 09:00 Family History Essentially noncontributory given patient's own medical history; however his father not unsurprisingly had coronary artery disease as well. Social History (+)Hx of tobacco use, smoked 1.5 ppd for 30 years, quit in 2009 Denies any alcohol or illicit drug use (Agata Yao) Physical Exam Vital Signs Vital Signs Date Time Temp Pulse Resp B/P (MAP) Pulse Ox O2 Delivery O2 Flow Rate FiO2 05/14/17 06:18 97.8 86 18 128/78 (95) 94 05/14/17 06:18 86 05/14/17 04:47 88 18 151/90 (110) 95 Nasal Cannula 2.00 05/14/17 02:00 94 20 136/75 (95) 97 Nasal Cannula 2.00 05/14/17 00:14 98 18 137/74 (95) 99 Nasal Cannula 2.00 05/13/17 23:20 98 20 158/98 (118) 97 Room Air 2.00 05/13/17 22:00 94 05/13/17 21:42 104 22 149/90 (109) 94 Room Air 05/13/17 21:17 106 145/89 05/13/17 20:41 98.0 106 20 139/77 (97) 94 Room Air 05/13/17 19:35 104 22 149/87 (107) 94 Room Air 05/13/17 18:49 20 95 Room Air 05/13/17 18:40 123 18 99 Room Air 05/13/17 18:33 97.5 118 22 161/93 (115) 96 Physical Exam SKIN: Warm and dry. EYES: Pupils equal and round. ENT: No nasal bleeding or discharge.t. NECK: Trachea midline. No JVD. CARDIOVASCULAR: Regular rate and rhythm. No murmur. 1+ pedal edema bilateral RESPIRATORY: No accessory muscle use. Clear to auscultation. Breath sounds equal bilaterally. GASTROINTESTINAL: Abdomen soft, non-tender, nondistended. Hepatic and splenic margins not palpable. MUSCULOSKELETAL: Extremities without clubbing, cyanosis, or edema. No obvious deformities. NEUROLOGICAL: Awake and alert. No obvious cranial nerve deficits. Normal speech. PSYCHIATRIC: Appropriate mood and affect; insight and judgment normal. Laboratory Laboratory Tests Test 05/13/17 18:50 05/13/17 20:10 05/14/17 02:40 05/14/17 05:32 White Blood Count 9.6 Red Blood Count 4.99 Hemoglobin 13.1 Hematocrit 39.6 Mean Corpuscular Volume 79.3 Mean Corpuscular Hemoglobin 26.3 Mean Corpuscular Hemoglobin Concent 33.2 Red Cell Distribution Width 17.9 Platelet Count 217 Mean Platelet Volume 10.8 Neutrophils (%) (Auto) 67.5 Lymphocytes (%) (Auto) 22.9 Monocytes (%) (Auto) 6.5 Eosinophils (%) (Auto) 2.0 Basophils (%) (Auto) 1.1 Neutrophils # (Auto) 6.5 Lymphocytes # (Auto) 2.2 Monocytes # (Auto) 0.6 Eosinophils # (Auto) 0.2 Basophils # (Auto) 0.1 CBC Comment DIFF FINAL Differential Comment Blood Urea Nitrogen 31 Creatinine 2.63 Random Glucose 291 Calcium Level 9.4 Magnesium Level 1.8 Sodium Level 128 Potassium Level 6.1 Chloride Level 95 Carbon Dioxide Level 25.1 Anion Gap 8 Estimat Glomerular Filtration Rate 25 Total Creatine Kinase 360 Creatine Kinase MB 6.8 Creatine Kinase MB % 1.9 Troponin I 1.26 1.19 B-Type Natriuretic Peptide 659 Prothrombin Time 11.5 Prothromb Time International Ratio 1.0 Activated Partial Thromboplast Time 28.7 (Agata Yao) Result Diagram: 05/13/17184905/13/17 185 Imaging Last 24 hours Impressions Chest X-Ray 05/13/17 1846 Signed Impressions: Service Date/Time: Saturday, May 13, 2017 18:49 - CONCLUSION: No evidence of acute cardiopulmonary disease. Ruben Rivas MD (Agata Yao) Assessment and Plan Problem List: (1) Ischemic cardiomyopathy ICD Codes: I25.5 - Ischemic cardiomyopathy Status: Chronic (2) Acute systolic CHF (congestive heart failure) ICD Codes: I50.21 - Acute systolic (congestive) heart failure Status: Acute (3) CAD (coronary artery disease) of artery bypass graft ICD Codes: I25.810 - CAD (coronary artery disease) of artery bypass graft Status: Chronic (4) Shortness of breath ICD Codes: R06.02 - Shortness of breath Status: Chronic Assessment and Plan 62 yo WM with cardiomyopathy s/p AICD, CKD stag III, CABG x 4 (2009) [facility] 08/2016 showing 3/4 grafts patent not amenable to intervention presents with progressive SOB and edema CHF, systolic- CXR shows no fluid overload. elevated troponins likely demand mediated. echo pending continue medical management with IV lasix (Agata Yao) Assessment and Plan CHF, acute on chronic systolic cardiomyopathy elevated troponin is related to cardiomyopathy. chronically elevated. recent [facility] no intervention. med mgt. IV lasix EF 15%. monitor I/O and Cr. if good diuresis with IV lasix, convert to PO when stable. if no improvement or good urine output, could consider milrinone. tachycardia - atrial tachycardia vs afib/flutter. repeat EKG today. DC cardizem gtt. may consider amio PO interrogate device (Chandan Ramos MD) Agata Yao May 14, 2017 08:11 Chandan Ramos MD May 14, 2017 08:17
[2017-05-14] MEDS ORDERED: NON-FORMULARY DRUG (Omeprazole 20 MG) PO SCH (09:00)
[2017-05-14] MEDS ORDERED: NON-FORMULARY DRUG (Fluticasone-Salmeterol Inh (Advair Diskus Inh) 1 PUFF) INH SCH (09:00)
[2017-05-14] MEDS: INSULIN ASPART SUPPLEMENTAL SCALE SQ SCH ×4 (09:05→21:00)
[2017-05-14] MEDS: RANOLAZINE 500 MG EXTENDED RELEASE TAB PO SCH ×2 (09:17→21:30)
[2017-05-14] MEDS: FUROSEMIDE 40 MG TAB PO SCH (09:18)
[2017-05-14] MEDS: PANTOPRAZOLE SOD 20 MG DELAYED RELEASE TAB PO SCH (09:18)
[2017-05-14] MEDS: CARVEDILOL 12.5 MG TAB PO SCH ×2 (09:18→21:30)
[2017-05-14] MEDS: BUDESONIDE-FORMOTEROL 160/4.5 MCG INHALER INH SCH ×2 (10:00→21:31)
--- NOTE | 2017-05-14 15:07 | EKG ---
Date Performed: 05/13/2017 Time Performed: 18:47:25 PTAGE: 62 years EKG: SINUS TACHYCARDIA FIRST DEGREE AV BLOCK MODERATE INTRAVENTRICULAR CONDUCTION DELAY ST DEVIA TION AND MODERATE T-WAVE ABNORMALITY ABNORMAL ECG PREVIOUS TRACING : 03/10/2017 05.05 Compared to the previous tracing rate faster DOCTOR: Britany Maddox Interpretating Date/Time 05/14/2017 15:06:57
--- NOTE | 2017-05-14 18:08 | HHI.PR ---
Subjective Remarks Patient reports feeling much better no longer having SOB Telemetry showing NSR in the 80's Objective Vitals Vital Signs Date Time Temp Pulse Resp B/P (MAP) Pulse Ox O2 Delivery O2 Flow Rate FiO2 05/14/17 16:52 96 21 05/14/17 12:00 97.8 85 16 131/81 (98) 95 05/14/17 11:51 96 05/14/17 08:00 97.3 86 16 129/78 (95) 95 05/14/17 06:18 97.8 86 18 128/78 (95) 94 05/14/17 06:18 86 05/14/17 04:47 88 18 151/90 (110) 95 Nasal Cannula 2.00 05/14/17 02:00 94 20 136/75 (95) 97 Nasal Cannula 2.00 05/14/17 00:14 98 18 137/74 (95) 99 Nasal Cannula 2.00 05/13/17 23:20 98 20 158/98 (118) 97 Room Air 2.00 05/13/17 22:00 94 05/13/17 21:42 104 22 149/90 (109) 94 Room Air 05/13/17 21:17 106 145/89 05/13/17 20:41 98.0 106 20 139/77 (97) 94 Room Air 05/13/17 19:35 104 22 149/87 (107) 94 Room Air 05/13/17 18:49 20 95 Room Air 05/13/17 18:40 123 18 99 Room Air 05/13/17 18:33 97.5 118 22 161/93 (115) 96 Result Diagram: 05/13/17 1850 05/14/17 0532 Other Results Laboratory Tests Test 05/13/17 18:50 05/13/17 20:10 05/14/17 02:40 05/14/17 05:32 White Blood Count 9.6 TH/MM3 Red Blood Count 4.99 MIL/MM3 Hemoglobin 13.1 GM/DL Hematocrit 39.6 % Mean Corpuscular Volume 79.3 FL Mean Corpuscular Hemoglobin 26.3 PG Mean Corpuscular Hemoglobin Concent 33.2 % Red Cell Distribution Width 17.9 % Platelet Count 217 TH/MM3 Mean Platelet Volume 10.8 FL Neutrophils (%) (Auto) 67.5 % Lymphocytes (%) (Auto) 22.9 % Monocytes (%) (Auto) 6.5 % Eosinophils (%) (Auto) 2.0 % Basophils (%) (Auto) 1.1 % Neutrophils # (Auto) 6.5 TH/MM3 Lymphocytes # (Auto) 2.2 TH/MM3 Monocytes # (Auto) 0.6 TH/MM3 Eosinophils # (Auto) 0.2 TH/MM3 Basophils # (Auto) 0.1 TH/MM3 CBC Comment DIFF FINAL Differential Comment Blood Urea Nitrogen 31 MG/DL 34 MG/DL Creatinine 2.63 MG/DL 2.39 MG/DL Random Glucose 291 MG/DL 335 MG/DL Calcium Level 9.4 MG/DL 8.9 MG/DL Magnesium Level 1.8 MG/DL Sodium Level 128 MEQ/L 129 MEQ/L Potassium Level 6.1 MEQ/L 4.6 MEQ/L Chloride Level 95 MEQ/L 95 MEQ/L Carbon Dioxide Level 25.1 MEQ/L 23.6 MEQ/L Anion Gap 8 MEQ/L 10 MEQ/L Estimat Glomerular Filtration Rate 25 ML/MIN 28 ML/MIN Total Creatine Kinase 360 U/L Creatine Kinase MB 6.8 NG/ML Creatine Kinase MB % 1.9 % Troponin I 1.26 NG/ML 1.19 NG/ML 0.95 NG/ML B-Type Natriuretic Peptide 659 PG/ML Prothrombin Time 11.5 SEC Prothromb Time International Ratio 1.0 RATIO Activated Partial Thromboplast Time 28.7 SEC Total Protein 7.4 GM/DL Albumin 3.3 GM/DL Alkaline Phosphatase 56 U/L Aspartate Amino Transf (AST/SGOT) 19 U/L Alanine Aminotransferase (ALT/SGPT) 17 U/L Total Bilirubin 0.9 MG/DL Imaging Last 72 hours Impressions Chest X-Ray 05/13/17 1266 Signed Impressions: Service Date/Time: Saturday, May 13, 2017 18:49 - CONCLUSION: No evidence of acute cardiopulmonary disease. Ruben Rivas MD Objective Remarks GENERAL: This is a well-nourished, well-developed patient, in no apparent distress. CARDIOVASCULAR: regular rate and rhythm Distant heart sounds without murmurs, gallops, or rubs. RESPIRATORY: clear through out GASTROINTESTINAL: Abdomen soft, non-tender, nondistended. No hepato-splenomegaly , or palpable masses. No guarding. MUSCULOSKELETAL: Extremities without clubbing, cyanosis. no edema NEUROLOGICAL: Awake and alert. No focal deficits. Motor and sensory grossly within normal limits. Five out of 5 muscle strength in all muscle groups. Normal speech. A/P Problem List: (1) Shortness of breath ICD Codes: R06.02 - Shortness of breath Status: Chronic Plan: Somewhat chronic but worse of late. Likely multifactorial given his significant cardiomyopathy, COPD, deconditioning and tachyarrhythmia on arrival. HR controlled Cardizem drip DC'd- Patient now in SR We'll continue medications for COPD as well. Use supplemental oxygen as needed. Elevated troponin Has had similar and even more extreme elevations of troponin on previous admissions this year. Current elevation is likely associated with underlying cardiomyopathy, renal insufficiency and demand mediation due to tachyarrhythmia. Cardiology has been consulted. recent LHC in August 2016 showed 3/4 patent grafts not amenable to intervention Hyperkalemia 6.1 on admission Diuresis. Patient given Kayexalate in ER. Potassium (05/14) 4.6 CKD (chronic kidney disease) stage 3, GFR 30-59 ml/min Will carefully diuresed. BMP in AM DM Uncontrolled continue SSI with accuchecks ACHS start Levemir 7 units BID DVT prophylaxis with SCDs (2) Elevated troponin ICD Codes: R74.8 - Abnormal levels of other serum enzymes Status: Acute Plan: Has had similar and even more extreme elevations of troponin on previous admissions this year. Current elevation is likely associated with underlying cardiomyopathy, renal insufficiency and demand mediation due to tachyarrhythmia. Cardiology has been consulted. I'm not sure they'll be able to add much given review of their previous notes. (3) CAD (coronary artery disease) ICD Codes: I25.10 - CAD (coronary artery disease) Status: Chronic Plan: As noted above. Prior heart catheterizations and cardiology notes have been reviewed. Prior echocardiogram reviewed. Cardiology consultation. Maximum medical management will be attempted. (4) Ischemic cardiomyopathy ICD Codes: I25.5 - Ischemic cardiomyopathy Status: Chronic Plan: As noted above. (5) HTN (hypertension) ICD Codes: I10 - HTN (hypertension) Status: Chronic Plan: Continue medication. (6) Hyperlipidemia ICD Codes: E78.5 - Hyperlipidemia Status: Chronic Plan: Continue medication and secondary prevention. (7) Diabetes mellitus ICD Codes: E11.9 - Diabetes mellitus Status: Chronic Plan: We'll use Accu-Chek and sliding scale insulin. (8) COPD (chronic obstructive pulmonary disease) ICD Codes: J44.9 - Chronic obstructive pulmonary disease, unspecified Status: Chronic Plan: Continue nebulizer. Use supple oxygen as needed. Solu-Medrol. May entertain antibiotics if cough is productive. (9) Hyperkalemia ICD Codes: E87.5 - Hyperkalemia Status: Acute Plan: Diuresis. Patient given Kayexalate. Follow-up potassium in the morning. (10) CKD (chronic kidney disease) stage 3, GFR 30-59 ml/min ICD Codes: N18.3 - CKD (chronic kidney disease) stage 3, GFR 30-59 ml/min Status: Chronic Plan: Will carefully diuresed. Assessment and Plan Patient examined. Assessment and plan formulated with Majo Olea PA-C. I agree with the above. Problem Qualifiers (1) CAD (coronary artery disease): Qualified Codes: I25.810 - Atherosclerosis of coronary artery bypass graft(s) without angina pectoris (2) HTN (hypertension): Qualified Codes: I10 - Essential (primary) hypertension (3) Diabetes mellitus: Majo Olea May 14, 2017 18:08 Jorge Alberto Chong DO May 18, 2017 23:26
[2017-05-14] MEDS ORDERED: PRAVASTATIN SOD 80 MG TAB PO SCH (21:00)
[2017-05-14] MEDS ORDERED: ASPIRIN EC 81 MG TABEC PO SCH (21:00)
[2017-05-14] MEDS ORDERED: NON-FORMULARY DRUG (Simvastatin 40 MG) PO SCH (21:00)
[2017-05-14] MEDS ORDERED: CLOPIDOGREL 75 MG TAB PO SCH (21:00)
[2017-05-14] MEDS: INSULIN DETEMIR 100 UNITS/ML VIAL SQ SCH (21:00)
[2017-05-15] VITALS (16 sets, daily range): BP systolic 122–140; BP diastolic 78–90; PULSE 84–98; RESP 20–24; TEMP 97.3–98.3; O2SAT 94–99
[2017-05-15] MEDS: RESP: ALBUTEROL 2.5 MG/IPRATROPIUM 0.5 MG NEB (PRN) NEB ×2 (00:33→11:56)
[2017-05-15] MEDS: INSULIN ASPART SUPPLEMENTAL SCALE SQ SCH ×2 (08:00→11:51)
--- NOTE | 2017-05-15 08:35 | PD.CARD.PN ---
Subjective Subjective Remarks complaining of being constipated breathing ok HR ok Objective Medications Active Medications Aspirin (Ecotrin Ec) 81 mg HS PO Last administered on 05/14/17 21:30; Admin Dose 81 MG; Start 05/14/17 at 21:00 Budesonide/ Formoterol Fumarate (Symbicort 160-4.5 Inh) 2 puff BID INH Last administered on 05/14/17 21:31; Admin Dose 2 PUFF; Start 05/14/17 at 09:00 Clopidogrel Bisulfate (Plavix) 75 mg HS PO Last administered on 05/14/17 21:30 ; Admin Dose 75 MG; Start 05/14/17 at 21:00 Furosemide (Lasix) 40 mg DAILY PO Last administered on 05/14/17 09:18; Admin Dose 40 MG; Start 05/14/17 at 09:00 Insulin Detemir (Levemir Inj) 7 units Q12HR SQ Last administered on 05/14/17 21 :00; Admin Dose 7 UNITS; Start 05/14/17 at 21:00 Non-Formulary Medication 1 puff BID INH; Start 05/14/17 at 09:00; Status UNV Non-Formulary Medication 20 mg DAILY PO; Start 05/14/17 at 09:00; Status UNV Non-Formulary Medication 40 mg HS PO; Start 05/14/17 at 21:00; Status UNV Pantoprazole Sodium (Protonix) 20 mg DAILY PO Last administered on 05/14/17 09: 18; Admin Dose 20 MG; Start 05/14/17 at 09:00 Pravastatin Sodium (Pravachol) 80 mg HS PO Last administered on 05/14/17 21:30 ; Admin Dose 80 MG; Start 05/14/17 at 21:00 Ranolazine (Ranexa) 500 mg Q12HR PO Last administered on 05/14/17 21:30; Admin Dose 500 MG; Start 05/14/17 at 09:00 Vital Signs / I&O Vital Signs Date Time Temp Pulse Resp B/P (MAP) Pulse Ox O2 Delivery O2 Flow Rate FiO2 05/15/17 07:00 98.3 88 20 129/90 (103) 99 05/15/17 07:00 87 05/15/17 06:00 90 05/15/17 05:00 94 05/15/17 04:00 94 9/28/17 03:00 97.6 95 24 140/89 (106) 96 05/15/17 03:00 96 05/15/17 02:00 98 05/15/17 01:00 94 05/15/17 00:34 95 05/15/17 00:00 98 05/14/17 23:00 98.3 100 24 124/73 (90) 94 05/14/17 23:00 94 05/14/17 22:00 98 05/14/17 21:00 98 05/14/17 20:00 100 05/14/17 19:30 96 20 117/73 (88) 96 05/14/17 19:00 100 05/14/17 18:00 100 05/14/17 17:00 102 05/14/17 16:52 96 21 05/14/17 16:00 97.1 90 18 151/92 (111) 94 05/14/17 16:00 86 05/14/17 15:00 84 05/14/17 14:00 86 05/14/17 13:00 84 05/14/17 12:00 86 05/14/17 12:00 97.8 85 16 131/81 (98) 95 05/14/17 11:51 96 05/14/17 10:00 86 05/14/17 09:00 84 I/O 05/14/17 05/14/17 05/14/17 05/15/17 05/15/17 05/15/17 07:00 15:00 23:00 07:00 15:00 23:00 Intake Total 120 ml 800 ml 720 ml Output Total 0 ml 1000 ml 1225 ml Balance 120 ml -200 ml -505 ml Intake Oral 120 ml 800 ml 720 ml Output Urine Total 1000 ml 1225 ml Stool Total 0 ml 0 ml # Voids 1 Physical Exam GENERAL: SKIN: Warm and dry. HEAD: Normocephalic. EYES: No scleral icterus. No injection or drainage. NECK: Supple, trachea midline. No JVD or lymphadenopathy. CARDIOVASCULAR: Regular rate and rhythm RESPIRATORY: Breath sounds equal bilaterally. No accessory muscle use. GASTROINTESTINAL: Abdomen soft, non-tender, nondistended. MUSCULOSKELETAL: trace edema BACK: Nontender without obvious deformity. No CVA tenderness. Assessment and Plan Problem List: (1) Ischemic cardiomyopathy ICD Codes: I25.5 - Ischemic cardiomyopathy Status: Chronic (2) Acute systolic CHF (congestive heart failure) ICD Codes: I50.21 - Acute systolic (congestive) heart failure Status: Acute (3) CAD (coronary artery disease) of artery bypass graft ICD Codes: I25.810 - CAD (coronary artery disease) of artery bypass graft Status: Chronic (4) Shortness of breath ICD Codes: R06.02 - Shortness of breath Status: Chronic Assessment and Plan CHF, acute on chronic systolic cardiomyopathy elevated troponin is related to cardiomyopathy. chronically elevated. recent [facility] no intervention. med mgt. IV lasix EF 15%. resume outpatient diuretic regimen HR controlled device interrogation normal DC planning will sign off call with questions Chandan Ramos MD May 15, 2017 08:35
[2017-05-15] MEDS: INSULIN DETEMIR 100 UNITS/ML VIAL SQ SCH (08:40)
[2017-05-15] MEDS: PANTOPRAZOLE SOD 20 MG DELAYED RELEASE TAB PO SCH (08:41)
[2017-05-15] MEDS: BUDESONIDE-FORMOTEROL 160/4.5 MCG INHALER INH SCH (08:41)
[2017-05-15] MEDS: FUROSEMIDE 40 MG TAB PO SCH (08:41)
[2017-05-15] MEDS: RANOLAZINE 500 MG EXTENDED RELEASE TAB PO SCH (08:41)
[2017-05-15] MEDS: CARVEDILOL 12.5 MG TAB PO SCH (08:41)
[2017-05-15] MEDS ORDERED: LACTULOSE SYRUP 20 GM/30 ML CUP PO PRN (10:00)
[2017-05-15] MEDS ORDERED: POLYETHYLENE GLYCOL 17 GM PKG PO SCH (10:00)
[2017-05-15] MEDS ORDERED: CARV12.5 PO (10:54)
[2017-05-15] MEDS ORDERED: BISACODYL 10 MG SUPP RECTAL ONE (11:00)
--- NOTE | 2017-05-15 11:05 | HHI.DS ---
Discharge Summary Admission Date May 13, 2017 at 21:32 Discharge Date: May 15, 2017 Admitting Diagnosis Tachyarrhythmia, dyspnea, elevated troponin (1) Shortness of breath ICD Codes: R06.02 - Shortness of breath Status: Chronic (2) Elevated troponin ICD Codes: R74.8 - Abnormal levels of other serum enzymes Status: Acute (3) CAD (coronary artery disease) ICD Codes: I25.10 - CAD (coronary artery disease) Status: Chronic (4) Ischemic cardiomyopathy ICD Codes: I25.5 - Ischemic cardiomyopathy Status: Chronic (5) HTN (hypertension) ICD Codes: I10 - HTN (hypertension) Status: Chronic (6) Hyperlipidemia ICD Codes: E78.5 - Hyperlipidemia Status: Chronic (7) Diabetes mellitus ICD Codes: E11.9 - Diabetes mellitus Status: Chronic (8) COPD (chronic obstructive pulmonary disease) ICD Codes: J44.9 - Chronic obstructive pulmonary disease, unspecified Status: Chronic (9) Hyperkalemia ICD Codes: E87.5 - Hyperkalemia Status: Acute (10) CKD (chronic kidney disease) stage 3, GFR 30-59 ml/min ICD Codes: N18.3 - CKD (chronic kidney disease) stage 3, GFR 30-59 ml/min Status: Chronic Consultants Dr. Ramos Procedures none Brief History 62-year-old male with multiple medical problems including hypertension, severe cardiomyopathy, COPD and diabetes presents complaining of shortness of breath over the past 2-3 days. Patient states he was here 2 days ago but left prior to being evaluated and followed up with his information specialist, Dr. Acosta today who reportedly told him that his shortness of breath was not from his COPD and may be coming from his CHF. Patient was sent for a chest x-ray to the emergency department reportedly. Patient states he's been taking all of his medication as prescribed and always tries to limit any sodium intake;however he continues to feel short of breath. Patient reports increased swelling in his legs. Patient denies any chest pain presently but has had intermittent exertional chest pain chronically. Dyspnea is worse with exertion. Patient is unable to lay flat but states he has not been able to lay flat for approximately 20 years. Denies any nausea, vomiting, bowel pain, come back pain, fevers, headache, numbness or tingling anywhere, or chest pain. Patient denies any knowledge of his defibrillator firing. He notes that he's had a slight cough with scant phlegm the last 5 days and some occasional wheezing. Denies any hemoptysis or hematemesis. He has not been any more immobile than he generally is. No long trips. No recent surgeries. He reports that he gets labs regularly for his senior resident care director Dr. Ramos to monitor his potassium and kidney function closely. He was started on Ranexa within the last few months. It is noted that he's had multiple similar presentations this year for shortness of breath accompanied with elevated troponins. Cardiology has evaluated him several times and it appears that his coronary vasculature is not amenable to further catheter-based intervention. CBC/BMP: 05/13/17 1850 05/14/17 0532 Significant Findings Laboratory Tests Test 05/13/17 18:50 05/13/17 20:10 05/14/17 02:40 05/14/17 05:32 Mean Corpuscular Volume 79.3 FL (80.0-100.0) Mean Corpuscular Hemoglobin 26.3 PG (27.0-34.0) Red Cell Distribution Width 17.9 % (11.6-17.2) Blood Urea Nitrogen 31 MG/DL (7-18) 34 MG/DL (7-18) Creatinine 2.63 MG/DL (0.60-1.30) 2.39 MG/DL (0.60-1.30) Random Glucose 291 MG/DL (74-106) 335 MG/DL (74-106) Sodium Level 128 MEQ/L (136-145) 129 MEQ/L (136-145) Potassium Level 6.1 MEQ/L (3.5-5.1) Chloride Level 95 MEQ/L (98-107) 95 MEQ/L (98-107) Estimat Glomerular Filtration Rate 25 ML/MIN (>89) 28 ML/MIN (>89) Total Creatine Kinase 360 U/L (39-308) Creatine Kinase MB 6.8 NG/ML (0.5-3.6) Troponin I 1.26 NG/ML (0.02-0.05) 1.19 NG/ML (0.02-0.05) 0.95 NG/ML (0.02-0.05) B-Type Natriuretic Peptide 659 PG/ML (0-100) Albumin 3.3 GM/DL (3.4-5.0) Imaging Last Impressions Chest X-Ray 05/13/17 3696 Signed Impressions: Service Date/Time: Saturday, May 13, 2017 18:49 - CONCLUSION: No evidence of acute cardiopulmonary disease. Ruben Rivas MD PE at Discharge GENERAL: This is a well-nourished, well-developed patient, in no apparent distress. CARDIOVASCULAR: regular rate and rhythm Distant heart sounds without murmurs, gallops, or rubs. RESPIRATORY: clear through out GASTROINTESTINAL: Abdomen soft, non-tender, nondistended. No hepato-splenomegaly , or palpable masses. No guarding. MUSCULOSKELETAL: Extremities without clubbing, cyanosis. no edema NEUROLOGICAL: Awake and alert. No focal deficits. Motor and sensory grossly within normal limits. Five out of 5 muscle strength in all muscle groups. Normal speech. Hospital Course Shortness of breath Somewhat chronic but worse of late. Likely multifactorial given his significant cardiomyopathy, COPD, deconditioning and tachyarrhythmia on arrival. Initially patient started on Cardizem drip which was later DC'd as patient's returned to AICD was interrogated per cardiology normal We continued medications for COPD as well. Use supplemental oxygen as needed. Elevated troponin Has had similar and even more extreme elevations of troponin on previous admissions this year. Current elevation is likely associated with underlying cardiomyopathy, renal insufficiency and demand mediation due to tachyarrhythmia. Cardiology Dr. Ramos consulted and evaluated patient recent LHC in August 2016 showed 3/4 patent grafts not amenable to intervention Hyperkalemia 6.1 on admission Diuresis. Patient given Kayexalate in ER. Potassium (05/14) 4.6 CKD (chronic kidney disease) stage 3, GFR 30-59 ml/min Carefully diuresed. BMP monitored DM Uncontrolled continue SSI with accuchecks ACHS started on Levemir 7 units BID DVT prophylaxis with SCDs Pt Condition on Discharge: Stable Discharge Disposition: Discharge Home Discharge Instructions DIET: Follow Instructions for: Heart Healthy Diet, Diabetic Diet Activities you can perform: Regular-No Restrictions Follow up Referrals: Cardiology - [address] Ramos PCP Follow-up - [address] Barton New Medications: Carvedilol (Coreg) 12.5 Mg Tab 12.5 MG PO Q12HR for heart, #30 TAB 0 Refills Continued Medications: Albuterol 18 GM Inh (Ventolin Hfa 18 GM Inh) 90 Mcg/Act Aer 2 PUFF INH Q4-6H PRN for SHORTNESS OF BREATH, #1 INHALER [address] (Aspirin Adult Low Strength) 81 Mg Tabdr 81 MG PO HS, TAB Clopidogrel (Plavix) 75 Mg Tab 75 MG PO HS for Blood Clot Prevention, #30 TAB 0 Refills Cyclobenzaprine (Flexeril) 10 Mg Tab 10 MG PO Q8H PRN for spasm pain, #20 TAB 1 Refill Fluticasone-Salmeterol Inh (Advair Diskus Inh) 250-50 Mcg/Blist Aer 1 PUFF INH BID, #1 INHALER 0 Refills Rinse mouth after use. Furosemide (Lasix) 40 Mg Tab 40 MG PO EVERY OTHER DAY, #30 TAB 0 Refills Alternate with 20mg every other day Furosemide (Lasix) 20 Mg Tab 20 MG PO EVERY OTHER DAY, #30 TAB 0 Refills Alternate with 40mg every other day Insulin Aspart Inj (Novolog Inj) 1,000 Unit/10 Ml Vial 0 SQ DIRECTED for Blood Sugar Management, #10 ML 0 Refills Sliding Scale as directed. Insulin Degludec Inj (Tresiba Flextouch Pen Inj) 300 unit/3 ML Pen 120 UNITS SQ HS for Blood Sugar Management, #15 ML 0 Refills Omeprazole (Omeprazole) 20 Mg Tab 20 MG PO DAILY, #30 TAB 0 Refills Ranolazine ER 12 HR (Ranexa ER 12 HR) 500 Mg Tab 500 MG PO Q12HR for angina, #60 TAB 6 Refills Simvastatin (Simvastatin) 40 Mg Tab 40 MG PO HS for Cholesterol Management, #30 TAB 0 Refills Tiotropium Inh (Spiriva Handihaler) 18 Mcg Cap 18 MCG INH DAILY for COPD, #30 CAP 0 Refills 1 capsule = 18 mcg Discontinued Medications: Carvedilol (Coreg) 6.25 Mg Tab 6.25 MG PO BID for CHF, #60 TAB 0 Refills Additional Information Patient examined. Assessment and plan formulated with Maoj Olea PA-C. I agree with the above. Majo Olea May 15, 2017 11:05 Jorge Alberto Chong DO May 18, 2017 23:27
--- NOTE | 2017-05-15 11:37 | HHI.DCPOC ---
Discharge Care Plan Diagnosis: (1) Atrial tachycardia (2) Shortness of breath Goals to Promote Your Health * To prevent worsening of your condition and complications * To maintain your health at the optimal level Directions to Meet Your Goals Take your medications as prescribed Follow your dietary instruction Follow activity as directed Keep your appointments as scheduled Take your immunizations and boosters as scheduled If your symptoms worsen call your PCP, if no PCP go to Urgent Care Center or Emergency Room Smoking is Dangerous to Your Health. Avoid second hand smoke Call the 24-hour hour crisis hotline for domestic abuse at Majo Olea May 15, 2017 11:37 Jorge Alberto Chong DO May 18, 2017 23:27
== END 2017-05-15 15:04 | disposition home or self-care (01) | DRG 291 ==
LOC: NEPE 18:30 → NEDA 21:32 → NEDH 05-14 01:32 → HCIS 05-14 05:53
PROVIDERS: ADMIT Hospitalist; ATTEND Hospitalist
DX: I13.0 Hypertensive heart and chronic kidney disease with heart failure and stage 1 through stage 4 chronic kidney disease, or unspecified chronic kidney disease (principal); I50.23 Acute on chronic systolic (congestive) heart failure; E11.22 Type 2 diabetes mellitus with diabetic chronic kidney disease; N18.3 Chronic kidney disease, stage 3 (moderate); J44.9 Chronic obstructive pulmonary disease, unspecified; K21.9 Gastro-esophageal reflux disease without esophagitis; E78.5 Hyperlipidemia, unspecified; K59.00 Constipation, unspecified; E87.5 Hyperkalemia; I48.91 Unspecified atrial fibrillation; I25.5 Ischemic cardiomyopathy; I25.10 Atherosclerotic heart disease of native coronary artery without angina pectoris; Z79.01 Long term (current) use of anticoagulants; Z79.84 Long term (current) use of oral hypoglycemic drugs; Z95.1 Presence of aortocoronary bypass graft; Z95.5 Presence of coronary angioplasty implant and graft; Z95.810 Presence of automatic (implantable) cardiac defibrillator; Z79.82 Long term (current) use of aspirin; Z79.02 Long term (current) use of antithrombotics/antiplatelets; Z87.891 Personal history of nicotine dependence
CPT/HCPCS: 71010; 80048; 80053; 82550; 82552; 82948; 83735; 83880; 84484; 85025; 85610; 85730; 93005; 94640; 94664; 96374; 96375; J1644; J1650; J1815; J2720; J2920

== ENCOUNTER 2017-05-16 09:00 | Emergency (ER) | payer OTHER ==
[~2017-05-16] VITALS: Ht 188 cm; Wt 122.0 kg
[~2017-05-16 09:00] MED LIST changes: +FURO1TAB62 PO; -LISI-519 PO; -NITR1SUB3 SL
[2017-05-16 09:03] VITALS: BP 143/81; PULSE 110; RESP 20; TEMP 97.8; O2SAT 100; O2SAT 94
[2017-05-16 09:14] VITALS: BP_SYST 129; BP_SYST 143; BP_DIAS 73; BP_DIAS 81; PULSE 103; RESP 20; O2SAT 99
[2017-05-16 09:16] LABS: AUTOMATED NEUTROPHIL # 6.8 TH/MM3 (1.8-7.7); BASOPHIL # 0.1 TH/MM3 (0-0.2); EOSINOPHIL # 0.2 TH/MM3 (0-0.4); EOSINOPHIL % 1.6 % (0.0-4.0); HEMATOCRIT 38.1 % (39.0-51.0); HEMO FLAGS DIFF FINAL; LYMPH % 17.1 % (9.0-44.0); LYMPHOCYTE # 1.6 TH/MM3 (1.0-4.8); MEAN CELL VOLUME 79.9 FL (80.0-100.0); MEAN CORPUSCULAR HEMOGLOBIN 25.7 PG (27.0-34.0); MEAN CORPUSCULAR HGB CONC 32.2 % (32.0-36.0); MONO % 6.8 % (0.0-8.0); NEUT % 73.5 % (16.0-70.0); PLATELET COUNT 219 TH/MM3 (150-450); RED BLOOD COUNT 4.76 MIL/MM3 (4.50-5.90); WHITE BLOOD COUNT 9.2 TH/MM3 (4.0-11.0)
[2017-05-16 09:28] LABS: APTT (PATIENT) 30.3 SEC (24.3-30.1); INTERNATIONAL NORMALIZED RATIO 1.1 RATIO
--- NOTE | 2017-05-16 09:32 | PD ---
HPI Chief Complaint: Chest Pain Time Seen by Provider: 09:13 Travel History International Travel<30 days: No Contact w/Intl Traveler<30days: No Traveled to known affect area: No History of Present Illness HPI 62-year-old male complains of shortness of breath. Patient was admitted 3 days ago and discharged yesterday for shortness of breath, elevated troponin, CAD, ischemic cardiomyopathy, hypertension, hyperlipidemia, diabetes, COPD, hyperkalemia and chronic kidney disease. Patient was seen by medical team and patient's audio visual manager Dr. Ramos. Patient also was seen by his product managent intern Dr. Acosta recently. AICD was interrogated recently and was normal. Carvedilol was added to regular medications and patient was discharged yesterday. Patient states he has increasing shortness of breath since discharge. Patient states that the shortness of breath is worse when he lying down at night. Patient denies any fever chills. Patient stated he has mild productive sputum. Patient states that he has intermittent sharp pain chest bilaterally. Patient denies abdominal pain. Patient denies any nausea vomiting diarrhea. PFSH Past Medical History Hx Anticoagulant Therapy: Yes (PLAVIX) Arthritis: Yes (left finger ) Asthma: No Atrial Fibrillation: Yes Autoimmune Disease: No Blood Disorders: No Anxiety: No Depression: No Heart Rhythm Problems: Yes Cancer: No Cardiac Catheterization: Yes Cardiovascular Problems: Yes High Cholesterol: Yes Chemotherapy: No Chest Pain: No Congestive Heart Failure: Yes COPD: Yes Cerebrovascular Accident: No Diabetes: Yes Patient Takes Glucophage: No Diminished Hearing: No Endocrine: Yes GERD: Yes Glaucoma: No Genitourinary: Yes Headaches: No Hepatitis: No Hiatal Hernia: No Heparin Induced Thrombocytopen: No Hypertension: Yes Immune Disorder: No Implanted Vascular Access Dvce: No Kidney Stones: No Musculoskeletal: Yes Neurologic: No Psychiatric: No Reproductive: No Respiratory: Yes (COPD) Integumentary: Yes (SMALL ULCER/WOUNDS COVERING WHOLE BODY "ITCHING FROM MY DIABETES" PER PT) Migraines: No Myocardial Infarction: Yes Radiation Therapy: No Renal Failure: Yes (Stage 3 kidney disease) Seizures: No Sickle Cell Disease: No Sleep Apnea: No Thyroid Disease: No Ulcer: No Tetanus Vaccination: > 5 Years Influenza Vaccination: Yes PNEUMOCCOCAL Vaccine (Year): 2 Past Surgical History Abdominal Surgery: Yes (CHOLECYSTECTOMY) Appendectomy: No Arteriovenous Shunt: No Cardiac Surgery: Yes (DEFIBRILLATOR PLACED ) Cholecystectomy: Yes Coronary Artery Bypass Graft: Yes Coronary Stent: Yes Ear Surgery: No Endocrine Surgery: No Eye Surgery: No Genitourinary Surgery: No Gynecologic Surgery: No Insulin Pump: No Joint Replacement: No Neurologic Surgery: No Oral Surgery: No Pacemaker: Yes (DEFIB MEDTRONIC) Thoracic Surgery: Yes (CABG) Other Surgery: Yes Social History Alcohol Use: No Tobacco Use: No (QUIT 2009) Substance Use: No Allergies-Medications (Allergen,Severity, Reaction): Coded Allergies: penicillin G (Verified Allergy, Unknown, SWELLING, 05/16/17) Reported Meds & Prescriptions Reported Meds & Active Scripts Active Coreg (Carvedilol) 12.5 Mg Tab 12.5 Mg PO Q12HR Ranexa ER 12 HR (Ranolazine) 500 Mg Tab 500 Mg PO Q12HR Flexeril (Cyclobenzaprine HCl) 10 Mg Tab 10 Mg PO Q8H PRN Novolog Inj (Insulin Aspart) 1,000 Unit/10 Ml Vial 0 SQ DIRECTED Sliding Scale as directed. Reported Lasix (Furosemide) 20 Mg Tab 20 Mg PO EVERY OTHER DAY Alternate with 40mg every other day Lasix (Furosemide) 40 Mg Tab 40 Mg PO EVERY OTHER DAY Alternate with 20mg every other day Omeprazole 20 Mg Tab 20 Mg PO DAILY Aspirin Adult Low Strength (Aspirin) 81 Mg Tabdr 81 Mg PO HS Tresiba Flextouch Pen Inj (Insulin Degludec Inj) 300 unit/3 ML Pen 120 Units SQ HS Ventolin Hfa 18 GM Inh (Albuterol Sulfate) 90 Mcg/Act Aer 2 Puff INH Q4-6H PRN Spiriva Handihaler (Tiotropium Inh) 18 Mcg Cap 18 Mcg INH DAILY 1 capsule = 18 mcg Simvastatin 40 Mg Tab 40 Mg PO HS Plavix (Clopidogrel Bisulfate) 75 Mg Tab 75 Mg PO HS Advair Diskus Inh (Fluticasone-Salmeterol Inh) 250-50 Mcg/Blist Aer 1 Puff INH BID Rinse mouth after use. Review of Systems General / Constitutional: No: Fever Eyes: No: Visual changes HENT: No: Headaches Cardiovascular: Positive: Chest Pain or Discomfort Respiratory: Positive: Shortness of Breath Gastrointestinal: No: Abdominal Pain Genitourinary: No: Dysuria Musculoskeletal: No: Pain Skin: No Rash Neurologic: No: Weakness Psychiatric: No: Depression Endocrine: No: Polydipsia Hematologic/Lymphatic: No: Easy Bruising Physical Exam Narrative GENERAL: Well-nourished, well-developed patient. SKIN: Focused skin assessment warm/dry. HEAD: Normocephalic. EYES: No scleral icterus. No injection or drainage. NECK: Supple, trachea midline. No JVD or lymphadenopathy. CARDIOVASCULAR: Regular rate and rhythm without murmurs, gallops, or rubs. RESPIRATORY: Breath sounds equal bilaterally. No accessory muscle use. No wheezes. Few rhonchi at the bases. GASTROINTESTINAL: Abdomen soft, non-tender, nondistended. MUSCULOSKELETAL: No cyanosis, or edema. BACK: Nontender without obvious deformity. No CVA tenderness. Neurologic exam normal. Data Data Last Documented VS Vital Signs Date Time Temp Pulse Resp B/P (MAP) Pulse Ox O2 Delivery O2 Flow Rate FiO2 05/16/17 10:16 97.8 93 18 128/72 (90) 99 Room Air 05/16/17 09:14 2.00 Orders Orders Electrocardiogram (05/16/17 09:02) Ckmb (Isoenzyme) Profile (05/16/17 09:02) Complete Blood Count With Diff (05/16/17 09:02) Prothrombin Time / Inr (Pt) (05/16/17 09:02) Act Partial Throm Time (Ptt) (05/16/17 09:02) Troponin I (05/16/17 09:02) Chest, Single Ap (05/16/17 09:02) Ecg Monitoring (05/16/17 09:02) Bilateral Bp Monitoring (05/16/17 09:02) Iv Access Insert/Monitor (05/16/17 09:02) Oximetry (05/16/17 09:02) Oxygen Administration (05/16/17 09:02) B-Type Natriuretic Peptide (05/16/17 09:21) Arterial Blood Gas (Abg) (05/16/17 09:21) CKMB (05/16/17 09:10) CKMB% (05/16/17 09:10) Comprehensive Metabolic Panel (05/16/17 09:10) Thyroid Stimulating Hormone (05/16/17 09:10) Furosemide Inj (Lasix Inj) (05/16/17 11:15) Labs Laboratory Tests Test 05/16/17 09:10 05/16/17 10:10 White Blood Count 9.2 TH/MM3 Red Blood Count 4.76 MIL/MM3 Hemoglobin 12.2 GM/DL Hematocrit 38.1 % Mean Corpuscular Volume 79.9 FL Mean Corpuscular Hemoglobin 25.7 PG Mean Corpuscular Hemoglobin Concent 32.2 % Red Cell Distribution Width 17.0 % Platelet Count 219 TH/MM3 Mean Platelet Volume 10.4 FL Neutrophils (%) (Auto) 73.5 % Lymphocytes (%) (Auto) 17.1 % Monocytes (%) (Auto) 6.8 % Eosinophils (%) (Auto) 1.6 % Basophils (%) (Auto) 1.0 % Neutrophils # (Auto) 6.8 TH/MM3 Lymphocytes # (Auto) 1.6 TH/MM3 Monocytes # (Auto) 0.6 TH/MM3 Eosinophils # (Auto) 0.2 TH/MM3 Basophils # (Auto) 0.1 TH/MM3 CBC Comment DIFF FINAL Differential Comment Prothrombin Time 12.0 SEC Prothromb Time International Ratio 1.1 RATIO Activated Partial Thromboplast Time 30.3 SEC Blood Urea Nitrogen 35 MG/DL Creatinine 2.26 MG/DL Random Glucose 240 MG/DL Total Protein 7.4 GM/DL Albumin 3.4 GM/DL Calcium Level 8.7 MG/DL Alkaline Phosphatase 52 U/L Aspartate Amino Transf (AST/SGOT) 17 U/L Alanine Aminotransferase (ALT/SGPT) 17 U/L Total Bilirubin 1.4 MG/DL Sodium Level 129 MEQ/L Potassium Level 4.1 MEQ/L Chloride Level 93 MEQ/L Carbon Dioxide Level 26.6 MEQ/L Anion Gap 9 MEQ/L Estimat Glomerular Filtration Rate 30 ML/MIN Total Creatine Kinase 354 U/L Creatine Kinase MB 4.7 NG/ML Creatine Kinase MB % 1.3 % Troponin I 0.45 NG/ML B-Type Natriuretic Peptide 704 PG/ML Thyroid Stimulating Hormone 3rd Gen 2.990 uIU/ML Blood Gas Puncture Site RT RADIAL Blood Gas Patient Temperature 98.6 Blood Gas HCO3 24 mmol/L Blood Gas Base Excess 0.3 mmol/L Blood Gas Oxygen Saturation 89 % Arterial Blood pH 7.47 Arterial Blood Partial Pressure CO2 33 mmHg Arterial Blood Partial Pressure O2 63 mmHG Arterial Blood Oxygen Content 14.6 Vol % Arterial Blood Carboxyhemoglobin 2.3 % Arterial Blood Methemoglobin 0.6 % Blood Gas Hemoglobin 11.7 G/DL Oxygen Delivery Device RA Blood Gas Inspired Oxygen 21 % MDM Medical Decision Making Medical Screen Exam Complete: Yes Emergency Medical Condition: Yes Interpretation(s) Last Impressions Chest X-Ray 05/16/17 0902 Signed Impressions: Service Date/Time: Tuesday, May 16, 2017 09:36 - CONCLUSION: Compared to 05/13/17 is increasing bibasilar parenchymal changes. There is mild increase in the amount of interstitial edema. Johan Dubois MD FACR 11:01 AM. CBC WBC 9.2. Hemoglobin 12.2 hematocrit 30.1. 73 neutrophil. Sodium 129. BUN 35. Creatinine 2.26. Glucose 240. Troponin 0.45. Patient has history of chronic elevated troponin. BNP 704. Differential Diagnosis Differential diagnosis including acute exacerbation of COPD, CHF, angina, [place], PE , pneumothorax. Narrative Course 62-year-old male with increasing shortness of breath. Intermittent chest pain. History of hypertension, severe cardiomyopathy, COPD and diabetes. Lasix 40 mg IV. I spoke with patient's son and patient's was advised to be admitted into rehabilitation. I spoke with Dr. Chong who know the patient from previous admission and including yesterday. parking manager spoke to the patient. Patient wants to go home and do outpatient rehabilitation. Patient does not want to go straight to rehabilitation from the emergency room. Patient was advised to stay on Lasix 40 mg daily instead of alternate 40 and 20. Diagnosis Primary Impression: Acute exacerbation of CHF (congestive heart failure) Qualified Codes: I50.9 - Heart failure, unspecified Patient Instructions: General Instructions Additional Instructions: Continue with Lasix 40 mg daily. Follow-up with personal physician. Follow-up with outpatient rehabilitation. Return if worse. Med/Other Pt SpecificInfo: Existing Med Changed Disposition: DISCHARGE HOME Condition: Stable Marco A Winkler MD May 16, 2017 09:32
[2017-05-16 09:35] LABS: ANION GAP 9 MEQ/L (5-15); BICARBONATE 26.6 MEQ/L (21.0-32.0); BLOOD UREA NITROGEN 35 MG/DL (7-18); CHLORIDE 93 MEQ/L (98-107); GLOMERULAR FILTRATION RATE 30 ML/MIN (>89); POTASSIUM 4.1 MEQ/L (3.5-5.1); SODIUM (NA) 129 MEQ/L (136-145)
[2017-05-16 09:39] LABS: CREATINE KINASE 354 U/L (39-308)
--- NOTE | 2017-05-16 09:57 | RADRPT ---
EXAM DATE/TIME: 05/16/2017 09:36 [facility] COMPARISON: CHEST SINGLE AP, May 13, 2017, 18:49. INDICATIONS : Chest pain and shortness of breath. MEDICAL HISTORY : Congestive heart failure. SURGICAL HISTORY : Pacemaker. CABG. ENCOUNTER: Initial ACUITY: 4 - 6 days PAIN SCORE: 8/10 LOCATION: Bilateral chest FINDINGS: Pacer in good position. Increasing bibasilar parenchymal changes are evident. The heart remains enl arged. Mild increase in interstitial edema is evident. CONCLUSION: Compared to 05/13/17 is increasing bibasilar parenchymal changes. There is mild increase in the amoun t of interstitial edema. Johan Dubois MD FACR on May 16, 2017 at 9:54 Board Certified Radiologist. This report was verified electronically.
[2017-05-16 10:13] LABS: ALT (GPT) 17 U/L (12-78); AST (GOT) 17 U/L (15-37); CKMB 4.7 NG/ML (0.5-3.6)
[2017-05-16 10:16] VITALS: BP 128/72; PULSE 93; RESP 18; TEMP 97.8; O2SAT 99
[2017-05-16 10:19] LABS: BLOOD GAS BASE EXCESS 0.3 mmol/L (-2-2); BLOOD GAS CARBOXYHEMOGLOBIN 2.3 % (0-4); BLOOD GAS HCO3 24 mmol/L (22-26); BLOOD GAS METHEMOGLOBIN 0.6 % (0-2); BLOOD GAS O2 HGB SATURATION 89 % (90-100); BLOOD GAS OXYGEN CONTENT 14.6 Vol % (12.0-20.0); BLOOD GAS PCO2 33 mmHg (38-42); BLOOD GAS PO2 63 mmHG (61-120); BLOOD GAS TOTAL HGB 11.7 G/DL (12.0-16.0); CRITICAL VALUE YES; DRAW SITE RT RADIAL; FIO2 21 %; NUMBER OF ARTERIAL PUNCTURES 1; OXYGEN DEVICE RA; STAT YES; TEMP CORR TO 98.6; ULNAR PULSE PRESENT
[2017-05-16 10:21] LABS: ALKALINE PHOSPHATASE 52 U/L (45-117); TOTAL BILIRUBIN ADULT 1.4 MG/DL (0.2-1.0)
[2017-05-16] MEDS ORDERED: FUROSEMIDE 40 MG/4 ML VIAL IV PUSH ONE (11:15)
--- NOTE | 2017-05-16 13:02 | EKG ---
Date Performed: 05/16/2017 Time Performed: 09:11:51 PTAGE: 62 years EKG: SINUS TACHYCARDIA WITH FIRST DEGREE AV BLOCK SEPTAL MYOCARDIAL INFARCTION, POSSIBLY ACUTE N ONSPECIFIC INTRAVENTRICULAR CONDUCTION DELAY INFERIOR AND LATERAL ST/T ABNORMALITY, CONSIDER ISCHEMIA NO PREVIOUS TRACING DOCTOR: Baljinder Storey Interpretating Date/Time 05/16/2017 13:01:58
[2017-05-16 13:30] VITALS: BP 124/81; TEMP 97.8
== END 2017-05-16 13:30 | disposition home or self-care (01) ==
LOC: NEPC 09:00
DX: I50.9 Heart failure, unspecified (principal); I25.10 Atherosclerotic heart disease of native coronary artery without angina pectoris; I10 Essential (primary) hypertension; E11.9 Type 2 diabetes mellitus without complications; E78.00 Pure hypercholesterolemia, unspecified; I48.91 Unspecified atrial fibrillation; Z95.810 Presence of automatic (implantable) cardiac defibrillator
CPT/HCPCS: 36600; 71010; 80053; 82550; 82552; 82805; 83880; 84443; 84484; 85025; 85610; 85730; 93005; 96374; 99285; J1940

== ENCOUNTER 2017-05-26 22:52 | Inpatient (IN) | payer OTHER ==
[~2017-05-26] VITALS: Ht 188 cm; Wt 125.5 kg
[2017-05-26 22:55] VITALS: BP 174/108; PULSE 112; RESP 22; TEMP 98.8; O2SAT 100
[2017-05-26] MEDS ORDERED: methylPREDNISolone SOD SUCC 125 MG/2 ML VIAL IV PUSH ONE (23:00)
[2017-05-26] MEDS ORDERED: SODIUM CHLORIDE 0.9% FLUSH 10 ML FLUSH IVF PRN (23:00)
[2017-05-26] MEDS: RESP: ALBUTEROL 2.5 MG/IPRATROPIUM 0.5 MG NEB (SCH) INH (23:04)
[2017-05-26 23:07] VITALS: BP 153/92; PULSE 107; RESP 22; O2SAT 100
--- NOTE | 2017-05-26 23:27 | RADRPT ---
EXAM DATE/TIME: 05/26/2017 23:05 [facility] COMPARISON: CHEST SINGLE AP, May 16, 2017, 9:36. INDICATIONS : Shortness of breath. MEDICAL HISTORY : Congestive heart failure. SURGICAL HISTORY : Pacemaker. CABG. ENCOUNTER: Initial ACUITY: 1 day PAIN SCORE: 0/10 LOCATION: Bilateral chest FINDINGS: Pacemaker device is noted with control pack over the left chest. There is vascular congestion and dif fuse interstitial prominence with alveolar edema and effusions present in the bases. Cardiac contours are grossly stable. CONCLUSION: Persistent or recurrent CHF Ruben Kahn MD on May 26, 2017 at 23:24 Board Certified Radiologist. This report was verified electronically.
[2017-05-26] MEDS ORDERED: NITROGLYCERIN 2% OINT 1 GM PACKET TOPICAL ONE (23:30)
[2017-05-26 23:34] LABS: AUTOMATED NEUTROPHIL # 5.5 TH/MM3 (1.8-7.7); BASOPHIL # 0.1 TH/MM3 (0-0.2); BASOPHIL % 0.9 % (0.0-2.0); EOSINOPHIL # 0.1 TH/MM3 (0-0.4); EOSINOPHIL % 1.7 % (0.0-4.0); HEMATOCRIT 42.7 % (39.0-51.0); HEMO FLAGS DIFF FINAL; LYMPH % 22.8 % (9.0-44.0); LYMPHOCYTE # 1.9 TH/MM3 (1.0-4.8); MEAN CELL VOLUME 81.2 FL (80.0-100.0); MEAN CORPUSCULAR HEMOGLOBIN 26.1 PG (27.0-34.0); MEAN CORPUSCULAR HGB CONC 32.2 % (32.0-36.0); MONO % 7.3 % (0.0-8.0); NEUT % 67.3 % (16.0-70.0); PLATELET COUNT 210 TH/MM3 (150-450); RED BLOOD COUNT 5.26 MIL/MM3 (4.50-5.90); RED CELL DISTRIBUTION WIDTH 18.3 % (11.6-17.2); WHITE BLOOD COUNT 8.2 TH/MM3 (4.0-11.0)
[2017-05-26 23:50] LABS: ALT (GPT) 23 U/L (12-78); ANION GAP 9 MEQ/L (5-15); AST (GOT) 22 U/L (15-37); BICARBONATE 24.6 MEQ/L (21.0-32.0); BLOOD UREA NITROGEN 26 MG/DL (7-18); CHLORIDE 97 MEQ/L (98-107); GLOMERULAR FILTRATION RATE 28 ML/MIN (>89); MAGNESIUM 1.9 MG/DL (1.5-2.5); POTASSIUM 4.3 MEQ/L (3.5-5.1); SODIUM (NA) 131 MEQ/L (136-145)
[2017-05-26 23:54] LABS: ALKALINE PHOSPHATASE 75 U/L (45-117); CREATINE KINASE 321 U/L (39-308); TOTAL BILIRUBIN ADULT 0.7 MG/DL (0.2-1.0)
[2017-05-26 23:55] LABS: INTERNATIONAL NORMALIZED RATIO 1.1 RATIO; PROTHROMBIN TIME - PATIENT 12.1 SEC (9.8-11.6)
[2017-05-27] VITALS (18 sets, daily range): BP systolic 112–146; BP diastolic 65–92; PULSE 67–105; RESP 16–26; TEMP 97.7–98.2; O2SAT 92–99
[2017-05-27] MEDS ORDERED: FUROSEMIDE 40 MG/4 ML VIAL IV PUSH ONE ×2 (01:00→01:30)
[2017-05-27] MEDS ORDERED: SODIUM CHLORIDE 0.9% FLUSH 10 ML FLUSH IVF PRN (01:30)
--- NOTE | 2017-05-27 01:30 | PD ---
HPI Chief Complaint: Respiratory Distress Time Seen by Provider: 22:56 Travel History International Travel<30 days: No Contact w/Intl Traveler<30days: No Traveled to known affect area: No History of Present Illness HPI 62-year-old male presents to the emergency department by EMS transport for sudden onset of shortness of breath 2 hours. Patient with history of CAD, CABG , CHF, ejection fraction 15%, COPD, diabetes, ischemic cardiomyopathy, and dyslipidemia. Patient is under the care of skiver machine Dr. Ramos. Patient underwent cardiac catheterization August 2016 with recommendation of medical management and was recently hospitalized May 14, 2017 with SVT and elevated troponin I. Patient was felt to have chronic elevation of troponin I and procedural intervention was not recommended. Optimization of patient's medications was recommended by patient's skiver machine. Patient has done fairly well since returning home. No fever no productive cough. Patient has noted some mild increased swelling of the lower extremities. Patient is not reporting lower leg pain. Patient has had dyspnea on exertion at rest and orthopnea. Per EMS patient was identified to have incomplete left bundle branch block and nonspecific ischemic changes laterally. Patient was administered Ventolin updraft 2. Patient has had no chest pain and rates pain 0/10 in intensity. No aspirin or nitroglycerin administered en route. Patient here denies any chest discomfort and rates pain 0/10 in intensity. PFSH Past Medical History Narrative Medical CAD, CABG, CHF, ejection fraction 15%, COPD, diabetes, ischemic cardiomyopathy , and dyslipidemia; CABG, pacemaker defibrillator, cholecystectomy; no tobacco use; nursing notes reviewed Hx Anticoagulant Therapy: Yes (PLAVIX) Arthritis: Yes (left finger ) Asthma: No Atrial Fibrillation: Yes Autoimmune Disease: No Blood Disorders: No Anxiety: No Depression: No Heart Rhythm Problems: Yes Cancer: No Cardiac Catheterization: Yes Cardiovascular Problems: Yes High Cholesterol: Yes Chemotherapy: No Chest Pain: No Congestive Heart Failure: Yes COPD: Yes Cerebrovascular Accident: No Diabetes: Yes Patient Takes Glucophage: No Diminished Hearing: No Endocrine: Yes GERD: Yes Glaucoma: No Genitourinary: Yes Headaches: No Hepatitis: No Hiatal Hernia: No Heparin Induced Thrombocytopen: No Hypertension: Yes Immune Disorder: No Implanted Vascular Access Dvce: No Kidney Stones: No Musculoskeletal: Yes Neurologic: No Psychiatric: No Reproductive: No Respiratory: Yes (COPD) Integumentary: Yes (SMALL ULCER/WOUNDS COVERING WHOLE BODY "ITCHING FROM MY DIABETES" PER PT) Migraines: No Myocardial Infarction: Yes Radiation Therapy: No Renal Failure: Yes (Stage 3 kidney disease) Seizures: No Sickle Cell Disease: No Sleep Apnea: No Thyroid Disease: No Ulcer: No PNEUMOCCOCAL Vaccine (Year): 2 Past Surgical History Abdominal Surgery: Yes (CHOLECYSTECTOMY) Appendectomy: No Arteriovenous Shunt: No Cardiac Surgery: Yes (DEFIBRILLATOR PLACED ) Cholecystectomy: Yes Coronary Artery Bypass Graft: Yes Coronary Stent: Yes Ear Surgery: No Endocrine Surgery: No Eye Surgery: No Genitourinary Surgery: No Gynecologic Surgery: No Insulin Pump: No Joint Replacement: No Neurologic Surgery: No Oral Surgery: No Pacemaker: Yes (DEFIB MEDTRONIC) Thoracic Surgery: Yes (CABG) Other Surgery: Yes Social History Alcohol Use: No Tobacco Use: No (QUIT 2009) Substance Use: No Allergies-Medications (Allergen,Severity, Reaction): Coded Allergies: penicillin G (Verified Allergy, Unknown, SWELLING, 05/16/17) Reported Meds & Prescriptions Reported Meds & Active Scripts Active Coreg (Carvedilol) 12.5 Mg Tab 12.5 Mg PO Q12HR Ranexa ER 12 HR (Ranolazine) 500 Mg Tab 500 Mg PO Q12HR Flexeril (Cyclobenzaprine HCl) 10 Mg Tab 10 Mg PO Q8H PRN Novolog Inj (Insulin Aspart) 1,000 Unit/10 Ml Vial 0 SQ DIRECTED Sliding Scale as directed. Reported Lasix (Furosemide) 20 Mg Tab 20 Mg PO EVERY OTHER DAY Alternate with 40mg every other day Lasix (Furosemide) 40 Mg Tab 40 Mg PO EVERY OTHER DAY Alternate with 20mg every other day Omeprazole 20 Mg Tab 20 Mg PO DAILY Aspirin Adult Low Strength (Aspirin) 81 Mg Tabdr 81 Mg PO HS Tresiba Flextouch Pen Inj (Insulin Degludec Inj) 300 unit/3 ML Pen 120 Units SQ HS Ventolin Hfa 18 GM Inh (Albuterol Sulfate) 90 Mcg/Act Aer 2 Puff INH Q4-6H PRN Spiriva Handihaler (Tiotropium Inh) 18 Mcg Cap 18 Mcg INH DAILY 1 capsule = 18 mcg Simvastatin 40 Mg Tab 40 Mg PO HS Plavix (Clopidogrel Bisulfate) 75 Mg Tab 75 Mg PO HS Advair Diskus Inh (Fluticasone-Salmeterol Inh) 250-50 Mcg/Blist Aer 1 Puff INH BID Rinse mouth after use. Review of Systems Except as stated in HPI: all other systems reviewed are Neg General / Constitutional: No: Fever, Chills HENT: No: Congestion Cardiovascular: No: Chest Pain or Discomfort, Diaphoresis Respiratory: Positive: Cough, Shortness of Breath, Wheezing Gastrointestinal: No: Abdominal Pain Genitourinary: No: Dysuria Musculoskeletal: No: Limited ROM Skin: No Rash Neurologic: No: Weakness Psychiatric: Positive: Anxiety Hematologic/Lymphatic: No: Lymph Node Enlargement Physical Exam Narrative GENERAL: Well-developed well-nourished obese male in mild respiratory distress no accessory muscle use SKIN: Warm and dry. HEAD: Normocephalic. EYES: No scleral icterus. No injection or drainage. NECK: Supple, trachea midline. No JVD or lymphadenopathy. CARDIOVASCULAR: Regular rate and rhythm without murmurs, gallops, or rubs. RESPIRATORY: Breath sounds equal bilaterally diminished without rales or wheezing noted. No accessory muscle use. GASTROINTESTINAL: Abdomen soft, non-tender, nondistended. MUSCULOSKELETAL: No cyanosis, or edema. BACK: Nontender without obvious deformity. No CVA tenderness. Data Data Last Documented VS Vital Signs Date Time Temp Pulse Resp B/P (MAP) Pulse Ox O2 Delivery O2 Flow Rate FiO2 05/26/17 23:07 107 22 153/92 (112) 100 Aerosol Mask 05/26/17 22:55 98.8 Orders Orders Complete Blood Count With Diff (05/26/17 22:57) Comprehensive Metabolic Panel (05/26/17 22:57) B-Type Natriuretic Peptide (05/26/17 22:57) Act Partial Throm Time (Ptt) (05/26/17 22:57) Prothrombin Time / Inr (Pt) (05/26/17 22:57) Magnesium (Mg) (05/26/17 22:57) Ckmb (Isoenzyme) Profile (05/26/17 22:57) Troponin I (05/26/17 22:57) Urinalysis - C+S If Indicated (05/26/17 22:57) Blood Culture (05/26/17 22:57) Iv Access Insert/Monitor (05/26/17 22:57) Electrocardiogram (05/26/17 22:57) Ecg Monitoring (05/26/17 22:57) Oximetry (05/26/17 22:57) Oxygen Administration (05/26/17 22:57) Chest, Single Ap (05/26/17 22:57) Sodium Chloride 0.9% Flush (Ns Flush) (05/26/17 23:00) Methylprednisolone So Succ Inj (Solumedr (05/26/17 23:00) Albuterol-Ipratropium Neb (Duoneb Neb) (05/26/17 23:00) Aspirin Chew (Aspirin Chew) (05/27/17 09:00) Nitroglycerin 2% Oint (Nitroglycerin 2% (05/26/17 23:30) CKMB (05/26/17 23:05) CKMB% (05/26/17 23:05) Furosemide Inj (Lasix Inj) (05/27/17 01:00) Admit Order (Ed Use Only) (05/27/17 ) ^ Saline Lock (05/27/17 01:21) Resp Oxygen Buck C Titrat 1-4 L (05/27/17 ) Notify Dr: Other (05/27/17 01:21) Sodium Chloride 0.9% Flush (Ns Flush) (05/27/17 09:00) Sodium Chloride 0.9% Flush (Ns Flush) (05/27/17 01:30) Diet Heart Healthy (05/27/17 Breakfast) Activity Oob With Assistance (05/27/17 01:21) Vital Signs (Adult) GABRIELA.Q4H (05/27/17 01:21) Labs Laboratory Tests Test 05/26/17 23:05 White Blood Count 8.2 TH/MM3 Red Blood Count 5.26 MIL/MM3 Hemoglobin 13.7 GM/DL Hematocrit 42.7 % Mean Corpuscular Volume 81.2 FL Mean Corpuscular Hemoglobin 26.1 PG Mean Corpuscular Hemoglobin Concent 32.2 % Red Cell Distribution Width 18.3 % Platelet Count 210 TH/MM3 Mean Platelet Volume 11.1 FL Neutrophils (%) (Auto) 67.3 % Lymphocytes (%) (Auto) 22.8 % Monocytes (%) (Auto) 7.3 % Eosinophils (%) (Auto) 1.7 % Basophils (%) (Auto) 0.9 % Neutrophils # (Auto) 5.5 TH/MM3 Lymphocytes # (Auto) 1.9 TH/MM3 Monocytes # (Auto) 0.6 TH/MM3 Eosinophils # (Auto) 0.1 TH/MM3 Basophils # (Auto) 0.1 TH/MM3 CBC Comment DIFF FINAL Differential Comment Prothrombin Time 12.1 SEC Prothromb Time International Ratio 1.1 RATIO Activated Partial Thromboplast Time 30.0 SEC Blood Urea Nitrogen 26 MG/DL Creatinine 2.35 MG/DL Random Glucose 310 MG/DL Total Protein 8.0 GM/DL Albumin 3.7 GM/DL Calcium Level 8.5 MG/DL Magnesium Level 1.9 MG/DL Alkaline Phosphatase 75 U/L Aspartate Amino Transf (AST/SGOT) 22 U/L Alanine Aminotransferase (ALT/SGPT) 23 U/L Total Bilirubin 0.7 MG/DL Sodium Level 131 MEQ/L Potassium Level 4.3 MEQ/L Chloride Level 97 MEQ/L Carbon Dioxide Level 24.6 MEQ/L Anion Gap 9 MEQ/L Estimat Glomerular Filtration Rate 28 ML/MIN Total Creatine Kinase 321 U/L Creatine Kinase MB 5.0 NG/ML Creatine Kinase MB % 1.6 % Troponin I 0.18 NG/ML B-Type Natriuretic Peptide 1545 PG/ML MDM Medical Decision Making Medical Screen Exam Complete: Yes Emergency Medical Condition: Yes Medical Record Reviewed: Yes Interpretation(s) CBC & BMP Diagram 05/26/17 23:05 Total Protein 8.0, Albumin 3.7, Calcium Level 8.5, Magnesium Level 1.9, Alkaline Phosphatase 75, Aspartate Amino Transf (AST/SGOT) 22, Alanine Aminotransferase (ALT/SGPT) 23, Total Bilirubin 0.7 Vital Signs Date Time Temp Pulse Resp B/P (MAP) Pulse Ox O2 Delivery O2 Flow Rate FiO2 05/26/17 23:07 107 22 153/92 (112) 100 Aerosol Mask 05/26/17 23:07 100 Aerosol Mask 05/26/17 23:07 22 100 Aerosol Mask 05/26/17 22:55 98.8 112 22 174/108 (130) 100 EKG: Sinus tachycardia rate 112 QS anteroseptally in V1 with mild systemic depression laterally this is noted on prior EKGs CXR: FINDINGS: Pacemaker device is noted with control pack over the left chest. There is vascular congestion and diffuse interstitial prominence with alveolar edema and effusions present in the bases. Cardiac contours are grossly stable. CONCLUSION: Persistent or recurrent CHF Ruben Kahn MD on May 26, 2017 at 23:24 Board Certified Radiologist. This report was verified electronically. troponin i: 0.18, elevated; ck: 321, elevated; MB%^1.6% not elevated; BNP: 1535 elevated Differential Diagnosis Dyspnea, CHF, ACS, ND, COPD exacerbation, PE, pneumonia, pleural effusion, pericardial effusion Narrative Course patient placed on surveillance system monitor and pulse oximetry DuoNeb updraft 2 administered patient also received Solu-Medrol 125 mg with symptomatic improvement EKG sinus tachycardia with ST segment depression laterally and QS in V1 with poor R-wave progression anteriorly review of medical records indicates patient has had recent cardiac catheterization as of August 2016 and EKGs essentially unchanged Patient administered Lasix 40 mg IV in view of history of ischemic cardiomyopathy patient also administered Nitropaste 1 inch to chest wall Patient's cardiac enzymes elevated at 0.18 troponin with normal MB percent elevated BMP Patient admitted to [facility] discussed with Dr. Pollock recommends admission to Dr. Chong call placed to patient's skiver machine covering physician recommend additional Lasix in view of patient's renal function and history Patient clinically improved at bedside Patient aware of plan for admission to [facility] with consult to his skiver machine patient continues to deny any chest pain. Critical Care Narrative Aggregate critical care time was 35 minutes. Time to perform other separately billable procedures was not included in the critical care time. My time did not include minutes spent treating any other patients simultaneously or on activities that did not directly contribute to the patient's treatment. The services I provided to this patient were to treat and/or prevent clinically significant deterioration that could result in: Arrhythmia, respiratory failure , I provided critical care services requiring my management, as noted below: Chart data review, documentation time, medication orders and management, vital sign assessments/reviewing monitor data, ordering and reviewing lab tests, ordering and interpreting/reviewing x-rays and diagnostic studies, care of the patient and discussion of the patient with the admitting physicians. Physician Communication Physician Communication discussed with DR Anthony; Discussed with Dr Pittman Diagnosis Primary Impression: Acute systolic CHF (congestive heart failure) Additional Impressions: Elevated troponin NSTEMI (non-ST elevated myocardial infarction) CKD (chronic kidney disease) stage 3, GFR 30-59 ml/min Admitting Information Admitting Physician Requests: Admit Daily Maravilla MD May 27, 2017 01:30
[2017-05-27 03:35] LABS: BLOOD, URINE TRACE (NEG); COMMENT (UR) CULT NOT INDICATED; CULTURE IF INDICATED CULT NOT INDICATED; GLUCOSE,URINE 1000 mg/dL (NEG); KETONE, URINE NEG (NEG); MUCUS URINE FEW /lpf (OCC); NITRITE,URINE NEG (NEG); URINE COLOR YELLOW (YELLW/STRAW)
[2017-05-27] MEDS ORDERED: CHLORHEXIDINE GLUCONATE 2 % 1 PACK (2 CLOTHS)(extra cloths) TOPICAL PRN (06:45)
--- NOTE | 2017-05-27 08:16 | PD.CONS ---
HPI Service cardiology Consult Requested By Reason for Consult chf Primary Care Physician Lyndsey Barton MD History of Present Illness 62 yo WM with history of CABG, CAD, COPD, CHF, non-ischemic cardiomyopathy EF 30 %, CKD stg III and diabetes admitted for progressive SOB and lower extremity edema x 2-3 days. Mr. Gil has been hospitalized several times in the past year for CHF. Cardiac catheterization in Aug showed 3/4 grafts patent and small vessel disease not amenable to intervention. He has been maintained on lasix 40mg daily alternating with 20mg daily with an increase in dose to 40mg daily one week ago. He feels he was not urinating much in the past few days with increased SOB on exertion. No chest pain. Troponin are chronically elevated. Review of Systems Consitutional: COMPLAINS OF: Fatigue, Weight gain, DENIES: Fever, Chills, Weight loss Respiratory: DENIES: Cough, Snoring, Shortness of breath, Wheezing, Sputum production Cardiovascular: DENIES: Chest pain, Palpitations, Syncope, Tachycardia Gastrointestinal: DENIES: Nausea, Vomiting, Change in bowel habits, Reflux, Bloody stools Past Family Social History Allergies: Coded Allergies: penicillin G (Verified Allergy, Unknown, SWELLING, 05/16/17) Past Medical History Narrative Medical CAD, CABG, CHF, ejection fraction 15%, COPD, diabetes, ischemic cardiomyopathy , and dyslipidemia; CABG, pacemaker defibrillator, cholecystectomy; no tobacco use Past Surgical History Abdominal Surgery: Yes (CHOLECYSTECTOMY) Appendectomy: No Arteriovenous Shunt: No Cardiac Surgery: Yes (DEFIBRILLATOR PLACED ) Cholecystectomy: Yes Coronary Artery Bypass Graft: Yes Coronary Stent: Yes Reported Medications Reported Meds & Active Scripts Active Coreg (Carvedilol) 12.5 Mg Tab 12.5 Mg PO Q12HR Ranexa ER 12 HR (Ranolazine) 500 Mg Tab 500 Mg PO Q12HR Flexeril (Cyclobenzaprine HCl) 10 Mg Tab 10 Mg PO Q8H PRN Novolog Inj (Insulin Aspart) 1,000 Unit/10 Ml Vial 0 SQ DIRECTED Sliding Scale as directed. Reported Lasix (Furosemide) 20 Mg Tab 20 Mg PO EVERY OTHER DAY Alternate with 40mg every other day Lasix (Furosemide) 40 Mg Tab 40 Mg PO EVERY OTHER DAY Alternate with 20mg every other day Omeprazole 20 Mg Tab 20 Mg PO DAILY Aspirin Adult Low Strength (Aspirin) 81 Mg Tabdr 81 Mg PO HS Tresiba Flextouch Pen Inj (Insulin Degludec Inj) 300 unit/3 ML Pen 120 Units SQ HS Ventolin Hfa 18 GM Inh (Albuterol Sulfate) 90 Mcg/Act Aer 2 Puff INH Q4-6H PRN Spiriva Handihaler (Tiotropium Inh) 18 Mcg Cap 18 Mcg INH DAILY 1 capsule = 18 mcg Simvastatin 40 Mg Tab 40 Mg PO HS Plavix (Clopidogrel Bisulfate) 75 Mg Tab 75 Mg PO HS Advair Diskus Inh (Fluticasone-Salmeterol Inh) 250-50 Mcg/Blist Aer 1 Puff INH BID Rinse mouth after use. Active Ordered Medications Current Medications Medications (Trade) Dose Ordered Sig/Angel Route Start Time Stop Time Status Last Admin (Aspirin Chew) 162 mg DAILY CHEW 05/27/17 09:00 (NS Flush) 2 ml BID IV FLUSH 05/27/17 09:00 (NS Flush) 2 ml UNSCH PRN IVF 05/27/17 01:30 Miscellaneous Information Patient in critical care unit? Ass... [id number] .XX 05/27/17 06:45 (Chlorhexidine 2% Cloth) 3 pack DAILY@04 TOPICAL 05/28/17 04:00 06/01/17 04:01 (Chlorhexidine 2% Cloth) 3 pack UNSCH PRN TOPICAL 05/27/17 06:45 06/01/17 06:31 Family History non-contributory Social History Alcohol Use: No Tobacco Use: No (QUIT 2009) Substance Use: No Physical Exam Vital Signs Vital Signs Date Time Temp Pulse Resp B/P (MAP) Pulse Ox O2 Delivery O2 Flow Rate FiO2 05/27/17 07:32 94 Nasal Cannula 2.00 05/27/17 06:15 97.7 67 20 138/82 (100) 96 05/27/17 05:25 102 18 125/72 (89) 100 Nasal Cannula 3.00 05/27/17 05:16 98 Nasal Cannula 3.00 05/27/17 03:00 105 26 146/84 (104) 98 Nasal Cannula 3.00 05/27/17 02:15 104 22 140/82 (101) 92 Room Air 05/26/17 23:07 107 22 153/92 (112) 100 Aerosol Mask 05/26/17 23:07 100 Aerosol Mask 05/26/17 23:07 22 100 Aerosol Mask 05/26/17 22:55 98.8 112 22 174/108 (130) 100 Physical Exam HEAD: Atraumatic. Normocephalic. EYES: Pupils equal and round. No scleral icterus. No injection or drainage. ENT: No nasal bleeding or discharge. Mucous membranes pink and moist. NECK: Trachea midline. No JVD. CARDIOVASCULAR: Regular rate and rhythm. No murmur RESPIRATORY: No accessory muscle use. Clear to auscultation. Breath sounds equal bilaterally. GASTROINTESTINAL: Abdomen soft, non-tender, nondistended. Hepatic and splenic margins not palpable. MUSCULOSKELETAL: Extremities without clubbing, cyanosis, No obvious deformities. 2+ lower leg edema NEUROLOGICAL: Awake and alert. No obvious cranial nerve deficits. . Normal speech. PSYCHIATRIC: Appropriate mood and affect; insight and judgment normal. Laboratory Laboratory Tests Test 05/26/17 23:05 05/27/17 03:15 White Blood Count 8.2 Red Blood Count 5.26 Hemoglobin 13.7 Hematocrit 42.7 Mean Corpuscular Volume 81.2 Mean Corpuscular Hemoglobin 26.1 Mean Corpuscular Hemoglobin Concent 32.2 Red Cell Distribution Width 18.3 Platelet Count 210 Mean Platelet Volume 11.1 Neutrophils (%) (Auto) 67.3 Lymphocytes (%) (Auto) 22.8 Monocytes (%) (Auto) 7.3 Eosinophils (%) (Auto) 1.7 Basophils (%) (Auto) 0.9 Neutrophils # (Auto) 5.5 Lymphocytes # (Auto) 1.9 Monocytes # (Auto) 0.6 Eosinophils # (Auto) 0.1 Basophils # (Auto) 0.1 CBC Comment DIFF FINAL Differential Comment Prothrombin Time 12.1 Prothromb Time International Ratio 1.1 Activated Partial Thromboplast Time 30.0 Blood Urea Nitrogen 26 Creatinine 2.35 Random Glucose 310 Total Protein 8.0 Albumin 3.7 Calcium Level 8.5 Magnesium Level 1.9 Alkaline Phosphatase 75 Aspartate Amino Transf (AST/SGOT) 22 Alanine Aminotransferase (ALT/SGPT) 23 Total Bilirubin 0.7 Sodium Level 131 Potassium Level 4.3 Chloride Level 97 Carbon Dioxide Level 24.6 Anion Gap 9 Estimat Glomerular Filtration Rate 28 Total Creatine Kinase 321 Creatine Kinase MB 5.0 Creatine Kinase MB % 1.6 Troponin I 0.18 B-Type Natriuretic Peptide 1545 Urine Color YELLOW Urine Turbidity CLEAR Urine pH 6.0 Urine Specific [place] 1.006 Urine Protein 100 Urine Glucose (UA) 1000 Urine Ketones NEG Urine Occult Blood TRACE Urine Nitrite NEG Urine Bilirubin NEG Urine Urobilinogen LESS THAN 2.0 Urine Leukocyte Esterase NEG Urine RBC 3 Urine WBC LESS THAN 1 Urine Mucus FEW Microscopic Urinalysis Comment CULT NOT INDICATED Date/Time Source Procedure Growth Status 05/26/17 23:10 Blood Peripheral Aerobic Blood Culture Pending Received 05/26/17 23:10 Blood Peripheral Anaerobic Blood Culture Pending Received Result Diagram: 05/26/17 2305 05/26/17 230 Imaging Last 24 hours Impressions Chest X-Ray 05/26/17 0934 Signed Impressions: Service Date/Time: Friday, May 26, 2017 23:05 - CONCLUSION: Persistent or recurrent CHF Ruben Kahn MD Assessment and Plan Problem List: (1) CHF (congestive heart failure) ICD Codes: I50.9 - Heart failure, unspecified (2) Shortness of breath ICD Codes: R06.02 - Shortness of breath Status: Chronic Assessment and Plan 62 yo WM with non-ischemic cardiomyopathy EF 30% s/p ICD, chronic CHF, CABG, CKD and diabetes. Cardiac cath Aug 2016 2/3 patent grafts and small vessel disease not amenable to intervention. He has had multiple hospitalizations for CHF exacerbation. CHF- non-ischemic cardiomyopathy, start lasix 80mg IV BID. cont coreg, add lisinopril 5mg daily. Due to CKD monitor creatinine closely, check BMP tomorrow. consider referral to [facility] for transplant consult Agata Yao May 27, 2017 08:16
[2017-05-27] MEDS: FUROSEMIDE 40 MG/4 ML VIAL IV PUSH SCH ×2 (08:34→17:55)
[2017-05-27] MEDS: SODIUM CHLORIDE 0.9% FLUSH 10 ML FLUSH IV FLUSH SCH ×2 (09:00→21:00)
[2017-05-27] MEDS ORDERED: ASPIRIN 81 MG CHEW TAB CHEW SCH (09:00)
--- NOTE | 2017-05-27 09:56 | HHI.HP ---
HPI Service [facility] Hospitalists Primary Care Physician Lyndsey Barton MD Admission Diagnosis CHF;elevated troponin I/nstemi Chief Complaint: SOB Travel History International Travel<30 Days: No Contact w/Intl Traveler <30 Da: No Traveled to Known Affected Are: No History of Present Illness Mr. Gil is a pleasant 62 y/o WM with CAD/hx of [place] s/p CABG in 2009, CKD stage 3, COPD, CHF/Cardiomyopathy with EF 15-20% s/p AICD placement on 12/19/16, hypertension, and Diabetes. Pt presented to the ED on 05/26/17 with complaints of progressive SOB and lower extremity edema x 2-3 days. The pt has been hospitalized several times in the past year for CHF, most recently was in 2016. At that time his Coreg was increased to 12.5mg po BID. He has been taking maintained on Lasix 40mg daily alternating with 20mg daily. Cardiac catheterization in August 2016 noted severe [place] three-vessel coronary disease, 3 of 4 coronary bypass grafts are patent and small vessel disease not amenable to intervention. Over the last few days he has felt that his legs have been more swollen, had dyspnea on exertion, and orthopnea. He feels he was not urinating much in the past few days with increased SOB on exertion. Pt increased his Lasix dose to 40mg po daily for a few days prior to admission but did not feel like he was getting any improvement. He denies any chest pain. He felt like he was having trouble urinating prior to admission as well. In the ER pt was given DuoNeb treatment 2 and Solu-Medrol 125 mg with symptomatic improvement. EKG sinus tachycardia with ST segment depression laterally and QS in V1 with poor R-wave progression anteriorly and EKG is essentially unchanged. Patient was also given Lasix 40 mg IV and Nitropaste 1 inch to chest wall. Patient's cardiac enzymes elevated at 0.18 troponin with normal MB percent but troponin are chronically elevated. Pt had elevated BNP to 1545 at admission. Review of Systems Constitutional: DENIES: Fever, Chills Respiratory: COMPLAINS OF: Shortness of breath Cardiovascular: COMPLAINS OF: Dyspnea on Exertion, Lower Extremity Edema, DENIES: Chest pain, Palpitations Gastrointestinal: DENIES: Abdominal pain, Diarrhea, Nausea, Vomiting Genitourinary: COMPLAINS OF: Dysuria, DENIES: Urinary frequency, Hematuria, Nocturia Musculoskeletal: DENIES: Back pain, Neck pain Neurologic: DENIES: Headache Psychiatric: DENIES: Confusion Past Family Social History Past Medical History Diabetes CAD Systolic CHF Cardiomyopathy with EF 15-20% in 10/2016 PAD HTN Hyperlipidemia GERD CKD, stage 3 Hx paroxysmal VT BENITES with bridging fibrosis COPD Past Surgical History Single chamber defibrillator implantation on 12/19/[address] Razo [facility] (08/28/16) --> severe [place] three-vessel coronary disease, 3 of 4 coronary bypass grafts are patent CABG x 4 in 2009 Angioplasty right iliac artery Cholecystectomy Repair of ruptured Achilles tendon Back surgery Reported Medications -Coreg 12.5 Mg PO Q12HR -Ranexa ER 12 HR 500 Mg PO Q12HR -Flexeril 10 Mg PO Q8H PRN -Novolog Inj (Insulin Aspart) 1,000 Unit/10 Ml Vial 0 SQ DIRECTED Sliding Scale as directed. -Lasix 20 Mg PO every other day, Alternate with 40mg every other day -Omeprazole 20 Mg PO DAILY -Aspirin 81 Mg PO HS -Tresiba Flextouch Pen Inj (Insulin Degludec Inj) 300 unit/3 ML Pen 120 Units SQ HS -Ventolin Hfa 18 GM Inh (Albuterol Sulfate) 90 Mcg/Act Aer 2 Puff INH Q4-6H PRN -Spiriva Handihaler (Tiotropium Inh) 18 Mcg INH DAILY -Simvastatin 40 Mg PO HS -Plavix 75 Mg PO HS -Advair Diskus Inh 250-50 Mcg/Blist Aer 1 Puff INH BID Allergies: Coded Allergies: penicillin G (Verified Allergy, Unknown, SWELLING, 05/16/17) Family History Father with CAD, diabetes, lung cancer Mother with MS Social History (+)Hx of tobacco use, smoked 1.5ppd from age 24 to 55, quit in 2009 Denies any alcohol or illicit drug use Physical Exam Vital Signs Vital Signs Date Time Temp Pulse Resp B/P (MAP) Pulse Ox O2 Delivery O2 Flow Rate FiO2 05/27/17 07:32 94 Nasal Cannula 2.00 05/27/17 06:15 97.7 67 20 138/82 (100) 96 05/27/17 05:25 102 18 125/72 (89) 100 Nasal Cannula 3.00 05/27/17 05:16 98 Nasal Cannula 3.00 05/27/17 03:00 105 26 146/84 (104) 98 Nasal Cannula 3.00 05/27/17 02:15 104 22 140/82 (101) 92 Room Air 05/26/17 23:07 107 22 153/92 (112) 100 Aerosol Mask 05/26/17 23:07 100 Aerosol Mask 05/26/17 23:07 22 100 Aerosol Mask 05/26/17 22:55 98.8 112 22 174/108 (130) 100 Physical Exam GENERAL: This is a well-nourished, well-developed patient, in no apparent distress. SKIN: Multiple scabbed over areas on the chest, shoulders, UE and LE HEENT: Atraumatic. Normocephalic. No temporal or scalp tenderness. No scleral icterus.Airway patent. NECK: Trachea midline, supple, nontender. CARDIO: Regular. RESP: Good air movement throughout, no wheezing or crackles noted. ABD: +BS, soft, non-tender, nondistended. EXT: Bilateral LE pitting edema, venous stasis skin changes to bilateral feet NEURO: Awake and alert. Motor and sensory grossly within normal limits. Normal speech. Laboratory Laboratory Tests Test 05/26/17 23:05 05/27/17 03:15 White Blood Count 8.2 Red Blood Count 5.26 Hemoglobin 13.7 Hematocrit 42.7 Mean Corpuscular Volume 81.2 Mean Corpuscular Hemoglobin 26.1 Mean Corpuscular Hemoglobin Concent 32.2 Red Cell Distribution Width 18.3 Platelet Count 210 Mean Platelet Volume 11.1 Neutrophils (%) (Auto) 67.3 Lymphocytes (%) (Auto) 22.8 Monocytes (%) (Auto) 7.3 Eosinophils (%) (Auto) 1.7 Basophils (%) (Auto) 0.9 Neutrophils # (Auto) 5.5 Lymphocytes # (Auto) 1.9 Monocytes # (Auto) 0.6 Eosinophils # (Auto) 0.1 Basophils # (Auto) 0.1 CBC Comment DIFF FINAL Differential Comment Prothrombin Time 12.1 Prothromb Time International Ratio 1.1 Activated Partial Thromboplast Time 30.0 Blood Urea Nitrogen 26 Creatinine 2.35 Random Glucose 310 Total Protein 8.0 Albumin 3.7 Calcium Level 8.5 Magnesium Level 1.9 Alkaline Phosphatase 75 Aspartate Amino Transf (AST/SGOT) 22 Alanine Aminotransferase (ALT/SGPT) 23 Total Bilirubin 0.7 Sodium Level 131 Potassium Level 4.3 Chloride Level 97 Carbon Dioxide Level 24.6 Anion Gap 9 Estimat Glomerular Filtration Rate 28 Total Creatine Kinase 321 Creatine Kinase MB 5.0 Creatine Kinase MB % 1.6 Troponin I 0.18 B-Type Natriuretic Peptide 1545 Urine Color YELLOW Urine Turbidity CLEAR Urine pH 6.0 Urine Specific [place] 1.006 Urine Protein 100 Urine Glucose (UA) 1000 Urine Ketones NEG Urine Occult Blood TRACE Urine Nitrite NEG Urine Bilirubin NEG Urine Urobilinogen LESS THAN 2.0 Urine Leukocyte Esterase NEG Urine RBC 3 Urine WBC LESS THAN 1 Urine Mucus FEW Microscopic Urinalysis Comment CULT NOT INDICATED Date/Time Source Procedure Growth Status 05/26/17 23:10 Blood Peripheral Aerobic Blood Culture Pending Received 05/26/17 23:10 Blood Peripheral Anaerobic Blood Culture Pending Received Result Diagram: 05/26/17230405/26/172304 Imaging Last Impressions Chest X-Ray 05/26/172256 Signed Impressions: Service Date/Time: Friday, May 26, 2017 23:05 - CONCLUSION: Persistent or recurrent CHF Ruben Kahn MD Septic Shock Reassessment Heart: Regular rate and rhythm Lungs: Clear Skin: Warm Caprini VTE Risk Assessment Caprini VTE Risk Assessment: Mod/High Risk (score >= 2) Caprini Risk Assessment Model Point Value = 1 Point Value = 2 Point Value = 3 Point Value = 5 Age 41-60 Minor surgery BMI > 25 kg/m2 Swollen legs Varicose veins or History of unexplained or recurrent spontaneous Oral contraceptives or hormone replacement Sepsis (< 1 month) Serious lung disease, including pneumonia (< 1 month) Abnormal pulmonary function Acute myocardial infarction Congestive heart failure (< 1 month) History of inflammatory bowel disease Medical patient at bed rest Age 61-74 Arthroscopic surgery Major open surgery (> 45 min) Laparoscopic surgery (> 45 min) Malignancy Confined to bed (> 72 hours) Immobilizing plaster cast Central venous access Age >= 75 History of VTE Family history of VTE Factor V Leiden Prothrombin [id number] Lupus anticoagulant Anticardiolipin antibodies Elevated serum homocysteine Heparin-induced thrombocytopenia Other congenital or acquired thrombophilia Stroke (< 1 month) Elective arthroplasty Hip, pelvis, or leg fracture Acute spinal cord injury (< 1 month) Prophylaxis Regimen Total Risk Factor Score Risk Level Prophylaxis Regimen 0-1 Low Early ambulation 2 Moderate Order ONE of the following: *Sequential Compression Device (SCD) *Heparin 5000 units SQ BID 3-4 Higher Order ONE of the following medications: *Heparin 5000 units SQ TID *Enoxaparin/Lovenox 40 mg SQ daily (WT < 150 kg, CrCl > 30 mL/min) *Enoxaparin/Lovenox 30 mg SQ daily (WT < 150 kg, CrCl > 10-29 mL/min) *Enoxaparin/Lovenox 30 mg SQ BID (WT < 150 kg, CrCl > 30 mL/min) AND/OR *Sequential Compression Device (SCD) 5 or more Highest Order ONE of the following medications: *Heparin 5000 units SQ TID (Preferred with Epidurals) *Enoxaparin/Lovenox 40 mg SQ daily (WT < 150 kg, CrCl > 30 mL/min) *Enoxaparin/Lovenox 30 mg SQ daily (WT < 150 kg, CrCl > 10-29 mL/min) *Enoxaparin/Lovenox 30 mg SQ BID (WT < 150 kg, CrCl > 30 mL/min) AND *Sequential Compression Device (SCD) Assessment and Plan Problem List: (1) CHF (congestive heart failure) ICD Codes: I50.9 - Heart failure, unspecified Plan: - Pt is a 62 y/o WM with CAD/hx of [place], Systolic CHF/Cardiomyopathy with EF 15-20 % s/p AICD placement on 12/19/16, hypertension, and diabetes. - Pt presented with increased SOB, LE edema, orthopnea for several days. - Pt takes alternating doses of Lasix 20mg and 40mg but over the last few days he has been taking Lasix 40mg daily but was not getting much relief. - In the ED Chest x-ray noted persistent or recurrent CHF - Pt was given IV Lasix, Solu-Medrol and Duonebs in the ED with clinical improvement. - Cardiology was consulted and pt will be continued on Lasix 40mg IV BID - Resumed on BB/MIO/Statin/ASA/Plavix - Pts creatinine 2.35 at admission - Repeat BMP today and monitor daily during diuresis - Wean down supplemental O2 - Resumed on his home COPD meds as well. - Duonebs scheduled BID and PRN - CE at admission slightly elevated with Troponin 0.18 but troponin is chronically elevated, likely associated with underlying cardiomyopathy, renal insufficiency - PT evaluation - Supportive care - Ok to transfer out of ICU to Med/Surg floor with telemetry (2) Ischemic cardiomyopathy ICD Codes: I25.5 - Ischemic cardiomyopathy Status: Chronic Plan: - See above. (3) COPD (chronic obstructive pulmonary disease) ICD Codes: J44.9 - Chronic obstructive pulmonary disease, unspecified Status: Chronic Plan: - Resume home meds - Duonebs scheduled BID and PRN - Pt is not having any wheezing on examination (4) Chronic kidney disease (CKD) stage G3b/A2, moderately decreased glomerular filtration rate (GFR) between 30-44 mL/min/1.73 square meter and albuminuria creatinine ratio between 30-299 mg/g ICD Codes: N18.3 - Chronic kidney disease (CKD) stage G3b/A2, moderately decreased glomerular filtration rate (GFR) between 30-44 mL/min/1.73 square meter and albuminuria creatinine ratio between 30-299 mg/g Status: Chronic Plan: - Monitor labs closely during diuresis (5) CAD (coronary artery disease) of artery bypass graft ICD Codes: I25.810 - CAD (coronary artery disease) of artery bypass graft Status: Chronic Plan: - See above. (6) HTN (hypertension) ICD Codes: I10 - HTN (hypertension) Status: Chronic Plan: - Cont. home meds - Monitor (7) Elevated troponin ICD Codes: R74.8 - Abnormal levels of other serum enzymes Status: Chronic Plan: - Chronic elevation - See above. (8) GERD (gastroesophageal reflux disease) ICD Codes: K21.9 - GERD (gastroesophageal reflux disease) Status: Chronic (9) S/P ICD (internal cardiac defibrillator) procedure ICD Codes: Z95.810 - Presence of automatic (implantable) cardiac defibrillator Status: Acute Assessment and Plan Patient examined. Assessment and plan formulated with Dian Louie PA-C. I agree with the above. Physician Certification 2 Midnight Certification Type: Admission for Inpatient Services Order for Inpatient Services The services are ordered in accordance with Medicare regulations or non- Medicare payer requirements, as applicable. In the case of services not specified as inpatient-only, they are appropriately provided as inpatient services in accordance with the 2-midnight benchmark. Estimated LOS (days): 3 3 days is the estimated time the patient will need to remain in the hospital, assuming treatment plan goals are met and no additional complications. Post-Hospital Plan: Not yet determined Problem Qualifiers (1) CHF (congestive heart failure): Qualified Codes: I50.23 - Acute on chronic systolic (congestive) heart failure Dian Louie May 27, 2017 09:56 Jorge Alberto Chong DO May 31, 2017 23:58
--- NOTE | 2017-05-27 10:10 | EKG ---
Date Performed: 05/26/2017 Time Performed: 23:00:46 PTAGE: 62 years EKG: SINUS TACHYCARDIA POSSIBLE ANTERIOR MYOCARDIAL INFARCTION MODERATE T-WAVE ABNORMALITY, CONS IDER LATERAL ISCHEMIA ABNORMAL ECG Compared to prior tracing no significant change DOCTOR: Maikel Pittman Interpretating Date/Time 05/27/2017 10:07:12
[2017-05-27] MEDS ORDERED: RESP: ALBUTEROL 2.5 MG/IPRATROPIUM 0.5 MG NEB (PRN) NEB (10:15)
[2017-05-27] MEDS: CARVEDILOL 12.5 MG TAB PO SCH ×2 (10:45→21:16)
[2017-05-27] MEDS: RANOLAZINE 500 MG EXTENDED RELEASE TAB PO SCH ×2 (11:00→21:15)
[2017-05-27] MEDS: TIOTROPIUM BROMIDE 18 MCG INH INH SCH (11:00)
[2017-05-27] MEDS ORDERED: DEXTROSE 50% IN WATER 50 ML VIAL(D50) IV PUSH PRN (11:00)
[2017-05-27] MEDS ORDERED: GLUCAGON 1 MG/ML VIAL OTHER PRN (11:00)
[2017-05-27] MEDS ORDERED: INSULIN ASPART SUPPLEMENTAL SCALE SQ SCH (12:00)
[2017-05-27] MEDS: BUDESONIDE-FORMOTEROL 160/4.5 MCG INHALER INH SCH ×2 (12:00→21:00)
[2017-05-27] MEDS: PANTOPRAZOLE SOD 20 MG DELAYED RELEASE TAB PO SCH (12:16)
[2017-05-27 13:32] LABS: POTASSIUM 4.4 MEQ/L (3.5-5.1)
[2017-05-27] MEDS: INSULIN ASPART SUPPLEMENTAL SCALE SQ SCH ×2 (17:00→21:00)
[2017-05-27] MEDS: RESP: ALBUTEROL 2.5 MG/IPRATROPIUM 0.5 MG NEB (SCH) NEB (20:18)
[2017-05-27] MEDS: INSULIN DETEMIR 100 UNITS/ML VIAL SQ SCH (21:00)
[2017-05-27] MEDS ORDERED: INSULIN DETEMIR 100 UNITS/ML VIAL SQ SCH (21:00)
[2017-05-27] MEDS: CLOPIDOGREL 75 MG TAB PO SCH (21:16)
[2017-05-27] MEDS: PRAVASTATIN SOD 80 MG TAB PO SCH (21:16)
[2017-05-28] VITALS (24 sets, daily range): BP systolic 103–156; BP diastolic 56–95; PULSE 80–93; RESP 14–25; TEMP 97.1–98.7; O2SAT 96–100
[2017-05-28] MEDS: CHLORHEXIDINE GLUCONATE 2 % 1 PACK (2 CLOTHS)(taper/protocol) TOPICAL SCH (04:00)
--- NOTE | 2017-05-28 04:26 | RADRPT ---
EXAM DATE/TIME: 05/28/2017 03:17 [place] COMPARISON: CHEST SINGLE AP, May 26, 2017, 23:05. INDICATIONS : Shortness of breath. MEDICAL HISTORY : Congestive heart failure. SURGICAL HISTORY : Pacemaker. CABG. ENCOUNTER: Subsequent ACUITY: 3 days PAIN SCORE: Non-responsive. LOCATION: Bilateral chest FINDINGS: Pacemaker device is noted with control pack over the left chest. There has been improvement in aerati on with decrease in confluence of bilateral infiltrates. Heart size is borderline. Mediastinal contou rs are satisfactory. Sternotomy wires are present. CONCLUSION: Improving aeration Ruben Kahn MD on May 28, 2017 at 4:24 Board Certified Radiologist. This report was verified electronically.
[2017-05-28 06:14] LABS: BICARBONATE 27.7 MEQ/L (21.0-32.0); POTASSIUM 3.7 MEQ/L (3.5-5.1)
[2017-05-28] MEDS ORDERED: DEXTROSE 50% IN WATER 50 ML SYRINGE ONE (06:27)
--- NOTE | 2017-05-28 07:49 | PD.CARD.PN ---
Subjective Subjective Remarks breathing and leg edema improving. no chest pain Objective Medications Current Medications Medications (Trade) Dose Ordered Sig/Angel Route Start Time Stop Time Status Last Admin (NS Flush) 2 ml BID IV FLUSH 05/27/17 09:00 05/27/17 21:00 (NS Flush) 2 ml UNSCH PRN IVF 05/27/17 01:30 Miscellaneous Information Patient in critical care unit? Ass... Q361D .XX 05/27/17 06:45 (Chlorhexidine 2% Cloth) 3 pack DAILY@04 TOPICAL 05/28/17 04:00 06/01/17 04:01 05/28/17 04:00 (Chlorhexidine 2% Cloth) 3 pack UNSCH PRN TOPICAL 05/27/17 06:45 06/01/17 06:31 (Lasix Inj) 40 mg BID@09,18 IV PUSH 05/27/17 09:00 05/27/17 17:55 (Ecotrin Ec) 81 mg HS PO 05/28/17 21:00 (Coreg) 12.5 mg Q12HR PO 05/27/17 10:45 05/27/17 21:16 (Plavix) 75 mg HS PO 05/27/17 21:00 05/27/17 21:16 (Ranexa) 500 mg Q12HR PO 05/27/17 11:00 05/27/17 21:15 (Spiriva Inh) 18 mcg DAILY INH 05/27/17 11:00 (Symbicort 160-4.5 Inh) 2 puff BID INH 05/27/17 12:00 (Protonix) 20 mg DAILY PO 05/27/17 10:45 05/27/17 12:16 (Pravachol) 80 mg HS PO 05/27/17 21:00 05/27/17 21:16 (Duoneb Neb) 1 ampule Q6HR NEB PRN NEB 05/27/17 10:15 05/27/17 11:39 (D50w (Vial) Inj) 50 ml UNSCH PRN IV PUSH 05/27/17 11:00 (Glucagon Inj) 1 mg UNSCH PRN OTHER 05/27/17 11:00 (Duoneb Neb) 1 ampule BID NEB NEB 05/27/17 20:00 05/27/17 20:18 (Levemir Inj) 7 units BID SQ 05/27/17 21:00 05/27/17 21:00 (NovoLOG SUPPLEMENTAL SCALE) 1 ACHS SLIDING SCALE SQ 05/27/17 17:00 05/27/17 21:00 Vital Signs / I&O Vital Signs Date Time Temp Pulse Resp B/P (MAP) Pulse Ox O2 Delivery O2 Flow Rate FiO2 05/28/17 06:00 81 05/28/17 04:00 98.7 80 19 114/58 (76) 97 05/28/17 04:00 80 05/28/17 02:00 83 05/28/17 00:00 85 05/28/17 00:00 98.5 85 14 114/67 (83) 96 05/27/17 22:00 89 05/27/17 20:18 99 Nasal Cannula 2.00 05/27/17 20:00 98.1 105 19 112/66 (81) 98 05/27/17 20:00 105 05/27/17 18:00 94 05/27/17 16:00 94 05/27/17 15:00 98.0 103 16 125/92 (103) 95 05/27/17 14:00 94 05/27/17 12:00 94 05/27/17 11:00 101 16 124/65 (84) 95 05/27/17 10:00 94 05/27/17 08:00 96 I/O 05/27/17 05/27/17 05/27/17 05/28/17 05/28/17 05/28/17 07:00 15:00 23:00 07:00 15:00 23:00 Intake Total 480 ml 480 ml Output Total 800 ml 700 ml Balance -800 ml -220 ml 480 ml Intake Oral 480 ml 480 ml Output Urine Total 800 ml 700 ml # Voids 4 # Bowel Movements 0 Physical Exam GENERAL: SKIN: Warm and dry. HEAD: Atraumatic. Normocephalic. EYES: Pupils equal and round. No scleral icterus. No injection or drainage. ENT: No nasal bleeding or discharge. Mucous membranes pink and moist. NECK: Trachea midline. No JVD. CARDIOVASCULAR: Regular rate and rhythm. RESPIRATORY: No accessory muscle use. Clear to auscultation. diminished breath sounds at bilateral bases GASTROINTESTINAL: Abdomen soft, non-tender, nondistended. Hepatic and splenic margins not palpable. MUSCULOSKELETAL: Extremities without clubbing, cyanosis. No obvious deformities. lower leg edema 1+ bilaterally NEUROLOGICAL: Awake and alert. No obvious cranial nerve deficits. Normal speech. PSYCHIATRIC: Appropriate mood and affect; insight and judgment normal. Laboratory Laboratory Tests Test 05/27/17 12:22 05/28/17 04:25 Blood Urea Nitrogen 29 MG/DL 33 MG/DL Creatinine 2.35 MG/DL 2.14 MG/DL Random Glucose 440 MG/DL 49 MG/DL Calcium Level 9.0 MG/DL 9.0 MG/DL Sodium Level 131 MEQ/L 136 MEQ/L Potassium Level 4.4 MEQ/L 3.7 MEQ/L Chloride Level 95 MEQ/L 98 MEQ/L Carbon Dioxide Level 26.0 MEQ/L 27.7 MEQ/L Anion Gap 10 MEQ/L 10 MEQ/L Estimat Glomerular Filtration Rate 28 ML/MIN 32 ML/MIN Imaging Last 24 hours Impressions Chest X-Ray 05/28/17 0600 Signed Impressions: Service Date/Time: Sunday, May 28, 2017 03:17 - CONCLUSION: Improving aeration Ruben Kahn MD Assessment and Plan Problem List: (1) CHF (congestive heart failure) ICD Codes: I50.9 - Heart failure, unspecified (2) Shortness of breath ICD Codes: R06.02 - Shortness of breath Status: Chronic Assessment and Plan 62 yo WM with non-ischemic cardiomyopathy EF 30% s/p ICD, chronic CHF, CABG, CKD and diabetes. Cardiac cath Aug 2016 2/3 patent grafts and small vessel disease not amenable to intervention. He has had multiple hospitalizations for CHF exacerbation. CHF- non-ischemic cardiomyopathy, diuresing well with improved breathing and edema. Continue IV lasix, Ranexa and coreg. creatinine shows slight improvement. due to CKD monitor I's/O's closely. consider referral to [facility] for transplant consult Problem Qualifiers (1) CHF (congestive heart failure): Qualified Codes: I50.23 - Acute on chronic systolic (congestive) heart failure Agata Yao May 28, 2017 07:49
[2017-05-28] MEDS: RESP: ALBUTEROL 2.5 MG/IPRATROPIUM 0.5 MG NEB (SCH) NEB ×2 (07:57→20:42)
[2017-05-28] MEDS: INSULIN ASPART SUPPLEMENTAL SCALE SQ SCH ×4 (08:00→21:00)
[2017-05-28] MEDS: RANOLAZINE 500 MG EXTENDED RELEASE TAB PO SCH ×2 (08:15→21:00)
[2017-05-28] MEDS: FUROSEMIDE 40 MG/4 ML VIAL IV PUSH SCH ×2 (08:15→18:00)
[2017-05-28] MEDS: CARVEDILOL 12.5 MG TAB PO SCH ×2 (08:15→21:00)
[2017-05-28] MEDS: PANTOPRAZOLE SOD 20 MG DELAYED RELEASE TAB PO SCH (08:15)
[2017-05-28] MEDS: TIOTROPIUM BROMIDE 18 MCG INH INH SCH (08:16)
[2017-05-28] MEDS: SODIUM CHLORIDE 0.9% FLUSH 10 ML FLUSH IV FLUSH SCH ×2 (08:16→21:00)
[2017-05-28] MEDS: BUDESONIDE-FORMOTEROL 160/4.5 MCG INHALER INH SCH ×2 (08:16→21:00)
[2017-05-28] MEDS: INSULIN DETEMIR 100 UNITS/ML VIAL SQ SCH ×2 (09:00→21:00)
--- NOTE | 2017-05-28 14:50 | EKG ---
Date Performed: 05/28/2017 Time Performed: 08:08:14 PTAGE: 62 years EKG: Sinus rhythm with 1st degree A-V block Lead(s) unsuitable for analysis: V6 Cannot rule out anteroseptal infarct - age undetermined Left ventricular hypertrophy Inferior/lateral ST-T changes may be due to hypertroph y and/or ischemia Abnormal ECG Compared to the PREVIOUS TRACING , no significant change DOCTOR: Bear Caballero Interpretating Date/Time 05/28/2017 14:48:50
[2017-05-28] MEDS: LISINOPRIL 5 MG TAB PO SCH (15:33)
--- NOTE | 2017-05-28 18:07 | HHI.PR ---
Subjective Remarks No new complaints. SOB improved from admission. Objective Vitals Vital Signs Date Time Temp Pulse Resp B/P (MAP) Pulse Ox O2 Delivery O2 Flow Rate FiO2 05/28/17 17:00 88 05/28/17 16:15 100 Nasal Cannula 2.00 05/28/17 16:00 87 05/28/17 15:01 86 05/28/17 15:00 86 05/28/17 14:00 83 05/28/17 13:01 83 05/28/17 13:01 83 14 107/70 (82) 100 05/28/17 13:01 83 05/28/17 13:00 83 14 100 05/28/17 13:00 83 05/28/17 13:00 83 05/28/17 12:00 84 05/28/17 12:00 97.1 05/28/17 12:00 84 05/28/17 12:00 84 14 156/95 (115) 100 05/28/17 11:00 83 17 119/78 (92) 100 05/28/17 11:00 83 05/28/17 10:00 86 24 116/56 (76) 05/28/17 10:00 86 05/28/17 09:00 92 21 119/71 (87) 99 05/28/17 08:00 85 05/28/17 08:00 86 19 109/67 (81) 100 05/28/17 08:00 97.9 05/28/17 07:53 100 Nasal Cannula 3.00 05/28/17 06:00 81 05/28/17 04:00 98.7 80 19 114/58 (76) 97 05/28/17 04:00 80 05/28/17 02:00 83 05/28/17 00:00 85 05/28/17 00:00 98.5 85 14 114/67 (83) 96 05/27/17 22:00 89 05/27/17 20:18 99 Nasal Cannula 2.00 05/27/17 20:00 98.1 105 19 112/66 (81) 98 05/27/17 20:00 105 Result Diagram: 05/26/17 2307 05/28/17 0425 Imaging Last Impressions Chest X-Ray 05/28/17 0600 Signed Impressions: Service Date/Time: Sunday, May 28, 2017 03:17 - CONCLUSION: Improving aeration Ruben Kahn MD A/P Problem List: (1) CHF (congestive heart failure) ICD Codes: I50.9 - Heart failure, unspecified Plan: - comgmt with Cardiology - Pt is a 62 y/o WM with CAD/hx of [place], Systolic CHF/Cardiomyopathy with EF 15-20 % s/p AICD placement on 12/19/16, hypertension, and diabetes. - Pt presented with increased SOB, LE edema, orthopnea for several days. - Pt takes alternating doses of Lasix 20mg and 40mg but over the last few days he has been taking Lasix 40mg daily but was not getting much relief. - In the ED Chest x-ray noted persistent or recurrent CHF - Pt was given IV Lasix, Solu-Medrol and Duonebs in the ED with clinical improvement. - Continue Lasix 40mg IV BID - Resumed on BB/MIO/Statin/ASA/Plavix - Pts creatinine 2.35 (05/27/17), 2.14 (05/28) - now tolerating 2L NC - continue home COPD meds - Duonebs scheduled BID and PRN - CE at admission slightly elevated with Troponin 0.18 but troponin is chronically elevated, likely associated with underlying cardiomyopathy, renal insufficiency - PT evaluation - Supportive care - transfer to [facility] - anticipate discharge in 2-3 days (2) Ischemic cardiomyopathy ICD Codes: I25.5 - Ischemic cardiomyopathy Status: Chronic Plan: - See above. (3) COPD (chronic obstructive pulmonary disease) ICD Codes: J44.9 - Chronic obstructive pulmonary disease, unspecified Status: Chronic Plan: - Resume home meds - Duonebs scheduled BID and PRN - Pt is not having any wheezing on examination (4) Chronic kidney disease (CKD) stage G3b/A2, moderately decreased glomerular filtration rate (GFR) between 30-44 mL/min/1.73 square meter and albuminuria creatinine ratio between 30-299 mg/g ICD Codes: N18.3 - Chronic kidney disease (CKD) stage G3b/A2, moderately decreased glomerular filtration rate (GFR) between 30-44 mL/min/1.73 square meter and albuminuria creatinine ratio between 30-299 mg/g Status: Chronic Plan: - Monitor labs closely during diuresis (5) CAD (coronary artery disease) of artery bypass graft ICD Codes: I25.810 - CAD (coronary artery disease) of artery bypass graft Status: Chronic Plan: - See above. (6) HTN (hypertension) ICD Codes: I10 - HTN (hypertension) Status: Chronic Plan: - Cont. home meds - Monitor (7) Elevated troponin ICD Codes: R74.8 - Abnormal levels of other serum enzymes Status: Chronic Plan: - Chronic elevation - See above. (8) GERD (gastroesophageal reflux disease) ICD Codes: K21.9 - GERD (gastroesophageal reflux disease) Status: Chronic (9) S/P ICD (internal cardiac defibrillator) procedure ICD Codes: Z95.810 - Presence of automatic (implantable) cardiac defibrillator Status: Acute (10) DM2 (diabetes mellitus, type 2) ICD Codes: E11.9 - Type 2 diabetes mellitus without complications Status: Chronic Plan: - continue levemir 7 units BID - SSI Problem Qualifiers (1) CHF (congestive heart failure): Qualified Codes: I50.23 - Acute on chronic systolic (congestive) heart failure (2) DM2 (diabetes mellitus, type 2): Qualified Codes: E11.8 - Type 2 diabetes mellitus with unspecified complications; Z79.4 - group home (current) use of insulin Jorge Alberto Chong DO May 28, 2017 18:07
[2017-05-28] MEDS: ASPIRIN EC 81 MG TABEC PO SCH (21:00)
[2017-05-28] MEDS: CLOPIDOGREL 75 MG TAB PO SCH (21:00)
[2017-05-28] MEDS: PRAVASTATIN SOD 80 MG TAB PO SCH (21:00)
[2017-05-29] VITALS (22 sets, daily range): BP systolic 99–134; BP diastolic 51–78; PULSE 61–97; RESP 12–25; TEMP 97.2–98.4; O2SAT 95–100
[2017-05-29] MEDS: CHLORHEXIDINE GLUCONATE 2 % 1 PACK (2 CLOTHS)(taper/protocol) TOPICAL SCH (04:00)
[2017-05-29 07:39] LABS: BICARBONATE 30.2 MEQ/L (21.0-32.0); POTASSIUM 3.9 MEQ/L (3.5-5.1)
--- NOTE | 2017-05-29 07:40 | PD.CARD.PN ---
Subjective Subjective Remarks denies shortness of breath Objective Medications Current Medications Medications (Trade) Dose Ordered Sig/Angel Route Start Time Stop Time Status Last Admin (NS Flush) 2 ml BID IV FLUSH 05/27/17 09:00 05/28/17 21:00 (NS Flush) 2 ml UNSCH PRN IVF 05/27/17 01:30 Miscellaneous Information Patient in critical care unit? Ass... [id number] .XX 05/27/17 06:45 (Chlorhexidine 2% Cloth) 3 pack DAILY@04 TOPICAL 05/28/17 04:00 06/01/17 04:01 05/28/17 04:00 (Chlorhexidine 2% Cloth) 3 pack UNSCH PRN TOPICAL 05/27/17 06:45 06/01/17 06:31 (Lasix Inj) 40 mg BID@,18 IV PUSH 05/27/17 09:00 05/28/17 18:00 (Ecotrin Ec) 81 mg HS PO 05/28/17 21:00 05/28/17 21:00 (Coreg) 12.5 mg Q12HR PO 05/27/17 10:45 05/28/17 21:00 (Plavix) 75 mg HS PO 05/27/17 21:00 05/28/17 21:00 (Ranexa) 500 mg Q12HR PO 05/27/17 11:00 05/28/17 21:00 (Spiriva Inh) 18 mcg DAILY INH 05/27/17 11:00 05/28/17 08:16 (Symbicort 160-4.5 Inh) 2 puff BID INH 05/27/17 12:00 05/28/17 21:00 (Protonix) 20 mg DAILY PO 05/27/17 10:45 05/28/17 08:15 (Pravachol) 80 mg HS PO 05/27/17 21:00 05/28/17 21:00 (Duoneb Neb) 1 ampule Q6HR NEB PRN NEB 05/27/17 10:15 05/27/17 11:39 (D50w (Vial) Inj) 50 ml UNSCH PRN IV PUSH 05/27/17 11:00 (Glucagon Inj) 1 mg UNSCH PRN OTHER 05/27/17 11:00 (Duoneb Neb) 1 ampule BID NEB NEB 05/27/17 20:00 05/28/17 20:42 (Levemir Inj) 7 units BID SQ 05/27/17 21:00 05/28/17 21:00 (NovoLOG SUPPLEMENTAL SCALE) 1 ACHS SLIDING SCALE SQ 05/27/17 17:00 05/28/17 17:00 (Prinivil) 5 mg DAILY PO 05/28/17 14:00 05/28/17 15:33 Vital Signs / I&O Vital Signs Date Time Temp Pulse Resp B/P (MAP) Pulse Ox O2 Delivery O2 Flow Rate FiO2 05/29/17 05:00 98.2 80 25 99/51 (67) 99 05/29/17 04:00 77 05/29/17 02:00 84 05/29/17 01:00 86 05/29/17 00:00 84 05/28/17 23:00 89 05/28/17 22:40 98.4 86 25 103/70 (81) 99 05/28/17 22:00 89 05/28/17 20:45 100 Nasal Cannula 2.00 05/28/17 20:00 90 05/28/17 20:00 98.2 90 25 122/70 (87) 99 05/28/17 18:00 93 20 131/82 (98) 99 05/28/17 18:00 93 05/28/17 17:00 88 05/28/17 17:00 88 15 121/85 (97) 99 05/28/17 16:15 100 Nasal Cannula 2.00 05/28/17 16:00 97.9 05/28/17 16:00 87 18 129/80 (96) 100 05/28/17 16:00 87 05/28/17 15:01 86 05/28/17 15:00 86 05/28/17 14:00 83 05/28/17 13:01 83 05/28/17 13:01 83 14 107/70 (82) 100 05/28/17 13:01 83 05/28/17 13:00 83 14 100 05/28/17 13:00 83 05/28/17 13:00 83 05/28/17 12:00 84 05/28/17 12:00 97.1 05/28/17 12:00 84 05/28/17 12:00 84 14 156/95 (115) 100 05/28/17 11:00 83 17 119/78 (92) 100 05/28/17 11:00 83 05/28/17 10:00 86 24 116/56 (76) 05/28/17 10:00 86 05/28/17 09:00 92 21 119/71 (87) 99 05/28/17 08:00 85 05/28/17 08:00 86 19 109/67 (81) 100 05/28/17 08:00 97.9 05/28/17 07:53 100 Nasal Cannula 3.00 I/O 05/28/17 05/28/17 05/28/17 05/29/17 05/29/17 05/29/17 07:00 15:00 23:00 07:00 15:00 23:00 Intake Total 480 ml 960 ml Output Total 1000 ml Balance 480 ml -40 ml Intake Oral 480 ml 960 ml Output Urine Total 1000 ml # Voids 4 # Bowel Movements 0 0 Physical Exam GENERAL: Well-nourished, well-developed patient in no apparent distress. NECK: No JVD. No carotid bruit. CARDIOVASCULAR: Regular rate and rhythm. S1/S2 no murmur, rub, or gallop. RESPIRATORY: No accessory muscle use. Clear to auscultation. Breath sounds equal bilaterally. GASTROINTESTINAL: Abdomen soft, non-tender, nondistended. MUSCULOSKELETAL: Extremities without clubbing, cyanosis, or edema. Laboratory Laboratory Tests Test 05/29/17 06:11 B-Type Natriuretic Peptide 740 PG/ML Assessment and Plan Problem List: (1) CHF (congestive heart failure) ICD Codes: I50.9 - Heart failure, unspecified (2) Shortness of breath ICD Codes: R06.02 - Shortness of breath Status: Chronic (3) Ischemic cardiomyopathy ICD Codes: I25.5 - Ischemic cardiomyopathy Status: Chronic Assessment and Plan ischemic cardiomyopathy/CHF - much improved and on a good medical regimen CAD - continue Ranexa Ok to d/c home from a CV standpoint sign off Problem Qualifiers (1) CHF (congestive heart failure): Qualified Codes: I50.23 - Acute on chronic systolic (congestive) heart failure Amauri Lopez May 29, 2017 07:40
[2017-05-29] MEDS: RESP: ALBUTEROL 2.5 MG/IPRATROPIUM 0.5 MG NEB (SCH) NEB ×2 (07:56→20:48)
[2017-05-29] MEDS: INSULIN ASPART SUPPLEMENTAL SCALE SQ SCH ×4 (08:00→20:34)
[2017-05-29] MEDS: BUDESONIDE-FORMOTEROL 160/4.5 MCG INHALER INH SCH ×3 (09:00→21:00)
[2017-05-29] MEDS: TIOTROPIUM BROMIDE 18 MCG INH INH SCH (09:35)
[2017-05-29] MEDS: RANOLAZINE 500 MG EXTENDED RELEASE TAB PO SCH ×2 (09:36→20:34)
[2017-05-29] MEDS: CARVEDILOL 12.5 MG TAB PO SCH ×2 (09:36→20:35)
[2017-05-29] MEDS: PANTOPRAZOLE SOD 20 MG DELAYED RELEASE TAB PO SCH (09:36)
[2017-05-29] MEDS: SODIUM CHLORIDE 0.9% FLUSH 10 ML FLUSH IV FLUSH SCH ×2 (09:36→20:33)
[2017-05-29] MEDS: INSULIN DETEMIR 100 UNITS/ML VIAL SQ SCH ×2 (09:37→21:00)
[2017-05-29] MEDS: LISINOPRIL 5 MG TAB PO SCH (09:41)
--- NOTE | 2017-05-29 11:08 | RADRPT ---
EXAM DATE/TIME: 05/29/2017 10:30 [place] COMPARISON: CHEST SINGLE AP, May 16, 2017, 9:36. CHEST SINGLE AP, May 28, 2017, 3:17. INDICATIONS : Short of breath, evaluate congestive heart failure MEDICAL HISTORY : Congestive heart failure. SURGICAL HISTORY : Pacemaker. CABG. ENCOUNTER: Subsequent ACUITY: 4 - 6 days PAIN SCORE: 0/10 LOCATION: Bilateral chest FINDINGS: The [id number] in satisfactory position. The patient is post median sternotomy. The heart is enlar ged. There are chronic interstitial changes within the pulmonary parenchyma. There are minimal bibasi lar effusions. Exam would suggest some mild CHF. The bony structures are grossly intact. CONCLUSION: Probable mild CHF. Vernon Dubois MD on May 29, 2017 at 11:06 Board Certified Radiologist. This report was verified electronically.
[2017-05-29] MEDS: FUROSEMIDE 40 MG TAB PO SCH ×2 (12:14→17:41)
--- NOTE | 2017-05-29 18:12 | HHI.PR ---
Subjective Remarks Patient sitting up on edge of bed reports feel tired- unable to sleep well at night due to multiple interruptions denies SOB Objective Vitals Vital Signs Date Time Temp Pulse Resp B/P (MAP) Pulse Ox O2 Delivery O2 Flow Rate FiO2 05/29/17 16:00 97.2 62 16 134/77 (96) 97 05/29/17 15:00 97 05/29/17 14:00 66 05/29/17 13:00 62 05/29/17 12:00 98.4 78 12 119/78 (92) 97 05/29/17 11:00 84 05/29/17 10:00 68 05/29/17 09:00 86 05/29/17 08:00 61 05/29/17 08:00 97.3 81 18 122/72 (89) 97 05/29/17 07:58 100 21 05/29/17 07:00 81 05/29/17 05:00 98.2 80 25 99/51 (67) 99 05/29/17 04:00 77 05/29/17 02:00 84 05/29/17 01:00 86 05/29/17 00:00 84 05/28/17 23:00 89 05/28/17 22:40 98.4 86 25 103/70 (81) 99 05/28/17 22:00 89 05/28/17 20:45 100 Nasal Cannula 2.00 05/28/17 20:00 90 05/28/17 20:00 98.2 90 25 122/70 (87) 99 05/29/17 05/29/17 05/30/17 15:00 23:00 07:00 Intake Total 780 ml Output Total 780 ml Balance 0 ml Intake Oral 780 ml Output Urine Total 780 ml Result Diagram: 05/26/17 2305 05/29/17 0611 Other Results Laboratory Tests Test 05/26/17 23:05 05/27/17 03:15 05/27/17 06:15 05/27/17 12:22 White Blood Count 8.2 TH/MM3 Red Blood Count 5.26 MIL/MM3 Hemoglobin 13.7 GM/DL Hematocrit 42.7 % Mean Corpuscular Volume 81.2 FL Mean Corpuscular Hemoglobin 26.1 PG Mean Corpuscular Hemoglobin Concent 32.2 % Red Cell Distribution Width 18.3 % Platelet Count 210 TH/MM3 Mean Platelet Volume 11.1 FL Neutrophils (%) (Auto) 67.3 % Lymphocytes (%) (Auto) 22.8 % Monocytes (%) (Auto) 7.3 % Eosinophils (%) (Auto) 1.7 % Basophils (%) (Auto) 0.9 % Neutrophils # (Auto) 5.5 TH/MM3 Lymphocytes # (Auto) 1.9 TH/MM3 Monocytes # (Auto) 0.6 TH/MM3 Eosinophils # (Auto) 0.1 TH/MM3 Basophils # (Auto) 0.1 TH/MM3 CBC Comment DIFF FINAL Differential Comment Prothrombin Time 12.1 SEC Prothromb Time International Ratio 1.1 RATIO Activated Partial Thromboplast Time 30.0 SEC Blood Urea Nitrogen 26 MG/DL 29 MG/DL Creatinine 2.35 MG/DL 2.35 MG/DL Random Glucose 310 MG/DL 440 MG/DL Total Protein 8.0 GM/DL Albumin 3.7 GM/DL Calcium Level 8.5 MG/DL 9.0 MG/DL Magnesium Level 1.9 MG/DL Alkaline Phosphatase 75 U/L Aspartate Amino Transf (AST/SGOT) 22 U/L Alanine Aminotransferase (ALT/SGPT) 23 U/L Total Bilirubin 0.7 MG/DL Sodium Level 131 MEQ/L 131 MEQ/L Potassium Level 4.3 MEQ/L 4.4 MEQ/L Chloride Level 97 MEQ/L 95 MEQ/L Carbon Dioxide Level 24.6 MEQ/L 26.0 MEQ/L Anion Gap 9 MEQ/L 10 MEQ/L Estimat Glomerular Filtration Rate 28 ML/MIN 28 ML/MIN Total Creatine Kinase 321 U/L Creatine Kinase MB 5.0 NG/ML Creatine Kinase MB % 1.6 % Troponin I 0.18 NG/ML B-Type Natriuretic Peptide 1545 PG/ML Urine Color YELLOW Urine Turbidity CLEAR Urine pH 6.0 Urine Specific [place] 1.006 Urine Protein 100 mg/dL Urine Glucose (UA) 1000 mg/dL Urine Ketones NEG mg/dL Urine Occult Blood TRACE Urine Nitrite NEG Urine Bilirubin NEG Urine Urobilinogen LESS THAN 2.0 MG/DL Urine Leukocyte Esterase NEG Urine RBC 3 /hpf Urine WBC LESS THAN 1 /hpf Urine Mucus FEW /lpf Microscopic Urinalysis Comment CULT NOT INDICATED Nasal Screen MRSA (PCR) MRSA NOT DETECTED Test 05/28/17 04:25 05/29/17 06:11 Blood Urea Nitrogen 33 MG/DL 38 MG/DL Creatinine 2.14 MG/DL 2.20 MG/DL Random Glucose 49 MG/DL 111 MG/DL Calcium Level 9.0 MG/DL 9.1 MG/DL Sodium Level 136 MEQ/L 134 MEQ/L Potassium Level 3.7 MEQ/L 3.9 MEQ/L Chloride Level 98 MEQ/L 96 MEQ/L Carbon Dioxide Level 27.7 MEQ/L 30.2 MEQ/L Anion Gap 10 MEQ/L 8 MEQ/L Estimat Glomerular Filtration Rate 32 ML/MIN 31 ML/MIN Magnesium Level 2.0 MG/DL B-Type Natriuretic Peptide 740 PG/ML Imaging Last Impressions Chest X-Ray 05/28/17 0600 Signed Impressions: Service Date/Time: Sunday, May 28, 2017 03:17 - CONCLUSION: Improving aeration Ruben Kahn MD Objective Remarks GENERAL: This is a well-nourished, well-developed patient, in no apparent distress. SKIN: Multiple scabbed over areas on the chest, shoulders, UE and LE CARDIO: Regular. RESP: Good air movement throughout, no wheezing or crackles noted. EXT: venous stasis skin changes to bilateral feet A/P Problem List: (1) CHF (congestive heart failure) ICD Codes: I50.9 - Heart failure, unspecified Plan: - comgmt with Cardiology - Pt is a 62 y/o WM with CAD/hx of [place], Systolic CHF/Cardiomyopathy with EF 15-20 % s/p AICD placement on 12/19/16, hypertension, and diabetes. - Pt presented with increased SOB, LE edema, orthopnea for several days. - Pt takes alternating doses of Lasix 20mg and 40mg but over the last few days he has been taking Lasix 40mg daily but was not getting much relief. - In the ED Chest x-ray noted persistent or recurrent CHF - Pt was given IV Lasix, Solu-Medrol and Duonebs in the ED with clinical improvement. - Continue Lasix 40mg IV BID, on 05/29/17 patient transitioned to Lasix 40 mg PO BID 10/12 AM. Patient has had intermitted hypotension and elevated renal function, consider increase in AM per Dr. Carreon - Resumed on BB/MIO/Statin/ASA/Plavix - Pts creatinine 2.35 (05/27/17), 2.14 (05/28), 2.20 (05/29) recheck in AM - now on RA - continue home COPD meds - Duonebs scheduled BID and PRN - CE at admission slightly elevated with Troponin 0.18 but troponin is chronically elevated, likely associated with underlying cardiomyopathy, renal insufficiency - PT evaluation - Supportive care - anticipate discharge tomorrow. Discussed with patient SNF vs home with HHC. Recommended SNF for strengthening, patient does not want SNF at this time but will think about it through the night. Plan to discuss again tomorrow (2) Ischemic cardiomyopathy ICD Codes: I25.5 - Ischemic cardiomyopathy Status: Chronic Plan: - See above. (3) COPD (chronic obstructive pulmonary disease) ICD Codes: J44.9 - Chronic obstructive pulmonary disease, unspecified Status: Chronic Plan: - Resume home meds - Duonebs scheduled BID and PRN - Pt is not having any wheezing on examination (4) Chronic kidney disease (CKD) stage G3b/A2, moderately decreased glomerular filtration rate (GFR) between 30-44 mL/min/1.73 square meter and albuminuria creatinine ratio between 30-299 mg/g ICD Codes: N18.3 - Chronic kidney disease (CKD) stage G3b/A2, moderately decreased glomerular filtration rate (GFR) between 30-44 mL/min/1.73 square meter and albuminuria creatinine ratio between 30-299 mg/g Status: Chronic Plan: - Monitor labs closely during diuresis (5) CAD (coronary artery disease) of artery bypass graft ICD Codes: I25.810 - CAD (coronary artery disease) of artery bypass graft Status: Chronic Plan: - See above. (6) HTN (hypertension) ICD Codes: I10 - HTN (hypertension) Status: Chronic Plan: - Cont. home meds - Monitor (7) Elevated troponin ICD Codes: R74.8 - Abnormal levels of other serum enzymes Status: Chronic Plan: - Chronic elevation - See above. (8) GERD (gastroesophageal reflux disease) ICD Codes: K21.9 - GERD (gastroesophageal reflux disease) Status: Chronic (9) S/P ICD (internal cardiac defibrillator) procedure ICD Codes: Z95.810 - Presence of automatic (implantable) cardiac defibrillator Status: Acute (10) DM2 (diabetes mellitus, type 2) ICD Codes: E11.9 - Type 2 diabetes mellitus without complications Status: Chronic Plan: - continue levemir 7 units BID - SSI Assessment and Plan Patient examined. Assessment and plan formulated with Majo Olea PA-C. I agree with the above. Problem Qualifiers (1) CHF (congestive heart failure): Qualified Codes: I50.23 - Acute on chronic systolic (congestive) heart failure (2) DM2 (diabetes mellitus, type 2): Qualified Codes: E11.8 - Type 2 diabetes mellitus with unspecified complications; Z79.4 - correction (current) use of insulin Majo Olea May 29, 2017 18:12 Jorge Alberto Chong DO May 31, 2017 23:57
[2017-05-29] MEDS ORDERED: GLUCAGON 1 MG/ML VIAL OTHER PRN (18:15)
[2017-05-29] MEDS ORDERED: DEXTROSE 50% IN WATER 50 ML VIAL(D50) IV PUSH PRN (18:15)
[2017-05-29] MEDS: PRAVASTATIN SOD 80 MG TAB PO SCH (20:34)
[2017-05-29] MEDS: ASPIRIN EC 81 MG TABEC PO SCH (20:34)
[2017-05-29] MEDS: CLOPIDOGREL 75 MG TAB PO SCH (20:34)
[2017-05-30] VITALS (16 sets, daily range): BP systolic 117–122; BP diastolic 70–79; PULSE 82–103; RESP 18; TEMP 97.5–98.6; O2SAT 97–99
[2017-05-30] MEDS: CHLORHEXIDINE GLUCONATE 2 % 1 PACK (2 CLOTHS)(taper/protocol) TOPICAL SCH (04:00)
[2017-05-30 07:09] LABS: BICARBONATE 29.3 MEQ/L (21.0-32.0); POTASSIUM 4.2 MEQ/L (3.5-5.1)
[2017-05-30] MEDS: RESP: ALBUTEROL 2.5 MG/IPRATROPIUM 0.5 MG NEB (SCH) NEB (07:30)
[2017-05-30] MEDS: INSULIN ASPART SUPPLEMENTAL SCALE SQ SCH (08:00)
--- NOTE | 2017-05-30 08:44 | HHI.FF ---
Face to Face Verification Diagnosis: (1) CHF (congestive heart failure) (2) CKD (chronic kidney disease) stage 3, GFR 30-59 ml/min (3) Diabetes mellitus Physical Therapy Order: Evaluate and Treat, Strength and gait training Home Health Nursing Order: Medical education Signs/symptoms of disease process CHF education Medication education-adverse effect Nursing assessment with vital signs Milker Machine Order: To Evaluate: Support services Order: To Provide: Long range planning I have seen patient Nithin Gil on 05/30/17. My clinical findings support the need for the requested home health care services because: Ltd mobility - disease progression Limited ability to care for self Ltd mobility - disease progression Limited ability to care for self I certify that my clinical findings support that this patient is homebound because: Unsteady gait/balance Unsteady gait/balance Majo Olea May 30, 2017 08:44 Jorge Alberto Chong DO May 31, 2017 23:58
[2017-05-30] MEDS ORDERED: FURO40TA PO (08:48)
[2017-05-30] MEDS ORDERED: LISI-519 PO (08:48)
--- NOTE | 2017-05-30 08:52 | HHI.DS ---
Discharge Summary Admission Date May 27, 2017 at 01:24 Discharge Date: May 30, 2017 Admitting Diagnosis CHF;elevated troponin I/nstemi (1) CHF (congestive heart failure) ICD Codes: I50.9 - Heart failure, unspecified (2) Ischemic cardiomyopathy ICD Codes: I25.5 - Ischemic cardiomyopathy Status: Chronic (3) COPD (chronic obstructive pulmonary disease) ICD Codes: J44.9 - Chronic obstructive pulmonary disease, unspecified Status: Chronic (4) Chronic kidney disease (CKD) stage G3b/A2, moderately decreased glomerular filtration rate (GFR) between 30-44 mL/min/1.73 square meter and albuminuria creatinine ratio between 30-299 mg/g ICD Codes: N18.3 - Chronic kidney disease (CKD) stage G3b/A2, moderately decreased glomerular filtration rate (GFR) between 30-44 mL/min/1.73 square meter and albuminuria creatinine ratio between 30-299 mg/g Status: Chronic (5) CAD (coronary artery disease) of artery bypass graft ICD Codes: I25.810 - CAD (coronary artery disease) of artery bypass graft Status: Chronic (6) HTN (hypertension) ICD Codes: I10 - HTN (hypertension) Status: Chronic (7) Elevated troponin ICD Codes: R74.8 - Abnormal levels of other serum enzymes Status: Chronic (8) GERD (gastroesophageal reflux disease) ICD Codes: K21.9 - GERD (gastroesophageal reflux disease) Status: Chronic (9) S/P ICD (internal cardiac defibrillator) procedure ICD Codes: Z95.810 - Presence of automatic (implantable) cardiac defibrillator Status: Acute (10) DM2 (diabetes mellitus, type 2) ICD Codes: E11.9 - Type 2 diabetes mellitus without complications Status: Chronic Consultants Dr. Pittman Procedures none Brief History Mr. Gil is a pleasant 62 y/o WM with CAD/hx of [place] s/p CABG in 2009, CKD stage 3, COPD, CHF/Cardiomyopathy with EF 15-20% s/p AICD placement on 12/19/16, hypertension, and Diabetes. Pt presented to the ED on 05/26/17 with complaints of progressive SOB and lower extremity edema x 2-3 days. The pt has been hospitalized several times in the past year for CHF, most recently was in 2016. At that time his Coreg was increased to 12.5mg po BID. He has been taking maintained on Lasix 40mg daily alternating with 20mg daily. Cardiac catheterization in August 2016 noted severe [place] three-vessel coronary disease, 3 of 4 coronary bypass grafts are patent and small vessel disease not amenable to intervention. Over the last few days he has felt that his legs have been more swollen, had dyspnea on exertion, and orthopnea. He feels he was not urinating much in the past few days with increased SOB on exertion. Pt increased his Lasix dose to 40mg po daily for a few days prior to admission but did not feel like he was getting any improvement. He denies any chest pain. He felt like he was having trouble urinating prior to admission as well. In the ER pt was given DuoNeb treatment 2 and Solu-Medrol 125 mg with symptomatic improvement. EKG sinus tachycardia with ST segment depression laterally and QS in V1 with poor R-wave progression anteriorly and EKG is essentially unchanged. Patient was also given Lasix 40 mg IV and Nitropaste 1 inch to chest wall. Patient's cardiac enzymes elevated at 0.18 troponin with normal MB percent but troponin are chronically elevated. Pt had elevated BNP to 1545 at admission. CBC/BMP: 05/26/17 2305 05/30/17 0613 Significant Findings Laboratory Tests Test 05/27/17 12:22 05/28/17 04:25 05/29/17 06:11 05/30/17 06:13 Blood Urea Nitrogen 29 MG/DL (7-18) 33 MG/DL (7-18) 38 MG/DL (7-18) 41 MG/DL (7-18) Creatinine 2.35 MG/DL (0.60-1.30) 2.14 MG/DL (0.60-1.30) 2.20 MG/DL (0.60-1.30) 2.30 MG/DL (0.60-1.30) Random Glucose 440 MG/DL (74-106) 49 MG/DL (74-106) 111 MG/DL (74-106) 174 MG/DL (74-106) Sodium Level 131 MEQ/L (136-145) 134 MEQ/L (136-145) 131 MEQ/L (136-145) Chloride Level 95 MEQ/L (98-107) 96 MEQ/L (98-107) 95 MEQ/L (98-107) Estimat Glomerular Filtration Rate 28 ML/MIN (>89) 32 ML/MIN (>89) 31 ML/MIN (>89) 29 ML/MIN (>89) B-Type Natriuretic Peptide 740 PG/ML (0-100) 879 PG/ML (0-100) Imaging Last Impressions Chest X-Ray 05/29/17 0800 Signed Impressions: Service Date/Time: , May 29, 2017 10:30 - CONCLUSION: Probable mild CHF. Vernon Dubois MD PE at Discharge GENERAL: This is a well-nourished, well-developed patient, in no apparent distress. SKIN: Multiple scabbed over areas on the chest, shoulders, UE and LE CARDIO: Regular. RESP: Good air movement throughout, no wheezing or crackles noted. EXT: venous stasis skin changes to bilateral feet Hospital Course CHF (congestive heart failure) - comgmt with Cardiology - Pt is a 62 y/o WM with CAD/hx of [place], Systolic CHF/Cardiomyopathy with EF 15-20 % s/p AICD placement on 12/19/16, hypertension, and diabetes. - Pt presented with increased SOB, LE edema, orthopnea for several days. - Pt takes alternating doses of Lasix 20mg and 40mg but over the last few days he has been taking Lasix 40mg daily but was not getting much relief. - In the ED Chest x-ray noted persistent or recurrent CHF - Pt was given IV Lasix, Solu-Medrol and Duonebs in the ED with clinical improvement. - Continue Lasix 40mg IV BID, on 05/29/17 patient transitioned to Lasix 40 mg PO BID 05/29 AM. Patient has had intermitted hypotension and elevated renal function, consider increase in AM per Dr. Carreon. (05/30/17) change lasix to 80 mg daily. Recheck BMP in 1 week - Resumed on BB/MIO/Statin/ASA/Plavix - Pts creatinine 2.35 (05/27/17), 2.14 (05/28), 2.20 (05/29) recheck in AM - now on RA - continue home COPD meds - Duonebs scheduled BID and PRN - CE at admission slightly elevated with Troponin 0.18 but troponin is chronically elevated, likely associated with underlying cardiomyopathy, renal insufficiency - PT evaluation - Supportive care - Discussed with patient SNF vs home with HHC. Recommended SNF for strengthening, patient does not want SNF at this time willing to accept [facility] [place] Ischemic cardiomyopathy - See above. COPD (chronic obstructive pulmonary disease) - Resume home meds - Duonebs scheduled BID and PRN - Pt is not having any wheezing on examination Chronic kidney disease (CKD) stage G3b/A2, moderately decreased glomerular filtration rate (GFR) between 30-44 mL/min/1.73 square meter and albuminuria creatinine ratio between 30-299 mg/g - Monitor labs closely during diuresis CAD (coronary artery disease) of artery bypass graft - See above. HTN (hypertension) - Cont. home meds - Monitor Elevated troponin - Chronic elevation - See above. GERD (gastroesophageal reflux disease) Chronic S/P ICD (internal cardiac defibrillator) procedure Acute DM2 (diabetes mellitus, type 2) Chronic Plan: - continue levemir 7 units BID - SSI Pt Condition on Discharge: Stable Discharge Disposition: Disch w/ Home Health Serv Discharge Instructions DIET: Follow Instructions for: Heart Healthy Diet, Diabetic Diet Activities you can perform: Regular-No Restrictions Follow up Referrals: Cardiology - [address] Pittman PCP Follow-up - [address] Lyndsey Barton New Orders: BASIC METABOLIC PROF - 3-5 Days MAGNESIUM (MG) - 3-5 Days New Medications: Furosemide (Lasix) 80 Mg Tab 80 MG PO DAILY for Fluid, #30 TAB 0 Refills Lisinopril (Lisinopril) 5 Mg Tab 5 MG PO DAILY for heart, #30 TAB 0 Refills Continued Medications: Albuterol 18 GM Inh (Ventolin Hfa 18 GM Inh) 90 Mcg/Act Aer 2 PUFF INH Q4-6H PRN for SHORTNESS OF BREATH, #1 INHALER [address] (Aspirin Adult Low Strength) 81 Mg Tabdr 81 MG PO HS, TAB Carvedilol (Coreg) 12.5 Mg Tab 12.5 MG PO Q12HR for heart, #30 TAB 0 Refills Clopidogrel (Plavix) 75 Mg Tab 75 MG PO HS for Blood Clot Prevention, #30 TAB 0 Refills Cyclobenzaprine (Flexeril) 10 Mg Tab 10 MG PO Q8H PRN for spasm pain, #20 TAB 1 Refill Fluticasone-Salmeterol Inh (Advair Diskus Inh) 250-50 Mcg/Blist Aer 1 PUFF INH BID, #1 INHALER 0 Refills Rinse mouth after use. Insulin Aspart Inj (Novolog Inj) 1,000 Unit/10 Ml Vial 0 SQ DIRECTED for Blood Sugar Management, #10 ML 0 Refills Sliding Scale as directed. Insulin Degludec Inj (Tresiba Flextouch Pen Inj) 300 unit/3 ML Pen 120 UNITS SQ HS for Blood Sugar Management, #15 ML 0 Refills Omeprazole (Omeprazole) 20 Mg Tab 20 MG PO DAILY, #30 TAB 0 Refills Ranolazine ER 12 HR (Ranexa ER 12 HR) 500 Mg Tab 500 MG PO Q12HR for angina, #60 TAB 6 Refills Simvastatin (Simvastatin) 40 Mg Tab 40 MG PO HS for Cholesterol Management, #30 TAB 0 Refills Tiotropium Inh (Spiriva Handihaler) 18 Mcg Cap 18 MCG INH DAILY for COPD, #30 CAP 0 Refills 1 capsule = 18 mcg Discontinued Medications: Furosemide (Lasix) 40 Mg Tab 40 MG PO EVERY OTHER DAY, #30 TAB 0 Refills Alternate with 20mg every other day Furosemide (Lasix) 20 Mg Tab 20 MG PO EVERY OTHER DAY, #30 TAB 0 Refills Alternate with 40mg every other day Additional Information Patient examined. Assessment and plan formulated with Majo Olea PA-C. I agree with the above. Majo Olea May 30, 2017 08:52 Jorge Alberto Chong DO May 31, 2017 23:59
[2017-05-30] MEDS: SODIUM CHLORIDE 0.9% FLUSH 10 ML FLUSH IV FLUSH SCH (08:53)
[2017-05-30] MEDS: RANOLAZINE 500 MG EXTENDED RELEASE TAB PO SCH (08:53)
[2017-05-30] MEDS: PANTOPRAZOLE SOD 20 MG DELAYED RELEASE TAB PO SCH (08:53)
[2017-05-30] MEDS: LISINOPRIL 5 MG TAB PO SCH (08:53)
[2017-05-30] MEDS: FUROSEMIDE 40 MG TAB PO SCH (08:53)
[2017-05-30] MEDS: CARVEDILOL 12.5 MG TAB PO SCH (08:53)
[2017-05-30] MEDS: INSULIN DETEMIR 100 UNITS/ML VIAL SQ SCH (08:53)
[2017-05-30] MEDS: TIOTROPIUM BROMIDE 18 MCG INH INH SCH (08:54)
[2017-05-30] MEDS ORDERED: FURO1TAB61 PO (09:52)
[2017-05-30] MEDS ORDERED: FUROSEMIDE 40 MG TAB PO ONE (10:00)
[2017-05-31] MEDS ORDERED: FUROSEMIDE 80 MG TAB PO SCH (09:00)
== END 2017-05-30 13:52 | disposition home health service (06) | DRG 291 ==
LOC: NEPC 22:52 → NEDA 05-27 01:24 → HIME 05-27 06:00 → HCIN 05-28 23:30
PROVIDERS: ADMIT Hospitalist; ATTEND Hospitalist
DX: I13.0 Hypertensive heart and chronic kidney disease with heart failure and stage 1 through stage 4 chronic kidney disease, or unspecified chronic kidney disease (principal); I50.23 Acute on chronic systolic (congestive) heart failure; E11.22 Type 2 diabetes mellitus with diabetic chronic kidney disease; I95.9 Hypotension, unspecified; N18.3 Chronic kidney disease, stage 3 (moderate); I25.810 Atherosclerosis of coronary artery bypass graft(s) without angina pectoris; J44.9 Chronic obstructive pulmonary disease, unspecified; E78.5 Hyperlipidemia, unspecified; I25.5 Ischemic cardiomyopathy; I44.7 Left bundle-branch block, unspecified; K21.9 Gastro-esophageal reflux disease without esophagitis; E66.9 Obesity, unspecified; I87.8 Other specified disorders of veins; I25.10 Atherosclerotic heart disease of native coronary artery without angina pectoris; I25.2 Old myocardial infarction; Z95.5 Presence of coronary angioplasty implant and graft; Z87.891 Personal history of nicotine dependence; Z79.82 Long term (current) use of aspirin; Z79.02 Long term (current) use of antithrombotics/antiplatelets; Z79.4 Long term (current) use of insulin; Z68.35 Body mass index [BMI] 35.0-35.9, adult; Z95.810 Presence of automatic (implantable) cardiac defibrillator
CPT/HCPCS: 71010; 71020; 80048; 80053; 81001; 82550; 82552; 82948; 83735; 83880; 84484; 85025; 85610; 85730; 87040; 87641; 93005; 94640; 94664; 96374; 99291; J1815; J1940; J2930

== ENCOUNTER 2017-11-06 01:34 | Emergency (ER) | payer OTHER ==
[~2017-11-06] VITALS: Ht 193 cm; Wt 115.0 kg
[~2017-11-06 01:34] MED LIST changes: -ASPI1TAB91 PO; +ASPI81TA16 PO; +CYCL10TA PO; -CYCL1TAB29 PO; -FURO1TAB60 PO; +FURO1TAB61 PO; -FURO1TAB62 PO; +LISI-519 PO; -OMEP20TA PO; +OMEP20TA93 PO
[2017-11-06 01:45] VITALS: BP 124/81; PULSE 92; RESP 22; TEMP 96.4; O2SAT 100
== END 2017-11-06 02:38 | disposition left against medical advice (07) ==
LOC: NED 01:34
DX: R52 Pain, unspecified (principal)
CPT/HCPCS: 99281

== ENCOUNTER 2017-11-08 22:15 | Inpatient (IN) | payer OTHER ==
[~2017-11-08] VITALS: Ht 188 cm; Wt 118.6 kg
[2017-11-08 22:35] VITALS: BP 118/75; PULSE 101; RESP 18; TEMP 97.6; O2SAT 98
[2017-11-09] VITALS (12 sets, daily range): BP systolic 94–127; BP diastolic 58–81; PULSE 80–97; RESP 16–26; TEMP 96–96.7; O2SAT 93–100
--- NOTE | 2017-11-09 00:41 | PD ---
HPI Chief Complaint: Respiratory Symptoms Time Seen by Provider: 00:34 Travel History International Travel<30 days: No Contact w/Intl Traveler<30days: No Traveled to known affect area: No History of Present Illness HPI The patient is a 62 year-old male who presents emergency department for shortness of breath and edema. The patient has a history of congestive heart failure, is followed by his mechanism inspector, Dr. Pittman as well as by his primary physician, Dr. Barton. The patient notes increasing shortness of breath, worse with exertion and lying supine. The patient has a sleep in a recliner. The patient now notes increasing edema from the feet all the way up to the lower aspect of the abdomen. The patient states his ejection fraction varies between 15 and 25% and states they were considering possibly sending him to [facility] to be evaluated for heart transplant. He also states she received a recent phone call regarding an abnormal echocardiogram. The patient has been taken his Lasix 80 mg once a day, however, does note increasing renal dysfunction. He denies any acute chest pain. Symptoms are moderate. There are no current alleviating factors. PFSH Past Medical History Hx Anticoagulant Therapy: Yes (PLAVIX) Arthritis: Yes (left finger ) Asthma: No Atrial Fibrillation: Yes Autoimmune Disease: No Blood Disorders: No Anxiety: No Depression: No Heart Rhythm Problems: Yes Cancer: No Cardiac Catheterization: Yes Cardiovascular Problems: Yes High Cholesterol: Yes Chemotherapy: No Chest Pain: No Congestive Heart Failure: Yes COPD: Yes Cerebrovascular Accident: No Diabetes: Yes Patient Takes Glucophage: No Diminished Hearing: No Endocrine: Yes GERD: Yes Glaucoma: No Genitourinary: Yes Headaches: No Hepatitis: No Hiatal Hernia: No Heparin Induced Thrombocytopen: No Hypertension: Yes Immune Disorder: No Implanted Vascular Access Dvce: No Kidney Stones: No Musculoskeletal: Yes Neurologic: No Psychiatric: No Reproductive: No Respiratory: Yes (COPD) Integumentary: Yes (SMALL ULCER/WOUNDS COVERING WHOLE BODY "ITCHING FROM MY DIABETES" PER PT) Immunizations Current: Yes Migraines: No Myocardial Infarction: Yes Radiation Therapy: No Renal Failure: Yes (Stage 3 kidney disease) Seizures: No Sickle Cell Disease: No Sleep Apnea: No Thyroid Disease: No Ulcer: No Tetanus Vaccination: < 5 Years Influenza Vaccination: Yes PNEUMOCCOCAL Vaccine (Year): 2 Past Surgical History Abdominal Surgery: Yes (CHOLECYSTECTOMY) Appendectomy: No Arteriovenous Shunt: No Cardiac Surgery: Yes (DEFIBRILLATOR PLACED ) Cholecystectomy: Yes Coronary Artery Bypass Graft: Yes Coronary Stent: Yes Ear Surgery: No Endocrine Surgery: No Eye Surgery: No Genitourinary Surgery: No Gynecologic Surgery: No Insulin Pump: No Joint Replacement: No Neurologic Surgery: No Oral Surgery: No Pacemaker: Yes (DEFIB MEDTRONIC) Thoracic Surgery: Yes (CABG) Other Surgery: Yes Social History Alcohol Use: No Tobacco Use: No (QUIT 2009) Substance Use: No Allergies-Medications (Allergen,Severity, Reaction): Coded Allergies: penicillin G (Verified Allergy, Unknown, SWELLING, 11/06/17) Reported Meds & Prescriptions Reported Meds & Active Scripts Active Lasix (Furosemide) 80 Mg Tab 80 Mg PO DAILY Lisinopril 5 Mg Tab 5 Mg PO DAILY Coreg (Carvedilol) 12.5 Mg Tab 12.5 Mg PO Q12HR Ranexa ER 12 HR (Ranolazine) 500 Mg Tab 500 Mg PO Q12HR Flexeril (Cyclobenzaprine HCl) 10 Mg Tab 10 Mg PO Q8H PRN Novolog Inj (Insulin Aspart) 1,000 Unit/10 Ml Vial 0 SQ DIRECTED Sliding Scale as directed. Reported Omeprazole 20 Mg Tab 20 Mg PO DAILY Aspirin Adult Low Strength (Aspirin) 81 Mg Tabdr 81 Mg PO HS Tresiba Flextouch Pen Inj (Insulin Degludec Inj) 300 unit/3 ML Pen 120 Units SQ HS Ventolin Hfa 18 GM Inh (Albuterol Sulfate) 90 Mcg/Act Aer 2 Puff INH Q4-6H PRN Spiriva Handihaler (Tiotropium Inh) 18 Mcg Cap 18 Mcg INH DAILY 1 capsule = 18 mcg Simvastatin 40 Mg Tab 40 Mg PO HS Plavix (Clopidogrel Bisulfate) 75 Mg Tab 75 Mg PO HS Advair Diskus Inh (Fluticasone-Salmeterol Inh) 250-50 Mcg/Blist Aer 1 Puff INH BID Rinse mouth after use. Review of Systems Except as stated in HPI: all other systems reviewed are Neg Cardiovascular: Positive: Dyspnea on exertion, No: Chest Pain or Discomfort Respiratory: No: Shortness of Breath Gastrointestinal: No: Nausea, Vomiting, Abdominal Pain Genitourinary: No: Dysuria Musculoskeletal: Positive: Edema, No: Weakness Neurologic: No: Dizziness Physical Exam Narrative GENERAL: Awake, alert, pleasant [id number] male who appears his stated age and is in no acute respiratory distress. SKIN: Focused skin assessment warm/dry. HEAD: Atraumatic. Normocephalic. EYES: Pupils equal and round. No injection or drainage. ENT: No nasal bleeding or discharge. Mucous membranes pink and moist. NECK: Trachea midline. No JVD. CARDIOVASCULAR: Regular rate, tachycardic with a heart rate of 100. RESPIRATORY: No accessory muscle use. Minimally diminished breath sounds in the bases. GASTROINTESTINAL: Abdomen soft, obese, pitting edema lower third of the abdomen. MUSCULOSKELETAL: Pitting edema from the feet all to lower third of the abdomen.. NEUROLOGICAL: Awake and alert. No obvious cranial nerve deficits. Motor grossly within normal limits. Normal speech. Nonfocal. PSYCHIATRIC: Appropriate mood and affect; insight and judgment normal. Data Data Last Documented VS Vital Signs Date Time Temp Pulse Resp B/P (MAP) Pulse Ox O2 Delivery O2 Flow Rate FiO2 11/09/17 00:42 100 Room Air 11/09/17 00:41 97 26 11/08/17 22:35 97.6 Orders Orders Complete Blood Count With Diff (11/09/17 00:34) Comprehensive Metabolic Panel (11/09/17 00:34) B-Type Natriuretic Peptide (11/09/17:34) Act Partial Throm Time (Ptt) (11/09/17:34) Prothrombin Time / Inr (Pt) (11/09/17 00:34) Magnesium (Mg) (11/09/17 00:34) Ckmb (Isoenzyme) Profile (11/09/17 00:34) Troponin I (11/09/17:34) Iv Access Insert/Monitor (11/09/17:34) Electrocardiogram (11/09/17 00:34) Ecg Monitoring (11/09/17:34) Oximetry (11/09/17:34) Oxygen Administration (11/09/17:34) Chest, Single Ap (11/09/17:34) Sodium Chloride 0.9% Flush (Ns Flush) (11/09/17 00:45) Furosemide Inj (Lasix Inj) (11/09/17 00:45) CKMB (11/09/17 00:45) CKMB% (11/09/17:45) Admit Order (Ed Use Only) (11/09/17 03:20) Labs Laboratory Tests Test 11/09/17 00:45 White Blood Count 6.1 TH/MM3 Red Blood Count 4.33 MIL/MM3 Hemoglobin 11.7 GM/DL Hematocrit 34.5 % Mean Corpuscular Volume 79.7 FL Mean Corpuscular Hemoglobin 27.1 PG Mean Corpuscular Hemoglobin Concent 34.0 % Red Cell Distribution Width 19.2 % Platelet Count 190 TH/MM3 Mean Platelet Volume 11.9 FL Neutrophils (%) (Auto) 68.8 % Lymphocytes (%) (Auto) 17.0 % Monocytes (%) (Auto) 10.9 % Eosinophils (%) (Auto) 2.6 % Basophils (%) (Auto) 0.7 % Neutrophils # (Auto) 4.2 TH/MM3 Lymphocytes # (Auto) 1.0 TH/MM3 Monocytes # (Auto) 0.7 TH/MM3 Eosinophils # (Auto) 0.2 TH/MM3 Basophils # (Auto) 0.0 TH/MM3 CBC Comment DIFF FINAL Differential Comment Prothrombin Time 12.8 SEC Prothromb Time International Ratio 1.3 RATIO Activated Partial Thromboplast Time 28.5 SEC Blood Urea Nitrogen 51 MG/DL Creatinine 2.94 MG/DL Random Glucose 252 MG/DL Total Protein 7.5 GM/DL Albumin 3.6 GM/DL Calcium Level 8.9 MG/DL Magnesium Level 1.9 MG/DL Alkaline Phosphatase 123 U/L Aspartate Amino Transf (AST/SGOT) 36 U/L Alanine Aminotransferase (ALT/SGPT) 27 U/L Total Bilirubin 1.1 MG/DL Sodium Level 133 MEQ/L Potassium Level 4.7 MEQ/L Chloride Level 96 MEQ/L Carbon Dioxide Level 27.2 MEQ/L Anion Gap 10 MEQ/L Estimat Glomerular Filtration Rate 22 ML/MIN Total Creatine Kinase 384 U/L Creatine Kinase MB 6.0 NG/ML Creatine Kinase MB % 1.6 % Troponin I 0.03 NG/ML B-Type Natriuretic Peptide 3366 PG/ML MDM Medical Decision Making Medical Screen Exam Complete: Yes Emergency Medical Condition: Yes Medical Record Reviewed: Yes Interpretation(s) EKG reveals interventricular conduction delay. Inverted T waves noted in lead V5, V6, 1, and aVL. Nonspecific ST changes. Laboratory Tests Test 11/09/17 00:45 White Blood Count 6.1 TH/MM3 Red Blood Count 4.33 MIL/MM3 Hemoglobin 11.7 GM/DL Hematocrit 34.5 % Mean Corpuscular Volume 79.7 FL Mean Corpuscular Hemoglobin 27.1 PG Mean Corpuscular Hemoglobin Concent 34.0 % Red Cell Distribution Width 19.2 % Platelet Count 190 TH/MM3 Mean Platelet Volume 11.9 FL Neutrophils (%) (Auto) 68.8 % Lymphocytes (%) (Auto) 17.0 % Monocytes (%) (Auto) 10.9 % Eosinophils (%) (Auto) 2.6 % Basophils (%) (Auto) 0.7 % Neutrophils # (Auto) 4.2 TH/MM3 Lymphocytes # (Auto) 1.0 TH/MM3 Monocytes # (Auto) 0.7 TH/MM3 Eosinophils # (Auto) 0.2 TH/MM3 Basophils # (Auto) 0.0 TH/MM3 CBC Comment DIFF FINAL Differential Comment Prothrombin Time 12.8 SEC Prothromb Time International Ratio 1.3 RATIO Activated Partial Thromboplast Time 28.5 SEC Blood Urea Nitrogen 51 MG/DL Creatinine 2.94 MG/DL Random Glucose 252 MG/DL Total Protein 7.5 GM/DL Albumin 3.6 GM/DL Calcium Level 8.9 MG/DL Magnesium Level 1.9 MG/DL Alkaline Phosphatase 123 U/L Aspartate Amino Transf (AST/SGOT) 36 U/L Alanine Aminotransferase (ALT/SGPT) 27 U/L Total Bilirubin 1.1 MG/DL Sodium Level 133 MEQ/L Potassium Level 4.7 MEQ/L Chloride Level 96 MEQ/L Carbon Dioxide Level 27.2 MEQ/L Anion Gap 10 MEQ/L Estimat Glomerular Filtration Rate 22 ML/MIN Total Creatine Kinase 384 U/L Creatine Kinase MB 6.0 NG/ML Creatine Kinase MB % 1.6 % Troponin I 0.03 NG/ML B-Type Natriuretic Peptide 3366 PG/ML Chest x-ray reveals no acute cardiopulmonary disease. Mild cardiomegaly status post median sternotomy. Differential Diagnosis Differential diagnosis includes cardiomyopathy, congestive heart failure, anasarca, hypoalbuminemia, volume overload, chronic kidney disease, pleural effusion, pulmonary edema. Narrative Course IV was established, labs are drawn and sent, and the patient was placed on cardiac telemetry monitoring and continuous pulse oximetry monitoring. EKG was ordered and interpreted. Chest x-ray was obtained. The patient received Lasix 80 mg intravenously. Chest x-ray reveals no acute Natanael pulmonary disease, he does have mild cardiomegaly status post median sternotomy. The patient's creatinine is elevated, he does have a history of CK-MB, BNP is more elevated than normal, greater than 3000. I reviewed the EMR, his baseline BNP appears to be in the 700-800s. The patient did ambulate, however, his respiratory rate goes from normal around 1618 up to 26-30 reds per minute. The patient has exertional symptoms and anasarca up to the abdomen, may need mild diuresis to improve symptoms, however, he has underlying chronic kidney disease. Therefore , the patient will be admitted. The patient has [facility], therefore, the on-call [facility] physician was paged for admission. Physician Communication Physician Communication The on-call [facility] physician was paged for admission. I discussed the patient with Dr. Lazo who agrees with admission to Dr. Fuentes. Diagnosis Primary Impression: Acute on chronic clinical systolic heart failure Additional Impressions: Shortness of breath Chronic kidney disease Qualified Codes: N18.4 - Chronic kidney disease, stage 4 (severe) Admitting Information Admitting Physician Requests: Admit Condition: Stable Paul Chou MD Nov 09, 2017 00:41
[2017-11-09] MEDS ORDERED: FUROSEMIDE 100 MG/10 ML VIAL IVP ONE (00:45)
[2017-11-09] MEDS ORDERED: SODIUM CHLORIDE 0.9% FLUSH 10 ML FLUSH IVF PRN (00:45)
--- NOTE | 2017-11-09 01:54 | RADRPT ---
EXAM DATE/TIME: 11/09/2017 00:47 [place] COMPARISON: CHEST SINGLE AP, May 28, 2017, 3:17. INDICATIONS : shortness of breath, congestive heart failure by history. MEDICAL HISTORY : Congestive heart failure. SURGICAL HISTORY : CABG. Pacemaker/Defibrillator ENCOUNTER: Initial ACUITY: 1 day PAIN SCORE: 0/10 LOCATION: Bilateral chest FINDINGS: A single AP semierect view of the chest was obtained and again demonstrates that the patient is statu s post median sternotomy. The heart size is mildly enlarged with no perihilar edema. The lungs are cl ear with no confluent infiltrates or effusions. The left subclavian transvenous pacer remains in plac e. The bony thorax is otherwise unremarkable. CONCLUSION: 1. No acute cardiopulmonary disease. 2. Mild cardiomegaly status post median sternotomy. Nathanael Rolle MD on November 09, 2017 at 1:04 Board Certified Radiologist. This report was verified electronically.
[2017-11-09 02:21] LABS: ALKALINE PHOSPHATASE 123 U/L (45-117); TOTAL PROTEIN 7.5 GM/DL (6.4-8.2); TROPONIN I 0.03 NG/ML (0.02-0.05)
[2017-11-09 02:23] LABS: ALBUMIN 3.6 GM/DL (3.4-5.0); ALT (GPT) 27 U/L (12-78); AST (GOT) 36 U/L (15-37); BICARBONATE 27.2 MEQ/L (21.0-32.0); BLOOD UREA NITROGEN 51 MG/DL (7-18); CALCIUM 8.9 MG/DL (8.5-10.1); CHLORIDE 96 MEQ/L (98-107); CREATININE 2.94 MG/DL (0.60-1.30); GLOMERULAR FILTRATION RATE 22 ML/MIN (>89); GLUCOSE,RANDOM 252 MG/DL (74-106); MAGNESIUM 1.9 MG/DL (1.5-2.5); SODIUM (NA) 133 MEQ/L (136-145); TOTAL BILIRUBIN ADULT 1.1 MG/DL (0.2-1.0)
[2017-11-09 02:26] LABS: AUTOMATED NEUTROPHIL # 4.2 TH/MM3 (1.8-7.7); BASOPHIL % 0.7 % (0.0-2.0); EOSINOPHIL # 0.2 TH/MM3 (0-0.4); EOSINOPHIL % 2.6 % (0.0-4.0); HEMATOCRIT 34.5 % (39.0-51.0); HEMOGLOBIN 11.7 GM/DL (13.0-17.0); MEAN CELL VOLUME 79.7 FL (80.0-100.0); MEAN CORPUSCULAR HEMOGLOBIN 27.1 PG (27.0-34.0); MEAN PLATELET VOLUME 11.9 FL (7.0-11.0); MONO % 10.9 % (0.0-8.0); MONOCYTE # 0.7 TH/MM3 (0-0.9); NEUT % 68.8 % (16.0-70.0); PLATELET COUNT 190 TH/MM3 (150-450); RED BLOOD COUNT 4.33 MIL/MM3 (4.50-5.90); RED CELL DISTRIBUTION WIDTH 19.2 % (11.6-17.2); WHITE BLOOD COUNT 6.1 TH/MM3 (4.0-11.0)
[2017-11-09 02:27] LABS: INTERNATIONAL NORMALIZED RATIO 1.3 RATIO; PROTHROMBIN TIME - PATIENT 12.8 SEC (9.8-11.6)
[2017-11-09] MEDS ORDERED: MORPHINE SULFATE 4 MG/ML INJ IV PUSH PRN (03:30)
[2017-11-09] MEDS ORDERED: ONDANSETRON HCL 4 MG/2 ML VIAL IV PUSH PRN (03:30)
[2017-11-09] MEDS ORDERED: ACETAMINOPHEN 500 MG CPLT PO PRN (03:30)
[2017-11-09] MEDS ORDERED: NITROGLYCERIN 0.4 MG SL 25 TABS/BTL SL PRN (03:30)
[2017-11-09] MEDS ORDERED: SODIUM CHLORIDE 0.9% FLUSH 10 ML FLUSH IV FLUSH PRN (03:30)
[2017-11-09] MEDS ORDERED: ASPIRIN 325 MG TAB PO SCH (09:00)
--- NOTE | 2017-11-09 09:23 | HHI.HP ---
HPI Service [facility] Hospitalists Primary Care Physician Lyndsey Barton MD Admission Diagnosis CHF, cardiomyopathy, CKD 4, anasarca Chief Complaint: sob/swelling Travel History International Travel<30 Days: No Contact w/Intl Traveler <30 Da: No Traveled to Known Affected Are: No History of Present Illness Pt is 62 yo with systolic chf 20%, AICD, ckd 4, dm 2, copd, cad presenting to ED with more sob even lying flat and peripheral edema. He reports his most recent dry weight has been around 160-163. Pt says he gained up to around 173 pounds. In ED given iv lasix 80mg and admitted for eval. Pt had a repeat 2d echo at [facility] on 10/22/17 for recheck on EF and possible [facility] eval for Transplant. The ef was again 20% but concern for possible LV thrombus. Efforts to schedule a contrast enhanced echo were underway. Also pt says he hasn't filled his bb/aisha/plavix in past 10 days. Past Family Social History Past Medical History Diabetes CAD Systolic CHF Cardiomyopathy with EF 15-20% in 10/2016 repeat echo 10/22/17. ef 20percent and concern for LV thrombus PAD HTN Hyperlipidemia GERD CKD, stage 4 Hx paroxysmal VT BENITES with bridging fibrosis COPD Past Surgical History Single chamber defibrillator implantation on 12/19/[address] Razo [facility] (08/28/16) --> severe sitka three-vessel coronary disease, 3 of 4 coronary bypass grafts are patent CABG x 4 in 2009 Angioplasty right iliac artery Cholecystectomy Repair of ruptured Achilles tendon Back surgery Reported Medications Lasix (Furosemide) 80 Mg Tab 80 Mg PO DAILY Lisinopril 5 Mg Tab 5 Mg PO DAILY Coreg (Carvedilol) 12.5 Mg Tab 12.5 Mg PO Q12HR Ranexa ER 12 HR (Ranolazine) 500 Mg Tab 500 Mg PO Q12HR Flexeril (Cyclobenzaprine HCl) 10 Mg Tab 10 Mg PO Q8H PRN Novolog Inj (Insulin Aspart) 1,000 Unit/10 Ml Vial 0 SQ DIRECTED Sliding Scale as directed. Omeprazole 20 Mg Tab 20 Mg PO DAILY Aspirin Adult Low Strength (Aspirin) 81 Mg Tabdr 81 Mg PO HS Tresiba Flextouch Pen Inj (Insulin Degludec Inj) 300 unit/3 ML Pen 120 Units SQ HS NOT TAKING TRESIBA REGULARLY DUE TO HYPOGLYCEMIA Ventolin Hfa 18 GM Inh (Albuterol Sulfate) 90 Mcg/Act Aer 2 Puff INH Q4-6H PRN Spiriva Handihaler (Tiotropium Inh) 18 Mcg Cap 18 Mcg INH DAILY 1 capsule = 18 mcg Simvastatin 40 Mg Tab 40 Mg PO HS Plavix (Clopidogrel Bisulfate) 75 Mg Tab 75 Mg PO HS Advair Diskus Inh (Fluticasone-Salmeterol Inh) 250-50 Mcg/Blist Aer 1 Puff INH BID Rinse mouth after use. Allergies: Coded Allergies: penicillin G (Verified Allergy, Unknown, SWELLING, 11/06/17) Family History Father with CAD, diabetes, lung cancer Mother with MS Social History (+)Hx of tobacco use, smoked 1.5ppd from age 24 to 55, quit in 2009 Denies any alcohol or illicit drug use Physical Exam Vital Signs heart reg lung cta abd s/nt ext 1plus pitting lower ext edema Vital Signs Date Time Temp Pulse Resp B/P (MAP) Pulse Ox O2 Delivery O2 Flow Rate FiO2 11/09/17 07:42 89 11/09/17 04:21 11/09/17 04:00 96.6 91 16 123/80 (94) 93 11/09/17 03:30 91 18 107/68 (81) 97 Room Air 11/09/17 00:42 100 Room Air 11/09/17 00:41 97 26 127/75 (92) 100 Room Air 11/08/17 22:35 97.6 101 18 118/75 (89) 98 Room Air Laboratory Laboratory Tests Test 11/09/17 00:45 White Blood Count 6.1 Red Blood Count 4.33 Hemoglobin 11.7 Hematocrit 34.5 Mean Corpuscular Volume 79.7 Mean Corpuscular Hemoglobin 27.1 Mean Corpuscular Hemoglobin Concent 34.0 Red Cell Distribution Width 19.2 Platelet Count 190 Mean Platelet Volume 11.9 Neutrophils (%) (Auto) 68.8 Lymphocytes (%) (Auto) 17.0 Monocytes (%) (Auto) 10.9 Eosinophils (%) (Auto) 2.6 Basophils (%) (Auto) 0.7 Neutrophils # (Auto) 4.2 Lymphocytes # (Auto) 1.0 Monocytes # (Auto) 0.7 Eosinophils # (Auto) 0.2 Basophils # (Auto) 0.0 CBC Comment DIFF FINAL Differential Comment Prothrombin Time 12.8 Prothromb Time International Ratio 1.3 Activated Partial Thromboplast Time 28.5 Blood Urea Nitrogen 51 Creatinine 2.94 Random Glucose 252 Total Protein 7.5 Albumin 3.6 Calcium Level 8.9 Magnesium Level 1.9 Alkaline Phosphatase 123 Aspartate Amino Transf (AST/SGOT) 36 Alanine Aminotransferase (ALT/SGPT) 27 Total Bilirubin 1.1 Sodium Level 133 Potassium Level 4.7 Chloride Level 96 Carbon Dioxide Level 27.2 Anion Gap 10 Estimat Glomerular Filtration Rate 22 Total Creatine Kinase 384 Creatine Kinase MB 6.0 Creatine Kinase MB % 1.6 Troponin I 0.03 B-Type Natriuretic Peptide 3366 Result Diagram: 11/09/175 11/09/1744 Caprini VTE Risk Assessment Caprini VTE Risk Assessment: Mod/High Risk (score >= 2) Caprini Risk Assessment Model Point Value = 1 Point Value = 2 Point Value = 3 Point Value = 5 Age 41-60 Minor surgery BMI > 25 kg/m2 Swollen legs Varicose veins or History of unexplained or recurrent spontaneous Oral contraceptives or hormone replacement Sepsis (< 1 month) Serious lung disease, including pneumonia (< 1 month) Abnormal pulmonary function Acute myocardial infarction Congestive heart failure (< 1 month) History of inflammatory bowel disease Medical patient at bed rest Age 61-74 Arthroscopic surgery Major open surgery (> 45 min) Laparoscopic surgery (> 45 min) Malignancy Confined to bed (> 72 hours) Immobilizing plaster cast Central venous access Age >= 75 History of VTE Family history of VTE Factor V Leiden Prothrombin [id number] Lupus anticoagulant Anticardiolipin antibodies Elevated serum homocysteine Heparin-induced thrombocytopenia Other congenital or acquired thrombophilia Stroke (< 1 month) Elective arthroplasty Hip, pelvis, or leg fracture Acute spinal cord injury (< 1 month) Prophylaxis Regimen Total Risk Factor Score Risk Level Prophylaxis Regimen 0-1 Low Early ambulation 2 Moderate Order ONE of the following: *Sequential Compression Device (SCD) *Heparin 5000 units SQ BID 3-4 Higher Order ONE of the following medications: *Heparin 5000 units SQ TID *Enoxaparin/Lovenox 40 mg SQ daily (WT < 150 kg, CrCl > 30 mL/min) *Enoxaparin/Lovenox 30 mg SQ daily (WT < 150 kg, CrCl > 10-29 mL/min) *Enoxaparin/Lovenox 30 mg SQ BID (WT < 150 kg, CrCl > 30 mL/min) AND/OR *Sequential Compression Device (SCD) 5 or more Highest Order ONE of the following medications: *Heparin 5000 units SQ TID (Preferred with Epidurals) *Enoxaparin/Lovenox 40 mg SQ daily (WT < 150 kg, CrCl > 30 mL/min) *Enoxaparin/Lovenox 30 mg SQ daily (WT < 150 kg, CrCl > 10-29 mL/min) *Enoxaparin/Lovenox 30 mg SQ BID (WT < 150 kg, CrCl > 30 mL/min) AND *Sequential Compression Device (SCD) Assessment and Plan Problem List: (1) Acute systolic CHF (congestive heart failure) ICD Codes: I50.21 - Acute systolic (congestive) heart failure Status: Acute Plan: 1. acute systolic/chronic chf . EF 20%. aicd last echo 10/22/17 question LV thrombus on this echo. 2. a/ckd 4 related to his chf 3. dm 2. pt reports hypoglycemia and not regularly using his tresiba 4. htn 5. copd. not exacerbated 6. cad. 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 dvt prophlaxis PT eval. (2) Acute worsening of stage 4 chronic kidney disease ICD Codes: N28.9 - Disorder of kidney and ureter, unspecified; N18.4 - Chronic kidney disease, stage 4 (severe) Status: Chronic (3) COPD (chronic obstructive pulmonary disease) ICD Codes: J44.9 - Chronic obstructive pulmonary disease, unspecified Status: Chronic (4) DM2 (diabetes mellitus, type 2) ICD Codes: E11.9 - Type 2 diabetes mellitus without complications Status: Chronic (5) CAD (coronary artery disease) of artery bypass graft ICD Codes: I25.810 - CAD (coronary artery disease) of artery bypass graft Status: Chronic (6) PAD (peripheral artery disease) ICD Codes: I73.9 - PAD (peripheral artery disease) Status: Chronic (7) S/P ICD (internal cardiac defibrillator) procedure ICD Codes: Z95.810 - Presence of automatic (implantable) cardiac defibrillator Status: Chronic (8) HTN (hypertension) ICD Codes: I10 - HTN (hypertension) Status: Chronic Physician Certification 2 Midnight Certification Type: Admission for Inpatient Services Order for Inpatient Services 3The services are ordered in accordance with Medicare regulations or non- Medicare payer requirements, as applicable. In the case of services not specified as inpatient-only, they are appropriately provided as inpatient services in accordance with the 2-midnight benchmark. Estimated LOS (days): 3 3 days is the estimated time the patient will need to remain in the hospital, assuming treatment plan goals are met and no additional complications. 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
[2017-11-09] MEDS: SODIUM CHLORIDE 0.9% FLUSH 10 ML FLUSH IV FLUSH SCH ×2 (09:24→21:17)
[2017-11-09] MEDS: BUDESONIDE-FORMOTEROL 160/4.5 MCG INHALER INH SCH ×2 (09:30→21:17)
[2017-11-09] MEDS ORDERED: ALBUTEROL SULFATE 90 MCG/ACT HFA 8 GM INHALER INH PRN (09:30)
[2017-11-09] MEDS: RANOLAZINE 500 MG EXTENDED RELEASE TAB PO SCH ×2 (10:00→21:18)
[2017-11-09] MEDS: TIOTROPIUM BROMIDE 18 MCG INH INH SCH (10:00)
[2017-11-09] MEDS ORDERED: CYCLOBENZAPRINE HCL 10 MG TAB PO PRN (10:00)
[2017-11-09] MEDS: PANTOPRAZOLE SOD 20 MG DELAYED RELEASE TAB PO SCH (10:38)
[2017-11-09] MEDS: CARVEDILOL 12.5 MG TAB PO SCH ×2 (10:38→21:18)
[2017-11-09] MEDS: LISINOPRIL 5 MG TAB PO SCH (10:39)
[2017-11-09] MEDS: FUROSEMIDE 40 MG/4 ML VIAL IV PUSH SCH ×2 (10:39→17:12)
[2017-11-09 11:05] LABS: TROPONIN I 0.02 NG/ML (0.02-0.05)
[2017-11-09] MEDS: INSULIN ASPART SUPPLEMENTAL SCALE SQ SCH ×3 (13:03→21:18)
[2017-11-09 13:57] LABS: TROPONIN I 0.02 NG/ML (0.02-0.05)
--- NOTE | 2017-11-09 19:38 | EKG ---
Date Performed: 11/09/2017 Time Performed: 00:53:02 PTAGE: 62 years EKG: UNCERTAIN REGULAR RHYTHM INTRAVENTRICULAR CONDUCTION DELAY ANTEROSEPTAL MYOCARDIAL INFARCTI ON Since the previous tracing, no significant change noted ABNORMAL ECG PREVIOUS TRACING : 05/28/2017 08.08 DOCTOR: Thompson Tom Interpretating Date/Time 11/09/2017 19:38:12
[2017-11-09] MEDS: ASPIRIN EC 81 MG TABEC PO SCH (21:18)
[2017-11-09] MEDS: PRAVASTATIN SOD 80 MG TAB PO SCH (21:18)
[2017-11-09] MEDS: CLOPIDOGREL 75 MG TAB PO SCH (21:18)
[2017-11-10] VITALS: BP 100/63; PULSE 76; RESP 17; TEMP 96.4; O2SAT 95
[2017-11-10] MEDS: ACETAMINOPHEN/HYDROcodone 325 MG/7.5 MG TAB PO PRN ×2 (03:16→23:44)
[2017-11-10 04:00] VITALS: BP 102/62; PULSE 74; RESP 17; TEMP 96.7; O2SAT 96
[2017-11-10 08:00] VITALS: BP 118/73; PULSE 72; PULSE 73; RESP 18; TEMP 96.2; O2SAT 96
[2017-11-10 08:39] LABS: BICARBONATE 24.3 MEQ/L (21.0-32.0); CREATININE 2.69 MG/DL (0.60-1.30)
[2017-11-10] MEDS: INSULIN ASPART SUPPLEMENTAL SCALE SQ SCH ×4 (09:17→21:17)
[2017-11-10] MEDS: TIOTROPIUM BROMIDE 18 MCG INH INH SCH (09:17)
[2017-11-10] MEDS: BUDESONIDE-FORMOTEROL 160/4.5 MCG INHALER INH SCH ×2 (09:17→21:17)
[2017-11-10] MEDS: FUROSEMIDE 40 MG/4 ML VIAL IV PUSH SCH ×3 (09:18→21:15)
[2017-11-10] MEDS: SODIUM CHLORIDE 0.9% FLUSH 10 ML FLUSH IV FLUSH SCH ×2 (09:18→21:16)
[2017-11-10] MEDS: LISINOPRIL 5 MG TAB PO SCH (09:19)
[2017-11-10] MEDS: RANOLAZINE 500 MG EXTENDED RELEASE TAB PO SCH ×2 (09:19→21:15)
[2017-11-10] MEDS: CARVEDILOL 12.5 MG TAB PO SCH ×2 (09:19→21:15)
[2017-11-10] MEDS: PANTOPRAZOLE SOD 20 MG DELAYED RELEASE TAB PO SCH (09:20)
[2017-11-10 12:00] VITALS: BP 106/66; PULSE 72; RESP 18; TEMP 96.3; O2SAT 98
[2017-11-10 16:00] VITALS: BP 108/67; PULSE 73; RESP 18; TEMP 97.1; O2SAT 97
--- NOTE | 2017-11-10 18:42 | HHI.PR ---
Subjective Remarks Pt denies SOB. Per pt, some improvement of LE edema from admission. Objective Vitals Vital Signs Date Time Temp Pulse Resp B/P (MAP) Pulse Ox O2 Delivery O2 Flow Rate FiO2 11/10/17 16:00 97.1 73 18 108/67 (81) 97 11/10/17 12:00 96.3 72 18 106/66 (79) 98 11/10/17 10:19 18 11/10/17 08:00 72 11/10/17 08:00 96.2 73 18 118/73 (88) 96 11/10/17 04:12 18 11/10/17 04:00 96.7 74 17 102/62 (75) 96 11/10/17 00:00 96.4 76 17 100/63 (75) 95 11/09/17 23:00 91 11/09/17 20:00 88 11/09/17 20:00 96.7 86 16 119/81 (94) 99 11/09/17 19:55 98 21 11/10/17 11/10/17 11/11/17 15:00 23:00 07:00 Intake Total 960 ml Output Total 1400 ml Balance -440 ml Intake Oral 960 ml Output Urine Total 1400 ml Result Diagram: 11/09/17 0045 11/10/17 0617 Imaging Last Impressions Chest X-Ray 11/09/17 0034 Signed Impressions: Service Date/Time: Thursday, November 09, 2017 00:47 - CONCLUSION: 1. No acute cardiopulmonary disease. 2. Mild cardiomegaly status post median sternotomy. Nathanael Rolle MD Objective Remarks GENERAL: This is a well-nourished, well-developed patient, in no apparent distress. CARDIOVASCULAR: Regular rate and rhythm without murmurs, gallops, or rubs. RESPIRATORY: Clear to auscultation. Breath sounds equal bilaterally. No wheezes , rales, or rhonchi. GASTROINTESTINAL: Abdomen soft, non-tender, nondistended. Normal active bowel sounds MUSCULOSKELETAL: 2+ b/l LE edema up to the hips NEURO: Alert & Oriented x4 to person, place, time, situation. Moves all ext x4 A/P Problem List: (1) Acute systolic CHF (congestive heart failure) ICD Codes: I50.21 - Acute systolic (congestive) heart failure Status: Acute Plan: - acute on chronic systolic CHF - EF 20% on last echocardiogram (10/22/17) - AICD - h/o CAD, s/p 4V CABG - pt still with significant LE edema. 2+ bilaterally up to his hips. - increase IV lasix to 80mg IV BID with PO KCL - fluid restriction - observe renal function - Outpt Cardiology: - working on referral for a Definity contrast enhanced echo to clarify if LV thrombus - some medication compliance issues. coreg, lisinopril, and antiplatelet drugs resumed upon admission after 10 hiatus - PT - DVT prophylaxis - supportive care 5. copd. not exacerbated cont iv lasix and monitor weight/output/intake/bmp fluid restrict cont SSI novology and hold tresiba resume his coreg/lisinipril and antiplt drugs...patient reports being off these medications for past 10 days. (2) Acute worsening of stage 4 chronic kidney disease ICD Codes: N28.9 - Disorder of kidney and ureter, unspecified; N18.4 - Chronic kidney disease, stage 4 (severe) Status: Chronic Plan: - improved since admission - significant edema/anasarca - pt will need continued IV lasix - observe renal function (3) COPD (chronic obstructive pulmonary disease) ICD Codes: J44.9 - Chronic obstructive pulmonary disease, unspecified Status: Chronic Plan: - symbicort, spiriva - duonebs prn (4) DM2 (diabetes mellitus, type 2) ICD Codes: E11.9 - Type 2 diabetes mellitus without complications Status: Chronic Plan: - pt reports hypoglycemia and not regularly using his tresiba at home - continue SSI - observe (5) CAD (coronary artery disease) of artery bypass graft ICD Codes: I25.810 - CAD (coronary artery disease) of artery bypass graft Status: Chronic Plan: - ASA, palvix, coreg, renexa, lisinopril (6) PAD (peripheral artery disease) ICD Codes: I73.9 - PAD (peripheral artery disease) Status: Chronic (7) HTN (hypertension) ICD Codes: I10 - HTN (hypertension) Status: Chronic Plan: - stable - lisinopril, coreg Problem Qualifiers (1) COPD (chronic obstructive pulmonary disease): (2) DM2 (diabetes mellitus, type 2): Qualified Codes: E11.8 - Type 2 diabetes mellitus with unspecified complications; Z79.4 - long-term (current) use of insulin (3) CAD (coronary artery disease) of artery bypass graft: Qualified Codes: I25.810 - Atherosclerosis of coronary artery bypass graft(s) without angina pectoris (4) HTN (hypertension): Qualified Codes: I10 - Essential (primary) hypertension Jorge Alberto Chong DO Nov 10, 2017 18:42
[2017-11-10 21:12] VITALS: BP 100/69; PULSE 87; RESP 17; TEMP 97.7; O2SAT 94
[2017-11-10] MEDS: PRAVASTATIN SOD 80 MG TAB PO SCH (21:15)
[2017-11-10] MEDS: POTASSIUM CHLORIDE 20 MEQ CONTROLLED RELEASE TAB PO SCH (21:15)
[2017-11-10] MEDS: ASPIRIN EC 81 MG TABEC PO SCH (21:15)
[2017-11-10] MEDS: CLOPIDOGREL 75 MG TAB PO SCH (21:16)
[2017-11-11 00:16] VITALS: BP 100/66; PULSE 82; RESP 17; TEMP 97.7; O2SAT 95
[2017-11-11 05:22] VITALS: BP 108/69; PULSE 96; RESP 17; TEMP 97.1; O2SAT 100
[2017-11-11 08:00] VITALS: BP 114/73; PULSE 76; PULSE 77; RESP 20; TEMP 97; O2SAT 93
[2017-11-11] MEDS ORDERED: FUROSEMIDE 80 MG TAB PO SCH (09:00)
[2017-11-11] MEDS: INSULIN ASPART SUPPLEMENTAL SCALE SQ SCH ×4 (09:15→21:48)
[2017-11-11] MEDS: BUDESONIDE-FORMOTEROL 160/4.5 MCG INHALER INH SCH ×2 (09:15→21:18)
[2017-11-11] MEDS: TIOTROPIUM BROMIDE 18 MCG INH INH SCH (09:15)
[2017-11-11] MEDS: CARVEDILOL 12.5 MG TAB PO SCH ×2 (09:16→21:16)
[2017-11-11] MEDS: PANTOPRAZOLE SOD 20 MG DELAYED RELEASE TAB PO SCH (09:16)
[2017-11-11] MEDS: POTASSIUM CHLORIDE 20 MEQ CONTROLLED RELEASE TAB PO SCH ×2 (09:16→21:17)
[2017-11-11] MEDS: FUROSEMIDE 40 MG/4 ML VIAL IV PUSH SCH ×2 (09:16→21:18)
[2017-11-11] MEDS: LISINOPRIL 5 MG TAB PO SCH (09:16)
[2017-11-11] MEDS: RANOLAZINE 500 MG EXTENDED RELEASE TAB PO SCH ×2 (09:17→21:16)
[2017-11-11] MEDS: SODIUM CHLORIDE 0.9% FLUSH 10 ML FLUSH IV FLUSH SCH ×2 (09:17→21:18)
[2017-11-11 09:33] LABS: BASOPHIL % 0.9 % (0.0-2.0); EOSINOPHIL # 0.2 TH/MM3 (0-0.4); EOSINOPHIL % 2.9 % (0.0-4.0); HEMATOCRIT 34.9 % (39.0-51.0); LYMPH % 14.1 % (9.0-44.0); LYMPHOCYTE # 0.8 TH/MM3 (1.0-4.8); MEAN CELL VOLUME 78.8 FL (80.0-100.0); MEAN CORPUSCULAR HEMOGLOBIN 24.9 PG (27.0-34.0); MEAN CORPUSCULAR HGB CONC 31.6 % (32.0-36.0); MEAN PLATELET VOLUME 12.4 FL (7.0-11.0); MONO % 7.9 % (0.0-8.0); MONOCYTE # 0.4 TH/MM3 (0-0.9); NEUT % 74.2 % (16.0-70.0); PLATELET COUNT 194 TH/MM3 (150-450); RED BLOOD COUNT 4.42 MIL/MM3 (4.50-5.90); WHITE BLOOD COUNT 5.4 TH/MM3 (4.0-11.0)
[2017-11-11 09:56] LABS: BICARBONATE 27.4 MEQ/L (21.0-32.0); CREATININE 2.82 MG/DL (0.60-1.30); MAGNESIUM 2.3 MG/DL (1.5-2.5)
[2017-11-11 12:00] VITALS: BP 100/63; PULSE 75; PULSE 77; RESP 18; TEMP 96.9; O2SAT 97
[2017-11-11 16:00] VITALS: BP 114/73; PULSE 77; RESP 18; TEMP 97; O2SAT 97
--- NOTE | 2017-11-11 17:44 | HHI.PR ---
Subjective Remarks Pt has NO new complaints. but, pt continues to c/o lower extremity edema. Objective Vitals Vital Signs Date Time Temp Pulse Resp B/P (MAP) Pulse Ox O2 Delivery O2 Flow Rate FiO2 11/11/17 16:00 97.0 77 18 114/73 (87) 97 11/11/17 12:00 96.9 75 18 100/63 (75) 97 11/11/17 12:00 77 11/11/17 08:00 77 11/11/17 08:00 97.0 76 20 114/73 (87) 93 11/11/17 05:22 97.1 96 17 108/69 (82) 100 11/11/17 00:16 97.7 82 17 100/66 (77) 95 11/10/17 21:12 97.7 87 17 100/69 (79) 94 Result Diagram: 11/11/17 0730 11/11/17 0830 Imaging Last Impressions Chest X-Ray 11/09/17 0034 Signed Impressions: Service Date/Time: Thursday, November 09, 2017 00:47 - CONCLUSION: 1. No acute cardiopulmonary disease. 2. Mild cardiomegaly status post median sternotomy. Nathanael Rolle MD Objective Remarks GENERAL: This is a well-nourished, well-developed patient, in no apparent distress. CARDIOVASCULAR: Regular rate and rhythm without murmurs, gallops, or rubs. RESPIRATORY: Clear to auscultation. Breath sounds equal bilaterally. No wheezes , rales, or rhonchi. GASTROINTESTINAL: Abdomen soft, non-tender, nondistended. Normal active bowel sounds MUSCULOSKELETAL: 2+ b/l LE edema up to the hips NEURO: Alert & Oriented x4 to person, place, time, situation. Moves all ext x4 A/P Problem List: (1) Acute systolic CHF (congestive heart failure) ICD Codes: I50.21 - Acute systolic (congestive) heart failure Status: Acute Plan: - acute on chronic systolic CHF - EF 20% on last echocardiogram (10/22/17) - AICD - h/o CAD, s/p 4V CABG - pt still with significant LE edema. 2+ bilaterally up to his hips. - IV lasix to 80mg IV BID with PO KCL - start zaroxolyn 2.5mg daily, may need to increase, observe diuresis - fluid restriction - observe renal function - Outpt Cardiology: - working on referral for a Definity contrast enhanced echo to clarify if LV thrombus - some medication compliance issues. coreg, lisinopril, and antiplatelet drugs resumed upon admission after 10 hiatus - PT - DVT prophylaxis - supportive care (2) Acute worsening of stage 4 chronic kidney disease ICD Codes: N28.9 - Disorder of kidney and ureter, unspecified; N18.4 - Chronic kidney disease, stage 4 (severe) Status: Chronic Plan: - improved since admission - significant edema/anasarca - pt will need continued IV lasix - observe renal function (3) COPD (chronic obstructive pulmonary disease) ICD Codes: J44.9 - Chronic obstructive pulmonary disease, unspecified Status: Chronic Plan: - symbicort, spiriva - duonebs prn (4) DM2 (diabetes mellitus, type 2) ICD Codes: E11.9 - Type 2 diabetes mellitus without complications Status: Chronic Plan: - pt reports hypoglycemia and not regularly using his tresiba at home - continue SSI - observe (5) CAD (coronary artery disease) of artery bypass graft ICD Codes: I25.810 - CAD (coronary artery disease) of artery bypass graft Status: Chronic Plan: - ASA, palvix, coreg, renexa, lisinopril (6) PAD (peripheral artery disease) ICD Codes: I73.9 - PAD (peripheral artery disease) Status: Chronic (7) HTN (hypertension) ICD Codes: I10 - HTN (hypertension) Status: Chronic Plan: - stable - lisinopril, coreg Problem Qualifiers (1) COPD (chronic obstructive pulmonary disease): (2) DM2 (diabetes mellitus, type 2): Qualified Codes: E11.8 - Type 2 diabetes mellitus with unspecified complications; Z79.4 - snf (current) use of insulin (3) CAD (coronary artery disease) of artery bypass graft: Qualified Codes: I25.810 - Atherosclerosis of coronary artery bypass graft(s) without angina pectoris (4) HTN (hypertension): Qualified Codes: I10 - Essential (primary) hypertension Jorge Alberto Chong DO Nov 11, 2017 17:44
[2017-11-11 20:00] VITALS: BP_SYST 114; BP_SYST 144; BP_DIAS 70; PULSE 84; RESP 22; TEMP 98; O2SAT 95
[2017-11-11] MEDS: METOLAZONE 2.5 MG TAB PO SCH (20:43)
[2017-11-11] MEDS: ASPIRIN EC 81 MG TABEC PO SCH (21:16)
[2017-11-11] MEDS: PRAVASTATIN SOD 80 MG TAB PO SCH (21:16)
[2017-11-11] MEDS: CLOPIDOGREL 75 MG TAB PO SCH (21:19)
[2017-11-11] MEDS: ACETAMINOPHEN/HYDROcodone 325 MG/7.5 MG TAB PO PRN (21:47)
[2017-11-12] VITALS (7 sets, daily range): BP systolic 103–169; BP diastolic 65–75; PULSE 74–87; RESP 16–22; TEMP 96–98.6; O2SAT 93–99
[2017-11-12] MEDS: INSULIN ASPART SUPPLEMENTAL SCALE SQ SCH ×4 (08:00→21:00)
[2017-11-12] MEDS: SODIUM CHLORIDE 0.9% FLUSH 10 ML FLUSH IV FLUSH SCH ×2 (09:00→21:22)
[2017-11-12] MEDS ORDERED: [UNRECOGNIZED DRUG - CODE] TOPICAL (09:08)
[2017-11-12] MEDS: BUDESONIDE-FORMOTEROL 160/4.5 MCG INHALER INH SCH ×2 (09:09→21:22)
[2017-11-12] MEDS: TIOTROPIUM BROMIDE 18 MCG INH INH SCH (09:09)
[2017-11-12] MEDS: PANTOPRAZOLE SOD 20 MG DELAYED RELEASE TAB PO SCH (09:10)
[2017-11-12] MEDS: FUROSEMIDE 40 MG/4 ML VIAL IV PUSH SCH ×2 (09:10→21:29)
[2017-11-12] MEDS: POTASSIUM CHLORIDE 20 MEQ CONTROLLED RELEASE TAB PO SCH ×2 (09:10→21:23)
[2017-11-12] MEDS: LISINOPRIL 5 MG TAB PO SCH (09:10)
[2017-11-12] MEDS: METOLAZONE 2.5 MG TAB PO SCH ×2 (09:10→21:26)
[2017-11-12] MEDS: CARVEDILOL 12.5 MG TAB PO SCH ×2 (09:10→21:23)
[2017-11-12] MEDS: RANOLAZINE 500 MG EXTENDED RELEASE TAB PO SCH ×2 (09:10→21:25)
[2017-11-12] MEDS: TAMSULOSIN HCL 0.4 MG CAP PO SCH (10:29)
[2017-11-12 11:11] LABS: BICARBONATE 26.6 MEQ/L (21.0-32.0); CALCIUM 8.9 MG/DL (8.5-10.1); CREATININE 2.94 MG/DL (0.60-1.30); MAGNESIUM 2.3 MG/DL (1.5-2.5)
[2017-11-12] MEDS: RESP: ALBUTEROL 2.5 MG/IPRATROPIUM 0.5 MG NEB (PRN) NEB (14:08)
[2017-11-12] MEDS: NYSTATIN 100,000 U/GM PWD 15 GM BTL TOPICAL SCH ×2 (15:25→21:27)
--- NOTE | 2017-11-12 17:40 | HHI.PR ---
Subjective Remarks Pt states that there has been some increase in his urine output since starting zaroxyln. Pt refusing most meals d/t low salt diet. Objective Vitals Vital Signs Date Time Temp Pulse Resp B/P (MAP) Pulse Ox O2 Delivery O2 Flow Rate FiO2 11/12/17 16:00 96.0 82 16 115/71 (86) 94 11/12/17 12:00 96.9 79 18 113/73 (86) 99 11/12/17 08:00 96.1 83 17 103/70 (81) 93 11/12/17 04:00 97.1 79 22 111/75 (87) 99 11/12/17 00:00 98.2 80 22 117/65 (82) 98 11/11/17 20:00 98.0 84 22 114/70 (85) 95 Result Diagram: 11/11/17 0730 11/12/17 0900 Imaging Last Impressions Chest X-Ray 11/09/17 0034 Signed Impressions: Service Date/Time: Thursday, November 09, 2017 00:47 - CONCLUSION: 1. No acute cardiopulmonary disease. 2. Mild cardiomegaly status post median sternotomy. Nathanael Rolle MD Objective Remarks GENERAL: This is a well-nourished, well-developed patient, in no apparent distress. CARDIOVASCULAR: Regular rate and rhythm without murmurs, gallops, or rubs. RESPIRATORY: Clear to auscultation. Breath sounds equal bilaterally. No wheezes , rales, or rhonchi. GASTROINTESTINAL: Abdomen soft, non-tender, nondistended. Normal active bowel sounds MUSCULOSKELETAL: continued 2+ b/l LE edema up to the hips NEURO: Alert & Oriented x4 to person, place, time, situation. Moves all ext x4 A/P Problem List: (1) Acute systolic CHF (congestive heart failure) ICD Codes: I50.21 - Acute systolic (congestive) heart failure Status: Acute Plan: - acute on chronic systolic CHF - EF 20% on last echocardiogram (10/22/17) - AICD - h/o CAD, s/p 4V CABG - pt appear to have had some mild clinic improvement over the course of his hospitalization but still with obvious 2+ edema bilaterally up to his hips - IV lasix to 80mg IV BID with PO KCL - increase zaroxolyn to 5mg BID - request strict I&Os with daily weights (not bedscale) - request Cardiology consult - fluid restriction - observe renal function - Outpt Cardiology: - working on referral for a Definity contrast enhanced echo to clarify if LV thrombus - some medication compliance issues. coreg, lisinopril, and antiplatelet drugs resumed upon admission after 10 hiatus - PT - DVT prophylaxis - supportive care (2) Acute worsening of stage 4 chronic kidney disease ICD Codes: N28.9 - Disorder of kidney and ureter, unspecified; N18.4 - Chronic kidney disease, stage 4 (severe) Status: Chronic Plan: - improved since admission - significant edema/anasarca - pt will need continued IV lasix - observe renal function (3) COPD (chronic obstructive pulmonary disease) ICD Codes: J44.9 - Chronic obstructive pulmonary disease, unspecified Status: Chronic Plan: - symbicort, spiriva - duonebs prn (4) DM2 (diabetes mellitus, type 2) ICD Codes: E11.9 - Type 2 diabetes mellitus without complications Status: Chronic Plan: - pt reports hypoglycemia and not regularly using his tresiba at home - continue SSI - observe (5) CAD (coronary artery disease) of artery bypass graft ICD Codes: I25.810 - CAD (coronary artery disease) of artery bypass graft Status: Chronic Plan: - ASA, palvix, coreg, renexa, lisinopril (6) PAD (peripheral artery disease) ICD Codes: I73.9 - PAD (peripheral artery disease) Status: Chronic (7) HTN (hypertension) ICD Codes: I10 - HTN (hypertension) Status: Chronic Plan: - stable - lisinopril, coreg Problem Qualifiers (1) COPD (chronic obstructive pulmonary disease): (2) DM2 (diabetes mellitus, type 2): Qualified Codes: E11.8 - Type 2 diabetes mellitus with unspecified complications; 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
[2017-11-12] MEDS: ALBUMIN 25% INJ 100 ML IV SCH (18:41)
[2017-11-12] MEDS: PRAVASTATIN SOD 80 MG TAB PO SCH (21:25)
[2017-11-12] MEDS: CLOPIDOGREL 75 MG TAB PO SCH (21:25)
[2017-11-12] MEDS: ASPIRIN EC 81 MG TABEC PO SCH (21:26)
[2017-11-13] VITALS (8 sets, daily range): BP systolic 99–118; BP diastolic 62–66; PULSE 73–98; RESP 17–20; TEMP 96.5–97.4; O2SAT 96–100
[2017-11-13] MEDS: ALBUMIN 25% INJ 100 ML IV SCH ×2 (05:43→17:26)
[2017-11-13] MEDS: NYSTATIN 100,000 U/GM PWD 15 GM BTL TOPICAL SCH ×3 (05:44→22:13)
--- NOTE | 2017-11-13 07:47 | PD.CONS ---
HPI Consult Requested By Primary Care Physician Lyndsey Barton MD History of Present Illness 62-year-old male with past medical history of systolic CHF/cardiomyopathy EF less than 20%, CAD, HTN, HLD, CKD stage IV, DM, COPD who presented with shortness of breath. Patient states over the past few weeks he has been noticing a 5 or 6 pound weight gain. He presented with shortness of breath and leg swelling. Chest x-ray on admission did not show any signs of overt failure. He denies any chest pain or palpitations. He has been receiving diuretics since admission and reports breathing is starting to improve. He had a -1 L fluid balance overnight with the addition of metolazone yesterday. Review of Systems Patient complains of itchy sore lesions on his extremities secondary to renal disease Negative except as stated in the HPI or otherwise Past Family Social History Allergies: Coded Allergies: penicillin G (Verified Allergy, Unknown, SWELLING, 11/06/17) Past Medical History Diabetes CAD Systolic CHF Cardiomyopathy with EF 20% Echo 10/22/17. EF 20percent and question of LV thrombus PAD HTN Hyperlipidemia GERD CKD, stage 4 Hx paroxysmal VT BENITES with bridging fibrosis COPD Past Surgical History Single chamber defibrillator implantation on 12/19/[address] Razo [facility] (08/28/16) --> severe [place] three-vessel coronary disease, 3 of 4 coronary bypass grafts are patent CABG x 4 in 2009 Angioplasty right iliac artery Cholecystectomy Repair of ruptured Achilles tendon Back surgery Reported Medications Reported Meds & Active Scripts Active Lasix (Furosemide) 80 Mg Tab 80 Mg PO DAILY Lisinopril 5 Mg Tab 5 Mg PO DAILY Coreg (Carvedilol) 12.5 Mg Tab 12.5 Mg PO Q12HR Ranexa ER 12 HR (Ranolazine) 500 Mg Tab 500 Mg PO Q12HR Flexeril (Cyclobenzaprine HCl) 10 Mg Tab 10 Mg PO Q8H PRN Novolog Inj (Insulin Aspart) 1,000 Unit/10 Ml Vial 0 SQ DIRECTED Sliding Scale as directed. Reported Tinactin Topical (Tolnaftate) 1 % Powd 1 Applic TOPICAL BID Omeprazole 20 Mg Tab 20 Mg PO DAILY Aspirin Adult Low Strength (Aspirin) 81 Mg Tabdr 81 Mg PO HS Tresiba Flextouch Pen Inj (Insulin Degludec Inj) 300 unit/3 ML Pen 120 Units SQ HS Ventolin Hfa 18 GM Inh (Albuterol Sulfate) 90 Mcg/Act Aer 2 Puff INH Q4-6H PRN Spiriva Handihaler (Tiotropium Inh) 18 Mcg Cap 18 Mcg INH DAILY 1 capsule = 18 mcg Simvastatin 40 Mg Tab 40 Mg PO HS Plavix (Clopidogrel Bisulfate) 75 Mg Tab 75 Mg PO HS Advair Diskus Inh (Fluticasone-Salmeterol Inh) 250-50 Mcg/Blist Aer 1 Puff INH BID Rinse mouth after use. Active Ordered Medications Current Medications Medications (Trade) Dose Ordered Sig/Angel Route Start Time Stop Time Status Last Admin (NS Flush) 2 ml UNSCH PRN IV FLUSH 11/09/17 03:30 (NS Flush) 2 ml BID IV FLUSH 11/09/17 09:00 11/12/17 21:22 (Tylenol) 500 mg Q4H PRN PO 11/09/17 03:30 11/10/17 09:19 ([place] 7.5-325 Mg) 1 tab Q4H PRN PO 11/09/17 03:30 11/11/17 21:47 (Morphine Inj) 2 mg Q4H PRN IV PUSH 11/09/17 03:30 (Zofran Inj) 4 mg Q6H PRN IV PUSH 11/09/17 03:30 (Nitrostat Sl) 0.4 mg Q5M PRN SL 11/09/17 03:30 (NovoLOG SUPPLEMENTAL SCALE) 1 ACHS SLIDING SCALE SQ 11/09/17 12:00 11/12/17 21:00 (Ecotrin Ec) 81 mg HS PO 11/09/17 21:00 11/12/17 21:26 (Coreg) 12.5 mg Q12HR PO 11/09/17 10:00 11/12/17 21:23 (Plavix) 75 mg HS PO 11/09/17 21:00 11/12/17 21:25 (Flexeril) 10 mg Q8H PRN PO 11/09/17 10:00 (Prinivil) 5 mg DAILY PO 11/09/17 10:00 11/12/17 09:10 (Ranexa) 500 mg Q12HR PO 11/09/17 10:00 11/12/17 21:25 (Spiriva Inh) 18 mcg DAILY INH 11/09/17 10:00 11/12/17 09:09 (Symbicort 160-4.5 Mcg Inh) 2 puff BID INH 11/09/17 09:30 11/12/17 21:22 (Protonix) 20 mg DAILY PO 11/09/17 10:00 11/12/17 09:10 (Pravachol) 80 mg HS PO 11/09/17 21:00 11/12/17 21:25 (Duoneb Neb) 1 ampule Q2HR NEB PRN NEB 11/09/17 10:00 11/12/17 14:08 (Lasix Inj) 80 mg BID IV PUSH 11/10/17 21:00 11/12/17 21:29 (KCl) 20 meq BID PO 11/10/17 21:00 11/12/17 21:23 (Flomax) 0.4 mg DAILY PO 11/12/17 09:00 11/12/17 10:29 (Mycostatin Powder) 1 applic Q8HR TOPICAL 11/12/17 14:00 11/13/17 05:44 (Zaroxolyn) 5 mg BID PO 11/12/17 21:00 11/12/17 21:26 Albumin Human 100 ml @ 60 mls/hr Q12H IV 11/12/17 18:00 11/13/17 05:43 Family History Father with CAD, diabetes, lung cancer Mother with MS Social History (+)Hx of tobacco use, smoked 1.5ppd from age 24 to 55, quit in 2009 Denies any alcohol or illicit drug use Physical Exam Vital Signs Vital Signs Date Time Temp Pulse Resp B/P (MAP) Pulse Ox O2 Delivery O2 Flow Rate FiO2 11/13/17 04:00 97.4 76 20 118/65 (82) 96 11/12/17 20:00 98.6 87 18 169/69 (102) 98 11/12/17 16:00 96.0 82 16 115/71 (86) 94 11/12/17 12:00 96.9 79 18 113/73 (86) 99 11/12/17 08:00 96.1 83 17 103/70 (81) 93 Physical Exam GENERAL: Well-developed well-nourished. In no acute distress. NECK: No carotid bruits. No JVD. CARDIOVASCULAR: Regular rate and rhythm. No murmur appreciated. RESPIRATORY: No accessory muscle use. Clear to auscultation. Breath sounds equal bilaterally. No crackles. MUSCULOSKELETAL: No clubbing or cyanosis. 1+ bilateral lower extremity edema. NEUROLOGICAL: Awake and alert. Normal speech. Laboratory Laboratory Tests Test 11/12/17 09:00 Blood Urea Nitrogen 56 Creatinine 2.94 Random Glucose 147 Calcium Level 8.9 Magnesium Level 2.3 Sodium Level 134 Potassium Level 4.3 Chloride Level 98 Carbon Dioxide Level 26.6 Anion Gap 9 Estimat Glomerular Filtration Rate 22 Result Diagram: 11/11/17 0730 11/12/17 0900 Imaging Last Impressions Chest X-Ray 11/09/17 0034 Signed Impressions: Service Date/Time: Thursday, November 09, 2017 00:47 - CONCLUSION: 1. No acute cardiopulmonary disease. 2. Mild cardiomegaly status post median sternotomy. Nathanael Rolle MD Assessment and Plan Assessment and Plan 62-year-old male with past medical history of systolic CHF/cardiomyopathy EF less than 20%, CAD, HTN, HLD, CKD stage IV, DM, COPD who presented with shortness of breath, weight gain, and lower extremity swelling. Acute exacerbation of chronic systolic CHF: Improving. Has been diuresed with IV Lasix 80 mg twice daily. Negative fluid balance overnight with addition of 5 mg of metolazone. Cardiomyopathy: EF 20%. S/P AICD. Continue lisinopril and carvedilol. CAD: Stable. Continue aspirin, Plavix, statin, Ranexa. CKD stage IV: Monitor renal function closely with diuresis. Eder Alvarez Nov 13, 2017 07:47
[2017-11-13 08:39] LABS: AUTOMATED NEUTROPHIL # 3.4 TH/MM3 (1.8-7.7); BASOPHIL % 0.6 % (0.0-2.0); EOSINOPHIL # 0.1 TH/MM3 (0-0.4); EOSINOPHIL % 2.3 % (0.0-4.0); HEMATOCRIT 34.4 % (39.0-51.0); HEMOGLOBIN 10.8 GM/DL (13.0-17.0); LYMPH % 22.3 % (9.0-44.0); LYMPHOCYTE # 1.2 TH/MM3 (1.0-4.8); MEAN CELL VOLUME 78.4 FL (80.0-100.0); MEAN CORPUSCULAR HEMOGLOBIN 24.6 PG (27.0-34.0); MEAN CORPUSCULAR HGB CONC 31.4 % (32.0-36.0); MEAN PLATELET VOLUME 11.8 FL (7.0-11.0); MONO % 10.5 % (0.0-8.0); MONOCYTE # 0.6 TH/MM3 (0-0.9); NEUT % 64.3 % (16.0-70.0); PLATELET COUNT 192 TH/MM3 (150-450); RED CELL DISTRIBUTION WIDTH 18.6 % (11.6-17.2); WHITE BLOOD COUNT 5.3 TH/MM3 (4.0-11.0)
[2017-11-13] MEDS: TIOTROPIUM BROMIDE 18 MCG INH INH SCH (08:42)
[2017-11-13] MEDS: BUDESONIDE-FORMOTEROL 160/4.5 MCG INHALER INH SCH ×2 (08:42→21:00)
[2017-11-13] MEDS: TAMSULOSIN HCL 0.4 MG CAP PO SCH (08:44)
[2017-11-13] MEDS: RANOLAZINE 500 MG EXTENDED RELEASE TAB PO SCH ×2 (08:45→22:12)
[2017-11-13] MEDS: METOLAZONE 2.5 MG TAB PO SCH ×2 (08:45→22:12)
[2017-11-13] MEDS: CARVEDILOL 12.5 MG TAB PO SCH ×2 (08:45→21:00)
[2017-11-13] MEDS: POTASSIUM CHLORIDE 20 MEQ CONTROLLED RELEASE TAB PO SCH ×2 (08:46→22:14)
[2017-11-13] MEDS: FUROSEMIDE 40 MG/4 ML VIAL IV PUSH SCH ×2 (08:46→21:50)
[2017-11-13] MEDS: PANTOPRAZOLE SOD 20 MG DELAYED RELEASE TAB PO SCH (08:46)
[2017-11-13] MEDS: INSULIN ASPART SUPPLEMENTAL SCALE SQ SCH ×4 (08:47→21:48)
[2017-11-13] MEDS: SODIUM CHLORIDE 0.9% FLUSH 10 ML FLUSH IV FLUSH SCH ×2 (08:47→21:51)
[2017-11-13 08:58] LABS: BICARBONATE 26.4 MEQ/L (21.0-32.0); CALCIUM 9.2 MG/DL (8.5-10.1); CREATININE 3.01 MG/DL (0.60-1.30); MAGNESIUM 2.3 MG/DL (1.5-2.5)
[2017-11-13] MEDS ORDERED: SACUBITRIL/VALSARTAN 24 MG-26 MG TAB PO SCH (09:00)
[2017-11-13] MEDS ORDERED: MAGNESIUM HYDROXIDE SUSP 30 ML CUP PO PRN (10:15)
--- NOTE | 2017-11-13 10:33 | HHI.PR ---
Subjective Remarks No new complaints. Objective Vitals Vital Signs Date Time Temp Pulse Resp B/P (MAP) Pulse Ox O2 Delivery O2 Flow Rate FiO2 11/13/17 08:00 97.3 73 17 107/66 (80) 100 11/13/17 04:00 97.4 76 20 118/65 (82) 96 11/12/17 21:00 74 11/12/17 20:00 98.6 87 18 169/69 (102) 98 11/12/17 16:00 96.0 82 16 115/71 (86) 94 11/12/17 12:00 96.9 79 18 113/73 (86) 99 Result Diagram: 11/13/17 0545 11/13/17 0545 Imaging Last Impressions Chest X-Ray 11/09/17 0034 Signed Impressions: Service Date/Time: Thursday, November 09, 2017 00:47 - CONCLUSION: 1. No acute cardiopulmonary disease. 2. Mild cardiomegaly status post median sternotomy. Nathanael Rolle MD Objective Remarks GENERAL: This is a well-nourished, well-developed patient, in no apparent distress. CARDIOVASCULAR: Regular rate and rhythm without murmurs, gallops, or rubs. RESPIRATORY: Clear to auscultation. Breath sounds equal bilaterally. No wheezes , rales, or rhonchi. GASTROINTESTINAL: Abdomen soft, non-tender, nondistended. Normal active bowel sounds MUSCULOSKELETAL: continued 2+ b/l LE edema up to the hips NEURO: Alert & Oriented x4 to person, place, time, situation. Moves all ext x4 A/P Problem List: (1) Acute systolic CHF (congestive heart failure) ICD Codes: I50.21 - Acute systolic (congestive) heart failure Status: Acute Plan: - comgmt with Cardiology - acute on chronic systolic CHF - EF 20% on last echocardiogram (10/22/17) - AICD - h/o CAD, s/p 4V CABG - pt appear to have had some mild clinic improvement over the course of his hospitalization but still with obvious 2+ edema bilaterally up to his hips - IV lasix to 80mg IV BID with PO KCL - increased zaroxolyn to 5mg BID (11/13/17) - Entresto started (11/13) - request strict I&Os with daily weights (not bedscale) - fluid restriction - observe renal function - Outpt Cardiology: - working on referral for a Definity contrast enhanced echo to clarify if LV thrombus - some medication compliance issues. coreg, lisinopril, and antiplatelet drugs resumed upon admission after 10 hiatus - PT - DVT prophylaxis - supportive care (2) Acute worsening of stage 4 chronic kidney disease ICD Codes: N28.9 - Disorder of kidney and ureter, unspecified; N18.4 - Chronic kidney disease, stage 4 (severe) Status: Chronic Plan: - review of the pt's creatinine in the outpt records show a range of 2.0 to 2.7 for the last 3 months - outpt creatinine was 2.54 (10/31/17) - Creatinine 2.9 (11/09), 3.01 (11/13) - GFR ranging from 26 to 34 in the last 3 months - GFR 22 (11/09), 21 (11/13) - significant edema/anasarca - Pt receiving IV lasix, PO metolazone, and IV albumin - request Nephrology consultation (3) COPD (chronic obstructive pulmonary disease) ICD Codes: J44.9 - Chronic obstructive pulmonary disease, unspecified Status: Chronic Plan: - symbicort, spiriva - duonebs prn (4) DM2 (diabetes mellitus, type 2) ICD Codes: E11.9 - Type 2 diabetes mellitus without complications Status: Chronic Plan: - pt reports hypoglycemia and not regularly using his tresiba at home - continue SSI - observe (5) CAD (coronary artery disease) of artery bypass graft ICD Codes: I25.810 - CAD (coronary artery disease) of artery bypass graft Status: Chronic Plan: - ASA, palvix, coreg, renexa, lisinopril (6) PAD (peripheral artery disease) ICD Codes: I73.9 - PAD (peripheral artery disease) Status: Chronic (7) HTN (hypertension) ICD Codes: I10 - HTN (hypertension) Status: Chronic Plan: - stable - lisinopril, coreg Problem Qualifiers (1) COPD (chronic obstructive pulmonary disease): (2) DM2 (diabetes mellitus, type 2): Qualified Codes: E11.8 - Type 2 diabetes mellitus with unspecified complications; Z79.4 - [facility] (current) use of insulin (3) CAD (coronary artery disease) of artery bypass graft: Qualified Codes: I25.810 - Atherosclerosis of coronary artery bypass graft(s) without angina pectoris (4) HTN (hypertension): Qualified Codes: I10 - Essential (primary) hypertension Jorge Alberto Chong DO Nov 13, 2017 10:33
[2017-11-13] MEDS: DOCUSATE SODIUM 100 MG CAP PO SCH ×2 (11:23→21:50)
[2017-11-13] MEDS: RESP: ALBUTEROL 2.5 MG/IPRATROPIUM 0.5 MG NEB (PRN) NEB ×2 (11:38→17:43)
[2017-11-13] MEDS: ASPIRIN EC 81 MG TABEC PO SCH (21:49)
[2017-11-13] MEDS: SACUBITRIL/VALSARTAN 24 MG-26 MG TAB PO SCH (21:50)
[2017-11-13] MEDS: CLOPIDOGREL 75 MG TAB PO SCH (21:50)
[2017-11-13] MEDS: PRAVASTATIN SOD 80 MG TAB PO SCH (22:11)
[2017-11-13] MEDS: ACETAMINOPHEN/HYDROcodone 325 MG/7.5 MG TAB PO PRN (22:12)
[2017-11-14 00:10] VITALS: BP 103/68; PULSE 81; RESP 20; TEMP 96.2; O2SAT 94
[2017-11-14] MEDS: NYSTATIN 100,000 U/GM PWD 15 GM BTL TOPICAL SCH ×3 (06:47→22:00)
[2017-11-14] MEDS: ALBUMIN 25% INJ 100 ML IV SCH (06:47)
[2017-11-14 08:00] VITALS: BP 113/73; PULSE 80; RESP 18; TEMP 95.6; O2SAT 96
[2017-11-14] MEDS: FUROSEMIDE 40 MG/4 ML VIAL IV PUSH SCH (09:00)
[2017-11-14] MEDS: DOCUSATE SODIUM 100 MG CAP PO SCH ×2 (09:00→21:00)
[2017-11-14] MEDS: INSULIN ASPART SUPPLEMENTAL SCALE SQ SCH ×4 (09:00→21:00)
--- NOTE | 2017-11-14 09:38 | PD.CARD.PN ---
Subjective Subjective Remarks Patient complains of feeling tired today. Blood glucose was 66 this morning. Creatinine is climbing some. He reports his leg swelling has continued to go down. Objective Medications Current Medications Medications (Trade) Dose Ordered Sig/Angel Route Start Time Stop Time Status Last Admin (NS Flush) 2 ml UNSCH PRN IV FLUSH 11/09/17 03:30 (NS Flush) 2 ml BID IV FLUSH 11/09/17 09:00 11/13/17 21:51 (Tylenol) 500 mg Q4H PRN PO 11/09/17 03:30 11/10/17 09:19 ([place] 7.5-325 Mg) 1 tab Q4H PRN PO 11/09/17 03:30 11/13/17 22:12 (Morphine Inj) 2 mg Q4H PRN IV PUSH 11/09/17 03:30 (Zofran Inj) 4 mg Q6H PRN IV PUSH 11/09/17 03:30 (Nitrostat Sl) 0.4 mg Q5M PRN SL 11/09/17 03:30 (NovoLOG SUPPLEMENTAL SCALE) 1 ACHS SLIDING SCALE SQ 11/09/17 12:00 11/13/17 17:26 (Ecotrin Ec) 81 mg HS PO 11/09/17 21:00 11/13/17 21:49 (Coreg) 12.5 mg Q12HR PO 11/09/17 10:00 11/13/17 08:45 (Plavix) 75 mg HS PO 11/09/17 21:00 11/13/17 21:50 (Flexeril) 10 mg Q8H PRN PO 11/09/17 10:00 (Ranexa) 500 mg Q12HR PO 11/09/17 10:00 11/13/17 22:12 (Spiriva Inh) 18 mcg DAILY INH 11/09/17 10:00 11/13/17 08:42 (Symbicort 160-4.5 Mcg Inh) 2 puff BID INH 11/09/17 09:30 11/13/17 08:42 (Protonix) 20 mg DAILY PO 11/09/17 10:00 11/13/17 08:46 (Pravachol) 80 mg HS PO 11/09/17 21:00 11/13/17 22:11 (Duoneb Neb) 1 ampule Q2HR NEB PRN NEB 11/09/17 10:00 11/13/17 17:43 (Lasix Inj) 80 mg BID IV PUSH 11/10/17 21:00 11/13/17 21:50 (KCl) 20 meq BID PO 11/10/17 21:00 11/13/17 22:14 (Flomax) 0.4 mg DAILY PO 11/12/17 09:00 11/13/17 08:44 (Mycostatin Powder) 1 applic Q8HR TOPICAL 11/12/17 14:00 11/14/17 06:47 (Zaroxolyn) 5 mg BID PO 11/12/17 21:00 11/13/17 22:12 Albumin Human 100 ml @ 60 mls/hr Q12H IV 11/12/17 18:00 11/14/17 06:47 (Entresto 24-26 Mg) 1 tab BID PO 11/13/17 21:00 11/13/17 21:50 (Colace) 100 mg BID PO 11/13/17 10:15 11/13/17 21:50 (Milk Of Magnesia Liq) 30 ml DAILY PRN PO 11/13/17 10:15 11/13/17 11:23 Vital Signs / I&O Vital Signs Date Time Temp Pulse Resp B/P (MAP) Pulse Ox O2 Delivery O2 Flow Rate FiO2 11/14/17 00:10 96.2 81 20 103/68 (80) 94 11/13/17 23:59 79 11/13/17 20:00 96.5 98 20 102/66 (78) 98 11/13/17 19:43 81 11/13/17 16:00 96.8 77 19 107/64 (78) 97 11/13/17 12:00 96.8 79 17 99/62 (74) 97 11/13/17 12:00 79 11/13/17 11:41 98 21 I/O 11/13/17 11/13/17 11/13/17 11/14/17 11/14/17 11/14/17 07:00 15:00 23:00 07:00 15:00 23:00 Intake Total 100 ml 960 ml Output Total 250 ml 700 ml 250 ml Balance -250 ml 100 ml 260 ml -250 ml Intake Oral 960 ml IV Total 100 ml Output Urine Total 250 ml 700 ml 250 ml # Voids 2 # Bowel Movements 1 Physical Exam GENERAL: Well-developed well-nourished. In no acute distress. NECK: No carotid bruits. No JVD. CARDIOVASCULAR: Regular rate and rhythm. No murmur appreciated. RESPIRATORY: No accessory muscle use. Clear to auscultation. Breath sounds equal bilaterally. MUSCULOSKELETAL: No clubbing or cyanosis. Trace lower extreme edema. NEUROLOGICAL: Awake and alert. Normal speech. Imaging Last Impressions Chest X-Ray 11/09/17 0034 Signed Impressions: Service Date/Time: Thursday, November 09, 2017 00:47 - CONCLUSION: 1. No acute cardiopulmonary disease. 2. Mild cardiomegaly status post median sternotomy. Nathanael Rolle MD Assessment and Plan Assessment and Plan 62-year-old male with past medical history of systolic CHF/cardiomyopathy EF less than 20%, CAD, HTN, HLD, CKD stage IV, DM, COPD who presented with shortness of breath, weight gain, and lower extremity swelling. Acute exacerbation of chronic systolic CHF: Improving. Creatinine is climbing. Would discontinue IV Lasix, metolazone, and albumin and resume home oral Lasix dose tomorrow. Cardiomyopathy: EF 20%. S/P AICD. Continue carvedilol. Lisinopril discontinued and Entresto added (please have case management provide sample coupon at discharge) CAD: Stable. Continue aspirin, Plavix, statin, Ranexa. CKD stage IV: Monitor renal function closely with diuresis. Nephrology has been consulted. Discussed Condition With Patient seen with Eder Ray Nov 14, 2017 09:38
[2017-11-14] MEDS: RANOLAZINE 500 MG EXTENDED RELEASE TAB PO SCH ×2 (11:29→21:00)
[2017-11-14] MEDS: CARVEDILOL 12.5 MG TAB PO SCH ×2 (11:30→21:00)
[2017-11-14] MEDS: TAMSULOSIN HCL 0.4 MG CAP PO SCH (11:30)
[2017-11-14] MEDS: PANTOPRAZOLE SOD 20 MG DELAYED RELEASE TAB PO SCH (11:31)
[2017-11-14] MEDS: SACUBITRIL/VALSARTAN 24 MG-26 MG TAB PO SCH ×2 (11:31→21:00)
[2017-11-14] MEDS: POTASSIUM CHLORIDE 20 MEQ CONTROLLED RELEASE TAB PO SCH ×2 (11:31→21:00)
[2017-11-14] MEDS: TIOTROPIUM BROMIDE 18 MCG INH INH SCH (11:34)
[2017-11-14] MEDS: BUDESONIDE-FORMOTEROL 160/4.5 MCG INHALER INH SCH ×2 (11:34→21:00)
[2017-11-14] MEDS: SODIUM CHLORIDE 0.9% FLUSH 10 ML FLUSH IV FLUSH SCH ×2 (11:35→21:00)
[2017-11-14 12:00] VITALS: BP 103/69; PULSE 77; RESP 18; TEMP 96.5; O2SAT 98
[2017-11-14 14:05] VITALS: O2SAT 95
[2017-11-14 16:00] VITALS: BP 105/73; PULSE 81; RESP 18; TEMP 96.8; O2SAT 98
[2017-11-14] MEDS ORDERED: EUCERIN CREAM 120 GM JAR TOPICAL PRN (16:00)
--- NOTE | 2017-11-14 16:17 | PD.CONS ---
HPI Service Nephrology Consult Requested By Dr. Andino Reason for Consult CKD stage 4 Primary Care Physician Lyndsey Bartno MD History of Present Illness Pt is 62 yo with systolic chf 20%, AICD, ckd 4, dm 2, copd, and cad. Patient present to hospital with SOB, wt gain, and peripheral edema. Reported weight gain of 10 LBS. Patient reports that he has had CKD for approximately 2 yearsy which he was told was related to his diabetes. He reported that his last GFR a couple of months ago was approximately around 18ml/min. Nephrology was consulted CKD stage 4 and fluid overload. Creatinine is found to be 3.01 which is slightly elevated from his baseline creatinine in May 2017 of 2.1- 2.3. Patient has multiple skin lesions on body and has pruritus. Scratching constantly when reviewing history. He is also complaining of fatigue and mild SOB which has improved. Lower extremity edema is mild. (Palak Santana) Review of Systems Constitutional: COMPLAINS OF: Fatigue Respiratory: COMPLAINS OF: Shortness of breath Cardiovascular: COMPLAINS OF: Lower Extremity Edema, DENIES: Chest pain Gastrointestinal: DENIES: Nausea, Vomiting Integumentary: COMPLAINS OF: Pruritus, Rash (Palak Santana) Past Family Social History Allergies: Coded Allergies: penicillin G (Verified Allergy, Unknown, SWELLING, 11/06/17) Past Medical History Diabetes CAD Systolic CHF Cardiomyopathy with EF 15-20% in 10/2016 repeat echo 10/22/17. ef 20percent and concern for LV thrombus PAD HTN Hyperlipidemia GERD CKD, stage 4 Hx paroxysmal VT BENITES with bridging fibrosis COPD Past Surgical History Single chamber defibrillator implantation on 12/19/[address] Razo [facility] (08/28/16) --> severe [place] three-vessel coronary disease, 3 of 4 coronary bypass grafts are patent CABG x 4 in 2009 Angioplasty right iliac artery Cholecystectomy Repair of ruptured Achilles tendon Back surgery Active Ordered Medications Current Medications Medications (Trade) Dose Ordered Sig/Angel Route Start Time Stop Time Status Last Admin (NS Flush) 2 ml UNSCH PRN IV FLUSH 11/09/17 03:30 (NS Flush) 2 ml BID IV FLUSH 11/09/17 09:00 11/14/17 11:35 (Tylenol) 500 mg Q4H PRN PO 11/09/17 03:30 11/10/17 09:19 ([place] 7.5-325 Mg) 1 tab Q4H PRN PO 11/09/17 03:30 11/13/17 22:12 (Morphine Inj) 2 mg Q4H PRN IV PUSH 11/09/17 03:30 (Zofran Inj) 4 mg Q6H PRN IV PUSH 11/09/17 03:30 (Nitrostat Sl) 0.4 mg Q5M PRN SL 11/09/17 03:30 (NovoLOG SUPPLEMENTAL SCALE) 1 ACHS SLIDING SCALE SQ 11/09/17 12:00 11/13/17 17:26 (Ecotrin Ec) 81 mg HS PO 11/09/17 21:00 11/13/17 21:49 (Coreg) 12.5 mg Q12HR PO 11/09/17 10:00 11/14/17 11:30 (Plavix) 75 mg HS PO 11/09/17 21:00 11/13/17 21:50 (Flexeril) 10 mg Q8H PRN PO 11/09/17 10:00 (Ranexa) 500 mg Q12HR PO 11/09/17 10:00 11/14/17 11:29 (Spiriva Inh) 18 mcg DAILY INH 11/09/17 10:00 11/14/17 11:34 (Symbicort 160-4.5 Mcg Inh) 2 puff BID INH 11/09/17 09:30 11/14/17 11:34 (Protonix) 20 mg DAILY PO 11/09/17 10:00 11/14/17 11:31 (Pravachol) 80 mg HS PO 11/09/17 21:00 11/13/17 22:11 (Duoneb Neb) 1 ampule Q2HR NEB PRN NEB 11/09/17 10:00 11/13/17 17:43 (KCl) 20 meq BID PO 11/10/17 21:00 11/14/17 11:31 (Flomax) 0.4 mg DAILY PO 11/12/17 09:00 11/14/17 11:30 (Mycostatin Powder) 1 applic Q8HR TOPICAL 11/12/17 14:00 11/14/17 06:47 (Entresto 24-26 Mg) 1 tab BID PO 11/13/17 21:00 11/14/17 11:31 (Colace) 100 mg BID PO 11/13/17 10:15 11/13/17 21:50 (Milk Of Magnesia Liq) 30 ml DAILY PRN PO 11/13/17 10:15 11/13/17 11:23 (Lasix) 80 mg DAILY PO 11/15/17 09:00 Family History Father with CAD, diabetes, lung cancer, CKD and dialysis Mother with MS Social History Quit smoking in 2009 No ETOH use Lives alone Disabled (Palak Santana) Physical Exam Vital Signs Vital Signs Date Time Temp Pulse Resp B/P (MAP) Pulse Ox O2 Delivery O2 Flow Rate FiO2 11/14/17 14:05 95 11/14/17 12:00 96.5 77 18 103/69 (80) 98 11/14/17 08:00 95.6 80 18 113/73 (86) 96 11/14/17 00:10 96.2 81 20 103/68 (80) 94 11/13/17 23:59 79 11/13/17 20:00 96.5 98 20 102/66 (78) 98 11/13/17 19:43 81 11/13/17 16:00 96.8 77 19 107/64 (78) 97 Physical Exam GENERAL: Alert and oriented SKIN: Warm and dry. Multiple skin lesions HEAD: Normocephalic. EYES: No scleral icterus. No injection or drainage. NECK: Supple, trachea midline. No JVD or lymphadenopathy. CARDIOVASCULAR: Regular rate and rhythm without murmurs, gallops, or rubs. RESPIRATORY: Breath sounds equal bilaterally. No accessory muscle use. GASTROINTESTINAL: Abdomen soft, non-tender, nondistended. MUSCULOSKELETAL: No cyanosis, or edema. BACK: Nontender without obvious deformity. No CVA tenderness. (Palak Santana) Result Diagram: 11/13/17 0545 11/13/17 0545 Imaging Last Impressions Chest X-Ray 11/09/17 0034 Signed Impressions: Service Date/Time: Thursday, November 09, 2017 00:47 - CONCLUSION: 1. No acute cardiopulmonary disease. 2. Mild cardiomegaly status post median sternotomy. Nathanael Rolle MD (Palak Santana) Assessment and Plan Problem List: (1) CKD (chronic kidney disease) stage 4, GFR 15-29 ml/min ICD Codes: N18.4 - Chronic kidney disease, stage 4 (severe) Plan: Patient with CKD stage 4 possible related to diabetic nephropathy baseline creatinine per records in May at 2.1-2.3 He possibly has superimposed acute kidney injury with a creatinine of 3.01 at this hospitalization. Patient reported that a couple of months ago that his GFR has been declining and that it was 18 ml/min so possible his kidney function is worsening. Plan Will order UA C+S Continue lasix 80mg Continue to hold metolazone Atarax and emollient ordered for pruritus. Avoid nephrotoxins when possible Will monitor UOP and BMP (2) HTN (hypertension) ICD Codes: I10 - HTN (hypertension) Status: Chronic Plan: Well controlled continue current medications (Palak Santana) Problem List: (1) CKD (chronic kidney disease) stage 4, GFR 15-29 ml/min ICD Codes: N18.4 - Chronic kidney disease, stage 4 (severe) Plan: Patient with CKD stage 4 possible related to diabetic nephropathy baseline creatinine per records in May at 2.1-2.3 He possibly has superimposed acute kidney injury with a creatinine of 3.01 at this hospitalization. Patient reported that a couple of months ago that his GFR has been declining and that it was 18 ml/min so possible his kidney function is worsening. Plan Will order UA C+S Continue lasix 80mg Continue to hold metolazone Atarax and emollient ordered for pruritus. Avoid nephrotoxins when possible Will monitor UOP and BMP. Patient seen and examined, agree with above. Continue Lasix, and follow the BMP. (2) HTN (hypertension) ICD Codes: I10 - HTN (hypertension) Status: Chronic Plan: Well controlled continue current medications (Elise Schaeffer MD) Problem Qualifiers (1) HTN (hypertension): Qualified Codes: I10 - Essential (primary) hypertension Palak Santana Nov 14, 2017 16:17 Elise Schaeffer MD Nov 14, 2017 18:47
[2017-11-14] MEDS: RESP: ALBUTEROL 2.5 MG/IPRATROPIUM 0.5 MG NEB (PRN) NEB (18:00)
--- NOTE | 2017-11-14 18:49 | HHI.PR ---
Subjective Remarks No new complaints. Objective Vitals Vital Signs Date Time Temp Pulse Resp B/P (MAP) Pulse Ox O2 Delivery O2 Flow Rate FiO2 11/14/17 16:00 96.8 81 18 105/73 (84) 98 11/14/17 14:05 95 11/14/17 12:00 96.5 77 18 103/69 (80) 98 11/14/17 08:00 95.6 80 18 113/73 (86) 96 11/14/17 00:10 96.2 81 20 103/68 (80) 94 11/13/17 23:59 79 11/13/17 20:00 96.5 98 20 102/66 (78) 98 11/13/17 19:43 81 11/14/17 11/14/17 11/15/17 15:00 23:00 07:00 Intake Total 480 ml Output Total 1500 ml Balance -1020 ml Intake Oral 480 ml Output Urine Total 1500 ml Result Diagram: 11/13/17 0545 11/13/17 0545 Imaging Last Impressions Chest X-Ray 11/09/17 0034 Signed Impressions: Service Date/Time: Thursday, November 09, 2017 00:47 - CONCLUSION: 1. No acute cardiopulmonary disease. 2. Mild cardiomegaly status post median sternotomy. Nathanael Rolle MD Objective Remarks GENERAL: This is a well-nourished, well-developed patient, in no apparent distress. CARDIOVASCULAR: Regular rate and rhythm without murmurs, gallops, or rubs. RESPIRATORY: Clear to auscultation. Breath sounds equal bilaterally. No wheezes , rales, or rhonchi. GASTROINTESTINAL: Abdomen soft, non-tender, nondistended. Normal active bowel sounds MUSCULOSKELETAL: some improvement of pt's LE edema, 1+ NEURO: Alert & Oriented x4 to person, place, time, situation. Moves all ext x4 A/P Problem List: (1) Acute systolic CHF (congestive heart failure) ICD Codes: I50.21 - Acute systolic (congestive) heart failure Status: Acute Plan: - comgmt with Cardiology - acute on chronic systolic CHF - EF 20% on last echocardiogram (10/22/17) - AICD - h/o CAD, s/p 4V CABG - pt appear to have had some mild clinic improvement over the course of his hospitalization. - LE edema 1+ - Pt now receiving lasix 80mg daily - Entresto started (11/13) - request strict I&Os with daily weights (not bedscale) - fluid restriction - observe renal function - Outpt Cardiology: - working on referral for a Definity contrast enhanced echo to clarify if LV thrombus - some medication compliance issues. coreg, lisinopril, and antiplatelet drugs resumed upon admission after 10 hiatus - PT - DVT prophylaxis - supportive care (2) Acute worsening of stage 4 chronic kidney disease ICD Codes: N28.9 - Disorder of kidney and ureter, unspecified; N18.4 - Chronic kidney disease, stage 4 (severe) Status: Chronic Plan: - review of the pt's creatinine in the outpt records show a range of 2.0 to 2.7 for the last 3 months - outpt creatinine was 2.54 (10/31/17) - Creatinine 2.9 (11/09), 3.01 (11/13) - GFR ranging from 26 to 34 in the last 3 months - GFR 22 (11/09), 21 (11/13) - significant edema/anasarca - Pt receiving IV lasix, PO metolazone, and IV albumin - request Nephrology consultation (3) COPD (chronic obstructive pulmonary disease) ICD Codes: J44.9 - Chronic obstructive pulmonary disease, unspecified Status: Chronic Plan: - symbicort, spiriva - duonebs prn (4) DM2 (diabetes mellitus, type 2) ICD Codes: E11.9 - Type 2 diabetes mellitus without complications Status: Chronic Plan: - pt reports hypoglycemia and not regularly using his tresiba at home - continue SSI - observe (5) CAD (coronary artery disease) of artery bypass graft ICD Codes: I25.810 - CAD (coronary artery disease) of artery bypass graft Status: Chronic Plan: - ASA, palvix, coreg, renexa, lisinopril (6) PAD (peripheral artery disease) ICD Codes: I73.9 - PAD (peripheral artery disease) Status: Chronic (7) HTN (hypertension) ICD Codes: I10 - HTN (hypertension) Status: Chronic Plan: - stable - lisinopril, coreg Problem Qualifiers (1) COPD (chronic obstructive pulmonary disease): (2) DM2 (diabetes mellitus, type 2): Qualified Codes: E11.8 - Type 2 diabetes mellitus with unspecified complications; Z79.4 - prison (current) use of insulin (3) CAD (coronary artery disease) of artery bypass graft: Qualified Codes: I25.810 - Atherosclerosis of coronary artery bypass graft(s) without angina pectoris (4) HTN (hypertension): Qualified Codes: I10 - Essential (primary) hypertension Jorge Alberto Chong DO Nov 14, 2017 18:49
[2017-11-14 20:00] VITALS: BP 115/69; PULSE 82; RESP 16; TEMP 96.7; O2SAT 95
[2017-11-14] MEDS: PRAVASTATIN SOD 80 MG TAB PO SCH (21:00)
[2017-11-14] MEDS: ASPIRIN EC 81 MG TABEC PO SCH (21:00)
[2017-11-14] MEDS: CLOPIDOGREL 75 MG TAB PO SCH (21:00)
[2017-11-14] MEDS: ACETAMINOPHEN/HYDROcodone 325 MG/7.5 MG TAB PO PRN (21:55)
[2017-11-15] VITALS: BP 102/63; PULSE 83; RESP 16; TEMP 97.5; O2SAT 94
[2017-11-15 04:00] VITALS: BP 120/59; PULSE 78; RESP 16; TEMP 96; O2SAT 92
[2017-11-15 08:00] VITALS: BP 99/64; PULSE 73; RESP 18; TEMP 96.1; O2SAT 97
[2017-11-15] MEDS: INSULIN ASPART SUPPLEMENTAL SCALE SQ SCH ×4 (08:00→21:00)
[2017-11-15 08:17] LABS: AUTOMATED NEUTROPHIL # 4.3 TH/MM3 (1.8-7.7); BASOPHIL # 0.1 TH/MM3 (0-0.2); BASOPHIL % 1.1 % (0.0-2.0); EOSINOPHIL # 0.2 TH/MM3 (0-0.4); EOSINOPHIL % 3.2 % (0.0-4.0); HEMATOCRIT 36.6 % (39.0-51.0); HEMOGLOBIN 11.5 GM/DL (13.0-17.0); LYMPH % 16.2 % (9.0-44.0); MEAN CELL VOLUME 78.9 FL (80.0-100.0); MEAN CORPUSCULAR HEMOGLOBIN 24.7 PG (27.0-34.0); MEAN CORPUSCULAR HGB CONC 31.3 % (32.0-36.0); MEAN PLATELET VOLUME 12.2 FL (7.0-11.0); MONO % 11.1 % (0.0-8.0); MONOCYTE # 0.7 TH/MM3 (0-0.9); NEUT % 68.4 % (16.0-70.0); PLATELET COUNT 177 TH/MM3 (150-450); RED BLOOD COUNT 4.64 MIL/MM3 (4.50-5.90); RED CELL DISTRIBUTION WIDTH 19.1 % (11.6-17.2); WHITE BLOOD COUNT 6.2 TH/MM3 (4.0-11.0)
--- NOTE | 2017-11-15 08:30 | PD.CARD.PN ---
Subjective Subjective Remarks reports having a little more energy this morning and breathing better. no chest pain. (Agata Yao) Objective Medications Current Medications Medications (Trade) Dose Ordered Sig/Angel Route Start Time Stop Time Status Last Admin (NS Flush) 2 ml UNSCH PRN IV FLUSH 11/09/17 03:30 (NS Flush) 2 ml BID IV FLUSH 11/09/17 09:00 11/14/17 21:00 (Tylenol) 500 mg Q4H PRN PO 11/09/17 03:30 11/10/17 09:19 ([place] 7.5-325 Mg) 1 tab Q4H PRN PO 11/09/17 03:30 11/14/17 21:55 (Morphine Inj) 2 mg Q4H PRN IV PUSH 11/09/17 03:30 (Zofran Inj) 4 mg Q6H PRN IV PUSH 11/09/17 03:30 (Nitrostat Sl) 0.4 mg Q5M PRN SL 11/09/17 03:30 (NovoLOG SUPPLEMENTAL SCALE) 1 ACHS SLIDING SCALE SQ 11/09/17 12:00 11/14/17 21:00 (Ecotrin Ec) 81 mg HS PO 11/09/17 21:00 11/14/17 21:00 (Coreg) 12.5 mg Q12HR PO 11/09/17 10:00 11/14/17 21:00 (Plavix) 75 mg HS PO 11/09/17 21:00 11/14/17 21:00 (Flexeril) 10 mg Q8H PRN PO 11/09/17 10:00 (Ranexa) 500 mg Q12HR PO 11/09/17 10:00 11/14/17 21:00 (Spiriva Inh) 18 mcg DAILY INH 11/09/17 10:00 11/14/17 11:34 (Symbicort 160-4.5 Mcg Inh) 2 puff BID INH 11/09/17 09:30 11/14/17 21:00 (Protonix) 20 mg DAILY PO 11/09/17 10:00 11/14/17 11:31 (Pravachol) 80 mg HS PO 11/09/17 21:00 11/14/17 21:00 (Duoneb Neb) 1 ampule Q2HR NEB PRN NEB 11/09/17 10:00 11/14/17 18:00 (KCl) 20 meq BID PO 11/10/17 21:00 11/14/17 21:00 (Flomax) 0.4 mg DAILY PO 11/12/17 09:00 11/14/17 11:30 (Mycostatin Powder) 1 applic Q8HR TOPICAL 11/12/17 14:00 11/14/17 22:00 (Entresto 24-26 Mg) 1 tab BID PO 11/13/17 21:00 11/14/17 21:00 (Colace) 100 mg BID PO 11/13/17 10:15 11/14/17 21:00 (Milk Of Magnesia Liq) 30 ml DAILY PRN PO 11/13/17 10:15 11/13/17 11:23 (Lasix) 80 mg DAILY PO 11/15/17 09:00 (Atarax) 25 mg Q8H PRN PO 11/14/17 16:00 (Eucerin Cream) 1 applic Q6H PRN TOPICAL 11/14/17 16:00 Vital Signs / I&O Vital Signs Date Time Temp Pulse Resp B/P (MAP) Pulse Ox O2 Delivery O2 Flow Rate FiO2 11/15/17 04:00 96.0 78 16 120/59 (79) 92 11/15/17 00:00 97.5 83 16 102/63 (76) 94 11/14/17 20:00 96.7 82 16 115/69 (84) 95 11/14/17 16:00 96.8 81 18 105/73 (84) 98 11/14/17 14:05 95 11/14/17 12:00 96.5 77 18 103/69 (80) 98 I/O 11/14/17 11/14/17 11/14/17 11/15/17 11/15/17 11/15/17 07:00 15:00 23:00 07:00 15:00 23:00 Intake Total 480 ml 300 ml Output Total 250 ml 1500 ml 150 ml Balance -250 ml -1020 ml 150 ml Intake Oral 480 ml 300 ml Output Urine Total 250 ml 1500 ml 150 ml Physical Exam GENERAL: SKIN: Warm and dry. HEAD: Atraumatic. Normocephalic. EYES: Pupils equal and round. ENT: No nasal bleeding or discharge. . NECK: Trachea midline. No JVD. CARDIOVASCULAR: Regular rate and rhythm. no murmurs RESPIRATORY: No accessory muscle use. Clear to auscultation. Breath sounds equal bilaterally. GASTROINTESTINAL: Abdomen soft, non-tender, nondistended. . MUSCULOSKELETAL: Extremities without clubbing, cyanosis, or edema. No obvious deformities. NEUROLOGICAL: Awake and alert. No obvious cranial nerve deficits. Normal speech. PSYCHIATRIC: Appropriate mood and affect; insight and judgment normal. Laboratory Laboratory Tests Test 11/15/17 08:00 White Blood Count 6.2 TH/MM3 Red Blood Count 4.64 MIL/MM3 Hemoglobin 11.5 GM/DL Hematocrit 36.6 % Mean Corpuscular Volume 78.9 FL Mean Corpuscular Hemoglobin 24.7 PG Mean Corpuscular Hemoglobin Concent 31.3 % Red Cell Distribution Width 19.1 % Platelet Count 177 TH/MM3 Mean Platelet Volume 12.2 FL Neutrophils (%) (Auto) 68.4 % Lymphocytes (%) (Auto) 16.2 % Monocytes (%) (Auto) 11.1 % Eosinophils (%) (Auto) 3.2 % Basophils (%) (Auto) 1.1 % Neutrophils # (Auto) 4.3 TH/MM3 Lymphocytes # (Auto) 1.0 TH/MM3 Monocytes # (Auto) 0.7 TH/MM3 Eosinophils # (Auto) 0.2 TH/MM3 Basophils # (Auto) 0.1 TH/MM3 CBC Comment DIFF FINAL Differential Comment (Agata Yao) Assessment and Plan Problem List: (1) CHF (congestive heart failure) ICD Codes: I50.9 - Heart failure, unspecified (2) Ischemic cardiomyopathy ICD Codes: I25.5 - Ischemic cardiomyopathy (3) Chronic kidney disease ICD Codes: N18.9 - Chronic kidney disease, unspecified Status: Acute Assessment and Plan 62 yo M with cardiomyopathy ICD in place, CHF, CKD stge IV, CAD, COPD and diabetes who presents with weight gain, SOB and leg edema. acute on chronic CHF- diuresing well, creatinine increasing. metolazone stopped , now on lasix po CKD IV- nephrology following. monitor BMP cardiomyopathy- EF < 20%, ICD in place, Entresto started. cont carvedilol (Agata Yao) Assessment and Plan CHF - diuresis as Cr will allow. cont PO lasix. (Chandan Ramos MD) Problem Qualifiers (1) Chronic kidney disease: Qualified Codes: N18.4 - Chronic kidney disease, stage 4 (severe) Agata Yao Nov 15, 2017 08:30 Chandan Ramos MD Nov 15, 2017 10:35
[2017-11-15 08:37] LABS: BICARBONATE 25.4 MEQ/L (21.0-32.0); CALCIUM 8.7 MG/DL (8.5-10.1); CREATININE 3.26 MG/DL (0.60-1.30); MAGNESIUM 2.6 MG/DL (1.5-2.5)
[2017-11-15] MEDS: POTASSIUM CHLORIDE 20 MEQ CONTROLLED RELEASE TAB PO SCH ×2 (10:32→22:34)
[2017-11-15] MEDS: CARVEDILOL 12.5 MG TAB PO SCH ×2 (10:32→22:34)
[2017-11-15] MEDS: RANOLAZINE 500 MG EXTENDED RELEASE TAB PO SCH ×2 (10:32→21:00)
[2017-11-15] MEDS: TAMSULOSIN HCL 0.4 MG CAP PO SCH (10:32)
[2017-11-15] MEDS: SACUBITRIL/VALSARTAN 24 MG-26 MG TAB PO SCH ×2 (10:33→21:00)
[2017-11-15] MEDS: PANTOPRAZOLE SOD 20 MG DELAYED RELEASE TAB PO SCH (10:33)
[2017-11-15] MEDS: FUROSEMIDE 80 MG TAB PO SCH (10:33)
[2017-11-15] MEDS: NYSTATIN 100,000 U/GM PWD 15 GM BTL TOPICAL SCH ×3 (10:35→22:36)
[2017-11-15] MEDS: TIOTROPIUM BROMIDE 18 MCG INH INH SCH (10:35)
[2017-11-15] MEDS: DOCUSATE SODIUM 100 MG CAP PO SCH ×2 (10:37→22:35)
[2017-11-15] MEDS: BUDESONIDE-FORMOTEROL 160/4.5 MCG INHALER INH SCH ×2 (10:37→22:35)
[2017-11-15] MEDS: SODIUM CHLORIDE 0.9% FLUSH 10 ML FLUSH IV FLUSH SCH ×2 (10:41→22:36)
[2017-11-15] MEDS: hydrOXYzine HCL 25 MG TAB PO PRN (10:41)
--- NOTE | 2017-11-15 11:21 | HHI.PR ---
Subjective Remarks No new complaints. Objective Vitals Vital Signs Date Time Temp Pulse Resp B/P (MAP) Pulse Ox O2 Delivery O2 Flow Rate FiO2 11/15/17 08:00 96.1 73 18 99/64 (76) 97 11/15/17 04:00 96.0 78 16 120/59 (79) 92 11/15/17 00:00 97.5 83 16 102/63 (76) 94 11/14/17 20:00 96.7 82 16 115/69 (84) 95 11/14/17 16:00 96.8 81 18 105/73 (84) 98 11/14/17 14:05 95 11/14/17 12:00 96.5 77 18 103/69 (80) 98 Result Diagram: 11/15/17 0800 11/15/17 0800 Imaging Last Impressions Chest X-Ray 11/09/17 0034 Signed Impressions: Service Date/Time: Thursday, November 09, 2017 00:47 - CONCLUSION: 1. No acute cardiopulmonary disease. 2. Mild cardiomegaly status post median sternotomy. Nathanael Rolle MD Objective Remarks GENERAL: This is a well-nourished, well-developed patient, in no apparent distress. CARDIOVASCULAR: Regular rate and rhythm without murmurs, gallops, or rubs. RESPIRATORY: Clear to auscultation. Breath sounds equal bilaterally. No wheezes , rales, or rhonchi. GASTROINTESTINAL: Abdomen soft, non-tender, nondistended. Normal active bowel sounds MUSCULOSKELETAL: some improvement of pt's LE edema, 1+ NEURO: Alert & Oriented x4 to person, place, time, situation. Moves all ext x4 A/P Problem List: (1) Acute systolic CHF (congestive heart failure) ICD Codes: I50.21 - Acute systolic (congestive) heart failure Status: Acute Plan: - comgmt with Cardiology - acute on chronic systolic CHF - EF 20% on last echocardiogram (10/22/17) - AICD - h/o CAD, s/p 4V CABG - pt appear to have had some mild clinic improvement over the course of his hospitalization. - LE edema 1+ - Pt now receiving lasix 80mg daily - Entresto started (11/13) - request strict I&Os with daily weights (not bedscale) - fluid restriction - observe renal function - Outpt Cardiology: - working on referral for a Definity contrast enhanced echo to clarify if LV thrombus - some medication compliance issues. coreg, lisinopril, and antiplatelet drugs resumed upon admission after 10 hiatus - PT - DVT prophylaxis - supportive care - anticipate d/c 11/17 (2) Acute worsening of stage 4 chronic kidney disease ICD Codes: N28.9 - Disorder of kidney and ureter, unspecified; N18.4 - Chronic kidney disease, stage 4 (severe) Status: Chronic Plan: - comgmt with Nephrology - review of the pt's creatinine in the outpt records show a range of 2.0 to 2.7 for the last 3 months - outpt creatinine was 2.54 (10/31/17) - Creatinine 2.9 (11/09), 3.01 (11/13), 3.26 (11/15) - GFR ranging from 26 to 34 in the last 3 months - GFR 22 (11/09), 21 (11/13) - significant edema/anasarca - received IV lasix, PO metolazone, and IV albumin. Weaned to PO lasix - repeat labs in AM (3) COPD (chronic obstructive pulmonary disease) ICD Codes: J44.9 - Chronic obstructive pulmonary disease, unspecified Status: Chronic Plan: - symbicort, spiriva - duonebs prn (4) DM2 (diabetes mellitus, type 2) ICD Codes: E11.9 - Type 2 diabetes mellitus without complications Status: Chronic Plan: - pt reports hypoglycemia and not regularly using his tresiba at home - continue SSI - observe (5) CAD (coronary artery disease) of artery bypass graft ICD Codes: I25.810 - CAD (coronary artery disease) of artery bypass graft Status: Chronic Plan: - ASA, palvix, coreg, renexa, lisinopril (6) PAD (peripheral artery disease) ICD Codes: I73.9 - PAD (peripheral artery disease) Status: Chronic (7) HTN (hypertension) ICD Codes: I10 - HTN (hypertension) Status: Chronic Plan: - stable - lisinopril, coreg Problem Qualifiers (1) COPD (chronic obstructive pulmonary disease): (2) DM2 (diabetes mellitus, type 2): Qualified Codes: E11.8 - Type 2 diabetes mellitus with unspecified complications; Z79.4 - long term care phlebotomist (current) use of insulin (3) CAD (coronary artery disease) of artery bypass graft: Qualified Codes: I25.810 - Atherosclerosis of coronary artery bypass graft(s) without angina pectoris (4) HTN (hypertension): Qualified Codes: I10 - Essential (primary) hypertension Jorge Alberto Chong DO Nov 15, 2017 11:21
[2017-11-15 12:00] VITALS: BP 98/58; PULSE 56; PULSE 81; RESP 20; TEMP 96.7; O2SAT 98
--- NOTE | 2017-11-15 12:37 | HHI.NPPN ---
Subjective History of Present Illness 62 yo with systolic chf 20%, AICD, ckd 4, dm 2, copd, and cad. Patient present to hospital with SOB, wt gain, and peripheral edema. Reported weight gain of 10 LBS. Patient reports that he has had CKD for approximately 2 yearsy which he was told was related to his diabetes. He reported that his last GFR a couple of months ago was approximately around 18ml/min. He has been following with Dr. Cedillo. Additional Remarks Patient is alert, mild SOB,not in distress. Objective Data Data Vital Signs Date Time Temp Pulse Resp B/P (MAP) Pulse Ox O2 Delivery O2 Flow Rate FiO2 11/15/17 08:00 96.1 73 18 99/64 (76) 97 11/15/17 04:00 96.0 78 16 120/59 (79) 92 11/15/17 00:00 97.5 83 16 102/63 (76) 94 11/14/17 20:00 96.7 82 16 115/69 (84) 95 11/14/17 16:00 96.8 81 18 105/73 (84) 98 11/14/17 14:05 95 -: 11/15/17 0800 11/15/17 0800 Physical Exam General Appearance: No Acute Distress, Comfortable Eyes Eye Exam: Pupils Equal Throat Throat Exam: Oral Mucosa [place] & Moist Pulmonary Resp Exam: No Distress, Crackles, Rhonchi, Decreased Bases, Diminished Breath Sounds Cardiology CV Exam: Arrhythmia Gastrointestinal/Abdomen GI Exam: Soft, Non-Tender, Bowel Sounds Present, Distended Extremeties Extremities Exam: Moderate Edema, Pitting Edema Neurologic Neuro Exam: Alert, Awake, Oriented Psychiatric Psych Exam: Appropriate Responses Assessment/Plan Problem List: (1) CKD (chronic kidney disease) stage 4, GFR 15-29 ml/min ICD Codes: N18.4 - Chronic kidney disease, stage 4 (severe) Plan: Patient with CKD stage 4 possible related to diabetic nephropathy baseline creatinine per records in May at 2.1-2.3 He possibly has superimposed acute kidney injury with a creatinine of 3.01 at this hospitalization. Patient reported that a couple of months ago that his GFR has been declining and that it was 18 ml/min so possible his kidney function is worsening. Plan Will order UA C+S Continue lasix 80mg Continue to hold metolazone Atarax and emollient ordered for pruritus. Avoid nephrotoxins when possible Will monitor UOP and BMP. Creatinine increase to 3.2. Urine out put is adequate. Lasix was decreased, if Creatinine is better or stable, can be discharged with close out patient follow up. (2) HTN (hypertension) ICD Codes: I10 - HTN (hypertension) Status: Chronic Plan: Well controlled continue current medications Problem Qualifiers (1) HTN (hypertension): Qualified Codes: I10 - Essential (primary) hypertension Elise Schaeffer MD Nov 15, 2017 12:37
[2017-11-15 20:00] VITALS: BP 108/62; PULSE 84; RESP 20; TEMP 97; O2SAT 96
[2017-11-15 21:33] VITALS: BP 99/57; PULSE 85; RESP 18; TEMP 98.1; O2SAT 93
[2017-11-15] MEDS: PRAVASTATIN SOD 80 MG TAB PO SCH (22:34)
[2017-11-15] MEDS: ASPIRIN EC 81 MG TABEC PO SCH (22:34)
[2017-11-15] MEDS: ACETAMINOPHEN/HYDROcodone 325 MG/7.5 MG TAB PO PRN (22:34)
[2017-11-15] MEDS: CLOPIDOGREL 75 MG TAB PO SCH (22:35)
[2017-11-16] VITALS (11 sets, daily range): BP systolic 96–125; BP diastolic 56–88; PULSE 82–108; RESP 18–22; TEMP 97.6–98.9; O2SAT 93–99
[2017-11-16] MEDS: ACETAMINOPHEN/HYDROcodone 325 MG/7.5 MG TAB PO PRN (05:29)
[2017-11-16] MEDS: NYSTATIN 100,000 U/GM PWD 15 GM BTL TOPICAL SCH ×3 (05:29→21:35)
[2017-11-16] MEDS: INSULIN ASPART SUPPLEMENTAL SCALE SQ SCH ×4 (08:00→22:48)
[2017-11-16 08:38] LABS: BICARBONATE 25.7 MEQ/L (21.0-32.0); CALCIUM 9.1 MG/DL (8.5-10.1); CREATININE 3.34 MG/DL (0.60-1.30); MAGNESIUM 2.5 MG/DL (1.5-2.5)
--- NOTE | 2017-11-16 09:21 | PD.CARD.PN ---
Subjective Subjective Remarks breathing well. denies chest pain. (Agata Yao) Objective Medications Current Medications Medications (Trade) Dose Ordered Sig/Angel Route Start Time Stop Time Status Last Admin (NS Flush) 2 ml UNSCH PRN IV FLUSH 11/09/17 03:30 (NS Flush) 2 ml BID IV FLUSH 11/09/17 09:00 11/15/17 22:36 (Tylenol) 500 mg Q4H PRN PO 11/09/17 03:30 11/10/17 09:19 (Mora 7.5-325 Mg) 1 tab Q4H PRN PO 11/09/17 03:30 11/16/17 05:29 (Morphine Inj) 2 mg Q4H PRN IV PUSH 11/09/17 03:30 (Zofran Inj) 4 mg Q6H PRN IV PUSH 11/09/17 03:30 (Nitrostat Sl) 0.4 mg Q5M PRN SL 11/09/17 03:30 (NovoLOG SUPPLEMENTAL SCALE) 1 ACHS SLIDING SCALE SQ 11/09/17 12:00 11/15/17 17:00 (Ecotrin Ec) 81 mg HS PO 11/09/17 21:00 11/15/17 22:34 (Coreg) 12.5 mg Q12HR PO 11/09/17 10:00 11/15/17 22:34 (Plavix) 75 mg HS PO 11/09/17 21:00 11/15/17 22:35 (Flexeril) 10 mg Q8H PRN PO 11/09/17 10:00 (Ranexa) 500 mg Q12HR PO 11/09/17 10:00 11/15/17 10:32 (Spiriva Inh) 18 mcg DAILY INH 11/09/17 10:00 11/15/17 10:35 (Symbicort 160-4.5 Mcg Inh) 2 puff BID INH 11/09/17 09:30 11/15/17 22:35 (Protonix) 20 mg DAILY PO 11/09/17 10:00 11/15/17 10:33 (Pravachol) 80 mg HS PO 11/09/17 21:00 11/15/17 22:34 (Duoneb Neb) 1 ampule Q2HR NEB PRN NEB 11/09/17 10:00 11/14/17 18:00 (KCl) 20 meq BID PO 11/10/17 21:00 11/15/17 22:34 (Flomax) 0.4 mg DAILY PO 11/12/17 09:00 11/15/17 10:32 (Mycostatin Powder) 1 applic Q8HR TOPICAL 11/12/17 14:00 11/16/17 05:29 (Entresto 24-26 Mg) 1 tab BID PO 11/13/17 21:00 11/15/17 10:33 (Colace) 100 mg BID PO 11/13/17 10:15 11/15/17 22:35 (Milk Of Magnesia Liq) 30 ml DAILY PRN PO 11/13/17 10:15 11/13/17 11:23 (Lasix) 80 mg DAILY PO 11/15/17 09:00 11/15/17 10:33 (Atarax) 25 mg Q8H PRN PO 11/14/17 16:00 11/15/17 10:41 (Eucerin Cream) 1 applic Q6H PRN TOPICAL 11/14/17 16:00 Vital Signs / I&O Vital Signs Date Time Temp Pulse Resp B/P (MAP) Pulse Ox O2 Delivery O2 Flow Rate FiO2 11/16/17 08:28 97.6 86 20 125/67 (86) 98 11/16/17 06:29 18 11/16/17 04:00 98.8 82 18 110/57 (74) 96 11/16/17 00:00 98.1 84 20 96/56 (69) 94 11/15/17 21:33 98.1 85 18 99/57 (71) 93 11/15/17 20:00 97.0 84 20 108/62 (77) 96 11/15/17 12:00 81 11/15/17 12:00 96.7 56 20 98/58 (71) 98 I/O 11/15/17 11/15/17 11/15/17 11/16/17 11/16/17 11/16/17 07:00 15:00 23:00 07:00 15:00 23:00 Intake Total 300 ml 320 ml Output Total 150 ml 1200 ml Balance 150 ml -1200 ml 320 ml Intake Oral 300 ml 320 ml Output Urine Total 150 ml 1200 ml # Voids 5 # Bowel Movements 0 Physical Exam GENERAL: SKIN: Warm and dry. HEAD: Atraumatic. Normocephalic. EYES: Pupils equal and round. ENT: No nasal bleeding or discharge. NECK: Trachea midline. No JVD. CARDIOVASCULAR: Regular rate and rhythm. no murmurs RESPIRATORY: No accessory muscle use. Clear to auscultation. Breath sounds equal bilaterally. GASTROINTESTINAL: Abdomen soft, non-tender, nondistended. . MUSCULOSKELETAL: Extremities without clubbing, cyanosis, or edema. No obvious deformities. NEUROLOGICAL: Awake and alert. No obvious cranial nerve deficits. Normal speech. PSYCHIATRIC: Appropriate mood and affect; insight and judgment normal. Laboratory Laboratory Tests Test 11/16/17 07:25 Blood Urea Nitrogen 58 MG/DL Creatinine 3.34 MG/DL Random Glucose 150 MG/DL Calcium Level 9.1 MG/DL Magnesium Level 2.5 MG/DL Sodium Level 132 MEQ/L Potassium Level 5.0 MEQ/L Chloride Level 95 MEQ/L Carbon Dioxide Level 25.7 MEQ/L Anion Gap 11 MEQ/L Estimat Glomerular Filtration Rate 19 ML/MIN (Agata Yao) Assessment and Plan Problem List: (1) CHF (congestive heart failure) ICD Codes: I50.9 - Heart failure, unspecified (2) Ischemic cardiomyopathy ICD Codes: I25.5 - Ischemic cardiomyopathy (3) Chronic kidney disease ICD Codes: N18.9 - Chronic kidney disease, unspecified Status: Acute Assessment and Plan 62 yo M with cardiomyopathy ICD in place, CHF, CKD stge IV, CAD, COPD and diabetes who presents with weight gain, SOB and leg edema. acute on chronic CHF- diuresing well. creatinine increasing, now 3.3 lasix decreased to 80mg po. CKD IV- nephrology following. cardiomyopathy- EF < 20%, AICD cont Entresto,carvedilol (Agata Yao) Assessment and Plan trying to optimize CKD and CHF. watching Cr closely. continue current mgt (Chandan Ramos MD) Problem Qualifiers (1) Chronic kidney disease: Qualified Codes: N18.4 - Chronic kidney disease, stage 4 (severe) Agata Yao Nov 16, 2017 09:21 Chandan Ramos MD Nov 16, 2017 12:34
[2017-11-16] MEDS: SODIUM CHLORIDE 0.9% FLUSH 10 ML FLUSH IV FLUSH SCH ×2 (09:23→21:33)
[2017-11-16] MEDS: TIOTROPIUM BROMIDE 18 MCG INH INH SCH (09:23)
[2017-11-16] MEDS: BUDESONIDE-FORMOTEROL 160/4.5 MCG INHALER INH SCH ×2 (09:23→21:33)
[2017-11-16] MEDS: DOCUSATE SODIUM 100 MG CAP PO SCH ×2 (09:24→21:34)
[2017-11-16] MEDS: CARVEDILOL 12.5 MG TAB PO SCH ×2 (09:24→21:34)
[2017-11-16] MEDS: RANOLAZINE 500 MG EXTENDED RELEASE TAB PO SCH ×2 (09:24→21:33)
[2017-11-16] MEDS: FUROSEMIDE 80 MG TAB PO SCH (09:24)
[2017-11-16] MEDS: POTASSIUM CHLORIDE 20 MEQ CONTROLLED RELEASE TAB PO SCH ×2 (09:24→21:00)
[2017-11-16] MEDS: PANTOPRAZOLE SOD 20 MG DELAYED RELEASE TAB PO SCH (09:25)
[2017-11-16] MEDS: SACUBITRIL/VALSARTAN 24 MG-26 MG TAB PO SCH ×2 (09:25→21:34)
[2017-11-16] MEDS: hydrOXYzine HCL 25 MG TAB PO PRN (09:25)
[2017-11-16] MEDS: TAMSULOSIN HCL 0.4 MG CAP PO SCH (09:25)
[2017-11-16] MEDS ORDERED: SODIUM CHLOR 0.9% 1000 ML INJ 1,000 ML IV SCH (09:45)
--- NOTE | 2017-11-16 13:37 | HHI.PR ---
Subjective Remarks No new complaints. Pt feeling much better from admission. Pt is ambulating in the hallways with physical therapy. Objective Vitals Vital Signs Date Time Temp Pulse Resp B/P (MAP) Pulse Ox O2 Delivery O2 Flow Rate FiO2 11/16/17 12:02 98.0 88 20 107/71 (83) 99 11/16/17 12:00 85 11/16/17 11:47 Room Air 11/16/17 09:30 Room Air 11/16/17 08:28 97.6 86 20 125/67 (86) 98 11/16/17 08:00 85 11/16/17 06:29 18 11/16/17 04:00 98.8 82 18 110/57 (74) 96 11/16/17 00:00 98.1 84 20 96/56 (69) 94 11/15/17 21:33 98.1 85 18 99/57 (71) 93 11/15/17 20:00 97.0 84 20 108/62 (77) 96 Result Diagram: 11/15/17 0800 11/16/17 0725 Imaging Last Impressions Chest X-Ray 11/09/17 0034 Signed Impressions: Service Date/Time: Thursday, November 09, 2017 00:47 - CONCLUSION: 1. No acute cardiopulmonary disease. 2. Mild cardiomegaly status post median sternotomy. Nathanael Rolle MD Objective Remarks GENERAL: This is a well-nourished, well-developed patient, in no apparent distress. CARDIOVASCULAR: Regular rate and rhythm without murmurs, gallops, or rubs. RESPIRATORY: Clear to auscultation. Breath sounds equal bilaterally. No wheezes , rales, or rhonchi. GASTROINTESTINAL: Abdomen soft, non-tender, nondistended. Normal active bowel sounds MUSCULOSKELETAL: b/l LE edema much improved from admission. NEURO: Alert & Oriented x4 to person, place, time, situation. Moves all ext x4 A/P Problem List: (1) Acute systolic CHF (congestive heart failure) ICD Codes: I50.21 - Acute systolic (congestive) heart failure Status: Acute Plan: - comgmt with Cardiology - acute on chronic systolic CHF - EF 20% on last echocardiogram (10/22/17) - AICD - h/o CAD, s/p 4V CABG - pt has had marked improvement of his presenting 2+ edema over the course of his hospitalization - LE edema slight at this point - Pt had received BID IV lasix, BID zaroxoly, and IV albumin - Pt now receiving lasix 80mg daily - Entresto started (11/13) - request strict I&Os with daily weights (not bedscale) - fluid restriction - creatinine elevated at 3.34 (11/16). 2.94 (11/10) - will give 500ml NS, and repet BMP in AM - Outpt Cardiology: - working on referral for a Definity contrast enhanced echo to clarify if LV thrombus - some medication compliance issues. coreg, lisinopril, and antiplatelet drugs resumed upon admission after 10 hiatus - PT - DVT prophylaxis - supportive care - anticipate d/c to home with [facility] in next 1-2 days (2) Acute worsening of stage 4 chronic kidney disease ICD Codes: N28.9 - Disorder of kidney and ureter, unspecified; N18.4 - Chronic kidney disease, stage 4 (severe) Status: Chronic Plan: - comgmt with Nephrology - review of the pt's creatinine in the outpt records show a range of 2.0 to 2.7 for the last 3 months - outpt creatinine was 2.54 (10/31/17) - Creatinine 2.9 (11/09), 3.01 (11/13), 3.26 (11/15), 3.36 (11/16) - GFR ranging from 26 to 34 in the last 3 months - GFR 22 (11/09), 21 (11/13) - significant edema/anasarca with marked improvement from admission - received IV lasix, PO metolazone, and IV albumin. Weaned to PO lasix - 500ml IVF - Case d/w Dr. Schaeffer (11/16) - repeat BMP in AM (3) COPD (chronic obstructive pulmonary disease) ICD Codes: J44.9 - Chronic obstructive pulmonary disease, unspecified Status: Chronic Plan: - symbicort, spiriva - duonebs prn (4) DM2 (diabetes mellitus, type 2) ICD Codes: E11.9 - Type 2 diabetes mellitus without complications Status: Chronic Plan: - pt reports hypoglycemia and not regularly using his tresiba at home - start levemir 5 units BID (11/16) - continue SSI - observe (5) CAD (coronary artery disease) of artery bypass graft ICD Codes: I25.810 - CAD (coronary artery disease) of artery bypass graft Status: Chronic Plan: - ASA, palvix, coreg, renexa, lisinopril (6) PAD (peripheral artery disease) ICD Codes: I73.9 - PAD (peripheral artery disease) Status: Chronic (7) HTN (hypertension) ICD Codes: I10 - HTN (hypertension) Status: Chronic Plan: - stable - lisinopril, coreg Problem Qualifiers (1) COPD (chronic obstructive pulmonary disease): (2) DM2 (diabetes mellitus, type 2): Qualified Codes: E11.8 - Type 2 diabetes mellitus with unspecified complications; Z79.4 - skilled nursing (current) use of insulin (3) CAD (coronary artery disease) of artery bypass graft: Qualified Codes: I25.810 - Atherosclerosis of coronary artery bypass graft(s) without angina pectoris (4) HTN (hypertension): Qualified Codes: I10 - Essential (primary) hypertension Jorge Alberto Chong DO Nov 16, 2017 13:37
--- NOTE | 2017-11-16 13:39 | HHI.FF ---
Face to Face Verification Diagnosis: (1) PVD (peripheral vascular disease) (2) Diabetes mellitus (3) Chronic kidney disease (CKD) stage G3b/A2, moderately decreased glomerular filtration rate (GFR) between 30-44 mL/min/1.73 square meter and albuminuria creatinine ratio between 30-299 mg/g (4) Ischemic cardiomyopathy Physical Therapy Order: Evaluate and Treat, Improve ambulation, Strength and gait training Home Health Nursing Order: Medical education Signs/symptoms of disease process Diabetic education CHF education Medication education-adverse effect Nursing assessment with vital signs Auditor Appraiser Order: To Evaluate: Living conditions/environment, Support services Order: To Provide: Long range planning, Community services I have seen patient Nithin Gil on 11/16/17. My clinical findings support the need for the requested home health care services because: Ltd mobility - disease progression Patient has SOB Deconditioned w/ increased weakness Med compliance is questionable Limited ability to care for self Need for psychosocial assistance I certify that my clinical findings support that this patient is homebound because: Impaired cognitive ability/safety Unsafe to leave home unassisted Need for psychosocial assistance Unable to use public transportation Poor cardiac reserve Jorge Alberto Chong DO Nov 16, 2017 13:39
--- NOTE | 2017-11-16 14:35 | HHI.NPPN ---
Subjective History of Present Illness 62 yo with systolic chf 20%, AICD, ckd 4, dm 2, copd, and cad. Patient present to hospital with SOB, wt gain, and peripheral edema. Reported weight gain of 10 LBS. Patient reports that he has had CKD for approximately 2 yearsy which he was told was related to his diabetes. He reported that his last GFR a couple of months ago was approximately around 18ml/min. He has been following with Dr. Cedillo. Additional Remarks Patient is alert, mild SOB,not in distress, eating well. Objective Data Data Vital Signs Date Time Temp Pulse Resp B/P (MAP) Pulse Ox O2 Delivery O2 Flow Rate FiO2 11/16/17 12:02 98.0 88 20 107/71 (83) 99 11/16/17 12:00 85 11/16/17 11:47 Room Air 11/16/17 09:30 Room Air 11/16/17 08:28 97.6 86 20 125/67 (86) 98 11/16/17 08:00 85 11/16/17 06:29 18 11/16/17 04:00 98.8 82 18 110/57 (74) 96 11/16/17 00:00 98.1 84 20 96/56 (69) 94 11/15/17 21:33 98.1 85 18 99/57 (71) 93 11/15/17 20:00 97.0 84 20 108/62 (77) 96 -: 11/15/17 0800 11/16/17 0725 Physical Exam General Appearance: No Acute Distress, Comfortable Eyes Eye Exam: Pupils Equal Throat Throat Exam: Oral Mucosa [place] & Moist Pulmonary Resp Exam: No Distress, Crackles, Rhonchi, Decreased Bases, Diminished Breath Sounds Cardiology CV Exam: Arrhythmia Gastrointestinal/Abdomen GI Exam: Soft, Non-Tender, Bowel Sounds Present, Distended Extremeties Extremities Exam: Moderate Edema, Pitting Edema Neurologic Neuro Exam: Alert, Awake, Oriented Psychiatric Psych Exam: Appropriate Responses Assessment/Plan Problem List: (1) CKD (chronic kidney disease) stage 4, GFR 15-29 ml/min ICD Codes: N18.4 - Chronic kidney disease, stage 4 (severe) Plan: Patient with CKD stage 4 possible related to diabetic nephropathy baseline creatinine per records in May at 2.1-2.3 He possibly has superimposed acute kidney injury with a creatinine of 3.01 at this hospitalization. Patient reported that a couple of months ago that his GFR has been declining and that it was 18 ml/min so possible his kidney function is worsening. Plan Will order UA C+S Continue to hold metolazone Atarax and emollient ordered for pruritus. Avoid nephrotoxins when possible Will monitor UOP and BMP. Creatinine increase to 3.3 now. Urine out put is adequate. Lasix was decreased, possibly overdiuresis. Getting IVF Bolus 500 cc. If Creatinine better, possibly for D/C. Dr. Cedillo will follow from AM. (2) HTN (hypertension) ICD Codes: I10 - HTN (hypertension) Status: Chronic Plan: Well controlled continue current medications Problem Qualifiers (1) HTN (hypertension): Qualified Codes: I10 - Essential (primary) hypertension Elise Schaeffer MD Nov 16, 2017 14:35
[2017-11-16 18:32] LABS: BICARBONATE 20.1 MEQ/L (21.0-32.0); CALCIUM 8.9 MG/DL (8.5-10.1); CREATININE 3.29 MG/DL (0.60-1.30)
[2017-11-16] MEDS: ASPIRIN EC 81 MG TABEC PO SCH (21:34)
[2017-11-16] MEDS: PRAVASTATIN SOD 80 MG TAB PO SCH (21:34)
[2017-11-16] MEDS: CLOPIDOGREL 75 MG TAB PO SCH (21:34)
[2017-11-17] VITALS: BP 110/63; PULSE 102; RESP 20; TEMP 99; O2SAT 96
[2017-11-17 03:18] VITALS: O2SAT 54
[2017-11-17] MEDS ORDERED: INSULIN HUMAN REGULAR 1,000 UNITS/10 ML VIAL IV PUSH ONE (09:30)
[2017-11-17] MEDS ORDERED: DEXTROSE 50% IN WATER 50 ML VIAL(D50) IV PUSH ONE (09:30)
[2017-11-17] MEDS ORDERED: AMIODARONE HCL 150 MG/3 ML VIAL IV ONE (11:07)
[2017-11-17] MEDS ORDERED: CALCIUM CHLORIDE 10% SOLN 1 GRAM/10 ML SYR IV ONE (11:07)
[2017-11-17] MEDS ORDERED: EPINEPHrine HCL (1:10,000) 1 MG/10 ML SYRINGE IV ONE (11:07)
[2017-11-17] MEDS ORDERED: SODIUM BICARBONATE 8.4% INJ 50 MEQ/50 ML SYR IV ONE (11:07)
== END 2017-11-17 11:08 | disposition expired | DRG 291 ==
LOC: NEPE 22:15 → NEDA 11-09 03:21 → HOCA 11-09 04:30 → N04B 11-15 21:34
PROVIDERS: ADMIT Hospitalist; ATTEND Hospitalist
PROC: 5A12012 Performance of Cardiac Output, Single, Manual (ICD-10-PCS; principal; 2017-11-17)
PROC: 0BH17EZ Insertion of Endotracheal Airway into Trachea, Via Natural or Artificial Opening (ICD-10-PCS; 2017-11-17)
PROC: 5A2204Z Restoration of Cardiac Rhythm, Single (ICD-10-PCS; 2017-11-17)
DX: I13.0 Hypertensive heart and chronic kidney disease with heart failure and stage 1 through stage 4 chronic kidney disease, or unspecified chronic kidney disease (principal); I50.23 Acute on chronic systolic (congestive) heart failure; E11.21 Type 2 diabetes mellitus with diabetic nephropathy; N17.9 Acute kidney failure, unspecified; N18.4 Chronic kidney disease, stage 4 (severe); E11.51 Type 2 diabetes mellitus with diabetic peripheral angiopathy without gangrene; E11.22 Type 2 diabetes mellitus with diabetic chronic kidney disease; I48.91 Unspecified atrial fibrillation; E78.5 Hyperlipidemia, unspecified; J44.9 Chronic obstructive pulmonary disease, unspecified; K21.9 Gastro-esophageal reflux disease without esophagitis; I25.2 Old myocardial infarction; I25.10 Atherosclerotic heart disease of native coronary artery without angina pectoris; L29.9 Pruritus, unspecified; I25.5 Ischemic cardiomyopathy; K75.81 Nonalcoholic steatohepatitis (NASH); Z79.4 Long term (current) use of insulin; Z80.1 Family history of malignant neoplasm of trachea, bronchus and lung; Z82.49 Family history of ischemic heart disease and other diseases of the circulatory system; Z83.3 Family history of diabetes mellitus; Z87.891 Personal history of nicotine dependence; Z88.0 Allergy status to penicillin; Z91.19 Patient's noncompliance with other medical treatment and regimen; Z95.1 Presence of aortocoronary bypass graft; Z95.5 Presence of coronary angioplasty implant and graft; Z95.810 Presence of automatic (implantable) cardiac defibrillator
CPT/HCPCS: 31500; 71045; 80048; 80053; 82550; 82552; 82948; 83735; 83880; 84484; 85025; 85610; 85730; 92950; 93005; 94640; 94664; 96374; J0171; J0282; J1815; J1940; J7030; P9047